=== PATIENT | female | born 1930 | race Caucasian/White ===

== ENCOUNTER 2016-10-14 14:31 | Observation (INO) | payer MEDICARE, OTHER ==
[~2016-10-14] VITALS: Ht 157.5 cm; Wt 51.3 kg
[~2016-10-14 14:31] MED LIST: ASPIRIN EC81 MG PO; AZITHROMYCIN250 MG PO; COLACE100 MG PO; KEFLEX500 MG PO; NORCO 5-325 TA1 EACH PO; OCUVITE TABLET1 EAC1 PO; OMEGA 3 1,0001 EACH PO; OMEPRAZOLE20 MG PO; OXYBUTYNIN CHLO15 MG PO; PERCOCET 5-3251 EACH PO; POTASSIUM CHLO10 MEQ PO; SIMVASTATIN40 MG PO; TRIAMTERENE-HC1 EAC3 PO; VITAMIN D1000 UNIT PO; ZOFRAN ODT4 MG PO
[2016-10-14] MEDS ORDERED: CEFDINIR300 MG PO (15:47)
--- NOTE | 2016-10-14 19:10 | NUR ---
PT ARRIVED TO UNIT BY STRETCHER FROM ER. PT WAS AWAKE AND ALERT, JOKING AND LAUGHING. PT STATED THAT "SHE JUST CAN'T GET HER LEGS TO WORK". HEAVY 1 PERSON-2 PERSON ASSIST TO BSC. PT DENIES PAIN IN ANY LOCATION. NO NAUSEA OR VOMITING. PT VOIDING WELL.
--- NOTE | 2016-10-14 19:15 | NUR ---
SHIFT REPORT RECEIVED FROM YURI BECKER. PT IS CURRENTLY UP AT [facility] WITH COMMODITY MANAGEMENT SPECIALIST, WILL PROVIDE PRIVACY AT THIS TIME AND CONTINUE TO MONITOR.
--- NOTE | 2016-10-14 19:26 | EKG ---
[facility] [address] [facility] [place] [address] Signed Normal sinus rhythm Normal ECG When compared with ECG of 27-JAN-2016 19:16, No significant change was found Confirmed by SANDRA PACHECO MD ([id number]) on 10/14/2016 7:26:23 PM Electronically Signed By: SANDRA PACHECO MD 10/14/16 1926 PATIENT NAME: VICKI CHOI AWA Electrocardiogram DATE OF : 28 PHYSICIAN: SANDRA PACHECO MD REPORT #: [id number] REPORT IS CONFIDENTIAL AND NOT TO BE RELEASED WITHOUT AUTHORIZATION
--- NOTE | 2016-10-14 20:23 | NUR ---
ASSESSMENT COMPLETED. ALERT/ORIENTED. DENIES PAIN. DENIES NAUSEA. LUNGS CLEAR, RA. HR REGULAR. BOWEL TONES ACTIVE. UP WITH 1-PA TO VOID THEN RETURNED TO BED, TOLERATED WELL. PT REPORTS NUMBNESS IN HER RIGHT ARM THAT SHE HAS HAD SINCE RECEIVING AN INJECTION IN HER SHOULDER AWHILE BACK. DENIES NEEDS AT THIS TIME. CALL LIGHT IS WITHIN REACH.
--- NOTE | 2016-10-14 20:30 | NUR ---
PT REQUESTED TYLENOL STATING THAT SHE HAS PAIN AT NIGHT AND THAT THEY "HELP HER SLEEP." PRN TYLENOL PROVIDED FOR COMFORT. PT DENIES FUTHER REQUESTS AT THIS TIME.
--- NOTE | 2016-10-14 22:40 | NUR ---
IN TO GIVE PO POTASSIUM. PT THEN UP TO BSC WITH SBA. VOIDING WNL, URINE CLEAR. PT BACK TO BED, DENIES NEEDS AND STATES SHE IS GOING TO TRY TO SLEEP NOW.
--- NOTE | 2016-10-15 01:19 | NUR ---
PT UP TO BSC WITH SBA, VOIDED AND THEN RETURNED TO BED. DENIES FURTHER REQUESTS.
--- NOTE | 2016-10-15 01:34 | NUR ---
WHILE REVIEWING PT'S ORDERS, NOTICED PT NEEDED TO BE ON TELEMETRY. PLACED ON TELE #10. SINUS KATERINA TO SINUS RHYTHM, HR: 58-62. WILL CONTINUE TO MONITOR.
--- NOTE | 2016-10-15 02:24 | NUR ---
ASSESSMENT COMPLETED. ALERT/ORIENTED. DENIES PAIN. LUNGS CLEAR, RA. HR REGULAR, TELE #9, SINUS RHYTHM, HR: 60. BOWEL TONES ACITVE, HAD BM. VOIDING HOURLY. STRENGTH IN LEGS IMPROVING. IV PATENT, INFUSING WNL. DENIES FURTHER REQUESTS, WILL CONTINUE TO MONITOR.
--- NOTE | 2016-10-15 04:36 | NUR ---
ALERT/ORIENTED. NO PAIN. NO NAUSEA. LUNGS CLEAR, RA. HR REGULAR, TELE #10. BOWEL TONES ACTIVE, BM DURING SHIFT. VOIDING FREQUENTLY, UO QS. IV PATENT, D5LR @ 100ML/HR. RECEIVED 1 GRAM ROCEPHIN FOR UTI. RECEIVED 40MEQ PO K+ FOR POTASSIUM: 3.3. STRENGTH IN LOWER EXTREMITIES IMPROVING, 1-PA TO B[facility].
--- NOTE | 2016-10-15 09:00 | NUR ---
assisted patient with bed bath. refused oral care.
--- NOTE | 2016-10-15 09:02 | NUR ---
PT SITTING UP IN RECLINER. SHE REPORTS SHE HAS NO PAIN. TOLERATED 40% OF BREAKFAST THIS AM. SHE IS NOW SITTING UP IN RECLINER. ALERT AND ORIENTED
[2016-10-15] MEDS ORDERED: NORVASC5 MG PO (10:56)
[2016-10-15] MEDS ORDERED: CEPHALEXIN500 MG PO (10:57)
[2016-10-15] MEDS ORDERED: SIMVASTATIN40 MG PO (11:10)
--- NOTE | 2016-10-15 11:49 | NUR ---
PT SITTING UP EATING LUNCH. SHE REPORTS NO PAIN OR SYMPTOMS OF WEAKNESS SHE DID WELL WORKING WITH PHYSICAL THERAPY. DISCHARGE EDUCATIONS PROVIDED ON ACTIVITY/HYDRATION AND MEDICATIONS LAST DOSE NEXT DOSE. KEN FROM PHARMACY SUE IN ROOM FOR MEDICATION EDCUATIONS INCLUDING SIDE EFFECTS. PT VERBALIZES UNDERSTANDING AND LAST/NEXT DOSE WRITTEN ON DISCHARGE INSTRUCTIONS.PT REPORTS SHE LIKES THIS SHE HAS A HARD TIME REMEBERING. FOLLOW UP APPOINTMENT SCHEDULED.
== END 2016-10-15 12:10 | disposition home or self-care (01) ==
LOC: ED 14:31 → MS 14:32
PROVIDERS: ADMIT Internal Medicine
DX: E86.0 Dehydration (principal); I95.1 Orthostatic hypotension; E87.6 Hypokalemia; N30.00 Acute cystitis without hematuria; R26.2 Difficulty in walking, not elsewhere classified; I10 Essential (primary) hypertension; K21.9 Gastro-esophageal reflux disease without esophagitis; T50.2X5A Adverse effect of carbonic-anhydrase inhibitors, benzothiadiazides and other diuretics, initial encounter; E78.5 Hyperlipidemia, unspecified; R39.15 Urgency of urination; Z79.82 Long term (current) use of aspirin; Z85.810 Personal history of malignant neoplasm of tongue; Z79.899 Other long term (current) drug therapy; Z88.2 Allergy status to sulfonamides; Z88.8 Allergy status to other drugs, medicaments and biological substances
CPT/HCPCS: 36415; 51798; 80048; 80053; 81001; 83735; 84484; 85025; 87077; 87088; 87186; 93005; 93010; 96361; 96365; 96372; 96374; 97161; 99285; G0378; G8978; G8979; G8980; J0696; J1650; J3475; J7120

== ENCOUNTER 2017-08-22 13:12 | Emergency (ER) | payer MEDICARE, OTHER ==
[~2017-08-22] VITALS: Ht 157.5 cm; Wt 51.3 kg
[~2017-08-22 13:12] MED LIST changes: +CEFDINIR300 MG PO; +CEPHALEXIN500 MG PO; +NORVASC5 MG PO
[2017-08-22] MEDS ORDERED: TROSPIUM CHLORI60 MG PO (13:22)
[2017-08-22] MEDS ORDERED: RANITIDINE HCL150 MG PO (13:23)
[2017-08-22] MEDS ORDERED: CIPRO250 MG PO (17:13)
--- NOTE | 2017-08-22 18:28 | EKG ---
[facility] [address] [facility] [place], [place] [address] Signed Normal sinus rhythm Normal ECG When compared with ECG of 14-OCT-2016 14:37, No significant change was found Confirmed by HANNAH FROST MD ([id number]) on 08/22/2017 6:27:58 PM Electronically Signed By: HANNAH FROST MD 08/22/17 1828 PATIENT NAME: TAISHA CHOIWILBER BILLINGS Electrocardiogram DATE OF : 28 PHYSICIAN: HANNAH FROST MD REPORT #: [id number] REPORT IS CONFIDENTIAL AND NOT TO BE RELEASED WITHOUT AUTHORIZATION
== END 2017-08-22 17:20 | disposition home or self-care (01) ==
LOC: ED 13:12
DX: N39.0 Urinary tract infection, site not specified (principal); R11.10 Vomiting, unspecified; K21.9 Gastro-esophageal reflux disease without esophagitis; E78.5 Hyperlipidemia, unspecified; I10 Essential (primary) hypertension; Z88.2 Allergy status to sulfonamides; Z88.8 Allergy status to other drugs, medicaments and biological substances; Z79.899 Other long term (current) drug therapy; Z79.82 Long term (current) use of aspirin
CPT/HCPCS: 74176; 80053; 81001; 83690; 85025; 93005; 93010; 96361; 96374; 96375; 99284; J0696; J2405; J7030

== ENCOUNTER 2018-08-06 17:52 | Emergency (ER) | payer MEDICARE, OTHER ==
[~2018-08-06] VITALS: Ht 157.5 cm; Wt 51.3 kg
[~2018-08-06 17:52] MED LIST changes: +CIPRO250 MG PO; +RANITIDINE HCL150 MG PO; +TROSPIUM CHLORI60 MG PO
[2018-08-06] MEDS ORDERED: MOBIC7.5 MG PO (18:15)
[2018-08-06] MEDS ORDERED: POTASSIUM CHLO10 ME1 PO (18:15)
--- NOTE | 2018-08-06 20:39 | EKG ---
[facility] [address] [facility] [place], [place] [address] Signed Normal sinus rhythm Inferior infarct , age undetermined Abnormal ECG When compared with ECG of 22-AUG-2017 13:17, No significant change was found Confirmed by SANDRA PACHECO MD ([id number]) on 08/06/2018 8:39:06 PM Electronically Signed By: SANDRA PACHECO MD 08/06/18 2039 PATIENT NAME: VICKI CHOI Electrocardiogram DATE OF : 28 PHYSICIAN: SANDRA PACHECO MD REPORT #: [id number] REPORT IS CONFIDENTIAL AND NOT TO BE RELEASED WITHOUT AUTHORIZATION
[2018-08-06] MEDS ORDERED: PROMETHAZINE HC25 M1 PO (22:10)
[2018-08-06] MEDS ORDERED: MECLIZINE HCL25 MG PO (22:10)
== END 2018-08-06 22:24 | disposition home or self-care (01) ==
LOC: ED 17:52
DX: R42 Dizziness and giddiness (principal); K21.9 Gastro-esophageal reflux disease without esophagitis; E78.5 Hyperlipidemia, unspecified; I10 Essential (primary) hypertension; Z90.49 Acquired absence of other specified parts of digestive tract; Z90.710 Acquired absence of both cervix and uterus; Z88.2 Allergy status to sulfonamides; Z88.8 Allergy status to other drugs, medicaments and biological substances; Z79.899 Other long term (current) drug therapy; Z79.82 Long term (current) use of aspirin
CPT/HCPCS: 36415; 70450; 80053; 83735; 84484; 85025; 93005; 93010; 96374; 96375; 96376; 99284-25; J2405; J2550; J7040

== ENCOUNTER 2018-12-29 05:35 | Day surgery (SDC) | payer MEDICARE, OTHER ==
[~2018-12-29] VITALS: Ht 157.5 cm; Wt 49.0 kg
[~2018-12-29 05:35] MED LIST changes: +K-TAB ER20 MEQ PO; +MECLIZINE HCL25 MG PO; +MOBIC7.5 MG PO; +POTASSIUM CHLO10 ME1 PO; +PROMETHAZINE HC25 M1 PO
--- NOTE | 2018-12-29 08:44 | NUR ---
12/29/18 0844 Corinna Campbell 0830 PT ARRIVED IN PACU NON RESPONSIVE TO NOXIOUS STIMULI WITH OPA IN PLACE. 0840 PT RESTING. REU WITH OPA IN PLACE.
--- NOTE | 2018-12-29 10:10 | NUR ---
PATIENT WALKED TO BATHROOM WITH STANDBY ASSIST. GOT A LITTLE DIZZY, RETURNED PATIENT BACK TO BED.
--- NOTE | 2018-12-29 11:35 | NUR ---
PATIENT WALKED TO RESTROOM WITH ASSIST BUT WALKED ON HER OWN, WITHOUT TROUBLE
--- NOTE | 2018-12-30 17:39 | OR ---
[facility] [address] [facility] [place], [place] [address] Signed DATE OF OPERATION: 12/29/2018 SURGEON: Irsi Wheatley MD PREOPERATIVE DIAGNOSES: 1. Right hydronephrosis. 2. Overactive bladder. POSTOPERATIVE DIAGNOSES: 1. Right hydronephrosis. 2. Overactive bladder. 3. Right ureteropelvic junction obstruction. 4. 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 PROCEDURES: 1. Diagnostic cystoscopy with right retrograde pyelogram. 2. Insertion of indwelling right ureteral stent. ANESTHESIA: General LMA. ESTIMATED BLOOD LOSS: None. COMPLICATIONS: None. DRAINS: A 6 x 22 cm double-J ureteral stent inserted into the right collecting system. INDICATION FOR PROCEDURE: Annette is a very pleasant 88-year-old female who is well known to me. She has a history of overactive bladder, currently managed with trospium chloride ER 60 mg daily. The patient also has a history of asymptomatic right hydronephrosis and I have been following via q.6 month's renal ultrasounds. Her most recent ultrasound revealed stable vrdtcmkw-sa-[id number] right hydronephrosis. However, her most recent renal ultrasound also failed to reveal evidence of a right ureteral jet as the previous ultrasounds had done so. I had the patient bring her daughter in and I discussed the risks and benefits of evaluating her hydronephrosis, and placing a ureteral stent to force drainage of her right collecting system. After a thorough discussion of the risks and benefits Electronically Signed By: IRIS WHEATLEY MD 12/30/18 1739 PATIENT NAME: ANNETTE CHOI OPERATIVE REPORT DATE OF : 28 REPORT #: [id number] PHYSICIAN: IRIS WHEATLEY MD PCP: VENITA SALVADOR PA-C REPORT IS CONFIDENTIAL AND NOT TO BE RELEASED WITHOUT AUTHORIZATION [address] [address] Signed including the risks of worsening overactive bladder and gross hematuria, the patient elected to undergo cystoscopy with right retrograde pyelogram and right ureteral stent insertion. OPERATIVE FINDINGS: 1. On cystoscopy, there was no evidence of any suspicious masses, lesions, or stones. Bilateral ureteral orifices are in their normal anatomic location. There is diffuse grade 2 to 3 bladder wall trabeculation noted. 2. Visual inspection of the external genitalia reveals lmzb-yw-huwokyfv vaginal atrophy, along with the presence of a grade 2 to 3 rectocele. 3. Right retrograde pyelogram was performed, which revealed a completely patent right ureter, with no evidence of any filling defects that would suggest kidney stones, masses, or lesions. However, the pyelogram revealed evidence of a moderate ureteropelvic junction obstruction, along with severe right hydronephrosis. 4. A 6 x 22 cm double-J ureteral stent was inserted into the right kidney without difficulty under direct visualization. DESCRIPTION OF PROCEDURE: After informed consent was obtained, the patient was taken back to the operating room. She was transferred from the [facility] to the operating room table where general anesthesia was induced. She was placed in the dorsal lithotomy position and her genitalia prepped and draped in standard sterile fashion. Using a 30-degree lens on a 22.5-Ukrainian introducer, rigid cystoscope was inserted through urethra into her bladder under direct visualization. Panendoscopic views of the bladder were then obtained. Please see above findings. Attention was turned to the right ureteral orifice. A cone-tipped catheter was advanced to the level of the right ureteral orifice and a right retrograde pyelogram was performed. Please see above findings. The cone-tipped catheter was removed and a 0.035 Sensor wire was used to cannulate the right ureter, and the wire was advanced to the level of the right kidney. The proper placement of the wire was confirmed on fluoroscopy. Over the wire, a 6 x 22 double-J ureteral stent was inserted into the right collecting system under direct visualization without difficulty. Once the wire was pulled, an adequate proximal coil was seen within the right renal pelvis along with an adequate distal coil within the bladder. The patient's bladder was then drained and the cystoscope was removed. The procedure was then terminated. The patient tolerated the procedure well without any complication. She will now be transferred to the postanesthesia care unit in stable condition. DISPOSITION: I discussed the details of today's procedure with the patient's daughter and answered all of her questions. I foresee at this point in time that the patient will require q.6 month right ureteral stent exchanges in an effort to force drainage of the right kidney for as long as the patient can tolerate the indwelling stent. I warned to the patient's Electronically Signed By: IRIS WHEATLEY MD 12/30/18 2940 PATIENT NAME: ANNETTE CHOI OPERATIVE REPORT DATE OF : 29 REPORT #: [id number] PHYSICIAN: IRIS WHEATLEY MD PCP: VENITA SALVADOR PA-C REPORT IS CONFIDENTIAL AND NOT TO BE RELEASED WITHOUT AUTHORIZATION [address] [address] Signed daughter today that her overactive bladder symptoms may worsen with the presence of the stent and she also may notice blood in her urine. The patient's daughter is requesting that I add an additional medication to the patient's regimen for her overactive bladder. I therefore have written a prescription for Myrbetriq 25 mg p.o. daily with 6 refills. I told the patient's daughter that if the medication turns out to be the exorbitantly expensive, then she can try 6 weeks worth of samples, which can be obtained in our clinic. Otherwise, the patient will be sent home today with Augmentin 500 mg p.o. b.i.d. for 7 days, along with [place] 5/325, dispense #15 as needed for pain. The patient will return to clinic in 3 months with a urine check. At that time, I will order her a repeat renal ultrasound to evaluate her right kidney with the ureteral stent in place. She will be due for another right ureteral stent exchange in June of 2019. MD JOVANA Teixeira/EVY /[id number] Copies: ~ Electronically Signed By: IRIS WHEATLEY MD 12/30/18 1739 PATIENT NAME: ANNETTE CHOI OPERATIVE REPORT DATE OF : 29 REPORT #: [id number] PHYSICIAN: IRIS WHEATLEY MD PCP: VENITA SALVADOR PA-C REPORT IS CONFIDENTIAL AND NOT TO BE RELEASED WITHOUT AUTHORIZATION
== END 2018-12-29 11:20 | disposition home or self-care (01) ==
LOC: DS 05:35
PROVIDERS: Urology
PROC: 0T768DZ Dilation of Right Ureter with Intraluminal Device, Via Natural or Artificial Opening Endoscopic (ICD-10-PCS; principal; 2018-12-29 06:45)
PROC: BT1DYZZ Fluoroscopy of Right Kidney, Ureter and Bladder using Other Contrast (ICD-10-PCS; 2018-12-29 06:45)
DX: Q62.11 Congenital occlusion of ureteropelvic junction (principal); N32.81 Overactive bladder; N81.6 Rectocele
CPT/HCPCS: 00910; 74450; C1769; C2617; J0696; J1100; J2405; J2704; J3010; J7121; Q9958

== ENCOUNTER 2019-05-02 16:18 | Emergency (ER) | payer MEDICARE, OTHER ==
[~2019-05-02] VITALS: Ht 157.5 cm; Wt 47.2 kg
[2019-05-02] MEDS ORDERED: NORCO 5-325 TA1 EACH PO (18:11)
== END 2019-05-02 18:21 | disposition home or self-care (01) ==
LOC: ED 16:18
DX: M79.674 Pain in right toe(s) (principal); E78.5 Hyperlipidemia, unspecified; K21.9 Gastro-esophageal reflux disease without esophagitis; I10 Essential (primary) hypertension; Z88.2 Allergy status to sulfonamides; Z79.899 Other long term (current) drug therapy
CPT/HCPCS: 73660; 99283-25

== ENCOUNTER 2019-06-10 07:34 | Emergency (ER) | payer MEDICARE, OTHER ==
[~2019-06-10] VITALS: Ht 157.5 cm; Wt 49.9 kg
[2019-06-10] MEDS ORDERED: LATANOPROST2.5 ML OPTH (08:31)
[2019-06-10] MEDS ORDERED: TROSPIUM CHLORI60 MG PO (08:32)
== END 2019-06-10 08:18 | disposition home or self-care (01) ==
LOC: ED 07:34
DX: L30.9 Dermatitis, unspecified (principal); K21.9 Gastro-esophageal reflux disease without esophagitis; E78.5 Hyperlipidemia, unspecified; I10 Essential (primary) hypertension; Z85.810 Personal history of malignant neoplasm of tongue; Z90.89 Acquired absence of other organs; Z90.710 Acquired absence of both cervix and uterus; Z88.2 Allergy status to sulfonamides; Z88.8 Allergy status to other drugs, medicaments and biological substances; Z79.82 Long term (current) use of aspirin; Z79.899 Other long term (current) drug therapy
CPT/HCPCS: 99282

== ENCOUNTER 2019-07-23 18:55 | Emergency (ER) | payer MEDICARE, OTHER ==
[~2019-07-23] VITALS: Ht 157.5 cm; Wt 49.9 kg
--- OUTSIDE RECORDS SUMMARY | ~2019-07-23 | XMS | Encounter Summary ---
Demographics + + + | Address | [address] | | | [place] [address] | + + + | Home Phone [...] Author + + + | Author | [facility] | + + + | Organization | [facility] | + + + | Address | [...] Team Providers + +------+ + | Care Rigger Apprentice Name | Role | Phone | + +------+ + | Ganesh Hudson DO | PCP | | + +------+ + Reason for Visit + + + | Reason | Comments | + + + | Follow-up visit | | + + + PROC - Inpatient Surgery (Routine) +--------+--------+ + + + + | Status | Reason | Specialty | Diagnoses / | Referred By | Referred To | | | | | Procedures | Contact | Contact | +--------+--------+ + + + + | Closed | | Otolaryngolog | Diagnoses | Raul, | Sumner, | | | | y | Malignant | MD Petey | MD King | | | | | neoplasm of | [address] | [address] | | | | | dorsal | [address] | [place] | | | | | surface of | [place], | [address] [place], | | | | | tongue (HCC) | [place] [address] | [place] | | | | | Procedures | Phone: | [phone] | | | | | [place] | [phone] | Phone: | | | | | LARYNGOSCOPY | Fax: | [phone] | | | | | ,DIRECT,DIAG | [phone] | Fax: | | | | | NOSTIC [place] | | [phone] | | | | | LARYNGOSCOPY | | | | | | | ,DIRCT,OP,BI | | | | | | | OPSY UT | | | | | | | ESOPHAGOSCOP | | | | | | | Y,DIAGNOSTIC | | | | | | | UT PART | | | | | | | REMOVAL | | | | | | | TONGUE,<1/2 | | | | | | | UT PART | | | | | | | REMOVAL | | | | | | | TONGUE, 1/2 | | | | | | | UT PART EXC | | | | | | | | | | | | | | TONGUE,UNILA | | | | | | | T RAD NECK | | | | | | | UT | | | | | | | BIOPSY/EXCIS | | | | | | | ION, LYMPH | | | | | | | NODE(S) UT | | | | | | | BX/REMV,LYMP | | | | | | | H NODE,DEEP | | | | | | | CERV UT | | | | | | | REMOVAL | | | | | | | NODES, | | | | | | | NECK,CERV | | | | | | | MOD RAD UT | | | | | | | LO MAP OF | | | | | | | SENT LYMPH | | | | | | | NODE | | | +--------+--------+ + + + + Encounter Details +--------+---------+ + + + | Date | Type | Department | Care Team | Description | +--------+---------+ + + + | 07/10/ | Office | Otolaryngology | King [place]ner, | Tongue cancer (HCC) | | 2012 | Visit | Head and Neck | MD [address] | (Primary Dx) | | | | Surgery Services at | [facility] | | | | | [facility] [address] | [place], [place] | | | | | [address] | [address] | | | | | Physician's | [phone] | | | | | [facility] floor | | | | | | [place], [place] | | | | | | [address] | | | | | | [phone] | | | +--------+---------+ + + + Social History + +-------+ [...] + + + | Blood Pressure | 147/79 | 07/11/2011 2:21 PM | | | | | PDT | | + + + + + | Pulse | 74 | 07/11/2011 2:21 PM | | | | | PDT | | + + + + + | Temperature | - | - | | + + + + + | Respiratory Rate | - | - | | + + + + + | Oxygen Saturation | - | - | | + + + + + | Inhaled Oxygen | - | - | | | Concentration | | | | + + + + + | Weight | 54.8 kg (120 lb 14.4 | 07/11/2011 2:21 PM | | | | oz) | PDT | | + + + + + | Height | - | - | | + + + + + | Body Mass Index | 22.11 | 06/28/2011 10:00 AM | | | | | PDT | | + + + + + documented in this encounter Progress Notes King Sumner MD - 07/12/2011 3:10 PM PDTHead and Neck Surgery Follow-Up Note Annette Eric is seen back after her operation on 06/28/11. 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 Left partial glossectomy. 2. Left neck sentinel lymph node biopsy. She reports still on soft foods, no choking episodes and min odynophagia. Occasionally will sense some pt in the evening, but this is tolerable. Uses OTC pain medication diet- soft weight-stable PE: Incision site: no evidence of seroma, well approximated, no erythema or edema Oral: Tongue healing, adhering to the FOM. Stitches dehisced Neck: moderate edema of the L submandibular region, mildly tender Pathology: SURGICAL PATHOLOGY: SOURCE OF SPECIMEN:A Left neck sentinel lymph nodes SOURCE OF SPECIMEN:B Left tongue cancer FS Final Pathologic Diagnosis: A: Left neck sentinel lymph nodes, dissection: - Ten lymph nodes, negative for malignancy (0/10) B: Left tongue cancer, partial glossectomy: - Invasive squamous cell carcinoma, poorly differentiated, invading tongue with overlying ulceration - Tumor measures 1.4 cm in greatest dimension - Margins free of tumor - No angiolymphatic invasion identified - AJCC Pathologic Staging (7th edition): rpT1 N0 (includes all specimens) Comment: Greatest dimension of the tumor (which consists of cords and sheets of poorly differentiated cells) is estimated from the dorsal to ventral measurement: D-V 3.3 cm divided by 7 slices = approximately 0.47 cm per slice, tumor involved by 3 slices = approximately 1.4 cm in greatest dimension. Case seen by: Alexandria Soni/Student Fellow Vicky Monet M.D./Pathologist :apurva Lip and Oral Cavity Cancer Synopsis Specimen: hemiglossectomy Received: Fresh Procedure: Resection, glossectomy left hemiglossectomy Specimen Size: 3.3 x 2.2 x 1.7cm Specimen Laterality: Left Tumor Site(s): Not specified Tumor Focality: Single focus Tumor Size: Greatest dimension: 1.4cm Gross subtype Histologic Type Squamous cell carcinoma, conventional Histologic Grade: G3 Margins: Negative for invasive carcinoma Angiolymphatic Invasion: Absent Perineural Invasion: Absent Lymph Nodes, Extranodal Extension: Not identified AJCC Stage (7th Edition) (pTNM) TNM Descriptors: r (recurrent) Primary Tumor (pT): pT1 Regional Lymph Nodes (pN): pN0 Number of regional lymph nodes involved: 0 Number of regional lymph nodes examined: 10 Distant Metastasis (pM): Not Applicable Intraoperative Consult (Frozen Section) Diagnosis: Left tongue cancer (specimen B): - Poorly differentiated carcinoma - Anterior, posterior and medial margins, free of tumor as sampled Intraoperative consult diagnosis confirmed by: Hunter Mayer/Student Fellow and Vicky Monet M.D./Pathologist Clinical History: The patient is an 80-year-old female with tongue cancer. Gross Description: Received are 2 specimens fresh in containers labeled with the patient name (initials LS) and: A: Left neck sentinel lymph node: Measurement: 3 x 3 x 1.2 cm Tissue color, texture: Yellow-red and lobulated Number of possible lymph nodes: 11 Color of lymph nodes: [id number]-fi-bzm Size of lymph nodes: Ranging in size from 0.5 x 0.3 x 0.3 cm to 2.3 x 0.9 x 0.6 cm Other structures: None All lymphoid tissue is entirely submitted. B: Left tongue cancer: Received is a 3.3 (DV) x 2.2 (AP) x 1.7 (ML) cm oriented excision of tongue. Orienting sutures indicate the short single is anterior, short double is posterior, long single is dorsal, and long double is ventral. The specimen is inked according to the color scheme: Anterior is blue, posterior is green, ventral is orange, dorsal yellow, and medial is black. The mucosa contains a 0.8 x 0.6 x 0.6 cm central, pink ulceration. The entire specimen is serially sectioned from the ventral to dorsal end. The lesion appears grossly 0.1 cm from the anterior margin, 0.1 cm from the posterior margin, 1 cm from the ventral margin, and 0.8 cm from the dorsal margin. The section with the nearest margin is taken for frozen section diagnosis. Cassette Index: A: Left neck sentinel lymph node: A1, one possible lymph node, bisected, one intact possible lymph node A2, four possible lymph nodes A3, five possible lymph nodes B: Left tongue cancer: B1, frozen section residue B2, perpendicular sections of entire ventral margin B3-6, sequentially submitted sections from ventral to dorsal margins B7, perpendicular sections of entire dorsal margin AMJ/sg My electronic signature indicates that I have personally reviewed all diagnostic slides, the gross and/or microscopic portion of this report and formulated the final diagnosis. Rendering Diagnostician: Vicky Monet M.D Impresssion: hx of SCC of the L side of the lateral tongue, s/p L hemiglossectomy and L nec k sentinel node bx Plan: Pathology results were reviewed. No further treatment advised Cont mouth wash Reviewed incision care RTO 1 month documented in this en counter Plan of Treatment Not on filedocumented as of this encounter Visit Diagnoses + + | Diagnosis | + + | Tongue cancer (HCC) - Primary Malignant neoplasm of tongue, unspecified site | + + documented in this encounter"
--- OUTSIDE RECORDS SUMMARY | ~2019-07-23 | XMS | Encounter Summary ---
Demographics + + + | Address | [address] | | | [place] [address] | + + + | Home Phone | | + + + | Preferred Language | Unknown | + + + | Marital Status | Single | + + + | Confucianism Affiliation | CHR | + + + | Race | White | + + + | Ethnic Group | Not or | + + + Author + + + | Author | [facility] | + + + | Organization | [facility] | + + + | Address [...] Team Providers + +------+ + | Care Manager Grant Name | Role | Phone | + +------+ + | Ganesh Hudson DO | PCP | | + +------+ + Reason for Visit + + + | Reason | Comments | + + + | Follow-up visit | | + + + Consultation (Routine) +--------+--------+ + + + + | Status | Reason | Specialty | Diagnoses / | Referred By | Referred To | | | | | Procedures | Contact | Contact | +--------+--------+ + + + + | Closed | | Otolaryngolog | Diagnoses | Non-[facility] | Burak, | | | | y | Malignant | Epic Dept | MD King | | | | | neoplasm of | | [address] | | | | | tongue, | | [facility] | | | | | unspecified | | [address] [place], | | | | | site | | [place] | | | | | | | [address] | | | | | | | Phone: | | | | | | | [phone] | | | | | | | Fax: | | | | | | | [phone] | +--------+--------+ + + + + Encounter Details +--------+---------+ + + + | Date | Type | Department | Care Team | Description | +--------+---------+ + + + | 06/05/ | Office | Otolaryngology | King Sumner, | Tongue cancer (HCC) | | 2011 | Visit | Head and Neck | [address] | (Primary Dx) | | | | Surgery Services at | [facility] | | | | | [address] | [facility] [place] | | | | | [address] | [address] | | | | | Physician's | [phone] | | | | | Pavilion, 2nd floor | | | | | | [facility] [place] | | | | | | [address] | | | | | | [phone] | | | +--------+---------+ + + + Social History + +-------+ +--------+------+ | Tobacco Use | Types | Packs/Day | Years | Date | | | | | Used | | + +-------+ +--------+------+ | Never Smoker | | | | | + +-------+ +--------+------+ + + +---------+ + | Alcohol Use | Drinks/Week | oz/Week | Comments | + + +---------+ + | No | | | | + + +---------+ + + + [...] + + + | Blood Pressure | 184/80 | 06/06/2011 1:40 PM | | | | | PDT | | + + + + + | Pulse | 80 | 06/06/2011 1:40 PM | | | | | PDT [...] + + + + | Weight | 57.5 kg (126 lb 12.8 | 06/06/2011 1:40 PM | | | | oz) | PDT | | + + + + + | Height | - | - | | + + + + + | Body Mass Index | - | - | | + + + + + documented in this encounter Progress Notes King Sumner MD - 06/14/2011 1:29 PM PDTFormatting of this note might be different fro m the original. Ms. Eric returns for a f/u visit. She is doing OK but notes that she continues to have a lesion on the left side of her tongu e that is quite tender. Patient Active Problem List Diagnoses Date Noted Hypertension 05/13/2009 Hypercholesteremia 05/13/2009 Tongue Cancer 05/01/2006 Past Medical History Diagnosis Date Cancer of tongue Hypertension 05/13/2009 Hypercholesteremia 05/13/2009 Past Surgical History Procedure Date Partial glossectomy 04/05 Replacement shoulder total 04/11/2010 Allergies Allergen Reactions Sulfa (Sulfonamide Antibiotics) Nausea Current Outpatient Prescriptions on File Prior to Visit Medication Sig Dispense Refill BETA-CAROTENE,A, W-C & E/MIN (OCUVITE OR) Take by mouth. simvastatin 40 mg Oral Tablet Take 40 mg by mouth once daily in the evening. tolterodine ER (DETROL LA) 4 mg Oral Capsule, Sust. Release 24 hr 1d triamterene-hydrochlorothiazide 37.5-25 mg Oral Capsule 1D History Substance Use Topics Smoking status: Never Smoker Smokeless tobacco: Not on file Alcohol Use: No Physical Examination: healthy appearing female Voice: Normal BP 184/80 | Pulse 80 | Wt 57.516 kg (126 lb 12.8 oz) Face: Normal facial contour and facial nerve function. No suspicious skin lesions noted on scalp, face or neck. Eyes: Normal extraocular motions bilaterally. Pupils equal bilaterally. Vision grossly inta ct. Ears: Normal pinnae, external canals and tympanic membranes bilaterally, Hearing grossly in tact Nose: External nose - Normal Nasal cavity - No masses, purulence, polyps Oral cavity: Dentition - Edentulous Tongue mobility - normal Palate mobility - normal Mucosa - No mucosal lesions noted on hard palate, upper or lower alveolous, buccal mucosa, floor of mouth, lips or tongue. Except that there is a 8 mm shallow ulcer on the left side o f the tongue. Oropharynx: Tonsils - Normal Base of tongue - Mirror exam and Normal Mucosa - No mucosal lesions seen Larynx: Supraglottis - Mirror exam and Normal Glottis - Mirror exam and Normal Pharynx: Mirror exam and Normal Parotid glands: No masses palpable on either side. Neck: No adenopathy on either side. No thyromegaly palpable Procedure: Biopsy of tongue Consent obtained and pause held with patient. Anesthesia: 1% lidocaine with epi Biopsy taken & sent to path. Will call her back with results when they are available. King Sumner MD Professor of Otolaryngology, Head & Neck Surgery documented in this en counter Plan of Treatment Not on filedocumented as of this encounter Procedures + +--------+ + + + | Procedure Name | Priori | Date/Time | Associated Diagnosis | Comments | | | ty | | | | + +--------+ + + + | MI BIOPSY | Routin | 06/14/2011 | Tongue cancer | | | TONGUE,ANTER 2/3 | e | 1:31 PM | (HCC) | | | | | PDT | | | + +--------+ + + + documented in this encounter Visit Diagnoses + + | Diagnosis | + + | Tongue cancer (HCC) - Primary Malignant neoplasm of tongue, unspecified site | + + documented in this encounter"
--- OUTSIDE RECORDS SUMMARY | ~2019-07-23 | XMS | Clinical Summary ---
Demographics + + + | Address | [address] | | | [place] [address] | + + + | Home Phone | | + + + | Preferred Language | Unknown | + + + | Marital Status | | + + + | Roman Catholic Affiliation | 1077 | + + + | Race | Unknown | + + + | Ethnic Group | Unknown | + + + Author + + + | Author | [facility] | | | and [place] | + + + | Organization | [facility] | | | and [place] | + + + | Address | Unknown | + + + | Phone | Unavailable | + + + Support + + + + + | Name | Relationship | Address | Phone | + + + + + | Vicki Veronica | LEON | ANIKET | | | | | [place], | | + + + + + Care Team Providers + +------+ + | Care Oil Burner Installer Name | Role | Phone | + +------+ + | Ganesh Hudson DO | PCP | | + +------+ + Allergies No Known Allergies Medications + + + +---------+------+------+-------+ | Medication | Sig | Dispensed | Refills | Star | End | Statu | | | | | | t | Date | s | | | | | | Date | | | + + + +---------+------+------+-------+ | omeprazole | Take 20 mg by mouth | | 0 | | | Activ | | (PRILOSEC) 20 mg | every morning | | | | | e | | capsule | (before breakfast). | | | | | | | | | | | | | | + + + +---------+------+------+-------+ | oxybutynin | Take 15 mg by mouth | | 0 | | | Activ | | (DITROPAN XL) 15 MG | Daily. | | | | | e | | 24 hr tablet | | | | | | | + + + +---------+------+------+-------+ | | Take 40 mg by mouth. | | 0 | | | Activ | | Phenyleph-Chlorphen- | | | | | | e | | Hydrocod (TRIANT-HC | | | | | | | | PO) | | | | | | | + + + +---------+------+------+-------+ | simvastatin | Take 40 mg by mouth | | 0 | | | Activ | | (ZOCOR) 40 mg tablet | nightly. | | | | | e | + + + +---------+------+------+-------+ | aspirin 81 mg EC | Take 81 mg by mouth | | 0 | | | Activ | | tablet | Daily. | | | | | e | + + + +---------+------+------+-------+ | Multiple | Take by mouth. | | 0 | | | Activ | | Vitamins-Minerals | | | | | | e | | (OCUVITE PO) | | | | | | | + + + +---------+------+------+-------+ | cholecalciferol | Take 1,000 Units by | | 0 | | | Activ | | (VITAMIN D-3) 1,000 | mouth Daily. | | | | | e | | units tablet | | | | | | | + + + +---------+------+------+-------+ Active Problems + + + | Problem | Noted Date | + + + | Cervical stenosis of spine | 03/25/2012 | + + + | Degenerative disc disease, cervical | 03/25/2012 | + + + | Spondylolisthesis of cervical region | 03/25/2012 | + + + | High blood pressure | | + + + | High cholesterol | | + + + | Osteopenia | | + + + | Osteoporosis | | + + + Family History + + +------+ + | Medical History | Relation | Name | Comments | + + +------+ + | Arthritis | Father | | | + + +------+ + | Arthritis | Mother | | | + + +------+ + | Cancer | Mother | | | + + +------+ + | Cancer | Sister | | | + + +------+ + + +------+ + + | Relation | Name | Status | Comments | + +------+ + + | Father | | | old age | | | | (Age | | | | | 78) | | + +------+ + + | Mother | | | Cancer | + +------+ + + | Sister | | | | | | | (Age | | | | | Cancer) | | + +------+ + + Social History + +-------+ +--------+------+ [...] +---------+ + | Yes | | | Moderately | + + +---------+ + + + [...] recent travel history available. | + + Last Filed Vital Signs + + + + + | Vital Sign | Reading | Time Taken | Comments | + + + + + | Blood Pressure | 131/72 | 03/25/2012 11:28 AM | | | | | PST | | + + + + + | Pulse | 70 | 03/25/2012 11:28 AM | | | | | PST | | + + + + + | Temperature | - | - | | + + + + + | Respiratory Rate | 16 | 03/25/2012 11:28 AM | | | | | PST | | + + + + + | Oxygen Saturation | - | - | | + + + + + | Inhaled Oxygen | - | - | | | Concentration | | | | + + + + + | Weight | 55.3 kg (122 lb) | 03/25/2012 11:28 AM | | | | | PST | | + + + + + | Height | 157.5 cm (5' 2") | 03/25/2012 11:28 AM | | | | | PST | | + + + + + | Body Mass Index | 22.31 | 03/25/2012 11:28 AM | | | | | PST | | + + + + + Plan of Treatment + + + + + | Health Maintenance | Due Date | Last Done | Comments | + + + + + | Vaccine: | | | | | Dtap/Tdap/Td (1 - | 1 | | | | Tdap) | | | | + + + + + | Vaccine: Zoster (1 | | | | | of 2) | 0 | | | + + + + + | Vaccine: | | | | | Pneumococcal 65+ (1 | 5 | | | | of 2 - PCV13) | | | | + + + + + | Primary Care | | 03/25/2012, 01/22/2012 | | | Outreach (Moderate | 4 | | | | Risk) | | | | + + + + + | Vaccine: Influenza | | 12/27/2017, 12/11/2016, | | | (Season Ended) | 0 | 02/20/2016, Additional history | | | | | exists | | + + + + + Results Not on filefrom Last 3 Months Insurance + +--------+ +--------+ +---------+--------+ | Payer | Benefi | Subscriber | Effect | Phone | Address | Type | | | t Plan | ID | trey | | | | | | / | | Dates | | | | | | Group | | | | | | + +--------+ +--------+ +---------+--------+ | [employer] | PRE[place]E | [id number] | 01/15/ | [phone] | | Medica | | | R CARE | | 2012-P | 8 | | re | | | PLUS | | resent | | | | | | [place] | | | | | | | | [place] [address] | | | | | | + +--------+ +--------+ +---------+--------+ + +--------+ +--------+ + + | Guarantor Name | Accoun | Relation to | Date | Phone | Billing Address | | | t Type | Patient | of | | | | | | | | | | + +--------+ +--------+ + + | Annette Eric | Person | Self [birth year] | [address] | | | al/Fam | | 1931 | [phone] | [place] | | | [place] | | | [address] (Home) | [phone] | + +--------+ +--------+ + + Advance Directives + + + + + | Type | Date Recorded | Patient | Explanation | | | | Campus Security Director | | + + + + + | Power of | | | | | Residential Sales Associate | | | | + + + + + | Advance | | | | | Directive | | | | + + + + +
--- OUTSIDE RECORDS SUMMARY | ~2019-07-23 | XMS | Encounter Summary ---
Demographics + + + | Address | [address] | | | [place] [address] | + + + | Home Phone | | + + + | Preferred Language | Unknown | + + + | Marital Status | Single | + + + | Gnosticist Affiliation | CHR | + + + | Race | White | + + + | Ethnic Group | Not or | + + + Author + + + | Author | [facility] | + + + | Organization | [facility] | + + + | [...] Team Providers + +------+ + | Care Software Test And Validation Engineer Name | Role | Phone | + +------+ + | Ganesh Hudson DO | PCP | | + +------+ + Reason for Visit + + + | Reason | Comments | + + + | Pre-Admission | | + + + Encounter Details +--------+ + + + + | Date | Type | Department | Care Team | Description | +--------+ + + + + | 08/21/ | PreAdmit | [facility] | Mao Ayon MD | Pre-Admission | | 2018 | Orders | [place] | [address] | | | | | Oculoplastics at | [address] [place], [place] | | | | | [address] | [address] | | | | | [address] | [phone] | | | | | [facility] [place] | | | | | | [facility] floor | | | | | | [place] [address] | | | | | | [phone] | | | +--------+ + + + [...] + | Diagnosis | + + | 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
--- OUTSIDE RECORDS SUMMARY | ~2019-07-23 | XMS | Encounter Summary ---
Demographics + + + | Address | [address] | | | [place] [address] | + + + | Home Phone | | + + + | Preferred Language | Unknown | + + + | Marital Status | Single | + + + | Mormon Affiliation | CHR | + + + | Race | White | + + + | Ethnic Group | Not or | + + + Author + + + | Author | [facility] | + + + | Organization | [facility] | + + + | Address [...] Providers + +------+ + | Care Manager Front Name | Role | Phone | + +------+ + | Ganesh Hudson DO | PCP | | + +------+ + Reason for Visit + + + | Reason | Comments | + + + | Pre-Admission | | + + + AUTH/CERT (Routine) +--------+--------+ + + + + | Status | Reason | Specialty | Diagnoses / | Referred By | Referred To | | | | | Procedures | Contact | Contact | +--------+--------+ + + + + | Closed | | | | | | +--------+--------+ + + + + Encounter Details +--------+---------+ + + + | Date | Type | Department | Care Team | Description | +--------+---------+ + + + | 06/26/ | Office | Otolaryngology | [facility] | Tongue cancer (HCC) | | 2011 | Visit | Head and Neck | M, ANP | (Primary Dx) | | | | Surgery Services at | | | | | | [address] | | | | | | [address] | | | | | | Physician's | | | | | | Pavilion, 2nd floor | | | | | | [place], [place] | | | | | | [address] | | | | | | [phone] | | | +--------+---------+ + + + [...] this encounter Last Filed Vital Signs + +---------+ + + | Vital Sign | Reading | Time Taken | Comments | + +---------+ + + | Blood Pressure | 164/81 | 06/27/2011 1:12 PM | | | | | PDT | | + +---------+ + + | Pulse | 69 | 06/27/2011 1:12 PM | | | | | PDT | | + +---------+ + + | Temperature | - | - | | + +---------+ + + | Respiratory Rate | - | - | | + +---------+ + + | Oxygen Saturation | - | - | | + +---------+ + + | Inhaled Oxygen | - | - | | | Concentration | | | | + +---------+ + + | Weight | - | - | | + +---------+ + + | Height | - | - | | + +---------+ + + | Body Mass Index | - | - | | + +---------+ + + documented in this encounter Progress Notes Usha Russell - 06/27/2011 2:37 PM PDTFormatting of this note might be different fro m the original. Annette Eric 80 yo returns for a preoperative visit. Hx of SCC of the L lateral tongue. She is scheduled to undergo a laryngoscopy, esophagoscopy, L hemiglossectomy, L neck dissection and sentinel node bx on 06/28/11. Past Medical History Diagnosis Date Cancer of tongue Hypertension 05/13/2009 Hypercholesteremia 05/13/2009 Past Surgical History Procedure Date Partial glossectomy 04/05 Replacement shoulder total 04/11/2010 Hysterectomy 1978 Appendectomy 1960 Colonoscopy 2009 Allergies Allergen Reactions Sulfa (Sulfonamide Antibiotics) Nausea Current outpatient prescriptions:Aspirin 81 mg Oral Tablet, Take 81 mg by mouth once daily. Indications: Myocardial Reinfarction Prevention, Disp: , Rfl: BETA-CAROTENE,A, W-C & E/MIN (OCUVITE OR), Take by mouth., Disp: , Rfl: ERGOCALCIFEROL, VITAMIN D2, (VITAMIN D ORAL), Take by mouth. , Disp: , Rfl: omeprazole 20 mg Oral Capsule, Delayed Release(E.C.), Take 20 mg by mouth once daily. , Di sp: , Rfl: oxybutynin CR 15 mg Oral Tablet Extended Rel 24 hr, Take 15 mg by mouth once daily. , Disp : , Rfl: simvastatin 40 mg Oral Tablet, Take 40 mg by mouth once daily in the evening., Disp: , Rfl: tolterodine ER (DETROL LA) 4 mg Oral Capsule, Sust. Release 24 hr, 1d, Disp: , Rfl: triamterene-hydrochlorothiazide 37.5-25 mg Oral Capsule, 1D, Disp: , Rfl: History Social History Marital Status: Spouse Name: N/A Number of Children: N/A Years of Education: N/A Occupational History Not on file. Social History Main Topics Smoking status: Never Smoker Smokeless tobacco: Never Used Alcohol Use: No Drug Use: No Sexually Active: Not on file Other Topics Concern Not on file Social History Narrative No narrative on file Her ECOG performance status is: 0 Review of systems: See patient's filled out questionaire. Except as noted she denies and complaints referable to the cardiac, hepatic, pulmonary, neurologic, musculoskeletal, renal or digestive systems except as noted above. Physical examination: no distress appearing female Vitals 06/27/2011 Systolic 164 Diastolic 81 Pulse 69 HEENT: wnl, except for L lateral tongue lesion NECK: wnl Neurological: CII-CXII intact Cardio: RRR Lungs: CTA Impression: Hx of SCC of the L lateral tongue. Here today for pre-op Plan: A full PARQ conference was held regarding the proposed procedure. The procedure and all al ternatives were discussed, including observation alone. The risks of surgery were outlined and all questions were answered. The patient would like to proceed with surgery. Surgical c onsent was signed. documented in this en counter Plan of Treatment Not on filedocumented as of this encounter Visit Diagnoses + + | Diagnosis | + + | Tongue cancer (HCC) - Primary Malignant neoplasm of tongue, unspecified site | + + documented in this encounter"
--- OUTSIDE RECORDS SUMMARY | ~2019-07-23 | XMS | Encounter Summary ---
Demographics + + + | Address | [address] | | | [place] [address] | + + + | Home Phone [...] Author + + + | Author | [facility] | + + + | Organization | [facility] | + + + | Address | Unknown | + + + | Phone | Unavailable | + + + Support + + +---------+ + | Name | Relationship | Address | Phone | + + +---------+ + | Vicki Veroniac | ECON | Unknown | | + + +---------+ + | Gabino Solis | ECON | Unknown | | + + +---------+ + Care Team Providers + +------+ + | Care Testing And Regulating Technician Name | Role | Phone | + +------+ + PCP | Unavailable | + +------+ + Encounter Details +--------+ + + + + | Date | Type | Department | Care Team | Description | +--------+ + + + + | 07/09/ | Office | [facility] | Note, Outpatient | Progress Note | | 2001 | Visit-Trans | MEDICINE | Clinic | | | | cribed | | | | +--------+ + + + [...] + + documented as of this encounter Progress Notes Nessa, Surgical Endoscopist In - 11/05/2005 1:13 AM PDTCLINIC DATE: 07/09/2001 OTOLARYNGOLOGY CLINIC HISTORY OF PRESENT ILLNESS: Ms. Eric returns for a 2-month followup visit. She is doing well and has no complaints. PHYSICAL EXAMINATION: GENERAL: She looks well. VITAL SIGNS: Weight is 142 pounds. NECK: Without any adenopathy. HEENT: Intraorally, her partial glossectomy defect has healed completely. There is no evidence of any recurrence of the tongue carcinoma either on inspection or palpation. Examination of the oropharynx is unremarkable. Examination of the oropharynx, hypopharynx, and larynx is easily accomplished using a direct mirror, and there is no evidence of any disease here. IMPRESSION: Doing well now 2-1/2 months out from excision of a tongue carcinoma. She is going to return for a followup visit here in about 3 months. King Sumner M.D. [facility] [place] [id number] / [id number] / [id number] / cc: Tonio Morrison M.D. [address] [facility] [place] [id number] signed by Nessa, Surgical Endoscopist In at 11/05/2005 1:1 3 AM PDTdocumented in this encounter Plan of Treatment Not on filedocumented as of this encounter Visit Diagnoses Not on filedocumented in this encounter"
--- OUTSIDE RECORDS SUMMARY | ~2019-07-23 | XMS | Encounter Summary ---
Demographics + + + | Address | [address] | | | [place] [address] | + + + | Home Phone | | + + + | Preferred Language | Unknown | + + + | Marital Status | Single | + + + | Zoroastrianism Affiliation | CHR | + + + | Race | White | + + + | Ethnic Group | Not or | + + + Author + + + | Author | [facility] | + + + | Organization | [facility] | + + + | [...] Team Providers + +------+ + | Care Tax Compliance Officer Name | Role | Phone | + +------+ + | Joycelyn Aguilar PA-C | PCP | | + +------+ + Encounter Details +--------+ + + + + | Date | Type | Department | Care Team | Description | +--------+ + + + + | 10/29/ | Pharmacy | [facility] | | | | 2017 | Visit | [address] | | | | | | [place] [address] | | | | | | [phone] | | | +--------+ + + + [...]
--- OUTSIDE RECORDS SUMMARY | ~2019-07-23 | XMS | Encounter Summary ---
Demographics + + + | Address | [address] | | | [place] [address] | + + + | Home Phone | | + + + | Preferred Language | Unknown | + + + | Marital Status | Single | + + + | Anabaptist Affiliation | CHR | + + + | Race | White | + + + | Ethnic Group | Not or | + + + Author + + + | Author | [facility] | + + + | Organization | [facility] | + + + | [...] Team Providers + +------+ + | Care Assistant Merchandiser Name | Role | Phone | + +------+ + | Ganesh Hudson DO | PCP | | + +------+ + Reason for Visit AUTH/CERT (Routine) +--------+--------+ + + + + [...] Description | +--------+---------+ + + + | 06/27/ | Surgery | 6A Intra Op [id number] | King Sumner, | LEFT HEMIGLOSSECTOMY | | 2011 | | AYESHA Taylor | [address] | Pathology x2 sent | | | | Rd [facility] | [facility] | to lab | | | | Hospital Admitting | [place], [place] | | | | | Desk Located on the | [phone] | | | | | 9th floor | [phone] | | | | | [place], [place] | | | | | | [address] | | | +--------+---------+ + + + [...] + + + | Blood Pressure | 142/86 | 06/30/2011 6:04 AM | | | | | PDT | | + + + + + | Pulse | 74 | 06/30/2011 6:04 AM | | | | | PDT | | + + + + + | Temperature | 36.9 C (98.4 F) | 06/30/2011 6:04 AM | | | | | PDT | | + + + + + | Respiratory Rate | 16 | 06/30/2011 6:04 AM | | | | | PDT | | + + + + + | Oxygen Saturation | 95% | 06/30/2011 6:04 AM | | | | | PDT | | + + + + + | Inhaled Oxygen | - | - | | | Concentration | | | | + + + + + | Weight | 58.2 kg (128 lb 4.9 | 06/30/2011 3:37 AM | | | | oz) | PDT | | + + + + + | Height | 157.5 cm (5' 2") | 06/28/2011 10:00 AM | | | | | PDT | | + + + + + | Body Mass Index | 23.47 | 06/28/2011 10:00 AM | | | | | PDT | | + + + + + documented in this encounter Discharge Summaries Ted Ceja MD - 06/29/2011 8:05 AM PDTFormatting of this note might be differen t from the original. INPATIENT PHYSICIAN DISCHARGE SUMMARY Author: Ted Ceja MD Attending Physician: King Sumner MD PCP: Ganesh Hudson DO Admission Date: 06/28/2011 Discharge Date: 06/29/2011 Diagnoses Principal Final Diagnosis: 1. 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 Wedge excision of left lateral tongue, primary closure 2. Left neck sentinel lymph node biopsy Brief Hospital Course 1. Vicki Eric underwent the above procedure without complications. The patient was admit michelle overnight for observation. The following day, the patient was discharged after proving to have adequate pain control and oral intake. Drain was removed prior to discharge. Medications: Current Discharge Medication List START taking these medications Details chlorhexidine 0.12 % Mucous Membrane Mouthwash Take 15 mL by mouth two times daily. Qty: 480 Each, Refills: 2 HYDROcodone-acetaminophen 5-325 mg Oral Tablet Take 1-2 Tabs by mouth every four hours as n eeded. Not to exceed 10 tablets per any 24 hour period. (Not to exceed 3250 mg of acetaminop hen from all products per 24 hour period.) Qty: 40 Tab, Refills: 0 senna-docusate 8.6-50 mg Oral Tablet Take 1 Tab by mouth two times daily. Qty: 30 Tab, Refills: 2 CONTINUE these medications which have NOT CHANGED Details Aspirin 81 mg Oral Tablet Take 81 mg by mouth once daily. Indications: Myocardial Reinfa rction Prevention BETA-CAROTENE,A, W-C & E/MIN (OCUVITE OR) Take by mouth. ERGOCALCIFEROL, VITAMIN D2, (VITAMIN D ORAL) Take by mouth. omeprazole 20 mg Oral Capsule, Delayed Release(E.C.) Take 20 mg by mouth once daily. oxybutynin CR 15 mg Oral Tablet Extended Rel 24 hr Take 15 mg by mouth once daily. simvastatin 40 mg Oral Tablet Take 40 mg by mouth once daily in the evening. tolterodine ER (DETROL LA) 4 mg Oral Capsule, Sust. Release 24 hr 1d triamterene-hydrochlorothiazide 37.5-25 mg Oral Capsule 1D Diet Regular Regular diet- There are no restrictions to your diet. You may eat or drink whatever you pr efer, though healthy food choices are recommended. Activity Activity: No heavy lifting or driving for 3-4 days. No driving for 3 days or if you are taking narcotics for pain. Other Discharge Orders and Instructions Follow up with King Sumner MD in two weeks. YOU MUST CALL TO MAKE AN APPOINTMENT. For an appointment in Otolaryngology (Head & Neck Surgery), please call: [phone]. For Extreme Emergencies: Call [phone] Special Instructions: No drinking alcohol while on narcotics No driving or operating heavy machinery while on pain medications WOUND CARE: You can start showering now after surgery by letting soap and water run over the wounds. NO rubbing, soaking (including baths), or swimming for at least 4-6 weeks. It is okay to keep the incisions moist with bacitracin, Neosporin, or plain Vaseline until they heal and the stitches or adam are removed. If the area is exposed to the sun, remember to apply Sunblock for at least the first 6 goyo hs after surgery. PAIN: Keeping pain under control will help you get better faster; remember, it is harder to relie ve pain once it starts. You may take the pain medication you were prescribed regularly for the first 24 hours. STOP taking the pain medication if: Your pain lessens and you don't feel you need it You have nausea, headache, severe constipation, or other intolerable side effects. Take the prescription pain medication ONLY as you feel necessary. You may switch to acetami nophen (Tylenol) immediately after surgery, and you may also begin taking ibuprofen 3 days f ollowing surgery. Taking prescription pain medication may cause constipation; drink fluids, increase fruits a nd vegetables, and walk. You may also take an [id number] stool softener (Docusate or C olace). Follow the directions on the label. Miralax is also helpful to relieve constipation. Call the Resident on-call at [phone] if you have any of the following urgent issues: Difficulty breathing or unusual shortness of breath Excessive bleeding Increased drainage from your wounds Fever greater than 101.5 degrees, chills, increased pain that is not relieved by pain medic ations Persistent nausea or vomiting Unexpected difficulty with speech or swallowing For all other questions, non-urgent issues, or prescription refills, between 8:00am to 4:00 pm, call the Otolaryngology clinic at [phone]. Somebody will try to answer your call fox domenic the end of the business day. Destination: Destination: Home Condition on Discharge Good Vitals on discharge: Ht 157.5 cm (5' 2")( < 3 %ile), Wt 58.2 kg (128 lbs 4.9 oz)( < 3 %ile) , BP 137/93, Pulse 81, Temperature 37.2 C (98.9 F), RR 16, SpO2 95%, BMI 23.47 kg/(m^2). Outstanding labs/studies: None Discharging Physician: Ted Ceja MD Attending Physician: King Sumner MD documented in this en counter Discharge Instructions Instructions Gricelda Nobles RN - 06/30/2011Patient Education Materials: See MD instruction s. Additional Instructions: Please watch the amount of tylenol you take, it can lead to proble ms with your liver if you take too much. You can take 7 more of the NORCO for the day. You c an have a total of 3250 mg of tylenol in one day. Date: 06/30/2011 Discharge Time: 11:12 AM documented in this encounter Medications at Time of Discharge + + + +---------+--------+ + | Medication | Sig | Dispensed | Refills | Start | End Date | | | | | | Date | | + + + +---------+--------+ + | Aspirin 81 mg Oral | [...] | | | | + + + +---------+--------+ + | BETA-CAROTENE,A, | Take by mouth. | | 0 | | | | W-C & E/MIN (OCUVITE | | | | | | | OR) | | | | | | + + + +---------+--------+ + | ERGOCALCIFEROL, | Take by mouth. | | 0 | | | | VITAMIN D2, (VITAMIN | | | | | | | D ORAL) | | | | | | + + + +---------+--------+ + | omeprazole 20 mg | Take 20 mg by mouth | | 0 | | | | Oral Capsule, | once daily. | | | | | | Delayed | | | | | | | Release(E.C.) | | | | | | + + + +---------+--------+ + | oxybutynin CR 15 | Take 15 mg by mouth | | 0 | | | | mg Oral Tablet | once daily. | | | | | | Extended Rel 24 hr | | | | | | + + + +---------+--------+ + | simvastatin 40 mg | Take 40 mg by mouth | | 0 | | | | Oral Tablet | once daily in the | | | | | | | evening. | | | | | + + + +---------+--------+ + | | 1D | | 0 | | | | triamterene-hydrochl | | | | | | | orothiazide 37.5-25 | | | | | | | mg Oral Capsule | | | | | | + + + +---------+--------+ + documented as of this encounter Progress Raquel Hopson MD - 06/30/2011 7:23 AM PDTFormatting of this note might be [place] t from the original. INPATIENT PROGRESS NOTE Author; RAQUEL CEDENO MD Attending Physician: King Sumner MD Interval Hx: c/o pain in tongue/ear; did not take pain meds last evening or overnight PURVI 20mL serosanguinous Physical Exam: Last Vitals: BP 142/86 | Pulse 74 | Temp 36.9 C (98.4 F) | RR 16 | Ht 157.5 cm (5' 2") | Wt 58.2 kg (128 lb 4.9 oz) | SpO2 95% | BMI 23.47 kg/(m^2) 24 Hour Vital Min/Max: Systolic (24hrs), Av mmHg, Min:117 mmHg, Max:142 mmHg Diastolic (24hrs), Av mmHg, Min:72 mmHg, Max:88 mmHg Pulse Av Min: 74 Max: 86 Temp Av.1 C (98.7 F) Min: 36.9 C (98.4 F) Max: 37.3 C (99.1 F) Resp Av Min: 16 Max: 16 SpO2 Av.8 % Min: 95 % Max: 98 % Intake/Output Summary (Last 24 hours) at 06/30/11 0723 Last data filed at 06/30/11 0600 Gross per 24 hour Intake 1130 ml Output 1600 ml Net -470 ml Labs: Lab Results Lab Test Name Results Date/Time NA 141 06/27/11 K 3.2 06/27/11 CL 104 06/27/11 BICARB 27 06/27/11 BUN 21 06/27/11 CR 0.92 06/27/11 GLU 91 06/27/11 CA 9.2 06/27/11 No results found for this basename: mg Lab Results Lab Test Name Results Date/Time WBC 5.5 06/27/11 HB 13.7 06/27/11 HCT 41.4 06/27/11 PLT 262 06/27/11 MCV 84.4 06/27/11 RDW 14.3 06/27/11 acetaminophen (aka TYLENOL) oral suspension 325-650 mg, 325-650 mg, Oral, Q4H PRN chlorhexidine (aka PERIDEX) mouthwash 15 mL, 15 mL, Oral, Q6H HYDROcodone-acetaminophen (aka NORCO) 5-325 mg tablet 1-2 Tab, 1-2 Tab, Oral, Q4H PRN omeprazole (aka PRILOSEC) capsule 20 mg, 20 mg, Oral, DAILY ondansetron ODT (aka ZOFRAN ODT) tablet 8 mg, 8 mg, Oral, Q8H PRN oxybutynin CR (aka DITROPAN-XL) tablet 15 mg, 15 mg, Oral, DAILY polyethylene glycol (aka MIRALAX) powder 17 g, 17 g, Oral, DAILY PRN senna-docusate (aka SENOKOT S) 8.6-50 mg 1 Tab, 1 Tab, Oral, BID simvastatin (aka ZOCOR) tablet 40 mg, 40 mg, Oral, QPM triamterene-hydrochlorothiazide (aka DYAZIDE, MAXZIDE) 37.5-25 mg 1 Cap, 1 Cap, Oral, DAILY General Appearance: lying in bed comfortably, no distress Respiratory: breathing easily on room air HEENT: tongue incision well approximated, no hematoma No abnormality on otoscopy; no hematoma, no fluid Cardiovascular: RRR Skin: Warm Assessment and Plan: - give pain meds this AM - d/c PURVI drain - likely d/c later today if pain improves Raquel Cedeno MD Resident Department of Surgery [facility] Ana Louis - 06/29/2011 3:07 PM PDTPatient Name: VICKI ERIC Date of : 1930 CASE MANAGEMENT INITIAL ASSESSMENT SOURCE OF INFORMATION Assessment information came from: patient interview REASON FOR ADMISSION The circumstances leading to hospitalization are as follows: Notes: Scheduled admission for surgery. Hx SCC of lateral tongue. Proc: Wedge excision of left lateral tongue. Left neck sentinel node biopsy. PRIOR HOME SERVICES IN PLACE Home services in place prior to admission included the following: *None LIVING SITUATION AND SUPPORT SYSTEM Prior to admission, the living situation and support system included: House or Apartment, Alone FUNCTIONAL STATUS Patient's baseline functional status prior to coming to admission: Independent POTENTIAL FOR READMISSION My assessment indicates the following high risk factors for readmission apply: Age > 65 years TRANSPORTATION AVAILABLE Patient's plan for discharge transportation: Family or friends to transport ANTICIPATED DISCHARGE NEEDS My assessment indicates the following discharge needs are expected: *None The initial plan was discussed with: Patient OTHER PERTINENT ASSESSMENT AND PLANNING INFORMATION * Notes: Met with patient. She is anticipating discharge tomorrow. Hopes to leave before noon. Daughter is driving her to [place]'s [place]. She will stay there a few days before returning to her home in [place]. She is very active prior to admission. No case managment needs anticipated. Electronically signed by:Ana Beltran Position:Wash Oil Cooler Operator Pager ID:[phone] 12 3:07 PM Ana Louis - 06/29/2011 2:49 PM PDTPatient Name: VICKI ERIC Date of : 1930 CARE COORDINATION ROUNDING NOTE Care Coordination rounds held. Disciplines attending included: Wash Oil Cooler Operator,, Talent Acquisition Associate,, Bedside RN,, repeat chief, Electronically signed by:Ana Beltran Position:Wash Oil Cooler Operator Pager ID:[phone] 12 2:49 PM Shilpi Gibson SLP - 06/29/2011 8:10 AM PDTFormatting of this note might b e different from the original. INPATIENT ENT SPEECH PROGRESS NOTE SUBJECTIVE: Vicki Eric is a 80 year-old female s/p L partial glossectomy and SLNB. Patient found ambulating in fuller with current RN, agreeable to swallow evaluation. RELEVANT PAST MEDICAL HISTORY: Past Medical History Diagnosis Date Cancer of tongue Hypertension 05/13/2009 Hypercholesteremia 05/13/2009 Osteoporosis GERD (gastroesophageal reflux disease) Esophageal hiatal hernia Diverticulitis, colon Insomnia, persistent Past Surgical History Procedure Date Partial glossectomy 04/05 Replacement shoulder total 04/11/2010 Hysterectomy 1978 Appendectomy 1960 Colonoscopy 2009 DIETARY STATUS: The patient currently has orders for a regular diet with thin liquids. She has been taking sips of water without difficulty. Pre-operatively, the patient reported taking a regular di et (e.g., nuts, crackers, meats). SOCIAL HISTORY: The patient currently lives outside of [place], [place]. Her children live approximately [address], but she reported that she has supportive neighbors who check on her frequently. COMMUNICATION/SPEECH STATUS: The patient communicates verbally. Speech quality was noted to be mildly dysarthric and Alw ays understandable (PSS-Speech 100). Voice quality was clear. In terms of respiration, the p atient is breathing easily at rest. ORAL-MOTOR EXAMINATION: The patient s dentition is significant for Edentulous lower and Edentulous upper (patient has dentures though was advised to wait a few days to wear them d/t swelling). Velar elevat ion was normal. Oral tongue strength was mildly reduced. Range of motion of the tongue was m oderately reduced in all planes - patient also complained of pain, most notably with protrus ion. Lips were symmetric with normal range of motion. Lip strength was normal. Patient not ed lip numbness. Jaw strength was normal. Range of motion of the jaw was normal. Laryngeal e levation was complete to palpation. Cough strength was productive. CLINICAL EVALUATION OF SWALLOWING: The patient was trialed with the following consistencies: ice chip x 1 via tsp, several sip s of thin liquid via straw, 3/4 container applesauce, jello x 3. The patient self-fed and c onsumed these items within 5 - 10 minutes. Oral manipulation and control were mildly reduce d with jello, otherwise WFL with other consistencies. A - P transit timely. Swallow trigge r prompt with complete laryngeal excursion. There was no coughing, throat clearing, or espinoza ge in vocal quality with any consistency trialed. PATIENT EDUCATION & TREATMENT: Subsequent to the examination the findings were reviewed with the patient and current RN. Recommend mechanical soft texture with thin liquids. Patient will likely select less challe nging items (e.g., scrambled eggs, applesauce, etc). She was encourage to maximize caloric intake by eating frequent, small meals throughout the day and choosing calorically dense ite ms (e.g., 3 - 5 Boost/Ensure per day). She was provided with Oral-Motor Exercises for the t ongue. She was unable to complete a full set d/t pain but was able to practice the exercise s correctly. She was encouraged to begin exercises in 2 - 3 days. ASSESSMENT: Mild oral phase dysphagia characterized by reduced bolus manipulation, though no s/s of lar yngeal penetration/aspiration. Recommend mechanical soft texture with thin liquids. Antici ortiz patient will ADAT upon discharge and will be able to sustain nutrition/hydration by ronel th. PLAN: 1. Mechanical soft with thin liquids - ADAT upon discharge. 2. Oral Motor Exercises for the tongue. Patient was advised to follow-up at her first outpatient visit with Dr. Sumner. Shilpi Burris M.S., NARCOTICS AGENT-CFY Speech-Language Pathology Clinical Fellow [facility] Otolaryngology, Head & Neck Surgery [facility] Pager [phone] ed Ceja MD - 06/29/2011 7:47 AM PDT Head and Neck Surgery [place] Progress Note Author: Ted Ceja MD Attending Physician: King Sumner MD 06/29/2011 7:49 AM Interval Hx: No acute events. Feels swollen this morning. Difficulty taking PO. No choki ng. No difficulty breathing. VITAL SIGNS: Temp Av.4 C (97.5 F) Min: 34.8 C (94.6 F) Max: 37.2 C (98.9 F) Pulse Av.7 Min: 57 Max: 81 Systolic (24hrs), Av mmHg, Min:114 mmHg, Max:172 mmHg Diastolic (24hrs), Av mmHg, Min:70 mmHg, Max:93 mmHg Resp Av.9 Min: 14 Max: 20 SpO2 Av.6 % Min: 94 % Max: 100 % Intake/Output Summary (Last 24 hours) at 06/29/11 0749 Last data filed at 06/29/11 0700 Gross per 24 hour Intake 1776.25 ml Output 870 ml Net 906.25 ml PHYSICAL EXAM: General: Alert, NAD Oral cavity and oropharynx clear. Tongue healing well. Neck supple without LAD or thyromegaly. Incision: clean, dry and intact without drainage, erythema or fluid collection noted. Drain : to bulb suction, minmal serosanguinous drainage Respiratory: unlabored without stridor or stertor. ASSESSMENT AND PLAN: Vicki Eric is a 80 y.o. female POD#1 s/p partially glossectomy and SLNB. Doing well. - Pain control. - Encourage PO. - Can DC home after taking adequate PO. - Will remove drain prior to discharge. The patient was seen and examined during Head and Neck Surgery rounds and our team agrees w ith this assessment and plan. Ted Ceja MD Resident Physician- Department of Otolaryngoly- Head and Neck Surgery [facility] . illMatt shelley MD - 06/28/2011 1:23 PM PDTINPATIENT BRIEF OPERATIVE NOTE Procedure Date: 06/28/2011 Author: MATT MARTINO MD Attending Physician: Dr. Sumner Assistants: Dr. 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 Wedge excision of left lateral tongue, primary closure 2. Left neck sentinel lymph node biopsy Estimated Blood Loss: 20 mL Specimens: left wedge resection to pathology, left neck level 2a sentinel lymph node to pat hology Complications: none Drains: left neck PURVI Findings: 1 cm lesion on the left lateral tongue, see operative dictation for additional de tails. Matt Martino MD Resident Otolaryngology/Head and Neck Surgery documented in this encounter Plan of Treatment Not on filedocumented as of this encounter Procedures + +--------+ + + + | Procedure Name | Priori | Date/Time | Associated Diagnosis | Comments | | | ty | | | | + +--------+ + + + | PROCEDURE NOTE | Routin | 04/08/2015 | | Results for this | | | e | 2:42 AM | | procedure are in the | | | | PST | | results section. | + +--------+ + + + | OPERATION RECORD | | 06/29/2011 | | Results for this | | | | 8:48 AM | | procedure are in the | | | | PDT | | results section. | + +--------+ + + + | NECK DISSECTION | Electi | 06/28/2011 | Malignant neoplasm | | | | ve | 2:02 PM | of dorsal surface | | | | Surgic | PDT | of tongue (HCC) | | | | al | | | | + +--------+ + + + +---+--------+ | | | | | Specia | | | l | | | Needs | | | | | | Coming | | | from | | | Nuclea | | | r | | | medici | | | ne | | | sentin | | | el | | | node | +---+--------+ + +--------+ + +---+ | (INACTIVE) | Electi | 06/28/2011 | Malignant neoplasm | | | GLOSSECTOMY (CATIA) / | ve | 2:02 PM | of dorsal surface | | | ORAL EXCISION | Surgic | PDT | of tongue (HCC) | | | | al | | | | + +--------+ + +---+ +---+--------+ | | | | | Specia | | | l | | | Needs | | | | | | Coming | | | from | | | Nuclea | | | r | | | medici | | | ne | | | sentin | | | el | | | node | +---+--------+ + +--------+ + + + | TYPE AND SCREEN | Urgent | 06/28/2011 | | Results for this | | | | 10:30 AM | | procedure are in the | | | | PDT | | results section. | + +--------+ + + + | NM LYMPH INJECTION | Routin | 06/28/2011 | Malignant neoplasm | Results for this | | S[facility]IN[facility] ONLY | e | 9:04 AM | of tongue, | procedure are in the | | | | PDT | unspecified site | results section. | + +--------+ + + + | ORDERS OTHER | | 06/28/2011 | | Results for this | | | | 12:00 AM | | procedure are in the | | | | PDT | | results section. | + +--------+ + + + | SURGICAL PATHOLOGY | Routin | 06/28/2011 | | Results for this | | | e | | | procedure are in the | | | | | | results section. | + +--------+ + + + documented in this encounter Results PROCEDURE NOTE (04/08/2015 2:42 AM PST) + + | Transcriptions | + + | Other, Faculty - 07/04/2011 11:18 AM PDT | + + OPERATION RECORD (06/29/2011 8:48 AM PDT) + + | Transcriptions | + + | Raquel Cedeno MD - 06/28/2011 10:33 PM PDT [id number] | | [id number] JIMBO [place] | | [phone] Date: 06/28/2011 Attending Surgeon: King Sosa | | Gregg Sumner Hatchery Helper(s): Raquel Cedeno M.D. 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 Procedures | | Performed:1. Left partial glossectomy.2. Left neck sentinel lymph node biopsy. | | Indications:Ms. Eric is an 80-year-old woman with a history of squamous cell cancer | | ofthe tongue, status post excision in 2001. She presented to [facility] in | | early June with recurrent left tongue cancer with aclinical stage T1 N0 M0. She | | presents today for excision of thisrecurrence and left neck sentinel lymph node biopsy. | | Findings:An approximately 1 cm lesion on the left lateral tongue. No | | grosslymphadenopathy. Procedure:Ms. Eric was properly identified in the preoperative | | area and taken to theoperating room, where she was placed supine. A dose of | | preoperativeantibiotics were given. A timeout was held during which the patient | | andprocedure to be undertaken were properly identified, and all were inagreement. The | | left neck and face were prepped and draped in the usualsterile fashion. A Gelpi | | retractor was placed in the mouth. The tonguewas grasped with penetrating towel clamp | | and retracted anteriorly, and the1 cm lesion on the left lateral tongue was excised with | | a 1 to 1.5 cmmargin. This was then marked with sutures and sent to Pathology for | | frozensection. Hemostasis was achieved. Next, an approximately 6 cm incisionwas made | | along the anterior border of the sternocleidomastoid. Thesternocleidomastoid muscle was | | skeletonized. The eleventh cranial nervewas identified. The C-Trak probe was used to | | identify radioactive lymphnodes. Most of the contents of level 2a were then dissected | | by finding theposterior belly of the digastric superiorly, the eleventh cranial | | nervelaterally, and the internal jugular vein anteriorly. These lymph nodeswere | | removed. The radioactive count was greater than 2000. These werethen sent for | | permanent section. Next, the background count was taken andnoted to be 3. The wound | | was then irrigated. Hemostasis was ensured. A7-Moroccan flat PURVI drain was placed in the | | bed of the wound through a stabincision just inferior to the wound. The wound was then | | closed in 2 layerswith running 4-0 suture through the platysma followed by running | | 4-0Caprosyn in the subcuticular layer. Next, the tongue was closed in 2layers using a | | 3-0 Vicryl followed by running 5-0 fast. The neck was thenwashed and dried. Dermabond | | was applied to the neck incision, and a 2-0silk suture was used to secure the PURVI drain. | | The patient was then awakenedand extubated and taken to the PACU in stable condition. | | Frozen section was negative for cancer at any of the marked margins. was | | present and scrubbed throughout the entire procedure. Raquel Cedeno, | | Gregg Sumner M.D. [facility] / [id number] / [id number] / [id number] / T: | | 06/28/2011 | |An approximately 1 cm lesion on the left lateral tongue. No gross | |lymphadenopathy. | | | | | |Procedure: | |Ms. Eric was properly identified in the preoperative area and taken to the | |operating room, where she was placed supine. A dose of preoperative | |antibiotics were given. A timeout was held during which the patient and | |procedure to be undertaken were properly identified, and all were in | |agreement. The left neck and face were prepped and draped in the usual | |sterile fashion. A Gelpi retractor was placed in the mouth. The tongue | |was grasped with penetrating towel clamp and retracted anteriorly, and the | |1 cm lesion on the left lateral tongue was excised with a 1 to 1.5 cm | |margin. This was then marked with sutures and sent to Pathology for frozen | |section. Hemostasis was achieved. Next, an approximately 6 cm incision | |was made along the anterior border of the sternocleidomastoid. The | |sternocleidomastoid muscle was skeletonized. The eleventh cranial nerve | |was identified. The C-Trak probe was used to identify radioactive lymph | |nodes. Most of the contents of level 2a were then dissected by finding the | |posterior belly of the digastric superiorly, the eleventh cranial nerve | |laterally, and the internal jugular vein anteriorly. These lymph nodes | |were removed. The radioactive count was greater than 2000. These were | |then sent for permanent section. Next, the background count was taken and | |noted to be 3. The wound was then irrigated. Hemostasis was ensured. A | |7-Moroccan flat PURVI drain was placed in the bed of the wound through a stab | |incision just inferior to the wound. The wound was then closed in 2 layers | |with running 4-0 suture through the platysma followed by running 4-0 | |Caprosyn in the subcuticular layer. Next, the tongue was closed in 2 | |layers using a 3-0 Vicryl followed by running 5-0 fast. The neck was then | |washed and dried. Dermabond was applied to the neck incision, and a 2-0 | |silk suture was used to secure the PURVI drain. The patient was then awakened | |and extubated and taken to the PACU in stable condition. | | | | | |Frozen section was negative for cancer at any of the marked margins. | |Burak was present and scrubbed throughout the entire procedure. | | | | | | | | | |Raquel Cedeno M.D. | | | | | | | | | |King Sumner M.D. | | | | | |[facility] / | [id number] / [id number] / [id number] / | | | | | | | | | | | | | | | | | | | | | + + TYPE AND SCREEN (06/28/2011 10:30 AM PDT) + + + + + + | Component | Value | Ref Range | Performed | Pathologist | | | | | At | Signature | + + + + + + | ABO GROUP | O | | [facility] | | | | | | DEPARTMENT | | | | | | OF | | | | | | PATHOLOGY | | + + + + + + | RH TYPE | Positive | | [facility] | | | | | | DEPARTMENT | | | | | | OF | | | | | | PATHOLOGY | | + + + + + + | Antibody | Negative | | [facility] | | | Screen | | | DEPARTMENT | | | | | | OF | | | | | | PATHOLOGY | | + + + + + + + + | Specimen | + + | Blood - Blood | + + + + + + + | Performing | Address | City/State/Zipcode | Phone Number | | Organization | | | | + + + + + | 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 After | | | | | | approximately 15 | | | | | | minutes, two sentinel | | | | | | nodes wereidentified in | | | | | | the left level 2 and | | | | | | level 3 cervical neck | | | | | | spaces.Moreno were made | | | | | | at 0 and 45 degrees with | | | | | | an indelible marker. | | | | | | FINDINGS/IMPRESSION: | | | | | | Successful marking, at | | | | | | zero and 45 degrees, | | | | | | oftwo lymph nodes in the | | | | | | left level 2 and level | | | | | | 3 cervical neck spaces. | | | | | | This result was | | | | | | discussed with | | | | | | Burak following | | | | | | completion ofthe study. | | | | | | Attending Radiologists: | | | | | | Pernell Macdonald, | | | | | | GreggAuthor: Mazin | | | | | | Gregg Weems I have | | | | | | personally viewed this | | | | | | procedure/exam, reviewed | | | | | | this report,and made | | | | | | changes to it where | | | | | | appropriate. | | | | | | Final/Electronically | | | | | | dimitry / Pernell | | | | | | Torres 06/29/2011 8:48 | | | | | | AM | | | | | | Final/Electronically | | | | | | signed / Pernell | | | | | | Torres 06/28/2011 17:06 | | | | | | PM Result modified / | | | | | | Pernell Macdonald | | | | | | 06/28/2011 17:06 PM | | | | | | Pending final approval | | | | | | / Mazin Weems | | | | | | 06/28/2011 9:24 AM | | | | | | Preliminary / | | | | | | Mazin Weems | | | | | | 06/28/2011 9:18 AM | | | | + + + + + + + + | Specimen | + + | | + + + +---------+ + + | Performing | Address | City/State/Zipcode | Phone Number | | Organization | | | | + +---------+ + + | [facility] DEPARTMENT OF | | | | | RADIOLOGY | | | | + +---------+ + + ORDERS OTHER (06/28/2011 12:00 AM PDT) + + + | Narrative | Performed At | + + + | | | + + + + + | Transcriptions | + + | Raya, Faculty - 07/10/2011 4:41 PM PDT | + + SURGICAL PATHOLOGY (06/28/2011) + + + + + + | Component | Value | Ref Range | Performed | Pathologist | | | | | At | Signature | + + + + + + | SURGICAL | SOURCE OF SPECIMEN:A | | [facility] | | | PATHOLOGY | Left neck sentinel lymph | | DEPARTMENT | | | | nodesSOURCE OF | | OF | | | | SPECIMEN:B Left tongue | | PATHOLOGY | | | | cancer FS Final | | | | | | Pathologic Diagnosis:A: | | | | | | Left neck sentinel | | | | | | lymph nodes, dissection: | | | | | | - Ten lymph | | | | | | nodes, negative for | | | | | | malignancy (0/10) | | | | | | B: Left tongue cancer, | | | | | | partial glossectomy:- | | | | | | 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, poorly | | | | | | differentiated, invading | | | | | | tonguewith overlying | | | | | | ulceration - Tumor | | | | | | measures 1.4 cm in | | | | | | greatest dimension | | | | | | - Margins free of | | | | | | tumor- No angiolymphatic | | | | | | invasion identified | | | | | | - AJCC Pathologic | | | | | | Staging (7th edition): | | | | | | rpT1 N0 (includes | | | | | | allspecimens) | | | | | | Comment: Greatest | | | | | | dimension of the tumor | | | | | | (which consists of cords | | | | | | andsheets of poorly | | | | | | differentiated cells) is | | | | | | estimated from the | | | | | | dorsal toventral | | | | | | measurement: D-V 3.3 | | | | | | cm divided by 7 slices = | | | | | | approximately 0.47cm | | | | | | per slice, tumor | | | | | | involved by 3 slices = | | | | | | approximately 1.4 cm in | | | | | | greatestdimension. | | | | | | Case seen by:Alexandria | | | | | | Sauerwein/Student | | | | | | FellowJody Ian Monet, | | | | | | M.D./PathologistT: | | | | | | 2:apurva Lip | | | | | | and Oral Cavity Cancer | | | | | | SynopsisSpecimen: | | | | | | hemiglossectomyReceived: | | | | | | FreshProcedure: | | | | | | Resection, | | | | | | glossectomyleft | | | | | | hemiglossectomySpecimen | | | | | | Size: 3.3 x 2.2 x | | | | | | 1.7cmSpecimen | | | | | | Laterality: | | | | | | LeftTumor Site(s): Not | | | | | | specifiedTumor Focality: | | | | | | Single focusTumor | | | | | | Size: Greatest | | | | | | dimension: 1.4cmGross | | | | | | subtypeHistologic | | | | | | TypeSquamous cell | | | | | | carcinoma, | | | | | | conventionalHistologic | | | | | | Grade: C8Cumsmxa: | | | | | | Negative for invasive | | | | | | carcinomaAngiolymphatic | | | | | | Invasion: | | | | | | AbsentPerineural | | | | | | Invasion: | | | | | | AbsentLymph Nodes, | | | | | | Extranodal Extension: | | | | | | Not identifiedAS[facility] Stage | | | | | | (7th Edition) (pTNM)TNM | | | | | | Descriptors: r | | | | | | (recurrent)Primary Tumor | | | | | | (pT): iT3Poelvyhs Lymph | | | | | | Nodes (pN): | | | | | | uD8Bdwitd of regional | | | | | | lymph nodes involved: | | | | | | 0Number of regional | | | | | | lymph nodes examined: | | | | | | 10Distant Metastasis | | | | | | (pM): Not Applicable | | | | | | | | | | | | Intraoperative Consult | | | | | | (Frozen Section) | | | | | | Diagnosis:Left tongue | | | | | | cancer (specimen B): | | | | | | - Poorly | | | | | | differentiated carcinoma | | | | | | - Anterior, | | | | | | posterior and medial | | | | | | margins, free of tumor | | | | | | as sampled | | | | | | Intraoperative consult | | | | | | diagnosis confirmed by: | | | | | | Hunter | | | | | | Leyla/StudentFellow | | | | | | and Vicky Monet, | | | | | | M.D./Pathologist | | | | | | Clinical History:The | | | | | | patient is an | | | | | | 80-year-old female with | | | | | | tongue cancer. | | | | | | Gross | | | | | | Description:Received are | | | | | | 2 specimens fresh in | | | | | | containers labeled with | | | | | | the patient | | | | | | name(initials LS) and: | | | | | | A: Left neck | | | | | | sentinel lymph | | | | | | node:Measurement: 3 x | | | | | | 3 x 1.2 cmTissue color, | | | | | | texture: Yellow-red | | | | | | and lobulatedNumber of | | | | | | possible lymph nodes: | | | | | | 11Color of lymph | | | | | | nodes: | | | | | | Dmchnd-le-uicFzzw of | | | | | | lymph nodes: Ranging | | | | | | in size from 0.5 x 0.3 x | | | | | | 0.3 cm to 2.3 x 0.9x | | | | | | 0.6 cmOther structures: | | | | | | NoneAll lymphoid | | | | | | tissue is entirely | | | | | | submitted. B: | | | | | | Left tongue cancer: | | | | | | Received is a 3.3 (DV) | | | | | | x 2.2 (AP) x 1.7 (ML) | | | | | | cmoriented excision of | | | | | | tongue. Orienting | | | | | | sutures indicate the | | | | | | short singleis anterior, | | | | | | short double is | | | | | | posterior, long single | | | | | | is dorsal, and | | | | | | longdouble is ventral. | | | | | | The specimen is inked | | | | | | according to the color | | | | | | scheme:Anterior is blue, | | | | | | posterior is green, | | | | | | ventral is orange, | | | | | | dorsal yellow, andmedial | | | | | | is black. The mucosa | | | | | | contains a 0.8 x 0.6 x | | | | | | 0.6 cm central, | | | | | | pinkulceration. The | | | | | | entire specimen is | | | | | | serially sectioned from | | | | | | the ventral todorsal | | | | | | end. The lesion | | | | | | appears grossly 0.1 cm | | | | | | from the anterior | | | | | | margin,0.1 cm from the | | | | | | posterior margin, 1 cm | | | | | | from the ventral margin, | | | | | | and 0.8 cmfrom the | | | | | | dorsal margin. The | | | | | | section with the nearest | | | | | | margin is taken | | | | | | forfrozen section | | | | | | diagnosis. | | | | | | Cassette Index:A: Left | | | | | | neck sentinel lymph | | | | | | node:A1, one possible | | | | | | lymph node, bisected, | | | | | | one intact possible | | | | | | lymph nodeA2, four | | | | | | possible lymph nodesA3, | | | | | | five possible lymph | | | | | | nodesB: Left tongue | | | | | | cancer:B1, frozen | | | | | | section residueB2, | | | | | | perpendicular sections | | | | | | of entire ventral | | | | | | marginB3-6, sequentially | | | | | | submitted sections from | | | | | | ventral to dorsal | | | | | | marginsB7, perpendicular | | | | | | sections of entire | | | | | | dorsal marginAMJ/sg | | | | | | My electronic | | | | | | signature indicates that | | | | | | I have personally | | | | | | reviewed alldiagnostic | | | | | | slides, the gross and/or | | | | | | microscopic portion of | | | | | | thisreport and | | | | | | formulated the final | | | | | | diagnosis. | | | | | | Rendering Diagnostician: | | | | | | Vicky Monet | | | | | | GreggPathologistJaymiei | | | | | | mathew Signed 07/03/2011 | | | | | | 9:42PM | | | | + + + + + + + + | Specimen | + + | | + + + + + + + | Performing | Address | City/State/Zipcode | Phone Number | | Organization | | | | + + + + + | 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) Malignant neoplasm of dorsal | | surface of tongue | + + documented in this encounter Administered Medications + +--------+ +------+------+ + | Medication Order | MAR | Action | Dose | Rate | Site | | | Action | Date | | | | + +--------+ +------+------+ + | lidocaine-EPINEPHrine (aka | Given | 06/28/19 | 3 mL | | Surgical | | XYLOCAINE WITH EPINEPHRINE) 1 | | 12 12:29 | | | Site | | %-1:100,000 injection | | PM PDT | | | | | INTRAPROCEDURE PRN, Starting Kim | | | | | | | 06/28/11 at 1229, Until Kim | | | | | | | 06/28/11 at 1402 | | | | | | + +--------+ +------+------+ + +---+---+ | | | +---+---+ documented in this encounter
--- OUTSIDE RECORDS SUMMARY | ~2019-07-23 | XMS | Encounter Summary ---
Demographics + + + | Address | [address] | | | [place] [address] | + + + | Home Phone | | + + + | Preferred Language | Unknown | + + + | Marital Status | Single | + + + | Temple Affiliation | CHR | + + + | Race | White | + + + | Ethnic Group | Not or | + + + Author + + + | Author | [facility] | + + + | Organization | [facility] | + + + | [...] Team Providers + +------+ + | Care Equipment Records Supervisor Name | Role | Phone | + [...] | | | | tongue, | | [facility] | | | | | unspecified | | [address] [place], | | | | | site | | [place] | | | | | | | [address] | | | | | | | Phone: | | | | | | | [phone] | | | | | | | Fax: | | | | | | | [phone] | +--------+--------+ + + + + Encounter Details +--------+---------+ + + + | Date | Type | Department | Care Team | Description | +--------+---------+ + + + | 10/01/ | Office | Otolaryngology | King Sumner, | Tongue cancer (HCC) | | 2011 | Visit | Head and Neck | [address] | (Primary Dx) | | | | Surgery Services at | [facility] | | | | | [address] | [facility] [place] | | | | | [address] | [address] | | | | | Physician's | [phone] | | | | | Pavilion, 2nd floor | | | | | | [place], [place] | | | | | | [address] | | | | | | [phone] | | | +--------+---------+ + + + [...] + + + | Blood Pressure | 154/71 | 10/02/2011 10:19 AM | | | | | PDT | | + + + + + | Pulse | 61 | 10/02/2011 10:19 AM | | | | | PDT [...] + + + + | Weight | 53.1 kg (117 lb) | 10/02/2011 10:19 AM | | | | | PDT | | + + + + + | Height | - | - | | + + + + + | Body Mass Index | 21.4 | 06/28/2011 10:00 AM | | | | | PDT | | + + + + + documented in this encounter Progress Notes King Sumner MD - 10/11/2011 8:24 AM PDTFormatting of this note might be different fro m the original. Ms. Eric returns for a f/u visit. She is doing well and has no complaints. Patient Active Problem List Diagnoses Date Noted Hypertension 05/13/2009 Hypercholesteremia 05/13/2009 Tongue Cancer 05/01/2006 Past Medical History Diagnosis Date Cancer of tongue Hypertension 05/13/2009 Hypercholesteremia 05/13/2009 Osteoporosis GERD (gastroesophageal reflux disease) Esophageal hiatal hernia Diverticulitis, colon Insomnia, persistent Past Surgical History Procedure Date Partial glossectomy 04/05 Replacement shoulder total 04/11/2010 Hysterectomy 1978 Appendectomy 1960 Colonoscopy 2009 Glossectomy 2011 Allergies Allergen Reactions Tato Inhibitors Cough Reclast (Zoledronic Acid-Mannitol&Water) Diarrhea, Nausea and Vomiting Sulfa(Sulfonamide Antibiotics) Nausea Current Medication List Name Sig ASPIRIN 81 MG TAB Take 81 mg by mouth once daily. Indications: Myocardial Reinfarction P revention OCUVITE OR Take by mouth. VITAMIN D ORAL Take by mouth. OMEPRAZOLE 20 MG CAP, DELAYED RELEASE Take 20 mg by mouth once daily. OXYBUTYNIN CHLORIDE ER 15 MG 24 HR TAB Take 15 mg by mouth once daily. SENNOSIDES-DOCUSATE SODIUM 8.6 MG-50 MG TAB Take 1 Tab by mouth two times daily. SIMVASTATIN 40 MG TAB Take 40 mg by mouth once daily in the evening. TRIAMTERENE-HYDROCHLOROTHIAZIDE 37.5 MG-25 MG CAP 1D History Substance Use Topics Smoking status: Never Smoker Smokeless tobacco: Never Used Alcohol Use: Yes 1 glass of wine per day Family History: No history of head and neck cancer Physical Examination: healthy appearing female Voice: Normal BP 154/71 | Pulse 61 | Wt 53.071 kg (117 lb) Face: Normal facial contour and facial nerve [...] mucosa, floor of mouth, lips or tongue. Oropharynx: Tonsils - Normal Base of tongue - Mirror exam and Normal Mucosa - No mucosal lesions seen Larynx: Supraglottis - Mirror exam and Normal Glottis - Mirror exam and Normal Pharynx: Mirror exam and Normal Parotid glands: No masses palpable on either side. Neck: No adenopathy on either side. No thyromegaly palpable Impression: No evidence of recurrence. RTC 2-3 mos. King Sumner MD Professor of Otolaryngology, Head & Neck Surgery documented in this en counter Plan of Treatment Not on filedocumented as of this encounter Visit Diagnoses + + | Diagnosis | + + | Tongue cancer (HCC) - Primary Malignant neoplasm of tongue, unspecified site | + + documented in this encounter"
--- OUTSIDE RECORDS SUMMARY | ~2019-07-23 | XMS | Encounter Summary ---
Demographics + + + | Address | [address] | | | [place] [address] | + + + | Home Phone | | + + + | Preferred Language | Unknown | + + + | Marital Status | | + + + | Tenriism Affiliation | [id number] | + + + | Race | Unknown | + + + | Ethnic Group | Unknown | + + + Author + + + | Author | [facility] | | | and [place] | + + + | Organization | [facility] | | | and [place] [...] Team Providers + +------+ + | Care Senior It Engineer Name | Role | Phone | + +------+ + PCP | Unavailable | + +------+ + Encounter Details +--------+ + + + + | Date | Type | Department | Care Team | Description | +--------+ + + + + | 09/14/ | [facility] | [facility] | Salvatore Yao, | | | 2003 | Encounter | MED CTR XRAY [address] | [address] [place] [address] | | | | | [place] | [place] | | | | | [place] [id number] | [address] | | | | | [phone] | | | +--------+ + + + [...]
--- OUTSIDE RECORDS SUMMARY | ~2019-07-23 | XMS | Encounter Summary ---
Demographics + + + | Address | [address] | | | [place] [address] | + + + | Home Phone [...] Author + + + | Author | [facility] | + + + | Organization | [facility] | + + + | [...] Team Providers + +------+ + | Care Knitter Wire Mesh Name | Role | Phone | + +------+ + | Joycelyn Aguilar PA-C | PCP | | + +------+ + Encounter Details +--------+ + + + + | Date | Type | Department | Care Team | Description | +--------+ + + + + | 10/23/ | Pharmacy | [facility] | | | | 2017 | Visit | [address] | | | | | | [place] [address] | | | | | | [phone] | | | +--------+ + + + [...]
--- OUTSIDE RECORDS SUMMARY | ~2019-07-23 | XMS | Encounter Summary ---
Demographics + + + | Address | [address] | | | [place] [address] | + + + | Home Phone | | + + + | Preferred Language | Unknown | + + + | Marital Status | Single | + + + | Adventist Affiliation | CHR | + + + | Race | White | + + + | Ethnic Group | Not or | + + + Author + + + | Author | [facility] | + + + | Organization | [facility] | + + + | Address [...] Team Providers + +------+ + | Care Digital Forensics Examiner Name | Role | Phone | + +------+ + | Ganesh Hudson DO | PCP | | + +------+ + Reason for Visit + + + | Reason | Comments | + + + | Follow-up visit | yearly | + + + Consultation (Routine) +--------+--------+ [...] [address] | | | | | [facility] | | | | | Rd | Rd [place], | | | | | | [place], [place] | [place] | | | | | | [address] | [phone] | | | | | | Phone: | Phone: | | | | | | [phone] | [phone] | | | | | | Fax: | Fax: | | | | | | [phone] | [phone] | +--------+--------+ + + + + Encounter Details +--------+---------+ + + + | Date | Type | Department | Care Team | Description | +--------+---------+ + + + | 10/27/ | Office | Otolaryngology | King Sumner, | Tongue cancer (HCC) | | 2014 | Visit | Head and Neck | MD [address] | (Primary Dx) | | | | Surgery Services at | [facility] [address] | | | | | [address] | [place], [place] | | | | | [address] | [address] | | | | | Physician's | [phone] | | | | | Pavilion, 2nd floor | | | | | | [place], [place] | | | | | | [address] | | | | | | [phone] | | | +--------+---------+ + + + [...] + + + | Blood Pressure | 148/71 | 10/27/2013 9:38 AM | | | | | PDT | | + + + + + | Pulse | 74 | 10/27/2013 9:38 AM | | | | | PDT [...] + + + + | Weight | 53.4 kg (117 lb 11.2 | 10/27/2013 9:38 AM | | | | oz) | PDT | | + + + + + | Height | 157.5 cm (5' 2") | 10/27/2013 9:38 AM | | | | | PDT | | + + + + + | Body Mass Index | 21.53 | 10/27/2013 9:38 AM | | | | | PDT | | + + + + + documented in this encounter Progress Notes King Sumner MD - 11/09/2013 7:[address] Gilliland's note for the complete de tails of the history and physical exam. I reviewed the resident's findings and repeated thes e components of the physical exam: complete history, review of systems, review of medication s and complete examination of the head and neck I participated in the formulation of the diagnosis and treatment plan as outlined in Dr. Rossana escalera's note. King Sumner MD Professor of Otolaryngology, Head & Neck Surgery air, Aamir Atwood MD - 0 10/27/2013 9:50 AM PDT Otolaryngology Head & Neck Surgery Clinic Note Author: AAMIR GILLILAND MD Attending Physician: King Sumner MD Date: 10/27/13 Identification: Annette Eric is a 82 y.o. female With history of tongue cancer, first diag nosed in 2001, treated with multiple excisions, most recently 2011 Past Surgeries: 06/28/2011 1. Left partial glossectomy. 2. Left neck sentinel lymph node biopsy. Interval/subjective: Ms. Eric hasn't been seen since 01/2012. She reports she is doing ok, though weight decrea sed from 130 to 114 two years ago and she hasn't been able to gain weight back due to poor a ppetite. She remains quite active at home. She drove herself here from [place]. She did no amadeo a small painful spot on the left anterior tongue. Medications: Aspirin 81 mg Oral Tablet, Take 81 mg by mouth once daily. Indications: Myocardial Reinf arction Prevention BETA-CAROTENE,A, W-C & E/MIN (OCUVITE OR), Take by mouth. ERGOCALCIFEROL, VITAMIN D2, (VITAMIN D ORAL), Take by mouth. LATANOPROST 0.005 % ophthalmic drops, omeprazole 20 mg Oral Capsule, Delayed Release(E.C.), Take 20 mg by mouth once daily. oxybutynin CR 15 mg Oral Tablet Extended Rel 24 hr, Take 15 mg by mouth once daily. simvastatin 40 mg Oral Tablet, Take 40 mg by mouth once daily in the evening. triamterene-hydrochlorothiazide 37.5-25 mg Oral Capsule, 1D VALACYCLOVIR 500 mg oral tablet, OBJECTIVE: BP 148/71 | Pulse 74 | Ht 1.575 m (5' 2") | Wt 53.388 kg (117 lb 11.2 oz) | BMI 21.52 kg/(m ^2) Gen: awake, alert, interactive, appropriate, no acute distress. Appears comfortable. Eyes: Pupils equal, round and reactive. Extraocular motions intact. Nose: nasal dorsum straight, nares widely patent. Face: no suspicious cutaneous lesions noted of the face or head. No facial pain to touch. Salivary Glands: The salivary glands are soft and show no lesions or masses within the par otid or submandibular glands bilaterally. Oral Cavity: Normal lips and oral competence are noted. The dentition is absent in the mandible. The mucosa shows no lesions or masses. Oropharynx: The tonsillar pillars, palate and base of tongue did not demonstrate any concer jeny lesions or masses. Left lateral tongue healed, no palpable masses Neck: The neck is atraumatic without laryngeal deviation. Lymphatic examination of the neck revealed no adenopathy Neuro: II-XII intact. Symmetric sensation and movement noted of the face in all divisions. Hearing is grossly intact to voice. Palatal elevation is symmetric and full. Tongue protr usion is midline. Shoulder shrug and neck rotation normal. Chest: Breathing comfortably on room air, no respiratory distress or increased work of fazal thing, no audible stridor Path: SURGICAL PATHOLOGY SOURCE OF SPECIMEN:A Left neck sentinel lymph [...] (7th edition): rpT1 N0 (includes all specimens) ASSESSMENT: Annette Eric is a 82 y.o. female patient who presents for follow up of left tongue cancer. No new lesion or mass noted today. PLAN: 1. Follow up in one year for surveillance Dr. Sumner has seen and examined the patient and agrees with the above plan. AAMIR GILLILAND MD OTOLARYNGOLOGY GENERAL SERVICES AT [address] Mailcode: [address] [place] [address] documented in this en counter Plan of Treatment Not on filedocumented as of this encounter Visit Diagnoses + + | Diagnosis | + + | Tongue cancer (HCC) - Primary Malignant neoplasm of tongue, unspecified site | + + documented in this encounter
--- OUTSIDE RECORDS SUMMARY | ~2019-07-23 | XMS | Encounter Summary ---
Demographics + + + | Address | [address] | | | [place] [address] | + + + | Home Phone | | + + + | Preferred Language | Unknown | + + + | Marital Status | Single | + + + | Confucianist Affiliation | CHR | + + + | Race | White | + + + | Ethnic Group | Not or | + + + Author + + + | Author | [facility] | + + + | Organization | [facility] | + + + | [...] Team Providers + +------+ + | Care Peripatologist Name | Role | Phone | + [...] | Closed | | Otolaryngolog | | No | Burak, | | | | y | | Referring | MD King | | | | | | Provider Per | [address] | | | | | | Patient NO | [facility] | | | | | | REFERRING | Mauricio Majano | | | | | | PROVIDER PER | [place] | | | | | | [place] | [address] | | | | | | | Phone: | | | | | | | [phone] | | | | | | | Fax: | | | | | | | [phone] | +--------+--------+ + + + + Encounter Details +--------+---------+ + + + | Date | Type | Department | Care Team | Description | +--------+---------+ + + + | 10/03/ | Office | Otolaryngology | King Sumner, | Tongue cancer (HCC) | | 2010 | Visit | Head and Neck | [address] | (Primary Dx) | | | | Surgery Services at | [facility] [address] | | | | | [address] | [place], [place] | | | | | [address] | [address] | | | | | Physician's | [phone] | | | | | [facility] floor | | | | | | [facility] [place] | | | | | | [address] | | | | | | [phone] | | | +--------+---------+ + + + [...] + + + | Blood Pressure | 157/87 | 10/03/2010 12:41 PM | | | | | PDT | | + + + + + | Pulse | 79 | 10/03/2010 12:41 PM | | | | | PDT [...] + + + + | Weight | 61.7 kg (136 lb) | 10/03/2010 12:41 PM | | | | | PDT | | + + + + + | Height | - | - | | + + + + + | Body Mass Index | - | - | | + + + + + documented in this encounter Progress King Lunsford MD - 10/09/2010 1:[address] Montana's note for the complete details of the history and physical exam. I reviewed the resident's findings and repeated th mer components of the physical exam: complete history, review of systems, review of medicati ons and complete examination of the head and neck including flexible endoscopy. I participated in the formulation of the diagnosis and treatment plan as outlined in Dr. Leslie wilson's note. King Sumner MD Professor of Otolaryngology, Head & Neck Surgery uniClayton juares MD - 10/03/2010 12:51 PM PDTOtolaryngology/Head and Neck Surgery Clinical Progress Note Author: Clayton Montana MD Attending Surgeon: King Sumner MD Date: 10/03/2010 IDENTIFICATION: Annette Eric is a 79 y.o. 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 SUBJECTIVE: Patient is doing well. She presents for routine follow-up. She has several minor complain ts. She has noticed L tongue discomfort since February. She denies any concerning lesions, but the area appeared white today. She also c/o chronic throat clearing and increased L ea r pressure since July. This is accompanied by thickened nasal secretions and sinus pressure. Denies dysphagia, odynophagia, hemoptysis, or hoarseness . MEDICATIONS: Current outpatient prescriptions:BETA-CAROTENE,A, W-C & E/MIN (OCUVITE OR), Take by mouth. , Disp: , Rfl: simvastatin 40 mg Oral Tablet, Take 40 mg by mouth once daily in the evening., Disp: , Rfl: tolterodine ER (DETROL LA) 4 mg Oral Capsule, Sust. Release 24 hr, 1d, Disp: , Rfl: triamterene-hydrochlorothiazide 37.5-25 mg Oral Capsule, 1D, Disp: , Rfl: OBJECTIVE: Vital Signs: Wt 61.689 kg (136 lbs)( < 3 %ile), BP 157/87, Pulse 79. Physical Exam: General: NAD. General: Non-toxic, no apparent distress, breathing comfortably. Voice: Grossly normal. Face: Normal, symmetric, no visible skin lesions, lacerations, edema or ecchymosis Eyes: Extraocular movements intact, PERRLA. Sclera non-icteric. Ears: Ear exam - both sides normal, TM intact without perforation or effusion, external can al normal. No significant ceruminosis noted. Nose: Nasal exam; anterior septal defect,nares patent, normal mucosa with thickened secreti ons. Oral Cavity: mucosa pink, moist, tongue midline. Tonsil 2+ without exudates or lesion. Benjie ntulous; on the anterior portion of the excision scar, there is a minimally thickened area; no active bleeding or significant color change Yanet/hypopharynx and Larynx: see fiberoptic laryngoscopy Neck:soft, supple, no LAD, thyromegaly or masses Skin: No suspicious skin lesions noted. CN II-XII: Intact. Procedure Note: Procedure: Flexible Fiberoptic Laryngoscopy Surgeon: CLAYTON MONTANA MD Procedure: After adequate topical anesthetic application, the Olympus flexible fiberoptic s cope was inserted through the nasal passage. The nasopharynx, larynx, hypopharynx were exami wilber. Findings: The larynx and hypopharynx were without any mass or lesions. Thickened mucous see n in the hypopharynx; nasopharynx with anterior septal perforation and thickened mucus Vocal cord mucosa - There was no edema of true vocal cords; There was no erythema of mucosa . Vocal cord mobility: Right - mobile; Left - mobile Complications: None ASSESSMENT and PLAN: Annette Eric is a 79 y.o. woman with history of SCC of the tongue s/p excision in 2001; no evidence of recurrance. Patient instructed to RTC if tongue pain is worse, at which point we will perform a biop sy Reviewed instructions with patient on how to use a neti-pot for nasal irrigation RTC as needed, or in 1 year This patient was seen and discussed with Dr. Sumner who agrees with the above plan. Clayton Montana MD Otolaryngology/Head and Neck Surgery PGY2 Pager: [phone] lissa Castillo MA - 04/2010 12:45 PM PDTAdditional staff support provided to the patient during this encounter i ncluded: Assisted patient in exam room . documented in this encoun ter Plan of Treatment Not on filedocumented as of this encounter Procedures + +--------+ + + + | Procedure Name | Priori | Date/Time | Associated Diagnosis | Comments | | | ty | | | | + +--------+ + + + | ME | Routin | 10/09/2010 | Tongue cancer | | | LARYNGOSCOPY,FLEXIBL | e | 1:45 PM | (HCC) | | | E, DIAGNOSTIC | | PDT | | | + +--------+ + + + documented in this encounter Visit Diagnoses + + | Diagnosis | + + | Tongue cancer (HCC) - Primary Malignant neoplasm of tongue, unspecified site | + + documented in this encounter"
--- OUTSIDE RECORDS SUMMARY | ~2019-07-23 | XMS | Encounter Summary ---
Demographics + + + | Address | [address] | | | [place] [address] | + + + | Home Phone | | + + + | Preferred Language | Unknown | + + + | Marital Status | | + + + | Confucianist Affiliation | [id number] | + + + | Race | Unknown | + + + | Ethnic Group | Unknown | + + + Author + + + | Author | [facility] | | | and [place]ana | + + + | Organization | [facility] | | | and [...] Team Providers + +------+ + | Care Dictating Machine Transcriber Name | Role | Phone | + +------+ + | Ganesh Hudson DO | PCP | | + +------+ + Reason for Visit + + + | Reason | Comments | + + + | Neck Pain | | + + + Encounter Details +--------+---------+ + + + | Date | Type | Department | Care Team | Description | +--------+---------+ + + + | 03/25/ | Office | [facility] | Otf Loja | Cervical stenosis of | | 2012 | Visit | NEUROSURGERY [address] | spine (Primary Dx); | | | | [address] | [address] | Degenerative disc | | | | [place], [place] | [place] [address] | disease, cervical; | | | | [address] | [phone] | Spondylolisthesis of | | | | [phone] | | cervical region | +--------+---------+ + + + Social History [...] in this encounter Patient Instructions Patient Instructions Otf Loja PA-C - 03/25/2012 11:50 AM PSTAt today's visit zenia caban told me were doing very well. We have not scheduled a followup appointment for you. I've asked her to continue following up with your primary care provider. If you having worsenin g of her neck discomfort he should consider using physical therapy. We talked about your lulu ne scan showing significant osteoporosis which would lead us to not want to perform surgery on your neck. We would be happy to see you as needed in the future if you having worsening problems. documented in this encounter Progress Notes Otf Loja PA-C - 03/25/2012 11:52 AM PSTFormatting of this note might be differ ent from the original. AUGUSTO Peralta [address] [facility], [address] [place], [place] [id number] FAX: NEUROSURGERY HISTORY AND PHYSICAL EXAMINATION CHIEF COMPLAINT: Chief Complaint Patient presents with Neck Pain HISTORY OF PRESENT ILLNESS: The patient is a 81 y.o. female with the complaint of neck pawan n that began years ago. He now returns for followup stating she is doing much better In December she was out hunting and she began having increasing discomfort in the right side of her neck. She described at that time having discomfort which went from her right ear do wn into the middle portion of her low cervical spine it would only last a very short period of time perhaps seconds. It seemed to get worse with turning her head to the right or if derek caban moves her head quickly. It was concerning enough to her that she decided to come back fro m hunting a little early. Since that time the discomfort is actually improved. Now she sta antonio she has a "numb pain". Again it is in the region from the ear to the middle portion of her lower cervical spine it is also still there when she turns her head to the right not the left where she moves her head quickly. She's only had a few episodes of it over the last c ouple weeks. She has not noticed any symptoms radiating into her shoulders or into her arms either right or left she does not notice any particular weakness in her hands or her arms. She does state that occasionally on her fingers she'll get an episode where her finger will turn white and feels somewhat numb and then it will go away on its own. There is numbness of her fingertips in the turning of white has continued on occasionally. The patient did have a brief course of physical therapy. She feels like her symptoms have significantly improved and is not wanting to have surgery at this time PAST MEDICAL HISTORY: Past Medical History Diagnosis Date High blood pressure High cholesterol Osteopenia Osteoporosis PAST SURGICAL HISTORY: Past Surgical History Procedure Date Hysterectomy 1978 Appendectomy 1960 Tongue cancer 2001, 2007, 2008, July 2011 Colonoscopy 2009 Shoulder surgery 2009 CURRENT MEDICATIONS: Current Outpatient Prescriptions Medication Sig Dispense Refill omeprazole (PRILOSEC) 20 mg capsule Take 20 mg by mouth every morning (before breakfast ). oxybutynin (DITROPAN XL) 15 MG 24 hr tablet Take 15 mg by mouth Daily. Jklppnanx-Ctgoupqrz-Yjdatoxg (TRIANT-HC PO) Take 40 mg by mouth. simvastatin (ZOCOR) 40 mg tablet Take 40 mg by mouth nightly. aspirin 81 mg EC tablet Take 81 mg by mouth Daily. Multiple Vitamins-Minerals (OCUVITE PO) Take by mouth. cholecalciferol (VITAMIN D-3) 1,000 units tablet Take 1,000 Units by mouth Daily. ALLERGIES: No Known Allergies SOCIAL HISTORY: The patient reports that she has never smoked. She has never used smokeless tobacco. She r eports that she drinks alcohol. She reports that she does not use illicit drugs. FAMILY HISTORY: Family History Problem Relation Age of Onset Cancer Mother Arthritis Mother Arthritis Father Cancer Sister REVIEW OF SYSTEMS: GENERALLY: No fever, no night sweats, no anemia, no fatigue, no recent profound weight ch anges. EYES: No eye problems, no use of corrective lenses, no eye injury, no double vision, no bl indness. EARS, NOSE, AND THROAT: No changes in taste or smell, no hearing difficulty, no ringing in the ears, no ear drainage, no dizziness, no voice changes, no difficulty swallowing, no sig nificant snoring, no sleep apnea, no sinus problems, no major dental work. NEUROLOGICALLY: Please see the review of systems discussed above in the history of present illness. PSYCHIATRIC: No depression, no sleep disorders, no anxiety, no bipolar disorder, no psycho tic episodes. CARDIOVASCULAR: No heart attacks, no heart murmur, no heart fluttering, no chest pain, no ankle swelling. LUNG DISEASE: No shortness of breath, no cough, no tuberculosis, no bloody cough, no asth ma, no emphysema/COPD. GASTROINTESTINAL: No bowel disease, no nausea or vomiting, no rectal bleeding, no constipa tion, no stool incontinence, no liver disease, no gallbladder disease, no abdominal pain, no ulcers. KIDNEY DISEASE: No urinary frequency, no painful or difficult urination, no incontinence. ENDOCRINE: No diabetes, no thyroid disease, no osteopenia or osteoporosis, no breast drain age. SKIN: No breast lumps, no skin changes, no rashes, no itches. HEMATOLOGIC/LYMPHATIC: No enlarged lymph nodes, no easy or unusual bleeding, no personal h istory of cancer. RHEUMATOLOGIC: No joint arthritis, no rheumatoid arthritis. PHYSICAL EXAMINATION: Blood pressure 131/72, pulse 70, resp. rate 16, height 1.575 m (5' 2"), weight 55.339 kg (1 22 lb). Body mass index is 22.31 kg/(m^2). GENERAL: Annette Erci is in no acute distress with unlabored respirations. The patient lai s not appear uncomfortable throughout the exam today. HEENT: HEAD/FACE: EYES: EARS: NASOPHARNYX: OROPHARNYX: Normocephalic and atraumatic. There are no areas of recent trauma. Normal sclerae without icterus. No drainage or tenderness. Clear without drainage. Clear without erythema. NECK (ANTERIOR): Supple and without palpable masses. CHEST: Clear to ausculation without crackles or wheeze. HEART: Regular rate and rhythm without murmurs. ABDOMEN: Soft, non-tender, non-distended, and without palpable masses. The patient is obe se. SPINE: The cervical spine exam shows there is no tenderness over the C-2, C-3, C-4, C-5, C- 6, C-7 and C-8 region. Range of motion is limited. Rotation and extension does cause sympt oms particularly with rotating to the right causes the above-mentioned radicular symptoms . Flexion and extension of the neck does not cause severe discomfort. No tenderness in the midline of the thoracic or lumbar spine. There is major palpable defo rmity of the spine. EXTREMITIES: No cyanosis, clubbing, or edema. Distal pulses are palpable. NEUROLOGICAL EXAM: MENTAL STATUS: The patient is awake, alert, and oriented. She follows simple and complex commands. She speech is fluent, her comprehends speech well, and her repeats well. She has no apparent deficits with short or moth exterminator memory. CRANIAL NERVES: II: Acuity is intact. Clayton are full to confrontation. III, IV, : The pupils are reactive. Extraocular movements are intact. No ptosis is note d. V: Facial sensation is intact and symmetric. VII: Facial movements are symmetric. VIII: Hearing is intact bilaterally. IX, X: The uvula and palate move appropriately. XI: Shrug is equal bilaterally. XII: Tongue protrusion is midline. MOTOR EXAM: (5 IS NORMAL) * Indicates pain limited MUSCLE/ MOVEMENT: RIGHT LEFT Deltoids 5 5 Biceps 5 5 Triceps 5 5 Wrist Flexion 5 5 Wrist Extension 5 5 Median Intrinsics 5 5 Ulnar Intrinsics 5 5 Environmental Engineering Assistant Strength 5 5 Hip Flexion 5 5 Hip Extension 5 5 Knee Flexion 5 5 Knee Extension 5 5 Dorsiflexion 5 5 Extensor Hallicus Longus 5 5 Plantarflexion 5 5 SENSORY EXAM: Sensory exam shows no diminished sensation to light touch or pain throughout the upper and lower extremities. REFLEXES: (2 OR 2+ IS NORMAL) REFLEX: RIGHT LEFT BICEPS 1 1 BRACHIORADIALIS 1 1+ TRICEPS 1 1 PATELLAR 1 1 ACHILLES 1 1 ODONNELL'S ABSENT ABSENT PLANTAR DOWNGOING DOWNGOING GAIT: Gait is steady. PERIPHERAL NERVE/MISC: Tinel is negative at the wrists and elbows bilaterally. Phalen is negative. Straight leg raise is negative bilaterally. Isac's test of the hips is negative bilaterally. RADIOGRAPHIC REVIEW: The patient's images were reviewed in detail today explaining the findings in full. The augusto rodrigez's neck MRI shows multilevel spondylosis as well as some spondylolisthesis she has also degenerative disc disease multilevel as well as cervical spinal stenosis in particular at C 4-5 and C5-6. NEUROSURGICAL DIAGNOSES: Encounter Diagnoses Name Primary? Cervical stenosis of spine Yes Degenerative disc disease, cervical Spondylolisthesis of cervical region GENERAL DIAGNOSES: Past Medical History Diagnosis Date High blood pressure High cholesterol Osteopenia Osteoporosis PLAN: Annette Eric presented today and is happy that she is feeling better. Today we reviewed he r bone scan with her indicating she has significant osteoporosis. I did relate to her that it would not be a good idea to proceed with any surgery based on that cast as we would have significant problem with the instrumentation as well as fusion. Fortunately she is doing we ll and has continued to be very active. We have not scheduled to followup with this patient . But she can return as needed if her symptoms are worsening. I did suggest to her that sh arsh will would be best treated with conservative therapy such as physical therapy with or with out traction would be fine. She could also consider steroid injections. All of those could be arranged through her primary care provider but we would be happy to assist her as well i f the need arise. ELECTRONICALLY SIGNED BY: AUGUSTO Peralta, 03/25/2012 11:53 documented in this encounter Plan of Treatment Not on filedocumented as of this encounter Visit Diagnoses + + | Diagnosis | + + | Cervical stenosis of spine - Primary Spinal stenosis in cervical region | + + | Degenerative disc disease, cervical Degeneration of cervical intervertebral disc | + + | Spondylolisthesis of cervical region Acquired spondylolisthesis | + + documented in this encounter
--- OUTSIDE RECORDS SUMMARY | ~2019-07-23 | XMS | Encounter Summary ---
Demographics + + + | Address | [address] | | | [place] [address] | + + + | Home Phone | | + + + | Preferred Language | Unknown | + + + | Marital Status | Single | + + + | Catholic Affiliation | CHR | + + + | Race | White | + + + | Ethnic Group | Not or | + + + Author + + + | Author | [facility] | + + + | Organization | [facility] | + + + | Address [...] Team Providers + +------+ + | Care Fill Manager Name | Role | Phone | [...] Description | +--------+---------+ + + + | 10/23/ | Surgery | [facility] | Mao Ayon MD | BILATERAL LOWER LID | | 2018 | | [address] | [address] | ECTROPION REPAIR | | | | [facility] | [address] [place], [place] | BILATERAL LOWER LID | | | | [place] [address] | [phone] | RETRACTION REPAIR | | | | | [phone] | WITH MIDFACE LIFT | | | | | | (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 Return appointment date: Time: documented in this [...] | 1 | 10/24/19 | | | ctuslcop-qzjfxfqmq-b | eyelid incisions | | | 18 [...] potassium chloride | | | 5 | 02/20/ | | | SR 10 mEq oral [...] | | procedure well. Mao Ayon M.D. 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 | + + | Acquired nasolacrimal duct obstruction, bilateral | + + | Eyelid retraction of left eye Eyelid retraction or lag | + + documented in this encounter Administered Medications + +--------+---------+------+------+------+ [...] PRN, 1 | | | dose, Starting Sat10/23/17 at | | | 1408, Until Sat10/23/17 [...] | | | + +---+ + +-------+ +---------+---+ + | | Given | 10/24/19 | 1 strip | | Bilatera | | cxkeeohj-mruvhgdfs-fxjefkqiilgse | | 18 2:07 | | | l | | (MAXITROL) 3.5 mg/g-10,000 | | PM PDT | | | Eyelids | | unit/g-0.1 % ophthalmic ointment | | | | | | | INTRAPROCEDURE PRN, Starting Wed | | | | | | | 10/23/17 at 1407, Until Wed | | | | | | | 10/23/17 at 1424 | | | | | | + +-------+ +---------+---+ + +---+---+ | | | +---+---+ + +-------+ +------+---+ + | Oculoplastics Local with | Given | 10/24/19 | 3 mL | | Surgical | | hyaluronidase: lidocaine w/ EPI | | 18 2:08 | | | Site | | 1%-1:818506 - bupivacaine 0.5% | | PM PDT | | | | | (1:1) - hyaluronidase 150 | | | | | | | units/mL 1 mL INTRAPROCEDURE | | | | | | | PRN, Starting Sat10/23/17 at | | | | | | | 1407, Until Sat10/23/17 at 1424 | | | | | | + +-------+ +------+---+ + +-------+ +------+---+ + | Given | 10/24/19 | 3 mL | | Bilatera | | | 18 2:07 | | | l | | | PM PDT | | | Eyelids | +-------+ +------+---+ + + +---+ | | | + +---+ | ondansetron (ZOFRAN) injection | | | 4 mg 4 mg, intravenous, | | | POSTPROCEDURE PRN, 1 dose, | | | Starting Sat10/23/17 at 1408, | | | Until Sat10/23/17 at 2117, | | | nausea/vomiting, 1st line | | + +---+ | | | + +---+ + +-------+ +---------+---+-------+ | proparacaine (OPHTHAINE) 0.5 % | Given | 10/24/19 | 2 drops | | Both | | ophthalmic drops INTRAPROCEDURE | | 18 2:08 | | | Eyes | | PRN, Starting Sat10/23/17 at | | PM PDT | | | | | 1408, Until Sat10/23/17 at 1424 | | | | | | + +-------+ +---------+---+-------+ +---+---+ | | | +---+---+ documented in this encounter
--- OUTSIDE RECORDS SUMMARY | ~2019-07-23 | XMS | Encounter Summary ---
Demographics + + + | Address | [address] | | | [place] [address] | + + + | Home Phone | | + + + | Preferred Language | Unknown | + + + | Marital Status | | + + + | Catholic Affiliation | 1077 | + + + | Race | Unknown | + + + | Ethnic Group | Unknown | + + + Author + + + | Author | [facility] | | | and [place] | + + + | Organization | [facility] | | | and [place] [...] Team Providers + +------+ + | Care Program Mgr Name | Role | Phone | + +------+ + | Ganesh Hudson DO | PCP | | + +------+ + Encounter Details +--------+ + + + + | Date | Type | Department | Care Team | Description | +--------+ + + + + | 08/20/ | [facility] | Jonathan Caro | | | 2014 | Encounter | [facility] | [address] | | | | | [address] | [facility] | | | | | [address] [place] | [place] [address] | | | | | [address] | [phone] | | | | | [phone] | | | +--------+ + + + [...] + + documented as of this encounter Medications at Time of Discharge + + + +---------+--------+ + | Medication | Sig | Dispensed | Refills | Start | End Date | | | | | | Date | | + + + +---------+--------+ + | aspirin 81 mg EC | Take 81 mg by mouth | | 0 | | | | tablet | Daily. | | | | | + + + +---------+--------+ + | cholecalciferol | Take 1,000 Units by | | 0 | | | | (VITAMIN D-3) 1,000 | mouth Daily. | | | | | | units tablet | | | | | | + + + +---------+--------+ + | Multiple | Take by mouth. | | 0 | | | | Vitamins-Minerals | | | | | | | (OCUVITE PO) | | | | | | + + + +---------+--------+ + | omeprazole | Take 20 mg by mouth | | 0 | | | | (PRILOSEC) 20 mg | every morning | | | | | | capsule | (before breakfast). | | | | | | | | | | | | + + + +---------+--------+ + | oxybutynin | Take 15 mg by mouth | | 0 | | | | (DITROPAN XL) 15 MG | Daily. | | | | | | 24 hr tablet | | | | | | + + + +---------+--------+ + | | Take 40 mg by mouth. | | 0 | | | | Phenyleph-Chlorphen- | | | | | | | Hydrocod (TRIANT-HC | | | | | | | PO) | | | | | | + + + +---------+--------+ + | simvastatin | Take 40 mg by mouth | | 0 | | | | (ZOCOR) 40 mg tablet | nightly. | | | | | + + + +---------+--------+ + documented as of this encounter Plan of Treatment Not on filedocumented as of this encounter Procedures + +--------+ + + + | Procedure Name | Priori | Date/Time | Associated Diagnosis | Comments | | | ty | | | | + +--------+ + + + | CBC W/AUTO | STAT | 08/20/2014 | | Results for this | | DIFFERENTIAL | | 4:40 PM | | procedure are in the | | | | PDT | | results section. | + +--------+ + + + | COMPREHENSIVE | STAT | 08/20/2014 | | Results for this | | METABOLIC PANEL | | 4:40 PM | | procedure are in the | | | | PDT | | results section. | + +--------+ + + + | XR PELVIS 1 OR 2 VW | Routin | 08/20/2014 | | Results for this | | | e | 4:12 PM | | procedure are in the | | | | PDT | | results section. | + +--------+ + + + documented in this encounter Results CBC w/ Auto Differential (08/20/2014 4:40 PM PDT) + +-------+ + + + | Component | Value | Ref Range | Performed | Pathologist | | | | | At | Signature | + +-------+ + + + | WBC | 9.6 | 4.3 - 10.4 | EXTERNAL | | | | | 1000/mm3 | LAB | | + +-------+ + + + | RBC | 4.43 | 4.12 - 5.30 | EXTERNAL | | | | | mil/mm3 | LAB | | + +-------+ + + + | HGB, | 12.1 | 12.4 - 15.7 | EXTERNAL | | | External | | g/dL | LAB | | + +-------+ + + + | HCT, | 35.4 | 37.7 - 47.0 % | EXTERNAL | | | External | | | LAB | | + +-------+ + + + | MCV | 80 | 82 - 97 fl | EXTERNAL | | | | | | LAB | | + +-------+ + + + | MCH | 27.3 | 27.1 - 32.3 pg | EXTERNAL | | | | | | LAB | | + +-------+ + + + | MCHC | 34.2 | 32.0 - 36.9 | EXTERNAL | | | | | g/dL | LAB | | + +-------+ + + + | RDW-CV | 13.1 | <=17.0 % | EXTERNAL | | | | | | LAB | | + +-------+ + + + | RDW-SD | 37.4 | 34.0 - 57.0 fL | EXTERNAL | | | | | | LAB | | + +-------+ + + + | Platelet | 304 | 150 - 450 | EXTERNAL | | | Count | | 1000/mm3 | LAB | | | Plasma | | | | | + +-------+ + + + | MPV | 9.4 | 9.4 - 12.3 FL | EXTERNAL | | | | | | LAB | | + +-------+ + + + | % Segmented | 71.7 | 42.0 - 76.0 % | EXTERNAL | | | | | | LAB | | | Neutrophils | | | | | + +-------+ + + + | % | 20.2 | 20.0 - 40.0 % | EXTERNAL | | | Lymphocytes | | | LAB | | + +-------+ + + + | % Monocytes | 6.8 | 3.0 - 13.0 % | EXTERNAL | | | | | | LAB | | + +-------+ + + + | % | 0.9 | 0.0 - 7.0 % | EXTERNAL | | | Eosinophils | | | LAB | | + +-------+ + + + | % Basophils | 0.4 | 0.0 - 2.0 % | EXTERNAL | | | | | | LAB | | + +-------+ + + + | Absolute | 6.9 | 2.50 - 8.50 | EXTERNAL | | | Neutrophils | | 1000/mm3 | LAB | | + +-------+ + + + | Absolute | 1.95 | 1.00 - 3.80 | EXTERNAL | | | Lymphocytes | | 1000/mm3 | LAB | | + +-------+ + + + | Absolute | 0.66 | 0.00 - 0.80 | EXTERNAL | | | Monocytes | | 1000/mm3 | LAB | | + +-------+ + + + | Absolute | 0.09 | 0.00 - 0.70 | EXTERNAL | | | Eosinophils | | 1000/mm3 | LAB | | + +-------+ + + + | Absolute | 0.04 | 0.00 - 0.20 | EXTERNAL | | | Basophils | | 1000/mm3 | LAB | | + +-------+ + + + | SLIDE | NO | | EXTERNAL | | | REVIEWED | | | LAB | | + +-------+ + + + + + | Specimen | + + | | + + + +---------+ + + | Performing | Address | City/State/Zipcode | Phone Number | | Organization | | | | + +---------+ + + | EXTERNAL LAB | | | | + +---------+ + + Comprehensive Metabolic Panel (08/20/2014 4:40 PM PDT) + +-------+ + + + | Component | Value | Ref Range | Performed | Pathologist | | | | | At | Signature | + +-------+ + + + | Sodium | 135 | 132 - 143 | EXTERNAL | | | | | mmol/L | LAB | | + +-------+ + + + | Potassium | 2.6 | 3.3 - 4.9 | EXTERNAL | | | | | mmol/L | LAB | | + +-------+ + + + | Cl | 99 | 95 - 108 mmol/L | EXTERNAL | | | | | | LAB | | + +-------+ + + + | CO2 | 27 | 23 - 34 mmol/L | EXTERNAL | | | | | | LAB | | + +-------+ + + + | Anion Gap | 9 | 7 - 16 | EXTERNAL | | | | | | LAB | | + +-------+ + + + | Calcium | 9.4 | 8.3 - 10.0 | EXTERNAL | | | | | mg/dL | LAB | | + +-------+ + + + | Glucose | 130 | 70 - 110 mg/dL | EXTERNAL | | | | | | LAB | | + +-------+ + + + | BUN, Bld | 21 | 5 - 26 mg/dL | EXTERNAL | | | | | | LAB | | + +-------+ + + + | Creatinine | 1.4 | 0.6 - 1.3 mg/dL | EXTERNAL | | | | | | LAB | | + +-------+ + + + | BUN/Creatin | 15 | 7.0 - 24.0 | EXTERNAL | | | ine Ratio | | RATIO | LAB | | + +-------+ + + + | GFR | 38 | >=60 | EXTERNAL | | | ESTIMATE | | mL/min/1.73m2 | LAB | | | (REF) | | | | | + +-------+ + + + | Bilirubin, | 0.4 | <=1.2 mg/dL | EXTERNAL | | | Total | | | LAB | | + +-------+ + + + | Protein, | 7.2 | 6.6 - 8.5 g/dL | EXTERNAL | | | Total | | | LAB | | + +-------+ + + + | Albumin | 3.9 | 3.0 - 4.5 g/dL | EXTERNAL | | | | | | LAB | | + +-------+ + + + | Alkaline | 68 | 46 - 116 U/L | EXTERNAL | | | Phosphatase | | | LAB | | + +-------+ + + + | ALT, | 21 | 14 - 59 U/L | EXTERNAL | | | External | | | LAB | | + +-------+ + + + | AST, | 20 | <=38 U/L | EXTERNAL | | | External | | | LAB | | + +-------+ + + + + + | Specimen | + + | | + + + +---------+ + + | Performing | Address | City/State/Zipcode | Phone Number | | Organization | | | | + +---------+ + + | EXTERNAL LAB | | | | + +---------+ + + XR Pelvis 1 or 2 Vw (08/20/2014 4:12 PM PDT) + + | Specimen | + + | | + + + + + | Narrative | Performed At | + + + | ORIGINAL THREE VIEWS OF THE PELVIS: HISTORY: | | | Fall. FINDINGS: There is multilevel degenerative change of the | | | lower lumbar spine. There is suggestion of vascular calcifications. | | | SI joints are symmetric. The visualized sacral alae are intact. | | | There is productive change of the femoroacetabular joints | | | bilaterally. No acute pelvic fracture is identified. | | | IMPRESSION: No acute fracture is identified. If there is concern | | | for an occult fracture, consider MRI evaluation. | | | JOB #: [id number] Read By: ROSE MARIE COHEN MD Released By: | | | ROSE MARIE COHEN MD Date: 08/23/2014 08:08 | | + + + + + | Procedure Note | + + | Suresh, Rad Results In - 01/09/2017 7:38 PM PST ORIGINAL THREE VIEWS OF THE | | PELVIS: HISTORY:Fall. FINDINGS:There is multilevel degenerative change of the lower | | lumbar spine. There is suggestion of vascular calcifications. SI joints are symmetric. | | The visualized sacral alae are intact. There is productive change of the | | femoroacetabular joints bilaterally. No acute pelvic fracture is identified. | | IMPRESSION:No acute fracture is identified. If there is concern for an occult fracture, | | consider MRI evaluation. JOB #: [id number] Read By: ROSE MARIE COHEN MD | | Released By: ROSE MARIE COHEN, MDDate: 08/23/2014 08:08 | |Fall. | | | |FINDINGS: | |There is multilevel degenerative change of the lower lumbar spine. There is suggestion of vascular calcifications. SI joints are symmetric. The visualized sacral alae are intact. There is productive change of the | |femoroacetabular joints bilaterally. | | No acute pelvic fracture is identified. | | | |IMPRESSION: | |No acute fracture is identified. If there is concern for an occult fracture, consider MRI evaluation. | | | | | |JOB #: [id number] | | | |Read By: ROSE MARIE COHEN MD | | | |Released By: ROSE MARIE COHEN MD | |Date: 08/23/2014 08:08 | | | | | + + documented in this encounter Visit Diagnoses Not on filedocumented in this encounter"
--- OUTSIDE RECORDS SUMMARY | ~2019-07-23 | XMS | Encounter Summary ---
Demographics + + + | Address | [address] | | | [place] [address] | + + + | Home Phone | | + + + | Preferred Language | Unknown | + + + | Marital Status | Single | + + + | Amish Affiliation | CHR | + + + [...] Team Providers + +------+ + | Care Pan Devulcanizer Helper Name | Role | Phone | + [...] x2 sent | | | | Rd [facility] | [facility] | to lab | | | | Hospital Admitting | [place], [place] | | | | | Desk Located on the | [address] | | | | | 9th floor | [phone] | | | | | [place], [place] | | | | | | [address] | | | +--------+---------+ + + + [...] Otolaryngology (Head & Neck Surgery), please call: [phone]. For Extreme Emergencies: Call [phone] Special Instructions: No drinking alcohol while on [...] and walk. You may also take an ynpq-cln-whbmoot stool softener (Docusate or C olace). Follow the directions on the label. Miralax is also helpful to relieve constipation. Call the Resident on-call at [phone] if you have any of the following [...] 4:00 pm, call the Otolaryngology clinic at [phone]. Somebody will try to answer your call [...] Raquel Cedeno MD Resident Department of Surgery [facility] Ana Louis - 06/29/2011 3:07 PM PDTPatient [...] is driving her to daughter's home in [place]. She will stay there a few days before returning to her home in [place]. She is very active prior to admission. No case managment needs anticipated. Electronically signed by:Ana Beltran Position:Glass Cutter Helper Pager ID:[phone] 12 3:07 PM Ana Louis - 06/29/2011 2:49 PM PDTPatient Name: VICKI ERIC Date of : 1930 CARE COORDINATION ROUNDING NOTE Care Coordination rounds held. Disciplines attending included: Glass Cutter Helper,, Refining Engineer,, Bedside RN,, head start coordinator, Electronically signed by:Ana Beltran Position:Glass Cutter Helper Pager ID:[phone] 12 2:49 PM Shilpi Gibson SLP - [...] HISTORY: The patient currently lives outside of [place], [place]. Her children live approximately 30 mi [...] visit with Dr. Sumner. Shilpi Burris M.S., KITCHEN SUPERVISOR-CFY Speech-Language Pathology Clinical Fellow [facility] Otolaryngology, Head & Neck Surgery Formerly [facility], [facility] & [facility] [place] Pager [phone] ed Ceja MD - 06/29/2011 7:47 AM [...] Department of Otolaryngoly- Head and Neck Surgery Formerly [facility] and [facility] . illMatt shelley MD - 06/28/2011 1:23 PM PDTINPATIENT BRIEF OPERATIVE NOTE Procedure Date: 06/28/2011 Author: MATT MARTINO MD Attending Physician: Dr. Sumner Assistants: Dr. Cedeno, Devika Russlel NP Preoperative Diagnosis: T1 N0 M0 SCC [...] Cedeno MD - 06/28/2011 10:33 PM PDT [id number] | | [id number] [place]IM[place] | | [id number] Date: 06/28/2011 Attending Surgeon: King Sosa | | Gregg Sumner Wafer Batter Mixer(s): Raquel Cedeno M.D. | | Preoperative Diagnosis(es):Recurrent [...] | was then irrigated. Hemostasis was ensured. A7-Slovenian flat PURVI drain was placed in the [...] Raquel Cedeno, | | Gregg Sumner M.D. [facility] / [id number] / [id number] / [id number] / T: | | 06/28/2011 | |An [...] then irrigated. Hemostasis was ensured. A | |7-Slovenian flat PURVI drain was placed in the [...] Sumner M.D. | | | | | |[facility] / | |[id number] / [id number] / [id number] / | | | | | | [...] + + + + | [facility] | [address] | [place] [address] | | | PATHOLOGY | [address] [...] | | | | | | Grade: V5Vjjqejb: | | | | | | Negative for invasive | | | | | | carcinomaAngiolymphatic | | | | | | Invasion: | | | | | | AbsentPerineural | | | | | | Invasion: | | | | | | AbsentLymph Nodes, | | | | | | Extranodal Extension: | | | | | | Not identifiedAS[facility] Stage | | | | | | (7th Edition) (pTNM)TNM | | | | | | Descriptors: r | | | | | | (recurrent)Primary Tumor | | | | | | (pT): pP1Ruwfwrss Lymph | | | | | | Nodes (pN): | | | | | | tH1Hjaydb of regional | | | | | [...] nodes: | | | | | | Fbkuqu-ui-hpgTdjf of | | | | | | [...] + + + + | [facility] | [address] | [place] [address] | | | PATHOLOGY | [address] [...]
--- OUTSIDE RECORDS SUMMARY | ~2019-07-23 | XMS | Encounter Summary ---
Demographics + + + | Address | [address] | | | [place] [address] | + + + | Home Phone | | + + + | Preferred Language | Unknown | + + + | Marital Status | | + + + | Samaritan Affiliation | 1077 | + + + | Race | Unknown | + + + | Ethnic Group | Unknown | + + + Author + + + | Author | [facility] | | | and [place] | + + + | Organization | [facility] | | | [...] Team Providers + +------+ + | Care Sales Agent Fire Insurance Name | Role | Phone | + +------+ + | Ganesh Hudosn DO | PCP | | + +------+ + Reason for Referral Evaluate & Treat (Routine) +--------+ + + + + + | Status | Reason | Specialty | Diagnoses / | Referred By | Referred To | | | | | Procedures | Contact | Contact | +--------+ + + + + + | Closed | Specialty | Physical | Diagnoses | [facility] | | | | Services | Therapy | Spinal | Otf | | | | Required | | stenosis of | [place] | | | | | | cervical | [address] | | | | | | region | [address] | | | | | | Degenerative | [place] | | | | | | disc | [address] | | | | | | disease, | Phone: | | | | | | cervical | [phone] | | | | | | Spondylolist | Fax: | | | | | | hesis of | [phone] | | | | | | cervical | | | | | | | region | | | +--------+ + + + + + Reason for Visit + + + | Reason | Comments | + + + | Neck Pain | | + + + Evaluate & Treat (Routine) +--------+--------+ + + + + | Status | Reason | Specialty | Diagnoses / | Referred By | Referred To | | | | | Procedures | Contact | Contact | +--------+--------+ + + + + | Closed | | Neurosurgery | Diagnoses | Becca, | Gabino Baker | | | | | Neck pain | Patricia Barry MD [address] | | | | | Right leg | DO [address] | | | | | pain | [address] | [place], [place] | | | | | Procedures | [place], [place] | [address] | | | | | [place] | [address] | Phone: | | | | | OFFICE/OUTPT | Phone: | [phone] | | | | | | [phone] | Fax: | | | | | VISIT,EST,LE | Fax: | [phone] | | | | | VL IV | [phone] | | +--------+--------+ + + + + Encounter Details +--------+---------+ + + + | Date | Type | Department | Care Team | Description | +--------+---------+ + + + | 01/21/ | Office | [facility] | Otf Loja | Spinal stenosis of | | 2011 | Visit | NEUROSURGERY [address] | [address] | cervical region | | | | [address] | [address] | (Primary Dx); | | | | [place] | [place] [address] | Degenerative disc | | | | [address] | [phone] | disease, cervical; | | | | [phone] | | Spondylolisthesis of | | | | | | cervical region; | | | | | | Tongue cancer ([facility]) | +--------+---------+ + + + Social History [...] + + + | Blood Pressure | 152/92 | 01/22/2012 12:01 PM | | | | | PST | | + + + + + | Pulse | 87 | 01/22/2012 12:01 PM | | | | | PST | | + + + + + | Temperature | - | - | | + + + + + | Respiratory Rate | 18 | 01/22/2012 12:01 PM | | | | | PST | | + + + + + | Oxygen Saturation | - | - | | + + + + + | Inhaled Oxygen | - | - | | | Concentration | | | | + + + + + | Weight | 54 kg (119 lb) | 01/22/2012 12:01 PM | | | | | PST | | + + + + + | Height | 157.5 cm (5' 2") | 01/22/2012 12:01 PM | | | | | PST | | + + + + + | Body Mass Index | 21.77 | 01/22/2012 12:01 PM | | | | | PST | | + + + + + documented in this encounter Patient Instructions Patient Instructions Otf Loja PA-C - 01/22/2012 12:52 PM PSTWe discussed that you have spinal stenosis with degenerative disc disease, We decided to try conservative gino atments with Physical therapy. Continue to see your primary Doctor and see us in about 2 mo nths. Call sooner if your symptoms worsen. documented in this encounter Progress Notes Otf Loja PA-C - 01/22/2012 1:24 PM PSTI reviewed the patients bonescan which shows significant osteoporosis which would fernando her a very poor surgical candidate. Hopeful ly she will respond well to PT 12 1:26 PM PSTOtf Loja PA-C - 01/22/2012 12:57 PM PSTFormatting of this note m ight be different from the original. AUGUSTO Peralta [address] [facility] [address] [place], [place] [id number] FAX: NEUROSURGERY HISTORY AND PHYSICAL EXAMINATION CHIEF COMPLAINT: Chief Complaint Patient presents with Neck Pain HISTORY OF PRESENT ILLNESS: The patient is a 81 y.o. female with the complaint of neck pawan n that began years ago. However in December she was out hunting and she began having increas ing discomfort in the right side of her neck. She described at that time having discomfort which went from her right ear down into the middle portion of her low cervical spine it woul d only last a very short period of time perhaps seconds. It seemed to get worse with turnin g her head to the right or if she moves her head quickly. It was concerning enough to her t hat she decided to come back from hunting a little early. Since that time the discomfort is actually improved. Now she states she has a "numb pain". Again it is in the region from t he ear to the middle portion of her lower cervical spine it is also still there when she tur ns her head to the right not the left where she moves her head quickly. She's only had a fe w episodes of it over the last couple weeks. She has not noticed any symptoms radiating int o her shoulders or into her arms either right or left she does not notice any particular wea kness in her hands or her arms. She does state that occasionally on her fingers she'll get an episode where her finger will turn white and feels somewhat numb and then it will go away on its own. The patient had an MRI as well as x-rays of her neck both flexion and extension views. She has not undergone any physical therapy or injections. She has not tried any medications fo r this discomfort. When her pain was at its worst she considered at a 6/10 however at this time she is not having any discomfort. Patient denies any troubles with balance although derek caban did sustain a couple of falls within the last year both of which are mechanical in origin with getting her feet tripped up in wire etc. The patient continues to be very active she i s and still travels around with a travel trailer. She is active in hunting, does al l of her own yard and housework. Her biggest concern is that her neurologic problems and he r neck discomfort might lead to paralysis. PAST MEDICAL HISTORY: Past Medical History Diagnosis Date High blood pressure High cholesterol Osteopenia Osteoporosis PAST SURGICAL HISTORY: Past Surgical History Procedure Date Hysterectomy 1977 Appendectomy 1960 Tongue cancer 2001, 2007, 2008, July 2011 Colonoscopy 2010 Shoulder surgery 2009 CURRENT MEDICATIONS: Current Outpatient Prescriptions Medication Sig Dispense Refill omeprazole (PRILOSEC) 20 mg capsule Take 20 mg by mouth every morning (before breakfast ). oxybutynin (DITROPAN XL) 15 MG 24 hr tablet Take 15 mg by mouth Daily. Jneaqgtrr-Jvaexpexu-Ilagefgx (TRIANT-HC PO) Take 40 mg by mouth. [...] no rheumatoid arthritis. PHYSICAL EXAMINATION: Blood pressure 152/92, pulse 87, resp. rate 18, height 1.575 m (5' 2"), weight 53.978 kg (1 19 lb). Body mass index is 21.77 kg/(m^2). GENERAL: Annette Eric is in no acute distress with unlabored [...] has no apparent deficits with short or terminal supervisor memory. CRANIAL NERVES: II: Acuity is intact. [...] Intrinsics 5 5 Ulnar Intrinsics 5 5 Diesel Pile Hammer Operator Strength 5 5 Hip Flexion 5 5 [...] C5-6. NEUROSURGICAL DIAGNOSES: Encounter Diagnoses Name Primary? Spinal stenosis of cervical region Yes Degenerative disc disease, cervical Spondylolisthesis of cervical region Tongue cancer GENERAL DIAGNOSES: Past Medical History Diagnosis Date High blood pressure High cholesterol Osteopenia Osteoporosis PLAN: Annette Eric presented today, and it was a pleasure seeing this patient and assessing her [place]. The patient and I discussed the natural history, non-operative, and operative opti ons for her disease. I am hoping that I can improve the patient's symptoms with conservativ e therapy at this time area I've asked patient to continue following with her primary care [place] andersen with any medical treatments to me seem reasonable at the time. I've also provided h er a prescription for physical therapy to see if that can help with her symptoms we also did talk about the possibility of using some massage therapy for symptomatic relief as well. F ortunately this patient's symptoms have improved since the initial onset in December. I've e ncouraged her to followup with us in approximately 2 months. If she has increasing problems or symptoms then she is welcome to call and we can work her in for further evaluation and c onsideration of other therapies at that time. ELECTRONICALLY SIGNED BY: AUGUSTO Peralta, 01/22/2012 12:58 documented in this encounter Plan of Treatment + + +--------+ + + | Name | Type | Priori | Associated Diagnoses | Order Schedule | | | | ty | | | + + +--------+ + + | Ambulatory referral | Outpatient | Routin | Spinal stenosis of | Expected: | | to Physical Therapy | Referral | e | cervical region | 01/22/2012, Expires: | | | | | Degenerative disc | 01/21/2013 | | | | | disease, cervical | | | | | | Spondylolisthesis of | | | | | | cervical region | | + + +--------+ + + documented as of this encounter Visit Diagnoses + + | Diagnosis | + + | Spinal stenosis of cervical region - Primary Spinal stenosis in cervical region | + + | Degenerative disc disease, cervical Degeneration of cervical intervertebral disc | + + | Spondylolisthesis of cervical region Acquired spondylolisthesis | + + | Tongue cancer (HCC) Malignant neoplasm of tongue, unspecified site | + + documented in this encounter
--- OUTSIDE RECORDS SUMMARY | ~2019-07-23 | XMS | Encounter Summary ---
Demographics + + + | Address | [address] | | | [place] [address] | + + + | Home Phone | | + + + | Preferred Language | Unknown | + + + | Marital Status | Single | + + + | Rastafarian Affiliation | CHR | + + + | Race | White | + + + | Ethnic Group | Not or | + + + Author + + + | Author | [facility] | + + + | Organization | [facility] | + + + | Address [...] Team Providers + +------+ + | Care Sccm Administrator Name | Role | Phone | + [...] | | | | tongue, | | [facility] | | | | | unspecified | | [address] [place], | | | | | site | | [place] | | | | | | | [address] | | | | | | | Phone: | | | | | | | [phone] | | | | | | | Fax: | | | | | | | [phone] | +--------+--------+ + + + + Encounter [...] | | | [address] | [facility] [place] | | | | | [address] | [address] | | | | | Physician's | [phone] | | | | | Pavilion, 2nd floor | | | | | | [facility] [place] | | | | | | [address] | | | | | | [phone] | | | +--------+---------+ + + + [...] | + +--------+ + + + | MT BIOPSY | Routin | 06/14/2011 | Tongue [...]
--- OUTSIDE RECORDS SUMMARY | ~2019-07-23 | XMS | Encounter Summary ---
Demographics + + + | Address | [address] | | | [place] [address] | + + + | Home Phone [...] Author + + + | Author | [facility] | + + + | Organization | [facility] | + + + | [...] Team Providers + +------+ + | Care Director Learning Services Name | Role | Phone | + [...] | +--------+ + + + + | 06/27/ | Anesthesia | 6A Intra Op [id number] | Narendra Yuan MD | | | 2011 | Event | [address] | [address] | | | | | [facility] | [address]ia [address] [place], | | | | | Hospital Admitting | [place] [address] | | | | | Desk Located on the | [phone] | | | | | 9th floor | | | | | | [place], [place] | Emmett Radford MD | | | | | [address] | [address] | | | | | | [address] | | | | | | [place], [place] | | | | | | [address] | | +--------+ + + + + Anesthesia Record + + + + + | Procedure Name | Responsible | Anesthesia Start | Anesthesia Stop Time | | | Anesthesiologist | Time | | + + + + + | LEFT HEMIGLOSSECTOMY | Narendra Yuan MD | 06/28/11 1217 | 06/28/11 [...] + +------+ | Meds | +------+ + +---------+ | Name | Total | + +---------+ | fentaNYL | 150 mcg | + +---------+ | ePHEDrine | 25 mg | + +---------+ | PHENYLephrine | 100 mcg | + +---------+ | lidocaine 2% | 80 mg | + +---------+ | propofol | 70 mg | + +---------+ | ampicillin- sulbactam | 1.5 g | + +---------+ | rocuronium | 50 mg | + +---------+ | ondansetron | 4 mg | + +---------+ | esmolol | 40 mg | + +---------+ | glycopyrrolate | 0.4 mg | + +---------+ | neostigmine | 4 mg | + +---------+ | LR | 900 mL | + +---------+ + + | Name | + + | Insp Sevo | + + | Et Sevo | + + | O2 Flow Rate (Total Liters) | + + | Air Flow rate (L/min) | + + + + | No [...] R Hand; 20; Right; Hand; | Renetta Samson RN | Gricelda Nobles RN | | Periph | None; Positive | | | | eral | | | | | Line | | | | +--------+ + + + | RETIRE | 06/28/11; 1237; Left:; neck; | 06/28/11 1237 by | 12/20/16 1622 by | | D - | 12/20/16 (Automatic cleanup per | Pedro Monaco RN [...] filedocumented in this encounter Administered Medications + +--------+ +-------+------+------+ | Medication Order | MAR | Action | Dose | Rate | Site | | | Action | Date | | | | + +--------+ +-------+------+------+ | ampicillin-sulbactam (aka | Given | 06/28/19 | 1.5 g | | | | UNASYN) injection intravenous, | | 12 12:36 | | | | | INTRAPROCEDURE PRN, Starting Kim | | PM PDT | | | | | 06/28/11 at 1236, Until Kim | | | | | | | 06/28/11 at 1406 | | | | | | + +--------+ +-------+------+------+ +---+---+ | | | +---+---+ + +-------+ +------+---+---+ | ePHEDrine injection | Given | 06/28/19 | 5 mg | | | | intravenous, INTRAPROCEDURE PRN, | | 12 1:29 | | | | | Starting Kim 06/28/11 at 1233, | | PM PDT | | | | | Until Kim 06/28/11 at 1406 | | | | | | + +-------+ +------+---+---+ +-------+ +------+---+---+ | Given | 06/28/19 | 5 mg | | | | | 12 1:08 | | | | | | PM PDT | | | | +-------+ +------+---+---+ | Given | 06/28/19 | 5 mg | | | | | 12 12:59 | | | | | | PM PDT | | | | +-------+ +------+---+---+ +---+---+ | | | +---+---+ + +-------+ +-------+---+---+ | esmolol (aka BREVIBLOC) | Given | 06/28/19 | 10 mg | | | | injection intravenous, | | 12 2:00 | | | | | INTRAPROCEDURE PRN, Starting Kim | | PM PDT | | | | | 06/28/11 at 1349, Until Kim | | | | | | | 06/28/11 at 1406 | | | | | | + +-------+ +-------+---+---+ +-------+ +-------+---+---+ | Given | 06/28/19 | 10 mg | | | | | 12 1:57 | | | | | | PM PDT | | | | +-------+ +-------+---+---+ | Given | 06/28/19 | 10 mg | | | | | 12 1:52 | | | | | | PM PDT | | | | +-------+ +-------+---+---+ +---+---+ | | | +---+---+ + +-------+ +--------+---+---+ | fentaNYL citrate (PF) (aka | Given | 06/28/19 | 50 mcg | | | | SUBLIMAZE) injection | | 12 12:38 | | | | | INTRAPROCEDURE PRN, Starting Kim | | PM PDT | | | | | 06/28/11 at 1221, Until Kim | | | | | | | 06/28/11 at 1406, sedation | | | | | | + +-------+ +--------+---+---+ +-------+ +---------+---+---+ | Given | 06/28/19 | 100 mcg | | | | | 12 12:21 | | | | | | PM PDT | | | | +-------+ +---------+---+---+ +---+---+ | | | +---+---+ + +-------+ +--------+---+---+ | glycopyrrolate (aka CADEN) | Given | 06/28/19 | 0.4 mg | | | | injection INTRAPROCEDURE PRN, | | 12 1:48 | | | | | Starting Kim 06/28/11 at 1348, | | PM PDT | | | | | Until Kim 06/28/11 at 1406 | | | | | | + +-------+ +--------+---+---+ +---+---+ | | | +---+---+ + + + +----+---+---+ | lactated ringers IV | given by | 06/28/19 | mL | | | | INTRAPROCEDURE CONTINUOUS PRN, | | 12 2:05 | | | | | Starting Kim 06/28/11 at 1217, | anesthes | PM PDT | | | | | Until Kim 06/28/11 at 1406 | iology | | | | | + + + +----+---+---+ + + +----+---+---+ | given by anesthesiology | 06/28/19 | mL | | | | | 12 1:19 | | | | | | PM PDT | | | | + + +----+---+---+ | New Bag | 06/28/19 | mL | | | | | 12 12:17 | | | | | | PM PDT | | | | + + +----+---+---+ +---+---+ | | | +---+---+ + +-------+ +-------+---+---+ | lidocaine (aka XYLOCAINE MPF) | Given | 06/28/19 | 80 mg | | | | 20 mg/mL (2 %) injection | | 12 12:23 | | | | | INTRAPROCEDURE PRN, Starting Kim | | PM PDT | | | | | 06/28/11 at 1223, Until Kim | | | | | | | 06/28/11 at 1406 | | | | | | + +-------+ +-------+---+---+ +---+---+ | | | +---+---+ + +-------+ +------+---+---+ | neostigmine (aka PROSTIGMIN) | Given | 06/28/19 | 4 mg | | | | injection intravenous, | | 12 1:48 | | | | | INTRAPROCEDURE PRN, Starting Kim | | PM PDT | | | | | 06/28/11 at 1348, Until Kim | | | | | | | 06/28/11 at 1406 | | | | | | + +-------+ +------+---+---+ +---+---+ | | | +---+---+ + +-------+ +------+---+---+ | ondansetron (aka ZOFRAN) | Given | 06/28/19 | 4 mg | | | | injection INTRAPROCEDURE PRN, | | 12 1:45 | | | | | Starting Kim 06/28/11 at 1345, | | PM PDT | | | | | Until Kim 06/28/11 at 1406 | | | | | | + +-------+ +------+---+---+ +---+---+ | | | +---+---+ + +-------+ +---------+---+---+ | phenylePHrine 100 mcg/mL | Given | 06/28/19 | 100 mcg | | | | injection (OR syringe) | | 12 12:33 | | | | | intravenous, INTRAPROCEDURE PRN, | | PM PDT | | | | | Starting Kim 06/28/11 at 1233, | | | | | | | Until Kim 06/28/11 at 1406 | | | | | | + +-------+ +---------+---+---+ +---+---+ | | | +---+---+ + +-------+ +-------+---+---+ | propofol INTRAPROCEDURE PRN, | Given | 06/28/19 | 20 mg | | | | Starting Kim 06/28/11 at 1223, | | 12 12:38 | | | | | Until Kim 06/28/11 at 1406 | | PM PDT | | | | + +-------+ +-------+---+---+ +-------+ +-------+---+---+ | Given | 06/28/19 | 50 mg | | | | | 12 12:23 | | | | | | PM PDT | | | | +-------+ +-------+---+---+ +---+---+ | | | +---+---+ + +-------+ +-------+---+---+ | rocuronium (aka ZEMURON) | Given | 06/28/19 | 50 mg | | | | injection INTRAPROCEDURE PRN, | | 12 12:24 | | | | | Starting Kim 06/28/11 at 1224, | | PM PDT | | | | | Until Kim 06/28/11 at 1406, | | | | | | | Neuromuscular block | | | | | | + +-------+ +-------+---+---+ +---+---+ | | | +---+---+ documented in this encounter"
--- OUTSIDE RECORDS SUMMARY | ~2019-07-23 | XMS | Encounter Summary ---
Demographics + + + | Address | [address] | | | [place] [address] | + + + | Home Phone | | + + + | Preferred Language | Unknown | + + + | Marital Status | Single | + + + | Rastafari Affiliation | CHR | + + + | Race | White | + + + | Ethnic Group | Not or | + + + Author + + + | Author | [facility] | + + + | Organization | [facility] | + + + | Address | [...] Team Providers + +------+ + | Care Simulation Educator Name | Role | Phone | + [...] [address] | | | | | | [place] [address] | | | | | | [phone] | | | +--------+ + + + [...]
--- OUTSIDE RECORDS SUMMARY | ~2019-07-23 | XMS | Encounter Summary ---
Demographics + + + | Address | [address] | | | [place] [address] | + + + | Home Phone | | + + + | Preferred Language | Unknown | + + + | Marital Status | Single | + + + | Caodaism Affiliation | CHR | + + + | Race | White | + + + | Ethnic Group | Not or | + + + Author + + + | Author | [facility] | + + + | Organization | [facility] | + + + | Address [...] Team Providers + +------+ + | Care Equities Trader Name | Role | Phone | + +------+ + PCP | Unavailable | + +------+ + Encounter Details +--------+ + + + + | Date | Type | Department | Care Team | Description | +--------+ + + + + | 04/01/ | Results | Otolaryngology | [place], | | | 2001 | Only | Head and Neck | MD [address] [facility] | | | | | Surgery Services at | [facility] | | | | | [address] | [place], [place] | | | | | [address] | [address] | | | | | Physician's | [phone] | | | | | [place], [address] [place] [address] | | | | | | [place], [place] | | | | | | [address] | | | | | | [phone] | | | +--------+ + + + [...] | | | | fragment of soft, rodgers to | | | | | | [...] + + | [facility] | [address] | [place] [address] | | | PATHOLOGY | RANDY MONTIEL | | | + + + + + | [facility] | [address] | [place] [address] | | | PATHOLOGY | RANDY MONTIEL | | | + + + + + documented in this encounter Visit Diagnoses Not on filedocumented in this encounter
--- OUTSIDE RECORDS SUMMARY | ~2019-07-23 | XMS | Encounter Summary ---
Demographics + + + | Address | [address] | | | [place] [address] | + + + | Home Phone | | + + + | Preferred Language | Unknown | + + + | Marital Status | Single | + + + | Muslim Affiliation | CHR | + + + | Race | White | + + + | Ethnic Group | Not or | + + + Author + + + | Author | [facility] | + + + | Organization | [facility] | + + + | Address [...] Team Providers + +------+ + | Care Lvn Lpn Name | Role | Phone | + [...] | surface of | [address], | [address] [place], | | | | | tongue (HCC) | [place] [address] | [place] | | | | | Procedures | Phone: | [address] | | | | | ID | [phone] | Phone: | | | | | LARYNGOSCOPY | Fax: | [phone] | | | | | ,DIRECT,DIAG | [phone] | Fax: | | | | | NOSTIC ID | | [phone] | | | | | LARYNGOSCOPY | | | | | | | ,DIRCT,OP,BI | | | | | | | OPSY ID | | | | | | | ESOPHAGOSCOP | | | | | | | Y,DIAGNOSTIC | | | | | | | ID PART | | | | | | | REMOVAL | | | | | | | TONGUE,<1/2 | | | | | | | ID PART | | | | | | | REMOVAL | | | | | | | TONGUE, 1/2 | | | | | | | ID PART EXC | | | | | | | | | | | | | | TONGUE,UNILA | | | | | | | T RAD NECK | | | | | | | ID | | | | | | | BIOPSY/EXCIS | | | | | | | ION, LYMPH | | | | | | | NODE(S) ID | | | | | | | BX/REMV,LYMP | | | | | | | H NODE,DEEP | | | | | | | CERV ID | | | | | | | REMOVAL | | | | | | | NODES, | | | | | | | NECK,CERV | | | | | | | MOD RAD ID | | | | | | | [...] | | | [address] | [place], [place] | | | | | [address] | [address] | | | | | Physician's | [phone] | | | | | Pavilion, 2nd floor | | | | | | [place], [place] | | | | | | [address] | | | | | | [phone] | | | +--------+---------+ + + + [...]
--- OUTSIDE RECORDS SUMMARY | ~2019-07-23 | XMS | Encounter Summary ---
Demographics + + + | Address | [address] | | | [place] [address] | + + + | Home Phone [...] Team Providers + +------+ + | Care Leadlighter Name | Role | Phone | + [...] [address] | | | | | [facility] | [address], | | | | | Hospital Admitting | [place] [address] | | | | | Desk Located on the | [phone] | | | | | 9th floor | | | | | | [place], [place] | Emmett Radford MD | | | | | [address] | [address] | | | | | | [address] | | | | | | [place], [place] | | | | | | [address] | | +--------+ + + + + [...]
--- OUTSIDE RECORDS SUMMARY | ~2019-07-23 | XMS | Encounter Summary ---
Demographics + + + | Address | [address] | | | [place] [address] | + + + | Home Phone | | + + + | Preferred Language | Unknown | + + + | Marital Status | Single | + + + | Jewish Affiliation | CHR | + + + | Race | White | + + + | Ethnic Group | Not or | + + + Author + + + | Author | [facility] | + + + | Organization | [facility] | + + + | [...] Team Providers + +------+ + | Care Wardrobe Technician Name | Role | Phone | + +------+ + | Petey Carter MD | PCP | | + +------+ + Reason for Visit Benefits Check (Routine) +--------+--------+ + + + + | Status | Reason | Specialty | Diagnoses / | Referred By | Referred To | | | | | Procedures | Contact | Contact | +--------+--------+ + + + + | Closed | | Otolaryngolog | | Raul, | Burak | | | | y | | MD Petey | MD King | | | | | | [address] | [address] | | | | | | Nima [address]dhury | Fransico Taylor | | | | | | [place] | Mauricio [place], | | | | | | [place] [address] | [place] | | | | | | Phone: | [phone] | | | | | | [phone] | Phone: | | | | | | Fax: | [phone] | | | | | | [phone] | Fax: | | | | | | | [phone] | +--------+--------+ + + + + Encounter Details +--------+---------+ + + + | Date | Type | Department | Care Team | Description | +--------+---------+ + + + | 07/22/ | Office | Otolaryngology | King Sumner, | Tongue Sore (Primary | | 2007 | Visit | Head and Neck | MD [address] | Dx) | | | | Surgery Services at | [address] [facility] [address] | | | | | [address] | [place], [place] | | | | | [address] | [address] | | | | | Physician's | [phone] | | | | | [address], 2nd floor | | | | | | [place], [place] | | | | | | [address] | | | | | | [phone] | | | +--------+---------+ + + + [...] + + + | Blood Pressure | 146/82 | 07/23/2007 1:28 PM | | | | | PDT [...] + + + + | Weight | 64 kg (141 lb) | 07/23/2007 1:28 PM | | | | | PDT | | + + + + + | Height | - | - | | + + + + + | Body Mass Index | - | - | | + + + + + documented in this encounter Progress Notes King Sumner - 07/25/2007 10:14 AM PDTPlease see Ms. Russell's note for the complete details of the history and physical exam. I reviewed the resident's findings and repeated t hese components of the physical exam: complete history, review of systems and review of medi cations, and complete head and neck examination including flexible laryngoscopy. I participated in the formulation of the diagnosis and treatment plan as outlined in Carmita michelinehuma's note. King Sumner MD Jewelry Department Supervisor of Otolaryngology, Head & Neck Surgery sha Russell - 5:27 PM PDT Ms. Eric returns for a followup visit. She is concerned about a sore that she developed on the L region of her tongue, at approximately the same location as the previous sites of SCC of the tongue. She is concerned about a recurrence. She reports that the tenderness develop ed about 2-3 wks ago, but in the last few days, it seems to be resolving. No other complaint s Past Medical History Diagnosis Date Cancer of Tongue Past Surgical History Procedure Date Partial glossectomy 04/05 No Known Allergies. Current outpatient prescriptions : atenolol 50 mg Oral Tablet, 1D, Disp: , Rfl: simvastatin 20 mg Oral Tablet, 1D, Disp: , Rfl: tolterodine ER (DETROL LA) 4 mg Oral Capsule, Sust. Release 24 hr, 1d, Disp: , Rfl: triamterene-hydrochlorothiazide 37.5-25 mg Oral Capsule, 1D, Disp: , Rfl: valacyclovir (VALTREX) 500 mg Oral Tablet, PRN, Disp: , Rfl: VICODIN 5 MG-500 MG TAB, 1-2 po q4 hrs prn pain, Disp: 20, Rfl: 0 History Social History Marital Status: Spouse Name: N/A Number of Children: N/A Years of Education: N/A Occupational History Not on file. Social History Main Topics Tobacco Use: Not on file Alcohol Use: Not on file Drug Use: Not on file Sexually Active: Not on file Other Topics Concern Not on file Social History Narrative No narrative on file Her ECOG performance status is: 1 Review of systems: See patient's filled out questionnaire. Except as noted she denies and complaints referable to the cardiac, hepatic, pulmonary, neurologic, musculoskeletal, renal or digestive systems except as noted above. Physical examination: alert appearing female Voice: Normal Blood pressure 146/82, weight 63.957 kg (141 lbs). Face: Normal facial contour and facial nerve [...] mucosa, floor of mouth, lips or tongue. Two scars noted on L lateral tongue, mild tenderness with de ep palpation at the posterior scar. Oropharynx: Tonsils - Normal Base of tongue - Normal and See flexible scope exam Mucosa - No mucosal lesions seen Larynx: Supraglottis - See flexible scope exam Glottis - Vocal cord mobility normal and See flexible scope exam Pharynx: Mirror exam, Normal and See flexible scope exam Parotid glands: No masses palpable on either side. Neck: No adenopathy on either side. No thyromegaly palpable Procedure: Flexible nasopharyngoscopy Anesthesia - 4% lidocaine, 1% phenylephrine topically in nose Equipment - Flexible laryngoscope Endoscopist - Usha Russell, ANP-C Findings - Nasal cavity: void approximately .5cm in the septal cartilage Nasopharynx: Normal Oropharynx: Normal Larynx: No lesions within the supraglottic, glottic or subglottic larynx, normal vocal cord mobility Hypopharynx: No lesions seen Impression: Hx of SCC of the L tongue, s/p partial glossectomy 2001, and tongue bx 2006 Sore spot on L lateral region of hrqmaa-ihseqcclx-kvgpvyfb irritation of the scar Plan: Reviewed neg findings with pt, if sore reappears, pt will call office to set up appt for re -eval documented in this en counter Plan of Treatment + + +--------+ + + | Name | Type | Priori | Associated Diagnoses | Order Schedule | | | | ty | | | + + +--------+ + + | TN LARYNGOSCOPY,FLEX | Procedures | Routin | Tongue Sore | Ordered: 07/25/2007 | | FIBER,DIAGNOSTIC | | e | | | + + +--------+ + + documented as of this encounter Visit Diagnoses + + | Diagnosis | + + | Tongue sore - Primary Glossodynia | + + documented in this encounter"
--- OUTSIDE RECORDS SUMMARY | ~2019-07-23 | XMS | Encounter Summary ---
Demographics + + + | Address | [address] | | | [place] [address] | + + + | Home Phone | | + + + | Preferred Language | Unknown | + + + | Marital Status | Single | + + + | Christian Affiliation | CHR | + + + [...] Team Providers + +------+ + | Care Eap Specialist Name | Role | Phone | + [...] | | | Surgery Services at | [facility] | coming in on 07/21, | | | | [address] | [place], [place] | wants to know if he | | | | [address] | [address] | will be able to take | | | | Physician's | [phone] | the lesion off on | | | | [address], 2nd floor | | this day?) | | | | [place] | | | | | | [address] | | | | | | [phone] | | | +--------+ + + + [...]
--- OUTSIDE RECORDS SUMMARY | ~2019-07-23 | XMS | Encounter Summary ---
Demographics + + + | Address | [address] | | | [place] [address] | + + + | Home Phone | | + + + | Preferred Language | Unknown | + + + | Marital Status | | + + + | Yarsani Affiliation | 1077 | + + + | Race | Unknown | + + + | Ethnic Group | Unknown | + + + Author + + + | Author | [facility] | | | and Jeromeana | + + + | Organization | [facility] | | | and [...] Team Providers + +------+ + | Care Plant Protection Officer Name | Role | Phone | + +------+ + | Ganesh Hudson DO | PCP | | + +------+ + Encounter Details +--------+ + + + + | Date | Type | Department | Care Team | Description | +--------+ + + + + | 01/21/ | Hospital | [facility] | Otf Loja | Neck pain | | 2011 - | Encounter | MED CTR XRAY [address] | [address] | | | | | Benji Holden | [address] [facility] [address] | | | 01/23/ | | [place] [address] | [place] [address] | | | 2011 | | [phone] | [phone] | | | | | | | | +--------+ + + [...] + +--------+ + + + | XR CERVICAL SPINE 4 | Routin | 01/22/2012 | Neck pain | Results for this | | OR 5 VWS | e | 1:52 PM | | procedure are in the | | | | PST | | results section. | + +--------+ + + + documented in this encounter Results XR Cervical Spine 4 + Vw (01/22/2012 1:52 PM PST) + + | Specimen | + + | | + + + + + | Narrative | Performed At | + + + | [facility] Diagnostic [facility] | [place] | | Department [address] [place] [address] | [facility] | | [ [address]] [ rep ct [facility] | | [facility]] Signed | - IMAGING | | | | | Patient Name: VICKI ERIC Physician: | | | : 1930 Age: 81 Sex: F Unit #: [id number] | | | Exam Date: 01/22/12 [place] [facility] [place] | | | Report #: [id number] Page: | | | %(RAD)RES..mtdd.print.filter("pg") of %(RAD) | | | RES..mtdd.print.filter("tpg") | | | | | | Accession Number: [id number] | | | CERVICAL SPINE X-RAY CLINICAL [...] Transcribed Date/Time: 01/22/2012 | | | 14:08 Funeral Pre Arrangement Specialist: <<Signature on | | | File>> | | | Jaycob | | | MD Bishnu01/23/12 7531 <Electronically signed by Jaycob Goetz MD> | | | Jaycob Goetz MD 01/22/12 6323 Funeral Pre Arrangement Specialist: [employer] | | | Gduubeiqacveu95/20/12 1408 Gabino Baker MD | | + + + + + + + + | Performing | Address | City/State/Zipcode | Phone Number | | Organization | | | | + + + + + | [facility] | [address] | [place] | [phone] | | [facility] | | [address] | | | - IMAGING | | | | + + + + + documented in this encounter Visit Diagnoses + + | Diagnosis | + + | Neck pain Cervicalgia | + + documented in this encounter
--- OUTSIDE RECORDS SUMMARY | ~2019-07-23 | XMS | Encounter Summary ---
Demographics + + + | Address | [address] | | | [place] [address] | + + + | Home Phone | | + + + | Preferred Language | Unknown | + + + | Marital Status | Single | + + + | Yarsanism Affiliation | CHR | + + + [...] Team Providers + +------+ + | Care Electrician Sound Name | Role | Phone | + [...] | | | Surgery Services at | [facility] [address] | results of tongue | | | | [address] | [place], [place] | biopsy) | | | | [address] | [address] | | | | | Physician's | [phone] | | | | | [address], 2nd floor | | | | | | [place], [place] | | | | | | [address] | | | | | | [phone] | | | +--------+ + + + [...]
--- OUTSIDE RECORDS SUMMARY | ~2019-07-23 | XMS | Encounter Summary ---
Demographics + + + | Address | [address] | | | [place] [address] | + + + | Home Phone | | + + + | Preferred Language | Unknown | + + + | Marital Status | Single | + + + | Baptism Affiliation | CHR | + + + | Race | White | + + + | Ethnic Group | Not or | + + + Author + + + | Author | [facility] | + + + | Organization | [facility] | + + + | Address [...] Providers + +------+ + | Care Director Of Content And Programming Name | Role | Phone | + [...] floor | | | | | | [place], [place] | | | | | | [address] | | | | | | [phone] | | | +--------+---------+ + + + [...] might be different fro m the original. nAnette Eric 80 yo returns for a preoperative [...]
--- OUTSIDE RECORDS SUMMARY | ~2019-07-23 | XMS | Encounter Summary ---
Demographics + + + | Address | [address] | | | [place] [address] | + + + | Home Phone | | + + + | Preferred Language | Unknown | + + + | Marital Status | Single | + + + | Presybeterian Affiliation | CHR | + + + | Race | White | + + + | Ethnic Group | Not or | + + + Author + + + | Author | [facility] | + + + | Organization | [facility] | + + + | [...] Team Providers + +------+ + | Care Ladle Builder Name | Role | Phone | + +------+ + | Ganesh Hudson DO | PCP | | + +------+ + Encounter Details +--------+ + + + + | Date | Type | Department | Care Team | Description | +--------+ + + + + | 07/25/ | Documentati | Health Information | Other, Moon | | | 2018 | on | Services [address] | [phone] | | | | | [address] | | | | | | Mailcode: [id number] | | | | | | [facility] | | | | | | [place], [place] | | | | | | [address] | | | | | | [phone] | | | +--------+ + + + [...]
--- OUTSIDE RECORDS SUMMARY | ~2019-07-23 | XMS | Encounter Summary ---
Demographics + + + | Address | [address] | | | [place] [address] | + + + | Home Phone | | + + + | Preferred Language | Unknown | + + + | Marital Status | Single | + + + | Sikhism Affiliation | CHR | + + + | Race | White | + + + | Ethnic Group | Not or | + + + Author + + + | Organization | Unknown | + + + | Address | Unknown | + + + | Phone | Unavailable | + + + Support + + +---------+ + | Name | Relationship | Address | Phone | + + +---------+ + | Vicki Veronica | ECON | Unknown | | + + +---------+ + | Shekhar Solis | ECON | Unknown | | + + +---------+ + Care Team Providers + +------+ + | Care Studio Musician Name | Role | Phone | + +------+ + PCP | Unavailable | + +------+ + Encounter Details +--------+ + + + + | Date | Type | Department | Care Team | Description | +--------+ + + + + | 04/15/ | Results | | Other, Faculty | | | 1992 | Only | | [phone] | | +--------+ + + + + [...] X-RAY CHEST 2 VIEW | Routin | 04/15/1992 | | Results for this | | | e | 11:15 AM | | procedure are in the | | | | PST | | results section. | + +--------+ + + + documented in this encounter Results CHEST 2 VIEW (04/15/1992 11:15 AM PST) + + + + + + | Component | Value | Ref Range | Performed | Pathologist | | | | | At | Signature | + + + + + + | CHEST, 2 | Radiologist 1: NEIL, | | | | | VIEWS [place] | JOAQUIN GARCIA, VICKI | | | | | STEREO | A. | | | | | | | | | | | | 01 13 48 | | | | | | 86 PA AND LATERAL CHEST: | | | | | | 04/15/92 | | | | | | | | | | | | | | | | | | Dictated: | | | | | | 04/16/92 The lungs and | | | | | | pleural margins are | | | | | | clear. The | | | | | | cardiomediastinalsilhoue | | | | | | tte is of normal | | | | | | contour. The trachea | | | | | | is midline. There | | | | | | ismild spurring | | | | | | throughout the thoracic | | | | | | spine. IMPRESSION: No | | | | | | acute process is seen in | | | | | | the chest. END OF | | | | | | IMPRESSION: | | | | + + + + + + + + | Specimen | + + | | + + + + + | Narrative | Performed At | + + + | Ordered by SHEKHAR LEW | | + + + + +---------+ + + | Performing | Address | City/State/Zipcode | Phone Number | | Organization | | | | + +---------+ + + | [facility] DEPARTMENT OF | | | | | RADIOLOGY | | | | + +---------+ + + documented in this encounter Visit Diagnoses Not on filedocumented in this encounter"
--- OUTSIDE RECORDS SUMMARY | ~2019-07-23 | XMS | Encounter Summary ---
Demographics + + + | Address | [address] | | | [place] [address] | + + + | Home Phone | | + + + | Preferred Language | Unknown | + + + | Marital Status | Single | + + + | Christianity Affiliation | CHR | + + + | Race | White | + + + | Ethnic Group | Not or | + + + Author + + + | Author | [facility] | + + + | Organization | [facility] | + + + | [...] Team Providers + +------+ + | Care Glass Calibrator Name | Role | Phone | + [...] [id number] | | | | | | [facility] | | | | | | [address] [place], [place] | | | | | | [address] | | | | | | [phone] | | | +--------+ + + + [...]
--- OUTSIDE RECORDS SUMMARY | ~2019-07-23 | XMS | Encounter Summary ---
Demographics + + + | Address | [address] | | | [place] [address] | + + + | Home Phone [...] Team Providers + +------+ + | Care Electric Tripper Machine Operator Name | Role | Phone | + +------+ + PCP | Unavailable | + +------+ + Encounter Details +--------+ + + + + | Date | Type | Department | Care Team | Description | +--------+ + + + + | 04/15/ | Results | | Other, Faculty | | | 1992 | Only | | [phone] | | +--------+ + + + + [...] | | | VIEWS [place] | JOAQUIN AGRCIA, VICKI | | | | | STEREO [...] | | + +---------+ + + | [facility] DEPARTMENT OF | | | | | RADIOLOGY | | | | + +---------+ + + documented in this encounter Visit Diagnoses Not on filedocumented in this encounter"
--- OUTSIDE RECORDS SUMMARY | ~2019-07-23 | XMS | Encounter Summary ---
Demographics + + + | Address | [address] | | | [place] [address] | + + + | Home Phone | | + + + | Preferred Language | Unknown | + + + | Marital Status | Single | + + + | Religion Affiliation | CHR | + + + [...] Team Providers + +------+ + | Care Front Counter Attendant Name | Role | Phone | + +------+ + PCP | Unavailable | + +------+ + Encounter Details +--------+ + + + + | Date | Type | Department | Care Team | Description | +--------+ + + + + | 04/24/ | Results | Otolaryngology | King Sumner, | | | 2001 | Only | Head and Neck | MD [address] [facility] | | | | | Surgery Services at | [facility] | | | | | [address] | [place], [place] | | | | | [address] | [address] | | | | | Physician's | [phone] | | | | | [address], [address] [place] [address] | | | | | | [place], [place] | | | | | | [address] | | | | | | [phone] | | | +--------+ + + + [...] | | | | | | FellowChristopher LBashir | | | | | | Gregg [...] | + + + + + | [facility] | [address] [facility] | [place] [address] | | | PATHOLOGY | [address] | | | + + + + + | [facility] | [address] [facility] | [place] [address] | | | PATHOLOGY | [address] [...] | + + + + + | [facility] | [address] [facility] | [place] [address] | | | PATHOLOGY | [address] | | | + + + + + | [facility] DEPARTMENT OF | [address] [facility] | [place] [address] | | | PATHOLOGY | [address] [...] | + + + + + | [facility] | [address] | [place] [address] | | | PATHOLOGY | [address] | | | + + + + + | [facility] | [address] [place] [address] [address] | [place] [address] | | | PATHOLOGY | [address] [...] | + + + + + | [facility] | [facility] | [place] [address] | | | PATHOLOGY | [address] | | | + + + + + | [place] DEPARTMENT OF | [address] | [place] [address] | | | PATHOLOGY | [address] | | | + + + + + documented in this encounter Visit Diagnoses Not on filedocumented in this encounter
--- OUTSIDE RECORDS SUMMARY | ~2019-07-23 | XMS | Encounter Summary ---
Demographics + + + | Address | [address] | | | [place] [address] | + + + | Home Phone | | + + + | Preferred Language | Unknown | + + + | Marital Status | Single | + + + | Bahai Affiliation | CHR | + + + [...] Team Providers + +------+ + | Care Nutritional Services Host Name | Role | Phone | + +------+ + | Petey Carter MD | PCP | | + +------+ + Reason for Visit + + + | Reason | Comments | + + + | Follow-up encounter | 5 yr return new tongue mass | + + + Benefits Check (Routine) [...] | | [address] | | | | | | [place] | [place] | | | | | | [place], | [place], | | | | | | [place] [address] | [place] | | | | | | Phone: | [address] | | | | | | [phone] | Phone: | | | | | | Fax: | [phone] | | | | | | [phone] | Fax: | | | | | | | [phone] | +--------+--------+ + + + + Encounter Details +--------+---------+ + + + | Date | Type | Department | Care Team | Description | +--------+---------+ + + + | 05/01/ | Office | Otolaryngology | King Sumner, | Tongue Cancer (HCC) | | 2006 | Visit | Head and Neck | MD [address] | (Primary Dx) | | | | Surgery Services at | [facility] | | | | | [address] | [place], [place] | | | | | [address] | [address] | | | | | Physician's | [phone] | | | | | Pavilion, 2nd floor | | | | | | [place], [place] | | | | | | [address] | | | | | | [phone] | | | +--------+---------+ + + + [...] + + + + | Weight | 62.6 kg (138 lb) | 05/01/2006 11:52 AM | | | | | PST | | + + + + + | Height | - | - | | + + + + + | Body Mass Index | - | - | | + + + + + documented in this encounter Progress Notes King Sumner - 05/01/2006 4:41 PM PSTFormatting of this note might be different from radha bowen. Mrs. Eric returns. 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 She is back because she tells me fo r the last 3 months she has had a firm painful mass on her left side of her tongue. This is getting somewhat larger. She is concerned that it might represent cancer and therefore she c omes back to see me today. Past Medical History Diagnosis Date CANCER OF TONGUE Past Surgical History Procedure Date Partial glossectomy 04/05 No Known Allergies. Current outpatient prescriptions : VICODIN 5 MG-500 MG TAB, 1-2 po q4 hrs prn pain, Disp: 2 0, Rfl: 0 Physical examination: General - well developed, well nourished white female in no apparent distress. Vital signs - Weight 62.596 kg (138 lbs). Voice - Normal. Mental status - Alert & oriented. Face - The facial contour is normal The facial nerve function is normal bilaterally There are no suspicious lesions on the skin of the face, neck or scalp. Eyes - The vision is grossly intact bilaterally. Extraoccular movements are normal bilaterally. The lids are normal bilaterally. Ears - The tympanic membranes, pinnas and external canals are normal bilaterally Nose & Nasal cavity - The external nasal pyramid is normal. Anterior rhinoscopy is normal bilaterally. Oral cavity - There is no trismus The tongue and palatal mobility is normal Dentition: Edentulous There are no mucosal lesions noted on the: hard palate, upper alveolus, lower alveolus, buccal mucosa, floor of mouth, lips or tongue. Except that on the left side of th e tongue there is a well-healed incision about half-way back. Just posterior to this is a 4-m m ulcerated lesion which is quite tender. 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 There is free flow of saliva bilaterally from both Santhosh's and Marion's duct. Oropharynx - The soft palate mobility is normal. The tonsils are normal bilaterally. The pharyngeal ha are normal. Cranial nerves - CN I - Smell intact by report. CN II - vision grossly intact CN III, IV & - EOMI's intact. CN V - Sensation intact in trigeminal nerve. CN VII - Facial motion normal. CN VIII - Hearing grossly intact. CN IX - Palate motion intact. CN X - Normal vocal cord motion. CN XI - Shoulder function normal. CN XII - Tongue motion normal. Indirect laryngoscopy - The oropharynx, hypopharynx & larynx are easily examined using the indirect mirror. No lesions are seen, the vocal cord mobility is normal. Neck - There is no adenopathy palpable on either side of the neck. Thyroid gland - The thyroid gland is of normal size & consistency. There are no masses palpable. After discussing the situation with Mrs. Eric I recommended that we excise this lesion for biopsy. The area was anesthetized using 1% lidocaine with one to 100,000 epinephrine mixed 50-50 with quarter percent Marcaine. The lesion on the tongue was then wedged out without di fficulty. Bleeding was controlled using cautery. The wound was closed using interrupted sutu res of 30 Vicryl. Impression: Probable small squamous carcinoma of the tongue. I will call her back with the results of t he excision. If the margins are negative then I think she needs no other therapy from this p oint forward. King Sumner MD Loss Prevention Representative of Otolaryngology, Head & Neck Surgery NOTE: THIS NOTE WAS GENERATED USING VOICE RECOGNITION SOFTWARE. SOME ERRORS MAY EXIST DUE T O THE INHERENT NATURE OF THAT SOFTWARE. REPORTING OF SERIOUS ERRORS IS APPRECIATED.'Jaymie ically signed by King Sumner at 05/01/2006 4:41 PM PSTdocumented in this encounter Plan of Treatment + + +--------+ + + | Name | Type | Priori | Associated Diagnoses | Order Schedule | | | | ty | | | + + +--------+ + + | [place] EXCIS TONGUE | Procedures | Routin | Tongue Cancer | Ordered: 05/01/2006 | | DANIIANT 2/3+CLOS | | e | (HCC) | | + + +--------+ + + documented as of this encounter Procedures + +--------+ + + + | Procedure Name | Priori | Date/Time | Associated Diagnosis | Comments | | | ty | | | | + +--------+ + + + | SURGICAL PATHOLOGY | Routin | 05/01/2006 | Tongue Cancer | Results for this | | | e | | (HCC) | procedure are in the | | | | | | results section. | + +--------+ + + + documented in this encounter Results SURGICAL PATHOLOGY (05/01/2006) + + + + + + | Component | Value | Ref Range | Performed | Pathologist | | | | | At | Signature | + + + + + + | SURGICAL | SOURCE OF SPECIMEN:A | | [facility] | | | PATHOLOGY | Tongue Final Pathologic | | DEPARTMENT | | | | Diagnosis:Tongue, | | OF | | | | biopsy: - Squamous | | PATHOLOGY | | | | cell carcinoma in situ | | | | | | with associated | | | | | | ulceration- Surgical | | | | | | margins clear in these | | | | | | sections Case reviewed | | | | | | by:Mao Paige, | | | | | | M.DBashir/Mabel | | | | | | Weeks, | | | | | | M.D./PathologistT:05/03/06 | | | | | | :apurva I have reviewed all | | | [...] a | | | | | | 75-year-old female with | | | | | | a history of squamous | | | | | | cellcarcinoma of the | | | | | | tongue, status post | | | | | | partial glossectomy, now | | | | | | presents withfirm, | | | | | | painful ulcerated mass | | | | | | on left side of tongue. | | | | | | Gross Description:One | | | | | | specimen is received in | | | | | | formalin in a container | | | | | | with the patient'sname, | | | | | | initials (LS), labeled | | | | | | "tongue excision." | | | | | | Received is a 1.1 x | | | | | | 0.8-cmglistening, | | | | | | rodgers-white strip of | | | | | | mucosa with subjacent | | | | | | rodgers-dusky red | | | | | | tissueexcised to a depth | | | | | | of up to 0.4 cm. | | | | | | There is a 0.5 x | | | | | | 0.4-cm smooth,rodgers-white | | | | | | papule in the center of | | | | | | the skin ellipse. The | | | | | | resection marginis inked | | | | | | black, and the specimen | | | | | | is bisected to reveal | | | | | | the aforementionedpapule | | | | | | to extend subjacently | | | | | | grossly 1.0-2.0 mm. | | | | | | The specimen is | | | | | | submittedin toto. | | | | | | Cassette Index:A1, | | | | | | bisectedKK:EG:labRenderi | | | | | | ng Diagnostician: | | | | | | Otf Delaney | | | | | | GreggPathologistElectroni | | | | | | mathew Signed 05/03/2006 | | | | + + + + + + + + | Specimen | + + | Excision - Tongue | + + + + + + + | Performing | Address | City/State/Zipcode | Phone Number | | Organization | | | | + + + + + | [facility] DEPARTMENT OF | [address] | [place] [address] | | | PATHOLOGY | [address] | | | + + + + + | [facility] DEPARTMENT OF | [address] | [place] [address] | | | PATHOLOGY | [address] | | | + + + + + documented in this encounter Visit Diagnoses + + | Diagnosis | + + | Tongue cancer (HCC) - Primary Malignant neoplasm of tongue, unspecified site | + + documented in this encounter
--- OUTSIDE RECORDS SUMMARY | ~2019-07-23 | XMS | Encounter Summary ---
Demographics + + + | Address | [address] | | | [place] [address] | + + + | Home Phone [...] Team Providers + +------+ + | Care Clinical Appeals Auditor Name | Role | Phone | + [...] [id number] | | | | | | [facility] | | | | | | [address] [place], [place] | | | | | | [address] | | | | | | [phone] | | | +--------+ + + + [...]
--- OUTSIDE RECORDS SUMMARY | ~2019-07-23 | XMS | Encounter Summary ---
Demographics + + + | Address | [address] | | | [place] [address] | + + + | Home Phone | | + + + | Preferred Language | Unknown | + + + | Marital Status | Single | + + + | Restorationism Affiliation | CHR | + + + | Race | White | + + + | Ethnic Group | Not or | + + + Author + + + | Author | [facility] | + + + | Organization | [facility] | + + + | Address | [...] Team Providers + +------+ + | Care Fiber Drier Operator Name | Role | Phone | [...] + + + + | 10/23/ | Anesthesia | [facility] INTRA OP LOC | Lilliam Jimenez MD | | | 2018 | Event | [address] | [address] [facility] | | | | | [facility] | [facility] | | | | | [place] [address] | [place], [place] | | | | | | [address] | | | | | | [phone] | | | | | | | | | | | | Andre Kaiser, | | | | | | BEE WORKER [address] [facility] | | | | | | [facility] | | | | | | [place], [place] | | | | | | [address] | | | | | | [phone] | | | | | | | | +--------+ + + + + Anesthesia Record + + + + + | Procedure Name | Responsible | Anesthesia Start | Anesthesia Stop Time | | | Anesthesiologist | Time | | + + + + + | BILATERAL LOWER LID | Lilliam E MD Barbara | 10/23/17 1353 | 10/23/17 1428 | | ECTROPION REPAIR | | | | | BILATERAL LOWER LID | | | | | RETRACTION REPAIR | | | | | WITH MIDFACE LIFT | | | | | (SUPERIOR | | | | | ORBICULARIS OCULI | | | | | FAT) (Bilateral Eye) | | | | + + + + + +----+---+ + + | Da | T | Event | Comment | | te | i | | | | | m | | | | | e | | | +----+---+ + + | 08 | 1 | Eq Check | Anesthesia machine checked Equipment verified | | /2 | 3 | | | | 2/ | 3 | | | | 20 | 8 | | | | 18 | | | | +----+---+ + + | | 1 | Pt. Check | Prior to anesthesia start, pt. Identified, examined, chart | | | 3 | | reviewed, PARQ held, anesthetic plan made or approved by | | | 4 | | attending anesthesiologist. NPO status confirmed as appropriate | | | 4 | | for procedure Preoperative evaluation: unchanged | +----+---+ + + | | 1 | Preprocedur | Pt ID confirmed, informed consent obtained, insertion site | | | 3 | e Checklist | marked, equipment available | | | 4 | | | | | 4 | | | +----+---+ + + | | 1 | An Start | | | | 3 | | | | | 5 | | | | | 3 | | | +----+---+ + + | | 1 | An Start | | | | 3 | Data | | | | 5 | | | | | 5 | | | +----+---+ + + | | 1 | Vitals | Monitors applied Vital signs checked Patient ready for anesthesia | | | 3 | Checked | | | | 5 | | | | | 5 | | | +----+---+ + + | | 1 | Abx held | Contraindicated, or not indicated for this procedure, or already | | | 4 | Medical or | receiving antibiotics | | | 0 | Surgical | | | | 7 | Reason | | +----+---+ + + | | 1 | Incision | | | | 4 | | | | | 1 | | | | | 1 | | | +----+---+ + + | | 1 | Surgery end | | | | 4 | | | | | 2 | | | | | 1 | | | +----+---+ + + | | 1 | PACU Rpt | | | | 4 | Given | | | | 2 | | | | | 8 | | | +----+---+ + + | | 1 | Anesthesia | | | | 4 | End | | | | 2 | | | | | 8 | | | +----+---+ + + +------+ | Meds | +------+ + + + | Name | Total | + + + | propofol | 25 mg | + + + | alfentanil | 375 mcg | + + + | propofol (DIPRIVAN) 200 mg | 23,952 mcg | + + + + + | Name | + + | O2 Flow Rate (Total Liters) | + + + + | No blood administrations on file. | + + +--------+ + + + | Type | Details | Placement | Removal | +--------+ + + + | Periph | 10/23/17; 1320; Left; Forearm; 24 | 10/23/17 1320 by | 10/23/17 1516 by | | eral | g; None; No; Positive; 10/23/17; | Stephie Contreras RN | Eugene Davis RN | | IV | 1516 | | | +--------+ + + + | Incisi | 10/23/17; 1431; Other (comment) | 10/23/17 1431 by | 10/23/17 1516 by | | on | (bilat); (eyelids); 10/23/17; | Eugene Davis RN | Eugene Davis RN | | | 1516 | | | +--------+ + + + [...] in this encounter Administered Medications + +--------+ +---------+------+------+ | Medication Order | MAR | Action | Dose | Rate | Site | | | Action | Date | | | | + +--------+ +---------+------+------+ | alfentanil (ALFENTA) injection | Given | 10/24/19 | 375 mcg | | | | INTRAPROCEDURE PRN, Starting Sat | | 18 2:00 | | | | | 10/23/17 at 1400, Until Wed | | PM PDT | | | | | 10/23/17 at 1428 | | | | | | + +--------+ +---------+------+------+ +---+---+ | | | +---+---+ + +---------+ + +---+---+ | propofol (DIPRIVAN) 200 mg | New Bag | 10/24/19 | 30 | | | | INTRAPROCEDURE CONTINUOUS PRN, | | 18 2:04 | mcg/kg/m | | | | Starting Sat10/23/17 at 1404, | | PM PDT | in | | | | Until Sat10/23/17 at 1428 | | | | | | + +---------+ + +---+---+ +---+---+ | | | +---+---+ + +-------+ +-------+---+---+ | propofol (DIPRIVAN) injection | Given | 10/24/19 | 25 mg | | | | INTRAPROCEDURE PRN, Starting Wed | | 18 2:00 | | | | | 10/23/17 at 1400, Until Wed | | PM PDT | | | | | 10/23/17 at 1428 | | | | | | + +-------+ +-------+---+---+ +---+---+ | | | +---+---+ documented in this encounter"
--- OUTSIDE RECORDS SUMMARY | ~2019-07-23 | XMS | Encounter Summary ---
Demographics + + + | Address | [address] | | | [place] [address] | + + + | Home Phone | | + + + | Preferred Language | Unknown | + + + | Marital Status | Single | + + + | Sabianism Affiliation | CHR | + + + | Race | White | + + + | Ethnic Group | Not or | + + + Author + + + | Author | [facility] | + + + | Organization | [facility] | + + + | Address [...] Team Providers + +------+ + | Care Cryptologic Linguist Name | Role | Phone | + [...] [place] | | | | | | [facility] | | | | | | [place] [address] | | | +--------+ + + + [...]
--- OUTSIDE RECORDS SUMMARY | ~2019-07-23 | XMS | Encounter Summary ---
Demographics + + + | Address | [address] | | | [place] [address] | + + + | Home Phone | | + + + | Preferred Language | Unknown | + + + | Marital Status | | + + + | Methodist Affiliation | 1077 | + + + | Race | Unknown | + + + | Ethnic Group | Unknown | + + + Author + + + | Author | [facility] | | | and [place] | + + + | Organization | [facility] | | | and [...] + +------+ + | Care Director Of Business Continuity Name | Role | Phone | + [...] | 03/25/ | Office | [facility] | Otf Loja | Cervical stenosis of | | 2012 | Visit | NEUROSURGERY [address] | [address] | spine (Primary Dx); | | | | [address] | [address] | Degenerative disc | | | | [place], [place] | [place] [address] | disease, cervical; | | | | [address] | [phone] | Spondylolisthesis of | | | | [phone] | | cervical region | +--------+---------+ + [...] ent from the original. AUGUSTO Peralta [address] [facility], [address] [place], [place] [id number] FAX: NEUROSURGERY HISTORY AND PHYSICAL EXAMINATION CHIEF [...] tablet Take 15 mg by mouth Daily. Mcvnnuose-Eqdwvgmsq-Txweqhye (TRIANT-HC PO) Take 40 mg by mouth. [...] mass index is 22.31 kg/(m^2). GENERAL: Annette Eric is in no [...] has no apparent deficits with short or exterminator helper memory. CRANIAL NERVES: II: Acuity is intact. [...] Intrinsics 5 5 Ulnar Intrinsics 5 5 Oncology Transplant Network Manager Strength 5 5 Hip Flexion 5 5 [...]
--- OUTSIDE RECORDS SUMMARY | ~2019-07-23 | XMS | Encounter Summary ---
Demographics + + + | Address | [address] | | | [place] [address] | + + + | Home Phone [...] Team Providers + +------+ + | Care Fire Behavior Analyst Name | Role | Phone | [...] | | | | | | [address] [place], [place] | | | | | | [address] | | | | | | [phone] | | | +--------+---------+ + + + [...] perfume, lotions or powder. Remove any nail tamazight from at least one fingernail. Do not [...] or walk. Surgery Check in Locations Admitting [facility], [facility] Surgery Check in Time: Someone from your surgeon's office or [facility] will provide you with information regarding your [...] it is after office hours, call the [facility] glass ribbon machine operator at [phone] and ask them to page your doc [...] her EKG but denies ever having an TX. She has had chest pressure in the recent past that has resolved with a PPI. She has no other hx nor symptoms of CAD, C HF, CVA, CKD, or DM (treated with insulin). Function capacity is Intermediate. ROS: Preoperative Patient Questionnaire was reviewed with the patient. Document will be sc anned in RateItAll. Current Medication List 06/27/11 2:13 PM Name [...] Body mass index is 22.86 kg/(m^2). Note Supervisor [employer]hive Kiln ROS/PE ROS Pulmonary: Within Defined Limits except [...] to this patient's care. YOLIS Sharif CRNA [facility] [address] [place] [address] [phone] documented in th is encounter Plan of [...] | + +--------+ + + + | NE COLLECTION VENOUS | Routin | 06/27/2011 | [...] L[place] | [address] | [place], [place] | | | MIGEL FABIAN OF CARE | [facility] | [address] | | | TESTS | | | [...] | + + + + + | [facility] DEPARTMENT OF | [address] | [place] [address] | | | PATHOLOGY | [address] [...] | | | DEPARTMENT | | | UKRAINIAN | | | OF | | | [...] | + + + + + | [facility] | [address] | [place] [address] | | | PATHOLOGY | [address] [...] | | | | | TREMAINE ROBLES ([id number]) | | | | | | on 06/27/2011 4:06:46 PM | | | | + + + + + + + + | Specimen | + + | | + + + + + | Narrative | Performed At | + + + | Please click | [facility] | | on view image for the detailed interpretation from [employer] results. | CARDIOLOGY | + + + + + + + + | Performing | Address | City/State/Zipcode | Phone Number | | Organization | | | | + + + + + | [facility] | [address] | [place], [place] | | | CARDIOLOGY | [address] | [address] | | + + + + + documented in this encounter Visit Diagnoses + + | Diagnosis | + + | Other specified pre-operative examination - Primary | + + documented in this encounter
--- OUTSIDE RECORDS SUMMARY | ~2019-07-23 | XMS | Encounter Summary ---
Demographics + + + | Address | [address] | | | [place] [address] | + + + | Home Phone | | + + + | Preferred Language | Unknown | + + + | Marital Status | Single | + + + | Hindu Affiliation | CHR | + + + [...] Providers + +------+ + | Care Fire Engine Operator Name | Role | Phone | + +------+ + | Jocyelyn Aguilar PA-C | PCP | | + +------+ + Encounter Details +--------+ + + + + | Date | Type | Department | Care Team | Description | +--------+ + + + + | 10/23/ | Pharmacy | [facility] | | | | 2017 | Visit | [address] | | | | | | [place] [address] | | | | | | [phone] | | | +--------+ + + + [...]
--- OUTSIDE RECORDS SUMMARY | ~2019-07-23 | XMS | Encounter Summary ---
Demographics + + + | Address | [address] | | | [place] [address] | + + + | Home Phone [...] Team Providers + +------+ + | Care Camera Maker Name | Role | Phone | + [...] | | | | [place], | [place], | | | | | | [place] [address] | [place] | | | | | | Phone: | [address] | | | | | | [phone] | Phone: | | | | | | Fax: | [phone] | | | | | | [phone] | Fax: | | | | | | | [phone] | +--------+--------+ + + + + Encounter [...] | | | [address] | [place], [place] | | | | | [address] | [address] | | | | | Physician's | [phone] | | | | | Pavilion, 2nd floor | | | | | | [place], [place] | | | | | | [address] | | | | | | [phone] | | | +--------+---------+ + + + [...] tongue there is a well-healed incision about jail back. Just posterior to this is a 4-m m ulcerated lesion which is quite tender. 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 There is free flow of saliva bilaterally from both Santhosh's and [place]'s duct. Oropharynx - The soft palate mobility [...] this p oint forward. King Sumner MD Bilingual Hr Generalist of Otolaryngology, Head & Neck Surgery NOTE: [...] | + + +--------+ + + | ID EXCIS TONGUE | Procedures | Routin | [...] | + + + + + | [facility] DEPARTMENT OF | [address] | [place] [address] | | | PATHOLOGY | [address] | | | + + + + + | [facility] DEPARTMENT OF | [address] | [place] [address] | | | PATHOLOGY | [address] | | | + + + + + documented in this encounter Visit Diagnoses + + | Diagnosis | + + | Tongue cancer (HCC) - Primary Malignant neoplasm of tongue, unspecified site | + + documented in this encounter
--- OUTSIDE RECORDS SUMMARY | ~2019-07-23 | XMS | Encounter Summary ---
Demographics + + + | Address | [address] | | | [place] [address] | + + + | Home Phone [...] Team Providers + +------+ + | Care Credit Collections Clerk Name | Role | Phone | + [...] as of this encounter Progress Notes Nessa, Ticket Collector In - 11/05/2005 1:13 AM PDTCLINIC DATE: [...] in about 3 months. King Sumner M.D. [facility] / [place] [id number] / [id number] / [id number] / cc: Tonio Morrison M.D. [address] [facility] [place] [id number] signed by Nessa, Ticket Collector In at 11/05/2005 1:1 3 AM PDTdocumented in this encounter Plan of Treatment Not on filedocumented as of this encounter Visit Diagnoses Not on filedocumented in this encounter"
--- OUTSIDE RECORDS SUMMARY | ~2019-07-23 | XMS | Encounter Summary ---
Demographics + + + | Address | [address] | | | [place] [address] | + + + | Home Phone | | + + + | Preferred Language | Unknown | + + + | Marital Status | | + + + | Taoism Affiliation | 1077 | + + + | Race | Unknown | + + + | Ethnic Group | Unknown | + + + Author + + + | Author | [facility] | | | and [place] | + + + | Organization | [facility] | | | and [...] Team Providers + +------+ + | Care Produce Weigher Name | Role | Phone | + +------+ + PCP | Unavailable | + +------+ + Encounter Details +--------+ + + + + | Date | Type | Department | Care Team | Description | +--------+ + + + + | 09/14/ | [facility] | [facility] | Salvatore Yao, | | | 2003 | Encounter | MED CTR XRAY [address] | [address] [place] [address] | | | | | [place] | [place] | | | | | [place] [address] | [address] | | | | | [phone] | | | +--------+ + + + [...]
--- OUTSIDE RECORDS SUMMARY | ~2019-07-23 | XMS | Encounter Summary ---
Demographics + + + | Address | [address] | | | [place] [address] | + + + | Home Phone | | + + + | Preferred Language | Unknown | + + + | Marital Status | Single | + + + | Church Affiliation | CHR | + + + | Race | White | + + + | Ethnic Group | Not or | + + + Author + + + | Author | [facility] | + + + | Organization | [facility] | + + + [...] Team Providers + +------+ + | Care Staple Processing Machine Operator Name | Role | Phone [...] as of this encounter Progress Notes Interface, Co Founder And Chairman In - 11/16/2005 3:10 AM PDTCLINIC DATE: 04/01/2001 OTOLARYNGOLOGY CLINIC SUBJECTIVE: Ms. Eric is a 70-year-old female seen in consultation from Dr. Carter in [place] regarding management of a squamous cell carcinoma [...] March 2001. This was sent to the [facility] for evaluation and revealed carcinoma [...] HISTORY: She is , lives in the [facility]. Her apparently has a progressive dementia. FAMILY [...] treatment plans from there. King Sumner M.D. Industrial Maintenance Manager, Otolaryngology [facility] / [id number] / [id number] / [id number] / [id number] cc: Tonio Morrison M.D. [address] [place] [address] [id number] signed by Interface, Co Founder And Chairman In at 11/16/2005 3:10 AM PDTdoc umented in this encounter Plan of Treatment Not on filedocumented as of this encounter Visit Diagnoses Not on filedocumented in this encounter"
--- OUTSIDE RECORDS SUMMARY | ~2019-07-23 | XMS | Encounter Summary ---
Demographics + + + | Address | [address] | | | [place] [address] | + + + | Home Phone [...] + + + | Author | [facility] | + + + | Organization | [facility] | + + + | Address | [...] Team Providers + +------+ + | Care Faculty Physician Name | Role | Phone | + [...] | | | | [address] | [address] | | | | | | [address] | [address] | | | | | | [place] | [place], | | | | | | [place] [address] | [place] | | | | | | Phone: | [address] | | | | | | [phone] | Phone: | | | | | | Fax: | [phone] | | | | | | [phone] | Fax: | | | | | | | [phone] | +--------+--------+ + + + + Encounter [...] | | | [address] | [place], [place] | | | | | [address] | [address] | | | | | Physician's | [phone] | | | | | [address]que, 2nd floor | | | | | | [place], [place] | | | | | | [address] | | | | | | [phone] | | | +--------+---------+ + + + [...] in Carmita michelinehuma's note. King Sumner MD Hoop Flaring Machine Operator Helper of Otolaryngology, Head & Neck Surgery sha [...] Sore spot on L lateral region of ifdexl-dnpwkhqlj-yxtpkwjv irritation of the scar Plan: Reviewed neg findings with pt, if sore reappears, pt will call office to set up appt for re -eval documented in this en counter Plan of Treatment + + +--------+ + + | Name | Type | Priori | Associated Diagnoses | Order Schedule | | | | ty | | | + + +--------+ + + | SC LARYNGOSCOPY,FLEX | Procedures | Routin | Tongue Sore | Ordered: 07/25/2007 | | FIBER,DIAGNOSTIC | | e | | | + + +--------+ + + documented as of this encounter Visit Diagnoses + + | Diagnosis | + + | Tongue sore - Primary Glossodynia | + + documented in this encounter"
--- OUTSIDE RECORDS SUMMARY | ~2019-07-23 | XMS | Encounter Summary ---
Demographics + + + | Address | [address] | | | [place] [address] | + + + | Home Phone | | + + + | Preferred Language | Unknown | + + + | Marital Status | Single | + + + | Holiness Affiliation | CHR | + + + [...] Team Providers + +------+ + | Care Vendor Specialist Name | Role | Phone | [...] Reza | | | | | | [facility] | [facility] | | | | | | Rd | Rd [place], | | | | | | [place], [place] | [place] | | | | | | [address] | [address] | | | | | | Phone: | Phone: | | | | | | [phone] | [phone] | | | | | | Fax: | Fax: | | | | | | [phone] | [phone] | +--------+--------+ + + + + Encounter [...] at | [facility] [address] | | | | | [address] | [place], [place] | | | | | [address] | [address] | | | | | Physician's | [phone] | | | | | Pavilion, 2nd floor | | | | | | [place], [place] | | | | | | [address] | | | | | | [phone] | | | +--------+---------+ + + + [...] at home. She drove herself here from [place]. 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
--- OUTSIDE RECORDS SUMMARY | ~2019-07-23 | XMS | Encounter Summary ---
Demographics + + + | Address | [address] | | | [place] [address] | + + + | Home Phone [...] Team Providers + +------+ + | Care Chlorine Operator Name | Role | Phone | [...] Head | | | | y | CT | Epic Dept | Neck Ppv | | | | | OFFICE/OUTPT | | [address] | | | | | | | [address] | | | | | VISIT,EST,LE | | Physician's | | | | | [address] | | Pavilion, | | | | | | | 2nd floor | | | | | | | [place], [place] | | | | | | | [address] | | | | | | | Phone: | | | | | | | [phone] | | | | | | | Fax: | | | | | | | [phone] | +--------+--------+ + + + + Encounter [...] Surgery Services at | [facility] [address] | | | | | [address] | [place], [place] | | | | | [address] | [address] | | | | | Physician's | [phone] | | | | | Pavilion, 2nd floor | | | | | | [place], [place] | | | | | | [address] | | | | | | [phone] | | | +--------+---------+ + + + [...] the mucosa of the lips, buccal mucosa, poarch te shows no lesions or masses. Oropharynx: [...]
--- OUTSIDE RECORDS SUMMARY | ~2019-07-23 | XMS | Encounter Summary ---
Demographics + + + | Address | [address] | | | [place] [address] | + + + | Home Phone [...] + + + | Author | [facility] | + + + | Organization | [facility] | + + + | [...] Team Providers + +------+ + | Care Kitchen And Counter Worker Name | Role | Phone | [...] Rd | | | | | | [place], [place] | | | | | | [address] | | | +--------+ + + + [...]
--- OUTSIDE RECORDS SUMMARY | ~2019-07-23 | XMS | Encounter Summary ---
Demographics + + + | Address | [address] | | | [place] [address] | + + + | Home Phone [...] + + + | Author | [facility] | + + + | Organization | [facility] | + + + | Address [...] Team Providers + +------+ + | Care Setter Cold Rolling Machine Name | Role | Phone | + +------+ + | Ganesh Hudson DO | PCP | | + +------+ + Encounter Details +--------+ + + + + | Date | Type | Department | Care Team | Description | +--------+ + + + + | 07/25/ | Documentati | Health Information | Other, Moon | | | 2018 | on | Services [address] | [phone] | | | | | [address] | | | | | | Mailcode: OP17A | | | | | | [facility] | | | | | | [place], [place] | | | | | | [address] | | | | | | [phone] | | | +--------+ + + + [...]
--- OUTSIDE RECORDS SUMMARY | ~2019-07-23 | XMS | Encounter Summary ---
Demographics + + + | Address | [address] | | | [place] [address] | + + + | Home Phone | | + + + | Preferred Language | Unknown | + + + | Marital Status | | + + + | Hinduism Affiliation | 1077 | + + + | Race | Unknown | + + + | Ethnic Group | Unknown | + + + Author + + + | Author | [facility] | | | and Jeromeana | + + + | Organization | [facility] | | | [...] Team Providers + +------+ + | Care Installer Helper Name | Role | Phone | [...] [address] | | | | | [place] [address] | [facility] | | | | | [address] [place] | [place] [address] | | | | | [address] | [phone] | | | | | [phone] | | | +--------+ + + + [...] MRI evaluation. | | | JOB #: [id number] Read By: ROSE MARIE COHEN MD Released [...] | | consider MRI evaluation. JOB #: [id number] Read By: ROSE MARIE COHEN MD | [...] | | | | | |JOB #: [id number] | | | |Read By: ROSE MARIE COHEN MD | | | |Released By: ROSE MARIE COHEN MD | |Date: 08/23/2014 08:08 | | | | | + + documented in this encounter Visit Diagnoses Not on filedocumented in this encounter"
--- OUTSIDE RECORDS SUMMARY | ~2019-07-23 | XMS | Encounter Summary ---
Demographics + + + | Address | [address] | | | [place] [address] | + + + | Home Phone | | + + + | Preferred Language | Unknown | + + + | Marital Status | Single | + + + | Faith Affiliation | CHR | + + + [...] Team Providers + +------+ + | Care Field Support Engineer Name | Role | Phone | + +------+ + PCP | Unavailable | + +------+ + Encounter Details +--------+ + + + + | Date | Type | Department | Care Team | Description | +--------+ + + + + | 04/01/ | Results | Otolaryngology | King Sumner, | | | 2001 | Only | Head and Neck | MD [address] [facility] | | | | | Surgery Services at | [facility] | | | | | [address] | [place], [place] | | | | | [address] | [address] | | | | | Physician's | [phone] | | | | | Jacque, [address] [place] [address] | | | | | | [place], [place] | | | | | | [address] | | | | | | [phone] | | | +--------+ + + + [...] + + + + | [facility] | [address] | [place] [address] | | | PATHOLOGY | [address]Y MONTIEL | | | + + + + + | [facility] | [address] | [place] [address] | | | PATHOLOGY | R[address]Y MONTIEL | | | + + + + + documented in this encounter Visit Diagnoses Not on filedocumented in this encounter
--- OUTSIDE RECORDS SUMMARY | ~2019-07-23 | XMS | Encounter Summary ---
Demographics + + + | Address | [address] | | | [place] [address] | + + + | Home Phone | | + + + | Preferred Language | Unknown | + + + | Marital Status | | + + + | Scientologist Affiliation | 1077 | + + + | Race | Unknown | + + + | Ethnic Group | Unknown | + + + Author + + + | Author | [facility] | | | and Jeromeana | + + + | Organization | [facility] | | | and [...] Providers + +------+ + | Care Manager Provider Relations Name | Role | Phone | + [...] | [address] [place] | [place] [address] | | | | | [address] | [phone] | | | | | [phone] | | | +--------+ + + + [...]
--- OUTSIDE RECORDS SUMMARY | ~2019-07-23 | XMS | Encounter Summary ---
Demographics + + + | Address | [address] | | | [place] [address] | + + + | Home Phone [...] + + + | Author | [facility] | + + + | Organization | [facility] | + + + | [...] Providers + +------+ + | Care Insurance Solicitor Name | Role | Phone | + [...] | | | | Patient NO | [facility] | | | | | | REFERRING | Mauricio Majano | | | | | | PROVIDER PER | [place] | | | | | | [place] | [address] | | | | | | | Phone: | | | | | | | [phone] | | | | | | | Fax: | | | | | | | [phone] | +--------+--------+ + + + + Encounter [...] | | | Surgery Services at | [facility] [address] | | | | | [address] | [place], [place] | | | | | [address] | [address] | | | | | Physician's | [phone] | | | | | [place], [facility] floor | | | | | | [facility] [place] | | | | | | [address] | | | | | | [phone] | | | +--------+---------+ + + + [...] MD Otolaryngology/Head and Neck Surgery PGY2 Pager: [phone] lissa Castillo MA - 04/2010 12:45 PM [...] | + +--------+ + + + | [place] | Routin | 10/09/2010 | Tongue cancer [...]
--- OUTSIDE RECORDS SUMMARY | ~2019-07-23 | XMS | Encounter Summary ---
Demographics + + + | Address | [address] | | | [place] [address] | + + + | Home Phone | | + + + | Preferred Language | Unknown | + + + | Marital Status | Single | + + + | Spiritism Affiliation | CHR | + + + [...] Team Providers + +------+ + | Care Geospatial Specialist Name | Role | Phone | + +------+ + | Joycelyn Aguilar PA-C | PCP | | + +------+ + Encounter Details +--------+ + + + + | Date | Type | Department | Care Team | Description | +--------+ + + + + | 10/09/ | Outside | UNKNOWN DEPARTMENT | Other, Faculty | | | 2018 | Records | [address] [facility] | [phone] | | | | | [address] | | | | | | [place], [place] | | | | | | [address] | | | +--------+ + + + [...]
--- OUTSIDE RECORDS SUMMARY | ~2019-07-23 | XMS | Encounter Summary ---
Demographics + + + | Address | [address] | | | [place] [address] | + + + | Home Phone [...] Team Providers + +------+ + | Care Warp Picker Name | Role | Phone | + [...] Reza | | | | | | [facility] | [facility] | | | | | | Rd | Rd [place], | | | | | | [place], [place] | [place] | | | | | | [address] | [address] | | | | | | Phone: | Phone: | | | | | | [phone] | [phone] | | | | | | Fax: | Fax: | | | | | | [phone] | [phone] | +--------+--------+ + + + + Encounter [...] | | | Surgery Services at | [facility] [address] | | | | | [address] | [place], [place] | | | | | [address] | [address] | | | | | Physician's | [phone] | | | | | Pavilion, 2nd floor | | | | | | [place], [place] | | | | | | [address] | | | | | | [phone] | | | +--------+---------+ + + + [...]
--- OUTSIDE RECORDS SUMMARY | ~2019-07-23 | XMS | Encounter Summary ---
Demographics + + + | Address | [address] | | | [place] [address] | + + + | Home Phone [...] Team Providers + +------+ + | Care Overnight Stocker Name | Role | Phone | + [...] + + | 10/23/ | Hospital | [facility] | Mao Ayon MD | | | 2018 | Encounter | STAY [address] [facility] | [address] | | | | | [address] [facility] | [place], [place] | | | | | [address] | [address] | | | | | [place], [place] | [phone] | | | | | [address] | [...] and holidays, call and as k the mop machine operator to page the Eye Doctor coupon collection clerk. Return appointment date: Time: documented in this [...] | 1 | 10/24/19 | | | lzqpsano-uibxcbbei-u | eyelid incisions | | | 18 [...] | | procedure well. Mao Ayon M.D. Senior Geologist | | | Ophthalmic Facial Plastic and [...]
--- OUTSIDE RECORDS SUMMARY | ~2019-07-23 | XMS | Encounter Summary ---
Demographics + + + | Address | [address] | | | [place] [address] | + + + | Home Phone [...] Team Providers + +------+ + | Care Public Weigher Name | Role | Phone | [...] | | | | tongue, | | [facility] | | | | | unspecified | | Rd [place], | | | | | site | | [place] | | | | | | | [address] | | | | | | | Phone: | | | | | | | [phone] | | | | | | | Fax: | | | | | | | [phone] | +--------+--------+ + + + + Encounter [...] | | | Surgery Services at | [facility] | | | | | [address] | [facility] [place] | | | | | [address] | [address] | | | | | Physician's | [phone] | | | | | Pavilion, 2nd floor | | | | | | [place], [place] | | | | | | [address] | | | | | | [phone] | | | +--------+---------+ + + + [...]
--- OUTSIDE RECORDS SUMMARY | ~2019-07-23 | XMS | Encounter Summary ---
Demographics + + + | Address | [address] | | | [place] [address] | + + + | Home Phone [...] Team Providers + +------+ + | Care Flexo Folder Gluer Operator Name | Role | Phone | [...] Pre-Admission | | 2018 | Orders | [place] | [address] | | | | | Oculoplastics at | Blvd [place], [place] | | | | | [address] | [address] | | | | | [address] | [phone] | | | | | [facility] [place] | | | | | | [facility] floor | | | | | | [place] [address] | | | | | | [phone] | | | +--------+ + + + [...]
--- OUTSIDE RECORDS SUMMARY | ~2019-07-23 | XMS | Encounter Summary ---
Demographics + + + | Address | [address] | | | [place] [address] | + + + | Home Phone | | + + + | Preferred Language | Unknown | + + + | Marital Status | Single | + + + | Taoism Affiliation | CHR | + + + [...] Team Providers + +------+ + | Care Strategic Advisor Name | Role | Phone | [...] | Transcriptions | + + | Interface, Assembly Line Machine Operator In - 11/16/2005 3:10 AM PDT | | [place] [address] | | [place], [place] [address] | | [facility] RECORDMed Rec No.: | | [id number] Date: [...] procedure.Mary Cooley M.D. | | King Sumner M.D.[facility]:X44D: 04/25/2001T: 04/27/[id number]: | |DRAINS: | |None. | | | [...] | |Gregg Roche M.D. | | | |[facility]:X44 | | | | | |[id number] | | | |CC: | + + documented in this encounter Visit Diagnoses Not on filedocumented in this encounter"
--- OUTSIDE RECORDS SUMMARY | ~2019-07-23 | XMS | Encounter Summary ---
Demographics + + + | Address | [address] | | | [place] [address] | + + + | Home Phone | | + + + | Preferred Language | Unknown | + + + | Marital Status | | + + + | Denominational Affiliation | 1077 | + + + | Race | Unknown | + + + | Ethnic Group | Unknown | + + + Author + + + | Author | [facility] | | | and Jeromeana | + + + | Organization | [facility] | | | [...] Team Providers + +------+ + | Care Microfilm Processor Name | Role | Phone | + [...] | | | | cervical | [address] | | | | | | region | [address] | | | | | | Degenerative | [place] | | | | | | disc | [address] | | | | | | disease, | Phone: | | | | | | cervical | [phone] | | | | | | Spondylolist | Fax: | | | | | | hesis of | [phone] | | | | | | cervical [...] | | pain | [address] | [place], [place] | | | | | Procedures | [place], [place] | [address] | | | | | [place] | [address] | Phone: | | | | | OFFICE/OUTPT | Phone: | [phone] | | | | | | [phone] | Fax: | | | | | VISIT,EST,LE | Fax: | [phone] | | | | | VL IV | [phone] | | +--------+--------+ + + + + [...] | | [place] [address] | [place] [address] | Degenerative disc | | | | [address] | [phone] | disease, cervical; | | | | [phone] | | Spondylolisthesis of | | | | | | cervical region; | | | | | | Tongue cancer ([facility]) | +--------+---------+ + + + Social History [...] different from the original. AUGUSTO Peralta [address] [facility] [address] [place], [place] [address] FAX: NEUROSURGERY HISTORY AND PHYSICAL EXAMINATION CHIEF [...] tablet Take 15 mg by mouth Daily. Guinkkrln-Maubclpbv-Xiciklud (TRIANT-HC PO) Take 40 mg by mouth. [...] has no apparent deficits with short or intermodal owner operator truck driver memory. CRANIAL NERVES: II: Acuity is intact. [...] Intrinsics 5 5 Ulnar Intrinsics 5 5 Timber Sizer Strength 5 5 Hip Flexion 5 5 [...]
--- OUTSIDE RECORDS SUMMARY | ~2019-07-23 | XMS | Encounter Summary ---
Demographics + + + | Address | [address] | | | [place] [address] | + + + | Home Phone [...] Team Providers + +------+ + | Care Office Nurse Name | Role | Phone | + [...] as of this encounter Progress Notes Interface, Chopped Strand Operator In - 11/16/2005 3:10 AM PDTCLINIC DATE: [...] with the surgery tomorrow. King Sumner M.D. Sales Counselor, Otolaryngology, Head and Neck Surgery [facility] / [id number] / [id number] / [id number] / [id number] signed by Interface, Chopped Strand Operator In at 11/16/2005 3:10 AM PDTdoc umented in this encounter Plan of Treatment Not on filedocumented as of this encounter Visit Diagnoses Not on filedocumented in this encounter"
--- OUTSIDE RECORDS SUMMARY | ~2019-07-23 | XMS | Encounter Summary ---
Demographics + + + | Address | [address] | | | [place] [address] | + + + | Home Phone [...] Author + + + | Author | [facility] | + + + | Organization | [facility] | + + + | Address | [...] Team Providers + +------+ + | Care Inclusion Intern Name | Role | Phone | + [...] | | Malignant | MD King | [facility] [address] | | | | | neoplasm of | [address] | Pavilion | | | | | tongue, | [address] | [address] | | | | | unspecified | Rd | [address], | | | | | site | [place], [place] | Basement | | | | | Procedures | [address] | [place], [place] | | | | | [place] LYMPH | Phone: | [phone] | | | | | INJECTION | [phone] | Phone: | | | | | SENTINEL | Fax: | [phone] | | | | | NODE ONLY | [phone] | Fax: | | | | | | | [phone] | +--------+--------+ + + + + Reason [...] + + | 06/27/ | Hospital | [facility] [address] | King Sumner, | | | 2011 - | Encounter | [place] Mailcode: | [address] [facility] | | | | | [address] | [address] | | | 06/29/ | | [address] [place], | [place], [place] | | | 2011 | | [place] [address] | [address] | | | | | [phone] | [phone] | | | | | | | [...] Otolaryngology (Head & Neck Surgery), please call: [phone]. For Extreme Emergencies: Call 911 Special Instructions: [...] and walk. You may also take an vjpq-uyg-soaqaby stool softener (Docusate or C olace). Follow the directions on the label. Miralax is also helpful to relieve constipation. Call the Resident on-call at [phone] if you have any of the following [...] 4:00 pm, call the Otolaryngology clinic at [phone]. Somebody will try to answer your call [...] Raquel Cedeno MD Resident Department of Surgery [facility] ITAKrAna rollins - 06/29/2011 3:07 PM PDTPatient [...] is driving her to daughter's home in [facility]. She will stay there a few days before returning to her home in [place]. She is very active prior to admission. No case managment needs anticipated. Electronically signed by:Ana Beltran Position:Custom Motorcycle Painter Pager ID:[phone] 12 3:07 PM Ana Louis - 06/29/2011 2:49 PM PDTPatient Name: VICKI ERIC Date of : 1930 CARE COORDINATION ROUNDING NOTE Care Coordination rounds held. Disciplines attending included: Custom Motorcycle Painter,, Printing Plate Setter,, Bedside RN,, binding cutter, Electronically signed by:Ana Beltran Position:Custom Motorcycle Painter Pager ID:[phone] 12 2:49 PM Shilpi Gibson SLP - [...] HISTORY: The patient currently lives outside of [place], [place]. Her children live approximately 30 mi [...] visit with Dr. Sumner. Shilpi Burris M.S., DIRECTOR CAREER SERVICES-CFY Speech-Language Pathology Clinical Fellow [facility] Otolaryngology, Head & Neck Surgery [facility] Pager [phone] ed Ceja MD - 06/29/2011 7:47 AM [...] Department of Otolaryngoly- Head and Neck Surgery [facility] . iller, Matt Blue MD - 06/28/2011 [...] Cedeno MD - 06/28/2011 10:33 PM PDT [id number] | | [id number] [address] [place] | | [id number] Date: 06/28/2011 Attending Surgeon: King Sosa | | Gregg Sumner Gyroscopic Instrument Tester(s): Raquel Cedeno M.D. | | Preoperative Diagnosis(es):Recurrent [...] Raquel Cedeno, | | Gregg Sumner M.D. [facility] / [id number] / [id number] / [id number] / T: | | 06/28/2011 | |An [...] Sumner M.D. | | | | | |[facility] / | |[id number] / [id number] / [id number] / | | | | | | [...] [facility] | [address] | [place] [address] | | | PATHOLOGY | [address] [...] | | + +---------+ + + | [facility] DEPARTMENT OF | | [...] | | | | | | Grade: B0Hcpayym: | | | | | | Negative [...] | | | | | | (pT): [id number] Lymph | | | | | | Nodes (pN): | | | | | | cK3Mzecde of regional | | | | | [...] nodes: | | | | | | Tillkg-ob-kqdMpti of | | | | | | [...] [facility] | [address] | [place] [address] | | | PATHOLOGY | [address] [...]
--- OUTSIDE RECORDS SUMMARY | ~2019-07-23 | XMS | Encounter Summary ---
Demographics + + + | Address | [address] | | | [place] [address] | + + + | Home Phone [...] Author + + + | Author | [facility] | + + + | Organization | [facility] | + + + | Address [...] Team Providers + +------+ + | Care Pre Press Operator Name | Role | Phone [...] | | | | | | [address] [place], [place] | | | | | | [address] | | | | | | [phone] | | | +--------+---------+ + + + [...] perfume, lotions or powder. Remove any nail tajik from at least one fingernail. Do not [...] or walk. Surgery Check in Locations Admitting [facility], [facility] Surgery Check in Time: Someone from your surgeon's office or [facility] will provide you with information regarding your [...] it is after office hours, call the [facility] petroleum blending plant operator at [phone] and ask them to page your doc [...] her EKG but denies ever having an FL. She has had chest pressure in the recent past that has resolved with a PPI. She has no other hx nor symptoms of CAD, C HF, CVA, CKD, or DM (treated with insulin). Function capacity is Intermediate. ROS: Preoperative Patient Questionnaire was reviewed with the patient. Document will be sc anned in [employer]. Current Medication List 06/27/11 2:13 PM Name [...] Body mass index is 22.86 kg/(m^2). Note Pca ROS/PE ROS Pulmonary: Within Defined Limits except [...] to this patient's care. YOLIS Sharif CRNA [facility] PRE[facility]INIC [address] [place] [address] [phone] documented in th is encounter Plan of [...] | + +--------+ + + + | MA COLLECTION VENOUS | Routin | 06/27/2011 | [...] LIONELAM | [address] | [place], [place] | | | MIGEL FABIAN OF CARE | [facility] | [address] | | | TESTS | | | [...] | + + + + + | [facility] DEPARTMENT OF | [address] | [place] [address] | | | PATHOLOGY | [address] [...] | | | DEPARTMENT | | | GUAMANIAN | | | OF | | | [...] | + + + + + | [facility] | [address] | [place] [address] | | | PATHOLOGY | [address] [...] | | | | | TREMAINE ROBLES ([id number]) | | | | | | on 06/27/2011 4:06:46 PM | | | | + + + + + + + + | Specimen | + + | | + + + + + | Narrative | Performed At | + + + | Please click | [facility] | | on view image for the detailed interpretation from zhouwu results. | CARDIOLOGY | + + + + + + + + | Performing | Address | City/State/Zipcode | Phone Number | | Organization | | | | + + + + + | [facility] | [address] | [place], [place] | | | CARDIOLOGY | [address] | [address] | | + + + + + documented in this encounter Visit Diagnoses + + | Diagnosis | + + | Other specified pre-operative examination - Primary | + + documented in this encounter
--- OUTSIDE RECORDS SUMMARY | ~2019-07-23 | XMS | Encounter Summary ---
Demographics + + + | Address | [address] | | | [place] [address] | + + + | Home Phone | | + + + | Preferred Language | Unknown | + + + | Marital Status | Single | + + + | Shinto Affiliation | CHR | + + + [...] Team Providers + +------+ + | Care Windows Infrastructure Engineer Name | Role | Phone | [...] [address] | | | | | | [facility] | | | | | | [place] [address] | | | +--------+ + + + [...]
--- OUTSIDE RECORDS SUMMARY | ~2019-07-23 | XMS | Encounter Summary ---
Demographics + + + | Address | [address] | | | [place] [address] | + + + | Home Phone | | + + + | Preferred Language | Unknown | + + + | Marital Status | | + + + | Moravian Affiliation | 1077 | + + + | Race | Unknown | + + + | Ethnic Group | Unknown | + + + Author + + + | Author | [facility] | | | and Jeromeana | + + + | Organization | [facility] | | | [...] Team Providers + +------+ + | Care Classified Ad Taker Name | Role | Phone | + +------+ + | Ganesh Hudson DO | PCP | | + +------+ + Encounter Details +--------+ + + + + | Date | Type | Department | Care Team | Description | +--------+ + + + + | 01/21/ | Hospital | [facility] | Otf Loja | Neck pain | | 2011 - | Encounter | MED CTR XRAY [address] | | | | | Benji Holden | [facility] [address] | | | 01/23/ | | [place] [address] | [place] [address] | | | 2011 | | [phone] | [phone] | | | | | | | [...] Performed At | + + + | [facility] Diagnostic Imaging | [place] | | Department [address] [place] [address] | [facility] | | [ rep ct [address]] [ rep ct [facility] | | [facility]] Signed | - IMAGING | | | | | Patient Name: VICKI ERIC Physician: | | | : 1930 Age: 81 Sex: F Unit #: [id number] | | | Exam Date: 01/22/12 Location: [facility] | | | Report #: [id number] Page: | | | %(RAD)RES..mtdd.print.filter("pg") of %(RAD) | | | RES..mtdd.print.filter("tpg") | | | | | | Accession Number: [id number] | | | CERVICAL SPINE X-RAY CLINICAL [...] Transcribed Date/Time: 01/22/2012 | | | 14:08 Reservations And Ticketing Agent: <<Signature on | | | File>> | | | Jaycob | | | MD Bishnu01/23/12 5376 <Electronically signed by Jaycob Goetz MD> | | | Jaycob Goetz MD 01/22/12 9671 Reservations And Ticketing Agent: [employer] | | | Jdnvzoiombovw21/20/12 1408 Gabino Baker MD | | + + + + + + + + | Performing | Address | City/State/Zipcode | Phone Number | | Organization | | | | + + + + + | [facility] | [address] | [place] | [phone] | | [facility] | | [address] | | | - IMAGING | | | | + + + + + documented in this encounter Visit Diagnoses + + | Diagnosis | + + | Neck pain Cervicalgia | + + documented in this encounter
--- OUTSIDE RECORDS SUMMARY | ~2019-07-23 | XMS | Encounter Summary ---
Demographics + + + | Address | [address] | | | [place] [address] | + + + | Home Phone [...] | Author | [facility] | + + + | Organization | [facility] | + + + | Address | [...] Team Providers + +------+ + | Care Volumetric Weigher Name | Role | Phone | + +------+ + | Ganesh Hudson DO | PCP | | + +------+ + Encounter Details +--------+ + + + + | Date | Type | Department | Care Team | Description | +--------+ + + + + | 06/05/ | Assistant Professor Of Philosophy | Otolaryngology | King Sumner, | Tongue cancer (HCC) | | 2011 | | Thyroid Services at | MD [address] | (Primary Dx) | | | | [address] | | | | | [address] | [place], [place] | | | | | Physician's | [address] | | | | | [place], [facility] floor | [phone] | | | | | [place], [place] | | | | | | [address] | | | | | | [phone] | | | +--------+ + + + [...] + | SURGICAL PATHOLOGY | Routin | 06/06/2011 | Tongue cancer | Results for this | | | e | | (HCC) | procedure are in the | | | | | | results section. 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 | | | | | | Case seen | | | | | | by:Cindy Burton, | | | | | | M.D./Surgical Pathology | | | | | | Basilio Anders, | | | | | | M.D./PathologistT:06/07/11 | | | | | | /sg (Analyte | | | | | | specific reagents are | | | | | | used in many laboratory | | | | | | tests necessary | | | | | | [facility] | | | | | | [...] with | | | | | | biopsy left side of | | | | | | tongue. 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 | | | | | | Gross | | | | | | Description:Received is | | | | | | 1 specimen in formalin | | | | | | in a container labeled | | | | | | with the patientname | | | | | | (initials LS) and | | | | | | medical record number | | | | | | [id number]. Received is | | | | | | anunoriented, 0.5 x 0.4 | | | | | | x 0.3-cm, punch biopsy | | | | | | covered via focally | | | | | | ulcerated,rodgers mucosa. | | | | | | The resection margin | | | | | | is inked black. The | | | | | | tissue is bisectedand | | | | | | entirely submitted. | | | | | | Cassette Index:A1, | | | | | | bisectedKRK:tp My | | | | | | electronic signature | | | | | [...] Diagnostician: | | | | | | Teri Anders | | | | | | GreggPathologistJaymiei | | | | | | mathew Signed 06/12/2011 | | | | | | 2:33PM | | | | + + + + + + + + | Specimen | + + | Biopsy - Tongue | + + + + + + + | Performing | Address | City/State/Zipcode | Phone Number | | Organization | | | | + + + + + | [facility] | [address] | [place] [address] | | | PATHOLOGY | [address] | | | + + + + + documented in this encounter Visit Diagnoses + + | Diagnosis | + + | Tongue cancer (HCC) - Primary Malignant neoplasm of tongue, unspecified site | + + documented in this encounter"
--- OUTSIDE RECORDS SUMMARY | ~2019-07-23 | XMS | Encounter Summary ---
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 We want to ensure that she does have a time slot to see us in the event that she does need exam in the week following surgery which would require the trip to [place]. Mao Farrell MD - 08/02 11:10 AM [...] I have reviewed and edited history and histologic technician documentation, and performed all elements to above examination documentation. Mao Ayon M.D. Clerical Adviser Ophthalmic Facial Plastic and Reconstructive Surgery documented [...] | + +--------+ + + + | [facility] EXTERNAL PHOTOS | Routin | 08/20/2017 | [...]
--- OUTSIDE RECORDS SUMMARY | ~2019-07-23 | XMS | Encounter Summary ---
Demographics + + + | Address | [address] | | | [place] [address] | + + + | Home Phone [...] Team Providers + +------+ + | Care Power Sweeper Operator Name | Role | Phone | [...] Encounter | Non-Invasive Testing | [address] [facility] | | | | | at [facility] | [facility] | | | | | [address] | [place] [address] | | | | | [address] [facility] | | | | | | [place], [address] [place] [address] | | | | | | [place], [place] | | | | | | [address] | | | | | | [phone] | | | +--------+ + + + [...] | | | | | TREMAINE ROBLES ([id number]) | | | | | | on 06/27/2011 4:06:46 PM | | | | + + + + + + + + | Specimen | + + | | + + + + + | Narrative | Performed At | + + + | Please click | [facility] | | on view image for the detailed interpretation from [employer] results. | CARDIOLOGY | + + + + + + + + | Performing | Address | City/State/Zipcode | Phone Number | | Organization | | | | + + + + + | [facility] | [address] | [place], [place] | | | CARDIOLOGY | [address] | [address] | | + + + + + documented in this encounter Visit Diagnoses Not on filedocumented in this encounter
--- OUTSIDE RECORDS SUMMARY | ~2019-07-23 | XMS | Encounter Summary ---
Demographics + + + | Address | [address] | | | [place] [address] | + + + | Home Phone [...] Team Providers + +------+ + | Care Geological Drafter Name | Role | Phone | [...] as of this encounter Progress Notes Interface, Traveling Inventory Associate In - 11/16/2005 3:10 AM PDTCLINIC DATE: [...] with the surgery tomorrow. King Sumner M.D. Director Of Gift Planning, Otolaryngology, Head and Neck Surgery [facility] / [id number] / [id number] / [id number] / [id number] signed by Interface, Traveling Inventory Associate In at 11/16/2005 3:10 AM PDTdoc umented in this encounter Plan of Treatment Not on filedocumented as of this encounter Visit Diagnoses Not on filedocumented in this encounter"
--- OUTSIDE RECORDS SUMMARY | ~2019-07-23 | XMS | Encounter Summary ---
Demographics + + + | Address | [address] | | | [place] [address] | + + + | Home Phone [...] Team Providers + +------+ + | Care Astronautical Engineer Name | Role | Phone | [...] Head | | | | y | [place] | Epic Dept | Neck Ppv | | | | | OFFICE/OUTPT | | [address] | | | | | | | [address] | | | | | VISIT,EST,LE | | Physician's | | | | | [address] | | Pavilion, | | | | | | | 2nd floor | | | | | | | [place], [place] | | | | | | | [address] | | | | | | | Phone: | | | | | | | [phone] | | | | | | | Fax: | | | | | | | [phone] | +--------+--------+ + + + + Encounter [...] | | | Surgery Services at | [address] | | | | | [address] | [place], [place] | | | | | [address] | [address] | | | | | Physician's | [phone] | | | | | Pavilion, 2nd floor | | | | | | [place], [place] | | | | | | [address] | | | | | | [phone] | | | +--------+---------+ + + + [...] the mucosa of the lips, buccal mucosa, chilkat te shows no lesions or masses. Oropharynx: [...]
--- OUTSIDE RECORDS SUMMARY | ~2019-07-23 | XMS | Encounter Summary ---
Demographics + + + | Address | [address] | | | [place] [address] | + + + | Home Phone [...] Team Providers + +------+ + | Care Computer Programmer Analyst Name | Role | Phone | + +------+ + | Joycelyn Aguilar PA-C | PCP | | + +------+ + Encounter Details +--------+ + + + + | Date | Type | Department | Care Team | Description | +--------+ + + + + | 10/09/ | Outside | UNKNOWN DEPARTMENT | Other, Faculty | | | 2018 | Records | [address] [facility] | [phone] | | | | | [address] | | | | | | [place], [place] | | | | | | [address] | | | +--------+ + + + [...]
--- OUTSIDE RECORDS SUMMARY | ~2019-07-23 | XMS | Encounter Summary ---
Demographics + + + | Address | [address] | | | [place] [address] | + + + | Home Phone [...] Team Providers + +------+ + | Care Industrial Chemist Name | Role | Phone | + [...] | | | | [address], | [address] [place], | | | | | | [place] [address] | [place] | | | | | | Phone: | [phone] | | | | | | [phone] | Phone: | | | | | | Fax: | [phone] | | | | | | [phone] | Fax: | | | | | | | [phone] | +--------+--------+ + + + + Encounter [...] | | | Surgery Services at | [facility] [address] | | | | | [address] | [place], [place] | | | | | [address] | [address] | | | | | Physician's | [phone] | | | | | Pavilion, 2nd floor | | | | | | [place], [place] | | | | | | [address] | | | | | | [phone] | | | +--------+---------+ + + + [...] RUDY FOY 2/3+CLOS | | e | ([facility]) | | + + +--------+ + + [...] Focal | | | | | | jwoh-nq-uiqfkhay | | | | | | squamous [...] necessary | | | | | | [facility] | | | | | | and [...] SCCin-situ | | | | | | ([id number]) [DS]. | | | | | | [...] number | | | | | | [id number]. Receivedis | | | | | | [...] | + + + + + | [facility] | [address] | [place] [address] | | | PATHOLOGY | [address] | | | + + + + + documented in this encounter Visit Diagnoses + + | Diagnosis | + + | Tongue cancer (HCC) - Primary Malignant neoplasm of tongue, unspecified site | + + documented in this encounter"
--- OUTSIDE RECORDS SUMMARY | ~2019-07-23 | XMS | Encounter Summary ---
Demographics + + + | Address | [address] | | | [place] [address] | + + + | Home Phone | | + + + | Preferred Language | Unknown | + + + | Marital Status | Single | + + + | Moravian Affiliation | CHR | + + + [...] Team Providers + +------+ + | Care Players Club Representative Name | Role | Phone | [...] + + | 10/23/ | Hospital | [facility] NIYAH SHORT | Mao Ayon MD | | | 2018 | Encounter | STAY [address] [facility] | [address] | | | | | [address] [facility] | [place], [place] | | | | | [place] | [address] | | | | | [place], [place] | [phone] | | | | | [address] | [...] and holidays, call and as k the yarn texture machine operator to page the Eye Doctor station superintendent. Return appointment date: Time: documented in this [...] | 1 | 10/24/19 | | | loppfomd-mxxsoyayn-h | eyelid incisions | | | 18 [...] | | procedure well. Mao Ayon M.D. Inventory Control Coordinator | | | Ophthalmic Facial Plastic and [...]
--- OUTSIDE RECORDS SUMMARY | ~2019-07-23 | XMS | Encounter Summary ---
Demographics + + + | Address | [address] | | | [place] [address] | + + + | Home Phone [...] Team Providers + +------+ + | Care Compensation And Benefits Advisor Name | Role | Phone | [...] | Transcriptions | + + | Interface, Prosthetics Technician In - 11/16/2005 3:10 AM PDT | | [place] [address] | | [place], [place] [address] | | [facility] RECORDMed Rec No.: | | [id number] Date: [...] procedure.Mary Cooley M.D. | | King Sumner M.D.[facility]:X44D: 04/25/2001T: 04/27/[id number]: | |DRAINS: | |None. | | | [...] | |Gregg Roche M.D. | | | |[facility]:X44 | | | | | |[id number] | | | |CC: | + + documented in this encounter Visit Diagnoses Not on filedocumented in this encounter"
--- OUTSIDE RECORDS SUMMARY | ~2019-07-23 | XMS | Encounter Summary ---
Demographics + + + | Address | [address] | | | [place] [address] | + + + | Home Phone [...] Team Providers + +------+ + | Care Grinder Name | Role | Phone | + [...] | | | | [address], | [address] [place], | | | | | | [place] [address] | [place] | | | | | | Phone: | [address] | | | | | | [phone] | Phone: | | | | | | Fax: | [phone] | | | | | | [phone] | Fax: | | | | | | | [phone] | +--------+--------+ + + + + Encounter [...] | | | Surgery Services at | [facility] | | | | | [address] | [place], [place] | | | | | [address] | [address] | | | | | Physician's | [phone] | | | | | Pavilion, 2nd floor | | | | | | [place], [place] | | | | | | [address] | | | | | | [phone] | | | +--------+---------+ + + + [...] | + + +--------+ + + | [facility] EXCIS TONGUE | Procedures | Routin | Tongue cancer | Ordered: 01/25/2009 | | RUDY FOY 2/3+CLOS | | e | ([facility]) | | + + +--------+ + [...] Focal | | | | | | vnuy-gc-fwsaedmw | | | | | | squamous [...] necessary | | | | | | [facility] | | | | | | [...] SCCin-situ | | | | | | ([id number]) [DS]. | | | | | | [...] number | | | | | | [phone]. Receivedis | | | | | | [...] | + + + + + | [facility] | [address] | [place] [address] | | | PATHOLOGY | [address] | | | + + + + + documented in this encounter Visit Diagnoses + + | Diagnosis | + + | Tongue cancer (HCC) - Primary Malignant neoplasm of tongue, unspecified site | + + documented in this encounter"
--- OUTSIDE RECORDS SUMMARY | ~2019-07-23 | XMS | Encounter Summary ---
Demographics + + + | Address | [address] | | | [place] [address] | + + + | Home Phone [...] Providers + +------+ + | Care Front Of House Manager Name | Role | Phone | [...] | | Malignant | MD King | [facility] [address] | | | | | neoplasm of | [address] | Pavilion | | | | | tongue, | [address] | [address] | | | | | unspecified | Rd | Fransico [place], | | | | | site | [place], [place] | Basement | | | | | Procedures | [address] | [place], [place] | | | | | [place] LYMPH | Phone: | [phone] | | | | | INJECTION | [phone] | Phone: | | | | | SENTINEL | Fax: | [phone] | | | | | NODE ONLY | [phone] | Fax: | | | | | | | [phone] | +--------+--------+ + + + + Reason [...] + + | 06/27/ | Hospital | [facility] [address] | King Sumner, | | | 2011 - | Encounter | [place] Mailcode: | [address] [facility] | | | | | [address] | [address] | | | 06/29/ | | Jacque [place], | [place], [place] | | | 2011 | | [place] [address] | [address] | | | | | [phone] | [phone] | | | | | | | [...] Otolaryngology (Head & Neck Surgery), please call: [phone]. For Extreme Emergencies: Call 911 Special Instructions: [...] and walk. You may also take an qosp-xaf-zvlulyn stool softener (Docusate or C olace). Follow the directions on the label. Miralax is also helpful to relieve constipation. Call the Resident on-call at [phone] if you have any of the following [...] 4:00 pm, call the Otolaryngology clinic at [phone]. Somebody will try to answer your call [...] Raquel Cedeno MD Resident Department of Surgery [facility] ITAKrAna rollins - 06/29/2011 3:07 [...] is driving her to daughter's home in [place]. She will stay there a few days before returning to her home in [place]. She is very active prior to admission. No case managment needs anticipated. Electronically signed by:Ana Beltran Position:Technical Support Consultant Pager ID:[phone] 12 3:07 PM Ana Louis - 06/29/2011 2:49 PM PDTPatient Name: VICKI ERIC Date of : 1930 CARE COORDINATION ROUNDING NOTE Care Coordination rounds held. Disciplines attending included: Technical Support Consultant,, Superintendent Police,, Bedside RN,, desktop support manager, Electronically signed by:Ana Beltran Position:Technical Support Consultant Pager ID:[phone] 12 2:49 PM Shilpi Gibson SLP - [...] HISTORY: The patient currently lives outside of [place], [place]. Her children live approximately 30 mi [...] visit with Dr. Sumner. Shilpi Burris M.S., SALES SERVICE ROUTE MANAGER-CFY Speech-Language Pathology Clinical Fellow [facility] Otolaryngology, Head & Neck Surgery On License Of [facility] Pager [phone] ed Ceja MD - 06/29/2011 7:47 AM [...] Cedeno MD - 06/28/2011 10:33 PM PDT [id number] | | [id number] JIMBO [place] | | [phone] [id number] Date: 06/28/2011 Attending Surgeon: King Sosa | | Gregg Sumner Kinesiology Professor(s): Raquel Cedeno M.D. | | Preoperative Diagnosis(es):Recurrent [...] | was then irrigated. Hemostasis was ensured. A7-Czech flat PURVI drain was placed in the [...] Raquel Cedeno, | | Gregg Sumner M.D. [facility] / [id number] / [id number] / [id number] / T: | | 06/28/2011 | |An [...] then irrigated. Hemostasis was ensured. A | |7-Czech flat PURVI drain was placed in the [...] Sumner M.D. | | | | | |[facility] / | |[id number] / [id number] / [id number] / | | | | | | [...] | + + + + + | [facility] | [address] | [place] [address] | | | PATHOLOGY | [address] [...] | | + +---------+ + + | [facility] DEPARTMENT OF | | | [...] | | | | | | Grade: C3Xayyzzt: | | | | | | Negative [...] | | | | | | (pT): iF6Kqsyypti Lymph | | | | | | Nodes (pN): | | | | | | aQ5Yhnytr of regional | | | | | [...] nodes: | | | | | | Quyrfy-yo-vvhIupe of | | | | | | [...] | | | | | | Vicky Moent | | | | | | GreggPathologistJaymiei [...] | + + + + + | [facility] | [address] | [place] [address] | | | PATHOLOGY | [address] [...]
--- OUTSIDE RECORDS SUMMARY | ~2019-07-23 | XMS | Encounter Summary ---
Demographics + + + | Address | [address] | | | [place] [address] | + + + | Home Phone [...] Author | [facility] | + + + | Organization | [facility] | + + + | Address | [...] Team Providers + +------+ + | Care Qa Auditor Name | Role | Phone | + +------+ + | Ganesh Hudson DO | PCP | | + +------+ + Encounter Details +--------+ + + + + | Date | Type | Department | Care Team | Description | +--------+ + + + + | 08/01/ | Abstract | [facility] | Mao Ayon MD | | | 2018 | | [place] | [address] | | | | | Oculoplastics at | [facility] [place] | | | | | [address] | [address] | | | | | [address] | [phone] | | | | | [facility] [place] | | | | | | [facility], [address] [place] [address] | | | | | | [place] [address] | | | | | | [phone] | | | +--------+ + + + [...]
--- OUTSIDE RECORDS SUMMARY | ~2019-07-23 | XMS | Encounter Summary ---
Demographics + + + | Address | [address] | | | [place] [address] | + + + | Home Phone [...] Team Providers + +------+ + | Care Environmental Services Aide Name | Role | Phone | + [...] Encounter | Non-Invasive Testing | [address] [facility] | | | | | at [facility] | [facility] | | | | | [address] | [place] [address] | | | | | [address] [facility] | | | | | | [place], [address] [place] [address] | | | | | | [place], [place] | | | | | | [address] | | | | | | [phone] | | | +--------+ + + + [...] | | | | | TREMAINE ROBLES ([id number]) | | | | | | on 06/27/2011 4:06:46 PM | | | | + + + + + + + + | Specimen | + + | | + + + + + | Narrative | Performed At | + + + | Please click | [facility] | | on view image for the detailed interpretation from [employer] results. | CARDIOLOGY | + + + + + + + + | Performing | Address | City/State/Zipcode | Phone Number | | Organization | | | | + + + + + | [facility] | [address] | [place], [place] | | | CARDIOLOGY | [address] | [address] | | + + + + + documented in this encounter Visit Diagnoses Not on filedocumented in this encounter
--- OUTSIDE RECORDS SUMMARY | ~2019-07-23 | XMS | Encounter Summary ---
Demographics + + + | Address | [address] | | | [place] [address] | + + + | Home Phone [...] + + + | Author | [facility] | + + + | Organization | [facility] | + + + | Address [...] Team Providers + +------+ + | Care Orthotist Prosthetist Name | Role | Phone | + +------+ + | Joycelyn Aguilar PA-C | PCP | | + +------+ + Encounter Details +--------+ + + + + | Date | Type | Department | Care Team | Description | +--------+ + + + + | 10/24/ | Telephone | [facility] | Mao Ayon MD | | | 2018 | | [place] | [address] | | | | | Oculoplastics at | [facility], [place] | | | | | [facility] | [address] | | | | | [address] | [phone] | | | | | [facility] [place] | | | | | | [facility], [address] [place] [address] | | | | | | [place] [address] | | | | | | [phone] | | | +--------+ + + + [...]
--- OUTSIDE RECORDS SUMMARY | ~2019-07-23 | XMS | Encounter Summary ---
Demographics + + + | Address | [address] | | | [place] [address] | + + + | Home Phone | | + + + | Preferred Language | Unknown | + + + | Marital Status | | + + + | Buddhist Affiliation | 1077 | + + + | Race | Unknown | + + + | Ethnic Group | Unknown | + + + Author + + + | Author | [facility] | | | and [place] | + + + | Organization | [facility] | | | and [place] [...] Team Providers + +------+ + | Care Weight Inspector Name | Role | Phone | + +------+ + | Ganesh Hudsno DO | PCP | | + +------+ [...] | | | | [address] | [place] [address] | | | | | [place] [address] | | | | | | [phone] | | | +--------+ + + + [...]
--- OUTSIDE RECORDS SUMMARY | ~2019-07-23 | XMS | Encounter Summary ---
Demographics + + + | Address | [address] | | | [place] [address] | + + + | Home Phone | | + + + | Preferred Language | Unknown | + + + | Marital Status | | + + + | Judaism Affiliation | 1077 | + + + | Race | Unknown | + + + | Ethnic Group | Unknown | + + + Author + + + | Author | [facility] | | | and [place] | + + + | Organization | [facility] | | | [...] Team Providers + +------+ + | Care R D Intern Name | Role | Phone | [...] | | | | [address] | [place] [address] | | | | | [place] [address] | | | | | | [phone] | | | +--------+ + + + [...]
--- OUTSIDE RECORDS SUMMARY | ~2019-07-23 | XMS | Encounter Summary ---
Demographics + + + | Address | [address] | | | [place] [address] | + + + | Home Phone [...] Team Providers + +------+ + | Care Facilities Technician Name | Role | Phone | [...] as of this encounter Progress Notes Interface, Staffing Program Manager In - 11/16/2005 3:10 AM PDTCLINIC DATE: 04/01/2001 OTOLARYNGOLOGY CLINIC SUBJECTIVE: Ms. Eric is a 70-year-old female seen in consultation from Dr. Carter in [place] regarding management of a squamous cell carcinoma [...] 2001. This was sent to the [facility] for evaluation and revealed [...] HISTORY: She is , lives in the [facility]. Her apparently has a progressive dementia. [...] treatment plans from there. King Sumner M.D. Non Destructive Testing Specialist, Otolaryngology [facility] / [id number] / [id number] / [id number] / 16129 cc: Tonio Morrison M.D. [address] [place] [address] [id number] signed by Interface, Staffing Program Manager In at 11/16/2005 3:10 AM PDTdoc umented in this encounter Plan of Treatment Not on filedocumented as of this encounter Visit Diagnoses Not on filedocumented in this encounter"
--- OUTSIDE RECORDS SUMMARY | ~2019-07-23 | XMS | Encounter Summary ---
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 We want to ensure that she does have a time slot to see us in the event that she does need exam in the week following surgery which would require the trip to [place]. Mao Farrell MD - 08/02 11:10 AM [...] I have reviewed and edited history and utility technician documentation, and performed all elements to above examination documentation. Mao Ayon M.D. Hide Curer Ophthalmic Facial Plastic and Reconstructive Surgery documented [...] | + +--------+ + + + | [place] EXTERNAL [facility]OTOS | Routin | 08/20/2017 | [...]
--- OUTSIDE RECORDS SUMMARY | ~2019-07-23 | XMS | Encounter Summary ---
Demographics + + + | Address | [address] | | | [place] [address] | + + + | Home Phone [...] Author | [facility] | | | and [place] | + + + | Organization | [facility] | | | and [...] Providers + +------+ + | Care Employment Specialist/Program Manager Name | Role | Phone | [...] | | [address] | [place] [address] | | | | | [place] | [phone] | | | | | [address] | | | | | | [phone] | | | +--------+ + + + [...] Performed At | + + + | Diagnostic Imaging | [facility] | | Department [address] [facility] [place] | [facility] | | [ rep [address]] [ rep [facility] | | [facility]] Signed | - IMAGING | | | | | Patient Name: VICKI ERIC Physician: | | | Garrett. : 1930 Age: 81 Sex: F Unit #: [id number] | | | Exam Date: 01/22/12 Location: [facility] | | | Report #: [id number] Page: | | | %(RAD)RES..mtdd.print.filter("pg") of %(RAD) | | | RES..mtdd.print.filter("tpg") | | | | | | Accession Number: [id number] | | | CERVICAL SPINE X-RAY CLINICAL [...] Transcribed Date/Time: 01/22/2012 | | | 14:08 Utility Tractor Operator: <<Signature on | | | File>> | | | Jaycob | | | MD Bishnu01/23/12 0833 <Electronically signed by Jaycob Goetz MD> | | | Jaycob Goetz MD 01/22/12 1352 Utility Tractor Operator: Oscar | | | Opecbmmyxqjio46/20/12 6171 Gabino Baker MD | | + + + + + + + + | Performing | Address | City/State/Zipcode | Phone Number | | Organization | | | | + + + + + | [address] | [address] | [place], [place] | [phone] | | [facility] | | [address] | | | - IMAGING | | | | + + + + + documented in this encounter Visit Diagnoses + + | Diagnosis | + + | Neck pain - Primary Cervicalgia | + + documented in this encounter
--- OUTSIDE RECORDS SUMMARY | ~2019-07-23 | XMS | Encounter Summary ---
Demographics + + + | Address | [address] | | | [place] [address] | + + + | Home Phone | | + + + | Preferred Language | Unknown | + + + | Marital Status | | + + + | Holiness Affiliation | 1077 | + + + | Race | Unknown | + + + | Ethnic Group | Unknown | + + + Author + + + | Author | [facility] | | | and [place] | + + + | Organization | [facility] | | | [...] Team Providers + +------+ + | Care Robot Designer Name | Role | Phone | [...] | | | | [address] | [place] [address] | | | | | [place] [address] | | | | | | [phone] | | | +--------+ + + + [...]
--- OUTSIDE RECORDS SUMMARY | ~2019-07-23 | XMS | Encounter Summary ---
Demographics + + + | Address | [address] | | | [place] [address] | + + + | Home Phone [...] + + | Author | [facility] | + + + | Organization | [facility] | + + + | [...] Team Providers + +------+ + | Care Automatic Dispenser Mechanic Name | Role | Phone | [...] | surface of | [address], | [address] [place], | | | | | tongue (HCC) | [place] [address] | [place] | | | | | Procedures | Phone: | [address] | | | | | [place] | [phone] | Phone: | | | | | LARYNGOSCOPY | Fax: | [phone] | | | | | ,DIRECT,DIAG | [phone] | Fax: | | | | | [place] | | [phone] | | | | | LARYNGOSCOPY | | | | | | | ,DIRCT,OP,BI | | | | | | | OPSY [place] | | | | | | | ESOPHAGOSCOP | | | | | | | Y,DIAGNOSTIC | | | | | | | WI PART | | | | | | | REMOVAL | | | | | | | TONGUE,<1/2 | | | | | | | WI PART | | | | | | | REMOVAL | | | | | | | TONGUE, 1/2 | | | | | | | WI PART EXC | | | | | | | | | | | | | | TONGUE,UNILA | | | | | | | T RAD NECK | | | | | | | WI | | | | | | | BIOPSY/EXCIS | | | | | | | ION, LYMPH | | | | | | | NODE(S) [place] | | | | | | | BX/REMV,LYMP | | | | | | | H NODE,DEEP | | | | | | | CERV [place] | | | | | | | REMOVAL | | | | | | | NODES, | | | | | | | NECK,CERV | | | | | | | MOD RAD [place] | | | | | | | [...] | | | Surgery Services at | [facility] | | | | | [address] | [place], [place] | | | | | [address] | [address] | | | | | Physician's | [phone] | | | | | Pavilion, 2nd floor | | | | | | [place], [place] | | | | | | [address] | | | | | | [phone] | | | +--------+---------+ + + + [...]
--- OUTSIDE RECORDS SUMMARY | ~2019-07-23 | XMS | Encounter Summary ---
Demographics + + + | Address | [address] | | | [place] [address] | + + + | Home Phone [...] Team Providers + +------+ + | Care Obstetrics Nurse Name | Role | Phone | [...] at | [facility] [address] | results of tongue | | | | [address] | [place], [place] | biopsy) | | | | [address] | [address] | | | | | Physician's | [phone] | | | | | [address], 2nd floor | | | | | | [place], [place] | | | | | | [address] | | | | | | [phone] | | | +--------+ + + + [...]
--- OUTSIDE RECORDS SUMMARY | ~2019-07-23 | XMS | Encounter Summary ---
Demographics + + + | Address | [address] | | | [place] [address] | + + + | Home Phone [...] + + + | Author | [facility] | + + + | Organization | [facility] | + + + | [...] Team Providers + +------+ + | Care Main Galley Scullion Name | Role | Phone | + [...] | surface of | [address], | [address] [place], | | | | | tongue (HCC) | [place] [address] | [place] | | | | | Procedures | Phone: | [address] | | | | | [place] | [phone] | Phone: | | | | | LARYNGOSCOPY | Fax: | [phone] | | | | | ,DIRECT,DIAG | [phone] | Fax: | | | | | [place] | | [phone] | | | | | LARYNGOSCOPY | | | | | | | ,DIRCT,OP,BI | | | | | | | OPSY [place] | | | | | | | ESOPHAGOSCOP | | | | | | | Y,DIAGNOSTIC | | | | | | | [place] PART | | | | | | | REMOVAL | | | | | | | TONGUE,<1/2 | | | | | | | [place] PART | | | | | | | REMOVAL | | | | | | | TONGUE, 1/2 | | | | | | | [place] PART EXC | | | | | | | | | | | | | | TONGUE,UNILA | | | | | | | T RAD NECK | | | | | | | [place] | | | | | | | BIOPSY/EXCIS | | | | | | | ION, LYMPH | | | | | | | NODE(S) [place] | | | | | | | BX/REMV,LYMP | | | | | | | H NODE,DEEP | | | | | | | CERV [place] | | | | | | | REMOVAL | | | | | | | NODES, | | | | | | | NECK,CERV | | | | | | | MOD RAD [place] | | | | | | | [...] | | | Surgery Services at | [facility] | | | | | [address] | [place], [place] | | | | | [address] | [address] | | | | | Physician's | [phone] | | | | | Pavilion, [facility] floor | | | | | | [place], [place] | | | | | | [address] | | | | | | [phone] | | | +--------+---------+ + + + [...] lymph nodes: 11 Color of lymph nodes: Pfrigr-uj-bza Size of lymph nodes: Ranging in size [...]
--- OUTSIDE RECORDS SUMMARY | ~2019-07-23 | XMS | Encounter Summary ---
Demographics + + + | Address | [address] | | | [place] [address] | + + + | Home Phone [...] Team Providers + +------+ + | Care Degreaser Name | Role | Phone | + [...] | ECTROPION REPAIR | | | | [facility] | [address] [place], [place] | BILATERAL LOWER LID | | | | [place] [address] | [address] | RETRACTION REPAIR | | | | | [phone] | WITH MIDFACE LIFT | | | [...] Discharge Instructions Instructions Eugene Davis RN - 10/23/2017[facility] after Eyelid Surgery Do not drive, [...] and holidays, call and as k the stamping press operator to page the Eye Doctor conference and event organiser. Return appointment date: Time: documented in this [...] | 1 | 10/24/19 | | | vybwmjuz-hqqkjfkop-k | eyelid incisions | | | 18 [...] | | procedure well. Mao Ayon M.D. Wood Milling Machine Operator | | | Ophthalmic Facial Plastic [...] 1 strip | | Bilatera | | hszqkigy-cjubhwbyf-gtlrcsnghfbnw | | 18 2:07 | | | [...] 2:08 | | | Site | | 1%-1:183839 - bupivacaine 0.5% | | PM PDT [...]
--- OUTSIDE RECORDS SUMMARY | ~2019-07-23 | XMS | Encounter Summary ---
Demographics + + + | Address | [address] | | | [place] [address] | + + + | Home Phone [...] Team Providers + +------+ + | Care Behavioral Health Tech Name | Role | Phone | + [...] as of this encounter Progress Notes Nessa, Assistant Education Director In - 11/12/2005 3:11 AM PDTCLINIC DATE: [...] see me 2 months. King Sumner M.D. Electrical Project Engineer, Otolaryngology [facility] / [id number] / [id number] / [id number] / 1905 x cc: Pepito Caruso M.D. [address] [place] [address] [id number] signed by Nessa, Assistant Education Director In at 11/12/2005 3:11 AM Pallavi gavin, Assistant Education Director In - 11/12/2005 3:11 AM PDTCLINIC DATE: [...] General Surgery Resident King Sumner M.D. / [id number] / [id number] / 09371 / [address] [id number] signed by Interface, Assistant Education Director In at 11/12/2005 3:11 AM PDTdoc umented in this encounter Plan of Treatment Not on filedocumented as of this encounter Visit Diagnoses Not on filedocumented in this encounter"
--- OUTSIDE RECORDS SUMMARY | ~2019-07-23 | XMS | Encounter Summary ---
Demographics + + + | Address | [address] | | | [place] [address] | + + + | Home Phone | | + + + | Preferred Language | Unknown | + + + | Marital Status | Single | + + + | Gnosticism Affiliation | CHR | + + + [...] Team Providers + +------+ + | Care Unit Tender Name | Role | Phone | [...] | 2018 | Event | [address] | [address] | | | | | [facility] | [facility] | | | | | [place] [address] | [place], [place] | | | | | | [address] | | | | | | [phone] | | | | | | | | | | | | Andre Kaiser, | | | | | | CAREER DEVELOPMENT COORDINATOR/TEACHER [address] | | | | | | [facility] | | | | | | [place], [place] | | | | | | [address] | | | | | | [phone] | | | | | | | [...]
--- OUTSIDE RECORDS SUMMARY | ~2019-07-23 | XMS | Encounter Summary ---
Demographics + + + | Address | [address] | | | [place] [address] | + + + | Home Phone | | + + + | Preferred Language | Unknown | + + + | Marital Status | | + + + | Zoroastrianism Affiliation | 1077 | + + + | Race | Unknown | + + + | Ethnic Group | Unknown | + + + Author + + + | Author | [facility] | | | and Jeromeana | + + + | Organization | [facility] | | | [...] Team Providers + +------+ + | Care Carpenter Ship Name | Role | Phone | + [...] | | [address] | [place] [address] | | | | | [place] | [phone] | | | | | [address] | | | | | | [phone] | | | +--------+ + + + [...] Performed At | + + + | [facility] Diagnostic Imaging | [place] | | Department [address] [facility] [place] | [facility] | | [ [address]] [ rep [facility] | | [facility]] Signed | - IMAGING | | | | | Patient Name: VICKI ERIC Physician: | | | Garrett. : 1930 Age: 81 Sex: F Unit #: [id number] | | | Exam Date: 01/22/12 Location: [facility] | | | Report #: [id number] Page: | | | %(RAD)RES..mtdd.print.filter("pg") of %(RAD) | | | RES..mtdd.print.filter("tpg") | | | | | | Accession Number: [id number] | | | CERVICAL SPINE X-RAY CLINICAL [...] Transcribed Date/Time: 01/22/2012 | | | 14:08 Rubber Covering Machine Operator: <<Signature on | | | File>> | | | Jaycob | | | MD Bishnu01/23/12 0818 <Electronically signed by Jaycob Goetz MD> | | | Jaycob Goetz MD 01/22/12 1352 Rubber Covering Machine Operator: Oscar | | | Wsvpkpwaxzjyq37/20/12 8230 Gabino Baker MD | | + + + + + + + + | Performing | Address | City/State/Zipcode | Phone Number | | Organization | | | | + + + + + | [address] [facility] | [address] | [place], [place] | [phone] | | [facility] | | [address] | | | - IMAGING | | | | + + + + + documented in this encounter Visit Diagnoses + + | Diagnosis | + + | Neck pain - Primary Cervicalgia | + + documented in this encounter
--- OUTSIDE RECORDS SUMMARY | ~2019-07-23 | XMS | Encounter Summary ---
Demographics + + + | Address | [address] | | | [place] [address] | + + + | Home Phone [...] Team Providers + +------+ + | Care Mortgage Loan Specialist Name | Role | Phone | + +------+ + | Ganesh Hudson DO | PCP | | + +------+ + Encounter Details +--------+ + + + + | Date | Type | Department | Care Team | Description | +--------+ + + + + | 08/01/ | Abstract | [facility] | Mao Ayon MD | | | 2018 | | [place] | [address] | | | | | Oculoplastics at | [facility] [place] | | | | | [address] | [address] | | | | | [address] | [phone] | | | | | [facility] [place] | | | | | | [facility], [address] [place] [address] | | | | | | [place] [address] | | | | | | [phone] | | | +--------+ + + + [...]
--- OUTSIDE RECORDS SUMMARY | ~2019-07-23 | XMS | Encounter Summary ---
Demographics + + + | Address | [address] | | | [place] [address] | + + + | Home Phone [...] + + + | Author | [facility] | + + + | Organization | [facility] | + + + | [...] Team Providers + +------+ + | Care Inspector Air Carrier Name | Role | Phone | + +------+ + PCP | Unavailable | + +------+ + Encounter Details +--------+ + + + + | Date | Type | Department | Care Team | Description | +--------+ + + + + | 04/24/ | Results | Otolaryngology | King Sumner, | | | 2001 | Only | Head and Neck | MD [address] [facility] | | | | | Surgery Services at | [facility] | | | | | [address] | [place], [place] | | | | | [address] | [address] | | | | | Physician's | [phone] | | | | | [place], [address] [place] [address] | | | | | | [place], [place] | | | | | | [address] | | | | | | [phone] | | | +--------+ + + + [...] | + + + + + | [facility] | [address] [facility] | [place] [address] | | | PATHOLOGY | [address] | | | + + + + + | [facility] | [address] [facility] | [place] [address] | | | PATHOLOGY | [address] [...] | + + + + + | [facility] | [address] [facility] | [place] [address] | | | PATHOLOGY | [address] | | | + + + + + | [facility] DEPARTMENT OF | [address] [facility] | [place] [address] | | | PATHOLOGY | [address] [...] | + + + + + | [facility] | [address] | [place] [address] | | | PATHOLOGY | [address] | | | + + + + + | [facility] | [address] [place] [address] [address] | [place] [address] | | | PATHOLOGY | [address] [...] | + + + + + | [facility] | [facility] | [place] [address] | | | PATHOLOGY | [address] | | | + + + + + | [place] DEPARTMENT OF | [address] | [place] [address] | | | PATHOLOGY | [address] | | | + + + + + documented in this encounter Visit Diagnoses Not on filedocumented in this encounter
--- OUTSIDE RECORDS SUMMARY | ~2019-07-23 | XMS | Clinical Summary ---
Demographics + + + | Address | [address] | | | [place] [address] | + + + | Home Phone [...] Team Providers + +------+ + | Care State Farm Agent Team Member Name | Role | Phone | + +------+ + | Joycelyn Aguilar PA-C | PCP | | + +------+ + Source Comments HANNA is fully live on both EpicCare Ambulatory and EpicCare InPatient.[facility] Allergies + + + + + [...] Nausea, | | 06/28/19 | | | Rhvn-Etsphtip-Msubj | Nausea and Vomiting | | 12 [...] | 08/2 | | Activ | | decywlms-djnuvltot-r | eyelid incisions | | | 2/20 [...] | | | | | | | [address] | | + +--------+ +--------+ + +--------+ | [employer] | TRANSA | [phone] | 04/04/19 | [phone] | [address] | POS | | MEDICARE SUPPLEMENT | [place] | | 15-Pre | 2 | [address] | | | | | | sent | | [address] [place] | | | | MEDICA | | | | [id number] | | | | RE | | [...] Person | Self | [birth year] | [address] | | | parveen/Jason | | 1931 | [phone] | [place] [address] | | | [place] | | | 4 (Home) | | | | | | | [phone] | | | | | | | 6 (Work) | | + +--------+ +--------+ + + Advance Directives + + + + + | Type | Date Recorded | Patient | Explanation | | | | Composite Engineer | | + + + + + | Advance | | | | | Directives and | | | | | Living Will | | | | + + + + + | Power of | | | | | Publicist | | | | + + + [...]
--- OUTSIDE RECORDS SUMMARY | ~2019-07-23 | XMS | Clinical Summary ---
Demographics + + + | Address | [address] | | | [place] [address] | + + + | Home Phone | | + + + | Preferred Language | Unknown | + + + | Marital Status | | + + + | Latter Day Affiliation | 1077 | + + + | Race | Unknown | + + + | Ethnic Group | Unknown | + + + Author + + + | Author | [facility] | | | and Jeromeana | + + + | Organization | [facility] [...] Team Providers + +------+ + | Care Arranger Assembler Name | Role | Phone | [...] +---------+--------+ | [employer] MEDICARE | PREMIE | [id number] | 01/15/ | [phone] | | Medica | | | R [...] Person | Self | [birth year] | | [address] | | | al/Fam | | 1931 | [phone] | [place] | | | [place] | | | 4 (Home) | [address] | + +--------+ +--------+ + + Advance Directives + + + + + | Type | Date Recorded | Patient | Explanation | | | | Senior Applications Engineer | | + + + + + | Power of | | | | | Supervisor Reclamation | | | | + + + + + | Advance | | | | | Directive | | | | + + + + +
--- OUTSIDE RECORDS SUMMARY | ~2019-07-23 | XMS | Encounter Summary ---
Demographics + + + | Address | [address] | | | [place] [address] | + + + | Home Phone [...] Team Providers + +------+ + | Care Cookie Breaker Name | Role | Phone | [...] | | | unspecified | | Rd [place], | | | | | site | | [place] | | | | | | | [address] | | | | | | | Phone: | | | | | | | [phone] | | | | | | | Fax: | | | | | | | [phone] | +--------+--------+ + + + + Encounter [...] | | | Surgery Services at | [facility] | | | | | [address] | [facility] [place] | | | | | [address] | [address] | | | | | Physician's | [phone] | | | | | Pavilion, 2nd floor | | | | | | [place], [place] | | | | | | [address] | | | | | | [phone] | | | +--------+---------+ + + + [...]
--- OUTSIDE RECORDS SUMMARY | ~2019-07-23 | XMS | Encounter Summary ---
Demographics + + + | Address | [address] | | | [place] [address] | + + + | Home Phone [...] Team Providers + +------+ + | Care Machined Parts Metal Sprayer Name | Role | Phone | + [...] Rd | | | | | | [place], [place] | | | | | | [address] | | | +--------+ + + + [...]
--- OUTSIDE RECORDS SUMMARY | ~2019-07-23 | XMS | Encounter Summary ---
Demographics + + + | Address | [address] | | | [place] [address] | + + + | Home Phone | | + + + | Preferred Language | Unknown | + + + | Marital Status | | + + + | Spiritism Affiliation | 1077 | + + + | Race | Unknown | + + + | Ethnic Group | Unknown | + + + Author + + + | Author | [facility] | | | and Jeromeana | + + + | Organization | [facility] | | | [...] Team Providers + +------+ + | Care Book Store Associate Name | Role | Phone | + [...] | | | | [address] | [place] [address] | | | | | [place] [address] | | | | | | [phone] | | | +--------+ + + + [...]
--- OUTSIDE RECORDS SUMMARY | ~2019-07-23 | XMS | Clinical Summary ---
Demographics + + + | Address | [address] | | | [place] [address] | + + + | Home Phone [...] Team Providers + +------+ + | Care Swimming Pool Servicer Name | Role | Phone | + +------+ + | Joycelyn Aguilar PA-C | PCP | | + +------+ + Source Comments HANNA is fully live on both EpicCare Ambulatory and EpicCare InPatient.[facility] Allergies + + + + + [...] Nausea, | | 06/28/19 | | | Orlk-Rposlvfq-Iagdi | Nausea and Vomiting | | 12 [...] | 08/2 | | Activ | | ufdymrfg-qtqasiqdz-i | eyelid incisions | | | 2/20 [...] | | | | | | | [address] | | + +--------+ +--------+ + +--------+ | [employer] | TRANSA | xxxxxxxxx | 04/04/19 | [phone] | [address] | POS | | MEDICARE SUPPLEMENT | [place] | | 15-Pre | 2 | [address] | | | | | | sent | | [address] [place] | | | | [place] | | | | [phone] | | | | RE | | [...] Person | Self | [birth year] | | [address] | | | parveen/Jason | | 1931 | [phone] | [place] [address] | | | [place] | | | 4 (Home) | | | | | | | [phone] | | | | | | | 6 (Work) | | + +--------+ +--------+ + + Advance Directives + + + + + | Type | Date Recorded | Patient | Explanation | | | | Rock Wool Insulator | | + + + + + | Advance | | | | | Directives and | | | | | Living Will | | | | + + + + + | Power of | | | | | Bar Attendant | | | | + + + [...]
--- OUTSIDE RECORDS SUMMARY | ~2019-07-23 | XMS | Encounter Summary ---
Demographics + + + | Address | [address] | | | [place] [address] | + + + | Home Phone [...] Team Providers + +------+ + | Care Drawbench Operator Helper Name | Role | Phone | + +------+ + | Joycelyn Aguilar PA-C | PCP | | + +------+ + Encounter Details +--------+ + + + + | Date | Type | Department | Care Team | Description | +--------+ + + + + | 10/24/ | Telephone | [facility] | Mao Ayon MD | | | 2018 | | [place] | [address] | | | | | Oculoplastics at | [facility], [place] | | | | | [facility] | [address] | | | | | [address] | [phone] | | | | | [facility] [place] | | | | | | [facility], [address] [place] [address] | | | | | | [place] [address] | | | | | | [phone] | | | +--------+ + + + [...]
--- OUTSIDE RECORDS SUMMARY | ~2019-07-23 | XMS | Encounter Summary ---
Demographics + + + | Address | [address] | | | [place] [address] | + + + | Home Phone [...] Team Providers + +------+ + | Care Paperboard Box Maker Name | Role | Phone | [...] [address] | | | | | | [facility] | [facility] | | | | | | Rd | Rd [place], | | | | | | [place], [place] | [place] | | | | | | [address] | [address] | | | | | | Phone: | Phone: | | | | | | [phone] | [phone] | | | | | | Fax: | Fax: | | | | | | [phone] | [phone] | +--------+--------+ + + + + Encounter [...] | | | Surgery Services at | [facility] [address] | | | | | [address] | [place], [place] | | | | | [address] | [address] | | | | | Physician's | [phone] | | | | | Pavilion, 2nd floor | | | | | | [place], [place] | | | | | | [address] | | | | | | [phone] | | | +--------+---------+ + + + [...]
--- OUTSIDE RECORDS SUMMARY | ~2019-07-23 | XMS | Encounter Summary ---
Demographics + + + | Address | [address] | | | [place] [address] | + + + | Home Phone [...] Team Providers + +------+ + | Care Strap Folding Machine Operator Name | Role | Phone [...] as of this encounter Progress Notes Nessa, Child Care Specialist In - 11/12/2005 3:11 AM PDTCLINIC DATE: [...] see me 2 months. King Sumner M.D. Scratcher Tender, Otolaryngology [facility] / [id number] / [id number] / [id number] / 1905 x cc: Pepito Caruso M.D. [address] [place] [address] [id number] signed by Nessa, Child Care Specialist In at 11/12/2005 3:11 AM Pallavi gavin, Child Care Specialist In - 11/12/2005 3:11 AM PDTCLINIC DATE: [...] and examined with Dr. King Sumner. Mary Coolye M.D. General Surgery Resident King Sumner M.D. / [id number] / [id number] / [id number] / [id number] signed by Interface, Child Care Specialist In at 11/12/2005 3:11 AM PDTdoc umented in this encounter Plan of Treatment Not on filedocumented as of this encounter Visit Diagnoses Not on filedocumented in this encounter"
--- OUTSIDE RECORDS SUMMARY | ~2019-07-23 | XMS | Encounter Summary ---
Demographics + + + | Address | [address] | | | [place] [address] | + + + | Home Phone | | + + + | Preferred Language | Unknown | + + + | Marital Status | | + + + | Episcopalian Affiliation | 1077 | + + + | Race | Unknown | + + + | Ethnic Group | Unknown | + + + Author + + + | Author | [facility] | | | and Jeromeana | + + + | Organization | [facility] | | | [...] Team Providers + +------+ + | Care Biostatistics Teacher Name | Role | Phone | + [...] | [address] [place] | [place] [address] | | | | | [address] | [phone] | | | | | [phone] | | | +--------+ + + + [...]
--- OUTSIDE RECORDS SUMMARY | ~2019-07-23 | XMS | Encounter Summary ---
Demographics + + + | Address | [address] | | | [place] [address] | + + + | Home Phone [...] Team Providers + +------+ + | Care Mud Jack Nozzleman Name | Role | Phone | + [...] | | Malignant | MD King | [facility] [address] | | | | | neoplasm of | [address] | Pavilion | | | | | tongue, | [address] | [address] | | | | | unspecified | Rd | [address], | | | | | site | [place], [place] | Basement | | | | | Procedures | [address] | [place], [place] | | | | | [place] LYMPH | Phone: | [phone] | | | | | INJECTION | [phone] | Phone: | | | | | SENTINEL | Fax: | [phone] | | | | | NODE ONLY | [phone] | Fax: | | | | | | | [phone] | +--------+--------+ + + + + Encounter Details +--------+ + + + + | Date | Type | Department | Care Team | Description | +--------+ + + + + | 06/12/ | Telephone | Otolaryngology | King Sumner, | | | 2011 | | Head and Neck | MD [address] | | | | | Surgery Services at | [facility] | | | | | [address] | [place], [place] | | | | | [address] | [address] | | | | | Physician's | [phone] | | | | | Pavilion, 2nd floor | | | | | | [place], [place] | | | | | | [address] | | | | | | [phone] | | | +--------+ + + + [...]
--- OUTSIDE RECORDS SUMMARY | ~2019-07-23 | XMS | Encounter Summary ---
Demographics + + + | Address | [address] | | | [place] [address] | + + + | Home Phone [...] Team Providers + +------+ + | Care Cake Stripper Name | Role | Phone | [...] | | | Surgery Services at | [facility] | coming in on 07/21, | | | | [address] | [place], [place] | wants to know if he | | | | [address] | [address] | will be able to take | | | | Physician's | [phone] | the lesion off on | | | | [place], 2nd floor | | this day?) | | | | [place] | | | | | | [address] | | | | | | [phone] | | | +--------+ + + + [...]
--- OUTSIDE RECORDS SUMMARY | ~2019-07-23 | XMS | Encounter Summary ---
Demographics + + + | Address | [address] | | | [place] [address] | + + + | Home Phone [...] Team Providers + +------+ + | Care Parts Counter Specialist Name | Role | Phone | [...] | | | | tongue, | | [facility] | | | | | unspecified | | Rd [place], | | | | | site | | [place] | | | | | | | [address] | | | | | | | Phone: | | | | | | | [phone] | | | | | | | Fax: | | | | | | | [phone] | +--------+--------+ + + + + Encounter [...] | | | Surgery Services at | [facility] | | | | | [address] | [facility] [place] | | | | | [address] | [address] | | | | | Physician's | [phone] | | | | | Pavilion, 2nd floor | | | | | | [place], [place] | | | | | | [address] | | | | | | [phone] | | | +--------+---------+ + + + [...]
--- OUTSIDE RECORDS SUMMARY | ~2019-07-23 | XMS | Encounter Summary ---
Demographics + + + | Address | [address] | | | [place] [address] | + + + | Home Phone [...] Author + + + | Author | [facility] | + + + | Organization | [facility] | + + + | [...] Team Providers + +------+ + | Care Foundation Director Name | Role | Phone | + +------+ + | Ganesh Hudson DO | PCP | | + +------+ + Encounter Details +--------+ + + + + | Date | Type | Department | Care Team | Description | +--------+ + + + + | 06/05/ | Polisher Aluminum | Otolaryngology | King Sumner, | Tongue cancer (HCC) | | 2011 | | Thyroid Services at | MD [address] | (Primary Dx) | | | | [address] | [address] | | | | | [address] | [place], [place] | | | | | Physician's | [address] | | | | | [place], [facility] floor | [phone] | | | | | [place], [place] | | | | | | [address] | | | | | | [phone] | | | +--------+ + + + [...] necessary | | | | | | [facility] | | | | | | [...] | | | | | | in 2008([id number]). | | | | | | Gross [...] number | | | | | | [id number]. 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
--- OUTSIDE RECORDS SUMMARY | ~2019-07-23 | XMS | Encounter Summary ---
Demographics + + + | Address | [address] | | | [place] [address] | + + + | Home Phone [...] Providers + +------+ + | Care Senior Data Scientist Name | Role | Phone | + [...] | | Malignant | MD King | [facility] [address] | | | | | neoplasm of | [address] | Pavilion | | | | | tongue, | [address] | [address] | | | | | unspecified | Rd | [address], | | | | | site | [place], [place] | Basement | | | | | Procedures | [address] | [place], [place] | | | | | [place] LYMPH | Phone: | [phone] | | | | | INJECTION | [phone] | Phone: | | | | | SENTINEL | Fax: | [phone] | | | | | NODE ONLY | [phone] | Fax: | | | | | | | [phone] | +--------+--------+ + + + + Encounter Details +--------+ + + + + | Date | Type | Department | Care Team | Description | +--------+ + + + + | 06/12/ | Telephone | Otolaryngology | King Sumner, | | | 2011 | | Head and Neck | MD [address] | | | | | Surgery Services at | [facility] | | | | | [address] | [place], [place] | | | | | [address] | [address] | | | | | Physician's | [phone] | | | | | Pavilion, 2nd floor | | | | | | [place], [place] | | | | | | [address] | | | | | | [phone] | | | +--------+ + + + [...]
[~2019-07-23 18:55] MED LIST changes: +DYAZIDE 37.5-251 EA PO; -K-TAB ER20 MEQ PO; +K-TAB10 MEQ PO; +LATANOPROST2.5 ML OU; +MAXITROL EYE O3.5 GM OD; +MUPIROCIN22 GM TOP
--- OUTSIDE RECORDS SUMMARY | 2019-07-23 18:58 | XMS ---
PreManage Notification: VICKI CHOI Security Pl[employer] Model [employer] Events No recent Security Events currently on file CRITERIA MET - [facility] - 2 Visits in 30 Days CARE PROVIDERS There are no care providers on record at this time. Cabrera has no Care Guidelines for this patient. Bindu VISIT COUNT (12 MO.) [address] TOTAL 7 NOTE: Visits indicate total known visits. ED/UCC VISIT TRACKING (12 MO.) [facility] [place] TYPE: Emergency COMPLAINT: - WEAKNESS/DIZZINESS 07/16/2019 15:47 [facility] [place] TYPE: Emergency DIAGNOSES: - Urinary tract infection, site not specified - DIZZINESS AND WEAKNESS - Hematuria, unspecified - Dizziness and giddiness 07/12/2019 08:22 [facility] [place] TYPE: Emergency COMPLAINT: - WEAKNESS, NAUSEA 06/10/2019 07:34 [facility] [place] TYPE: Emergency COMPLAINT: - RASH DIAGNOSES: - Allergy status to other drugs, medicaments and biological sub - Essential (primary) hypertension - Personal history of malignant neoplasm of tongue - Other prison (current) drug therapy - Acquired absence of both cervix and uterus - Dermatitis, unspecified - Rash and other nonspecific skin eruption - Allergy status to sulfonamides status - Hyperlipidemia, unspecified - Gastro-esophageal reflux disease without esophagitis - Acquired absence of other organs - exterminator helper termite (current) use of aspirin 05/02/2019 16:19 [facility] [place] TYPE: Emergency COMPLAINT: - FOOT PAIN/ SORE, NON INJ DIAGNOSES: - Hyperlipidemia, unspecified - Essential (primary) hypertension - Pain in right toe(s) - Other exterminator helper termite (current) drug therapy - Gastro-esophageal reflux disease without esophagitis - Allergy status to sulfonamides status 09/18/2018 12:35 [facility] [place] TYPE: Emergency COMPLAINT: - FALL DIAGNOSES: - Fall on same level, unspecified, initial encounter - Other prison (current) drug therapy - Allergy status to other drugs, medicaments and biological sub - Acquired absence of other specified parts of digestive tract - Laceration without foreign body of left forearm, initial enco - Fracture of nasal bones, initial encounter for closed fractur - long-term (current) use of aspirin - Hyperlipidemia, unspecified - Essential (primary) hypertension - Abrasion of other part of head, initial encounter - Headache - Gastro-esophageal reflux disease without esophagitis - Allergy status to sulfonamides status 08/06/2018 17:53 [facility] [place] TYPE: Emergency COMPLAINT: - DIZZINESS,VOMITING DIAGNOSES: - Allergy status to other drugs, medicaments and biological sub - Acquired absence of other specified parts of digestive tract - Essential (primary) hypertension - Hyperlipidemia, unspecified - Gastro-esophageal reflux disease without esophagitis - Dizziness and giddiness - exterminator helper termite (current) use of aspirin - Allergy status to sulfonamides status - Acquired absence of both cervix and uterus - Other prison (current) drug therapy INPATIENT VISIT TRACKING (12 MO.) 07/12/2019 08:23 [facility] [place] TYPE: Observation COMPLAINT: - UTI DIAGNOSES: - Dehydration - Other prison (current) drug therapy - long-term (current) use of aspirin - Urgency of urination - Allergy status to sulfonamides status - Weakness - Essential (primary) hypertension - Unspecified glaucoma - Allergy status to other drugs, medicaments and biological sub - Urinary tract infection, site not specified - Gastro-esophageal reflux disease without esophagitis - Hyperlipidemia, unspecified [email or web address]
[2019-07-23] MEDS ORDERED: MACRODANTIN100 MG PO (19:22)
[2019-07-23] MEDS ORDERED: MECLIZINE HCL25 MG PO (21:41)
--- NOTE | 2019-07-24 06:41 | EKG ---
[facility] [address] [facility] [place] [address] Signed Normal sinus rhythm Normal ECG When compared with ECG of 12-JUL-2019 08:40, T wave inversion no longer evident in Anterior leads Confirmed by HANNAH FROST MD ([id number]) on 07/24/2019 6:41:32 AM Electronically Signed By: HANNAH FROST MD 07/24/19 0641 PATIENT NAME: TAISHA CHOIWILBER BILLINGS Electrocardiogram DATE OF : 28 PHYSICIAN: HANNAH FROST MD REPORT #: [id number] REPORT IS CONFIDENTIAL AND NOT TO BE RELEASED WITHOUT AUTHORIZATION
== END 2019-07-23 22:03 | disposition home or self-care (01) ==
LOC: ED 18:55
PROC: 0T9B70Z Drainage of Bladder with Drainage Device, Via Natural or Artificial Opening (ICD-10-PCS; principal; 2019-07-23)
DX: R53.1 Weakness (principal); R42 Dizziness and giddiness; I10 Essential (primary) hypertension; E78.5 Hyperlipidemia, unspecified; K21.9 Gastro-esophageal reflux disease without esophagitis; Z88.2 Allergy status to sulfonamides; Z88.8 Allergy status to other drugs, medicaments and biological substances; Z79.899 Other long term (current) drug therapy; Z79.82 Long term (current) use of aspirin
CPT/HCPCS: 51701; 71045; 74177; 80053; 81001; 83735; 84484; 85025; 85610; 85730; 93005; 93010; 99285-25; J7040; Q9967

== ENCOUNTER 2019-07-27 18:58 | Emergency (ER) | payer MEDICARE, OTHER ==
[~2019-07-27] VITALS: Ht 157.5 cm; Wt 49.9 kg
--- OUTSIDE RECORDS SUMMARY | ~2019-07-27 | XMS | Encounter Summary ---
Demographics + + + | Address | [address] | | | [place] [address] | + + + | Home Phone | | + + + | Preferred Language | Unknown | + + + | Marital Status | Single | + + + | Latter Day Affiliation | CHR | + + + | Race | White | + + + | Ethnic Group | Not or | + + + Author + + + | Author | [facility] | + + + | Organization | [facility] | + + + | Address | Unknown | + + + | Phone | Unavailable | + + + Support + + +---------+ + | Name | Relationship | Address | Phone | + + +---------+ + | Vicki Veronica | ECON | Unknown | | + + +---------+ + | Gabino Solis | ECON | Unknown | | + + +---------+ + Care Team Providers + +------+ + | Care Peoples[employer] Financial Developer Name | Role | Phone | + +------+ + | Joycelyn Aguilar PA-C | PCP | | + +------+ + Reason for Visit AUTH/CERT +--------+--------+ + + + + | Status | Reason | Specialty | Diagnoses / | Referred By | Referred To | | | | | Procedures | Contact | Contact | +--------+--------+ + + + + | | | | | | | +--------+--------+ + + + + Encounter Details +--------+ + + + + | Date | Type | Department | Care Team | Description | +--------+ + + + + | 10/23/ | Hospital | [facility] | Mao Ayon MD | | | 2018 | Encounter | STAY [address] [facility] | [address] | | | | | [address] | [place], [place] | | | | | [address] | [address] | | | | | [place], [place] | [phone] | | | | | [address] | | | +--------+ + + + + Social History + +-------+ +--------+------+ | Tobacco Use | Types | Packs/Day | Years | Date | | | | | Used | | + +-------+ +--------+------+ | Never Smoker | | | | | + +-------+ +--------+------+ + +---+---+---+ | Smokeless Tobacco: | | | | | Never Used | | | | + +---+---+---+ + + +---------+ + | Alcohol Use | Drinks/Week | oz/Week | Comments | + + +---------+ + | Yes | | | 1 glass of wine per | | | | | day | + + +---------+ + + + + | Sex Assigned at | Date Recorded | | | | + + + | Not on file | | + + + + + + + | Job Start Date | Occupation | Industry | + + + + | Not on file | Not on file | Not on file | + + + + + + + + | Travel History | Travel Start | Travel End | + + + + + + | No recent travel history available. | + + documented as of this encounter Last Filed Vital Signs + + + + + | Vital Sign | Reading | Time Taken | Comments | + + + + + | Blood Pressure | 155/87 | 10/23/2017 3:01 PM | | | | | PDT | | + + + + + | Pulse | 73 | 10/23/2017 3:01 PM | | | | | PDT | | + + + + + | Temperature | 36.7 C (98.1 F) | 10/23/2017 3:01 PM | | | | | PDT | | + + + + + | Respiratory Rate | 14 | 10/23/2017 3:01 PM | | | | | PDT | | + + + + + | Oxygen Saturation | 97% | 10/23/2017 3:01 PM | | | | | PDT | | + + + + + | Inhaled Oxygen | - | - | | | Concentration | | | | + + + + + | Weight | 49.9 kg (110 lb) | 10/23/2017 12:32 PM | | | | | PDT | | + + + + + | Height | 157.5 cm (5' 2") | 10/23/2017 12:32 PM | | | | | PDT | | + + + + + | Body Mass Index | 20.12 | 10/23/2017 12:32 PM | | | | | PDT | | + + + + + documented in this encounter Discharge Instructions Instructions Eugene Davis RN - 10/23/2017Home Care after Eyelid Surgery Do not drive, drink alcoholic beverages, sign legal documents or make major decisions bonnie brumfield the next 24 hours. Call your doctor if you notice any unusual symptoms. Remember: You are under the influence of medications. You may resume your normal diet and medications. Caring for Your Eyelid(s) Use ice packs intermittently (10 min. on and 10 min. off) as much as possible for the ne xt 72 hours when awake. Dressing Sleep with eye sahields on for next two weeks. Eye Medication Apply eye ointment in both eye twice a day Apply ointment to suture line twice a day To help prevent infection: ? Always wash your hands before caring for your eyes or using eye medicine. ? Do not touch any part of your eye skin with the tip of the eye medicine bottle or tube. Avoid the following Rubbing your eye Do not lift anything over 20 lbs Swimming Sports or heavy exercise Eye makeup or lotions around eyes Dust, dirt or sand into the operated area Other Things to Remember Sleep on 2-3 pillows for the next week to minimize swelling Avoid direct sunlight. Wear a wide-brimmed hat or sunglasses if you must go in the sun. Do not use any aspirin, aspirin containing products or anti-inflammatory medications Call your doctor if Temperature above 101 degrees (fever) Purulent drainage (which is drainage that is whitish-rodgers or greenish in color) from the surgical site If there is increased redness at the edges of the surgical site Increased pain, even with pain medication Increasing pain, swelling or redness Any visual changes, some blurring is normal Extreme swelling, some swelling is normal How to reach your doctor Saturday through Saturday, 8am-5pm, call All other hours including after hours, weekends and holidays, call and as k the wet and dry sugar bin operator to page the Eye Doctor graduation coach. Return appointment date: Time: documented in this encounter Medications at Time of Discharge + + + +---------+ + + | Medication | Sig | Dispensed | Refills | Start | End Date | | | | | | Date | | + + + +---------+ + + | Aspirin 81 mg Oral | Take 81 mg by mouth | | 0 | | | | TabletIndications: | once daily. | | | | | | myocardial | Indications: | | | | | | reinfarction | Myocardial | | | | | | prevention | Reinfarction | | | | | | | Prevention | | | | | + + + +---------+ + + | BETA-CAROTENE,A, | Take by mouth. | | 0 | | | | W-C & E/MIN (OCUVITE | | | | | | | OR) | | | | | | + + + +---------+ + + | ERGOCALCIFEROL, | Take by mouth. | | 0 | | | | VITAMIN D2, (VITAMIN | | | | | | | D ORAL) | | | | | | + + + +---------+ + + | famotidine 20 mg | | | 0 | 03/08/19 | | | oral tablet | | | | 16 | | + + + +---------+ + + | | Take 1 tablet by | 10 | 0 | 10/24/19 | | | HYDROcodone-acetamin | mouth every four | tablet | | 18 | | | ophen 5-325 mg oral | hours as needed for | | | | | | tablet | severe pain. Do not | | | | | | | exceed 3000mg | | | | | | | acetaminophen in a | | | | | | | 24 hour period | | | | | + + + +---------+ + + | LATANOPROST 0.005 | | | 0 | 10/21/19 | | | % ophthalmic drops | | | | 14 | | + + + +---------+ + + | | Apply a thin film to | 3.5 g | 1 | 10/24/19 | | | jspsjvsz-gbdqdxprm-u | eyelid incisions | | | 18 | | | examethasone 3.5 | twice daily for two | | | | | | mg/g-10,000 | weeks. OK for | | | | | | unit/g-0.1 % | pharmacist to | | | | | | ophthalmic (eye) | substitute a | | | | | | ointment | different ophthalmic | | | | | | | ointment if needed | | | | | + + + +---------+ + + | omeprazole 20 mg | Take 20 mg by mouth | | 0 | | | | Oral Capsule, | once daily. | | | | | | Delayed | | | | | | | Release(E.C.) | | | | | | + + + +---------+ + + | oxybutynin CR 15 | Take 15 mg by mouth | | 0 | | | | mg Oral Tablet | once daily. | | | | | | Extended Rel 24 hr | | | | | | + + + +---------+ + + | potassium chloride | | | 5 | 02/21/20 | | | SR 10 mEq oral | | | | 15 | | | tablet,ER | | | | | | | particles/crystals | | | | | | + + + +---------+ + + | simvastatin 40 mg | Take 40 mg by mouth | | 0 | | | | Oral Tablet | once daily in the | | | | | | | evening. | | | | | + + + +---------+ + + | | 1D | | 0 | | | | triamterene-hydrochl | | | | | | | orothiazide 37.5-25 | | | | | | | mg Oral Capsule | | | | | | + + + +---------+ + + | VALACYCLOVIR 500 | | | 0 | 09/05/19 | | | mg oral tablet | | | | 14 | | + + + +---------+ + + documented as of this encounter Plan of Treatment Not on filedocumented as of this encounter Procedures + +--------+ + + + | Procedure Name | Priori | Date/Time | Associated Diagnosis | Comments | | | ty | | | | + +--------+ + + + | PROCEDURE NOTE | Routin | 10/23/2017 | | Results for this | | | e | 2:28 PM | | procedure are in the | | | | PDT | | results section. 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 | | | Preoperative Diagnosis: 1. Bilateral lower lid ectropion 2. 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 Bilateral lower lid ectropion 2. Bilateral lower lid | | | retraction with midface descent Procedure: 1. Repair right lower | | | lid ectropion (lateral tarsal strip) 2. Repair left lower lid | | | ectropion (lateral tarsal strip) 3. Right lower lid retraction repair | | | with midface lift (SOOF) 4. Left lower lid retraction repair with | | | midface lift (SOOF) Anesthesia: Local infiltration of a 1:1 | | | mixture of 1% lidocaine with epinephrine 1:100,000 and 0.5% Marcaine | | | with monitored anesthesia care Estimated Blood Loss: Minimal | | | Complications: None Specimens: None Indications: This is a | | | patient with bilateral lower lid ectropion, as well as lower lid | | | retraction with midface descent, causing chronic ocular exposure | | | issues. She has had previous attempts at lower lid surgery by two | | | other surgeons that failed due to the midface descent not being | | | corrected. The procedure, alternatives and risks were discussed with | | | the patient at length, and the patient decided to proceed with | | | surgery as described below. Procedure: Prior to the procedure, | | | the operative plan and correct site were confirmed by the surgeon. | | | The patient was placed in the supine position on the operating | | | table. Attention was directed to the right and lower lower eyelids | | | and cheeks, where 10 milliliters of the above-named local anesthetic | | | was infiltrated in the lateral canthal area, central brow, central | | | upper lid and lower lid and cheek. The patient was prepped and | | | draped in the usual sterile fashion. Right lower lid ectropion | | | repair commenced: Attention was directed to the right lateral | | | canthal area where a lateral canthotomy and inferior cantholysis | | | were performed. The amount of redundant tissue was judged with two | | | forceps, and a tarsal strip was created from the temporal aspect of | | | the tarsus. Right lower lid retraction repair with midface lift | | | (SOOF) was performed: A transconjunctival incision was made | | | along the length of the right lower lid, approximately 4mm inferior | | | to the tarsal border, and dissection was carried down to the | | | inferior orbital rim. A preperiosteal dissection was carried out, | | | taking care to avoid the infraorbital neurovascular bundle. When | | | adequate release of the midface was accomplished, the midface was | | | lifted and suspended with multiple interrupted 3-0 monocryl sutures | | | between the SOOF and the periosteum of the lateral orbital rim. | | | Meticulous hemostasis was maintained at all times with judicious use | | | of cautery. This satisfactorily addressed the lower lid retraction, | | | but there was still horizontal laxity of the lid that needed to be | | | addressed to correct the ectropion. Right lower lid ectropion | | | repair was completed: The previously created lateral tarsal strip | | | was secured to the periosteum of the lateral orbital rim with | | | multiple interrupted 5-0 vicryl sutures. A supporting buried 5-0 | | | vicryl suture was placed in the orbicularis to re-create the lateral | | | raphe. This provided nice resolution of the right lower lid | | | ectropion. The lateral canthal angle was reformed and the skin was | | | closed with a running 5-0 fast absorbing gut suture. Left | | | lower lid ectropion repair commenced: Attention was directed to | | | the left lateral canthal area where a lateral canthotomy and | | | inferior cantholysis were performed. The amount of redundant tissue | | | was judged with two forceps, and a tarsal strip was created from the | | | temporal aspect of the tarsus. Left lower lid retraction repair | | | with midface lift (SOOF) was performed: A transconjunctival | | | incision was made along the length of the left lower lid, | | | approximately 4mm inferior to the tarsal border, and dissection was | | | carried down to the inferior orbital rim. A preperiosteal dissection | | | was carried out, taking care to avoid the infraorbital | | | neurovascular bundle. When adequate release of the midface was | | | accomplished, the midface was lifted and suspended with multiple | | | interrupted 3-0 monocryl sutures between the SOOF and the periosteum | | | of the lateral orbital rim. Meticulous hemostasis was maintained at | | | all times with judicious use of cautery. This satisfactorily | | | addressed the lower lid retraction, but there was still horizontal | | | laxity of the lid that needed to be addressed to correct the | | | ectropion. Left lower lid ectropion repair was completed: The | | | previously created lateral tarsal strip was secured to the | | | periosteum of the lateral orbital rim with multiple interrupted 5-0 | | | vicryl sutures. A supporting buried 5-0 vicryl suture was placed in | | | the orbicularis to re-create the lateral raphe. This provided nice | | | resolution of the left lower lid ectropion. The lateral canthal | | | angle was reformed and the skin was closed with a running 5-0 fast | | | absorbing gut suture. The drapes were removed, surgical area | | | cleaned, and ophthalmic ointment was applied to the wounds. A light | | | pressure dressing was placed over the eye, and the patient was | | | awakened and transported to the recovery room having tolerated the | | | procedure well. Mao Ayon M.D. Acid Polymerization Operator | | | Ophthalmic Facial Plastic and Reconstructive Surgery | | + + + documented in this encounter Visit Diagnoses Not on filedocumented in this encounter Administered Medications + +--------+---------+------+------+------+ | Medication Order | MAR | Action | Dose | Rate | Site | | | Action | Date | | | | + +--------+---------+------+------+------+ + +---+ | fentaNYL (SUBLIMAZE) injection | | | 25 mcg 25 mcg, intravenous, | | | POSTPROCEDURE PRN, 8 doses, | | | Starting Sat10/23/17 at 1408, | | | Until Sat10/23/17 at 2117, severe | | | pain while in Phase I Recovery | | + +---+ | | | + +---+ + +-------+ +--------+---+ + | lactated Ringers irrigation | Given | 10/24/19 | 200 mL | | Surgical | | INTRAPROCEDURE PRN, Starting Wed | | 18 2:08 | | | Site | | 10/23/17 at 1408, Until Wed | | PM PDT | | | | | 10/23/17 at 2116 | | | | | | + +-------+ +--------+---+ + + +---+ | | | + +---+ | lactated Ringers IV 500 mL, | | | intravenous, POSTPROCEDURE PRN, 1 | | | dose, Starting 10/23/17 at | | | 1408, Until Sat10/23/17 at 2116, | | | nausea/vomiting due to | | | dehydration | | + +---+ | | | + +---+ | naloxone (NARCAN) injection | | | intravenous, POSTPROCEDURE PRN, | | | Starting Sat10/23/17 at 1408, | | | Until Sat10/23/17 at 2116, | | | hypopnea | | + +---+ | | | + +---+ | ondansetron (ZOFRAN) injection | | | 4 mg 4 mg, intravenous, | | | POSTPROCEDURE PRN, 1 dose, | | | Starting Sat10/23/17 at 1408, | | | Until Sat10/23/17 at 2116, | | | nausea/vomiting, 1st line | | + +---+ | | | + +---+ documented in this encounter
--- OUTSIDE RECORDS SUMMARY | ~2019-07-27 | XMS | Encounter Summary ---
Demographics + + + | Address | [address] | | | [place] [address] | + + + | Home Phone | | + + + | Preferred Language | Unknown | + + + | Marital Status | Single | + + + | Taoist Affiliation | CHR | + + + | Race | White | + + + | Ethnic Group | Not or | + + + Author + + + | Author | [facility] | + + + | Organization | [facility] | + + + | Address [...] Team Providers + +------+ + | Care Billboard Mechanic Name | Role | Phone | + +------+ + PCP | Unavailable | + +------+ + Encounter Details +--------+ + + + + | Date | Type | Department | Care Team | Description | +--------+ + + + + | 04/01/ | Results | Otolaryngology | King Sumner, | | | 2001 | Only | Head and Neck | MD [address] [facility] | | | | | Surgery Services at | [facility] | | | | | [address] | [place], [place] | | | | | [address] | [address] | | | | | Physician's | [phone] | | | | | Jac[place], [address] [place] [address] | | | | | | [place], [place] | | | | | | [address] | | | | | | [phone] | | | +--------+ + + + + Social History + +-------+ +--------+------+ | Tobacco Use | Types | Packs/Day | Years | Date | | | | | Used | | + +-------+ +--------+------+ | Never Assessed | | | | | + +-------+ +--------+------+ + + + | Sex Assigned at [...] | + +--------+ + + + | SURGICAL PATHOLOGY | Routin | 04/01/2001 | | Results for this | | | e | | | procedure are in the | | | | | | results section. 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 Clinical | | | | | | History:The patient is a | | | | | | 70 year old female with | | | | | | lesion, left side of | | | | | | tongue. Ruleout | | | | | | squamous cell carcinoma. | | | | | | Gross | | | | | | Description:Received in | | | | | | formalin, labeled | | | | | | "tongue, biopsy," is one | | | | | | irregular,unoriented | | | | | | fragment of soft, rodgres to | | | | | | red tissue, measuring | | | | | | 0.9 x 0.5 x 0.3cm. | | | | | | Cassette Index:A1, | | | | | | ASSP/NF/CC/rhcRendering | | | | | | Diagnostician: | | | | | | Hector Diamond | | | | | | | | | | | | Gregg,Ph.D.PathologistEle | | | | | | ctronically Signed | | | | | | 04/04/2001Comment: | | | | | | SOURCE OF SPECIMEN: | | | | | | Tongue, Biopsy | | | | + + + + + + + + | Specimen | + + | | + + + + + + + | Performing | Address | City/State/Zipcode | Phone Number | | Organization | | | | + + + + + | [facility] | [address] | [place] [address] | | | PATHOLOGY | RANDY MONTIEL | | | + + + + + | [facility] | [address] | [place] [address] | | | PATHOLOGY | RANDY MONTIEL | | | + + + + + documented in this encounter Visit Diagnoses Not on filedocumented in this encounter
--- OUTSIDE RECORDS SUMMARY | ~2019-07-27 | XMS | Encounter Summary ---
Demographics + + + | Address | [address] | | | [place] [address] | + + + | Home Phone | | + + + | Preferred Language | Unknown | + + + | Marital Status | Single | + + + | Buddhist Affiliation | CHR | + + + | Race | White | + + + | Ethnic Group | Not or | + + + Author + + + | Author | [facility] | + + + | Organization | [facility] | + + + | Address [...] Team Providers + +------+ + | Care Cloth Baler Name | Role | Phone | + [...] | surface of | [address], | [address] [place], | | | | | tongue (HCC) | [place] [address] | [place] | | | | | Procedures | Phone: | [phone] | | | | | [place] | [phone] | Phone: | | | | | LARYNGOSCOPY | Fax: | [phone] | | | | | ,DIRECT,DIAG | [phone] | Fax: | | | | | NOSTIC [place] | | [phone] | | | | | LARYNGOSCOPY | | | | | | | ,DIRCT,OP,BI | | | | | | | OPSY GA | | | | | | | ESOPHAGOSCOP | | | | | | | Y,DIAGNOSTIC | | | | | | | GA PART | | | | | | | REMOVAL | | | | | | | TONGUE,<1/2 | | | | | | | GA PART | | | | | | | REMOVAL | | | | | | | TONGUE, 1/2 | | | | | | | GA PART EXC | | | | | | | | | | | | | | TONGUE,UNILA | | | | | | | T RAD NECK | | | | | | | GA | | | | | | | BIOPSY/EXCIS | | | | | | | ION, LYMPH | | | | | | | NODE(S) GA | | | | | | | BX/REMV,LYMP | | | | | | | H NODE,DEEP | | | | | | | CERV GA | | | | | | | REMOVAL | | | | | | | NODES, | | | | | | | NECK,CERV | | | | | | | MOD RAD GA | | | | | | | LO MAP OF | | | | | | | SENT LYMPH | | | | | | | NODE | | | +--------+--------+ + + + + Encounter Details +--------+---------+ + + + | Date | Type | Department | Care Team | Description | +--------+---------+ + + + | 08/06/ | Office | Otolaryngology | King Sumner, | Tongue cancer (HCC) | | 2012 | Visit | Head and Neck | MD [address] | (Primary Dx) | | | | Surgery Services at | [facility] | | | | | [address] | [place], [place] | | | | | [address] | [address] | | | | | Physician's | [phone] | | | | | Pavilion, 2nd floor | | | | | | [place], [place] | | | | | | [address] | | | | | | [phone] | | | +--------+---------+ + + + [...] + + + | Blood Pressure | - | - | | + + + + + | Pulse | - | - | | + [...] + + + + | Weight | 54.9 kg (121 lb) | 08/07/2011 10:53 AM | | | | | PDT | | + + + + + | Height | - | - | | + + + + + | Body Mass Index | 22.13 | 06/28/2011 10:00 AM | | | | | PDT | | + + + + + documented in this encounter Progress Notes Usha Russell - 08/08/2011 10:35 AM PDTHead and Neck Surgery Follow-Up Note Annette Eric is seen back after her operation on 06/28/11. 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 Left partial glossectomy. 2. Left neck sentinel lymph node biopsy. Doing well, diet variety has increased. Only hindrance is her bottom dentures that are poor ly seated and rock back and forth diet- soft weight-stable PE: Oral: Tongue healed, adhered to the FOM. Impresssion: Hx of SCC of the L side of the lateral tongue, s/p L hemiglossectomy and L nec k sentinel node bx No evidence of recurrence. RTC 6 wks. King Sumner MD Professor of Otolaryngology, Head & Neck Surgery documented in this en counter Plan of Treatment Not on filedocumented as of this encounter Visit Diagnoses + + | Diagnosis | + + | Tongue cancer (HCC) - Primary Malignant neoplasm of tongue, unspecified site | + + documented in this encounter"
--- OUTSIDE RECORDS SUMMARY | ~2019-07-27 | XMS | Encounter Summary ---
Demographics + + + | Address | [address] | | | [place] [address] | + + + | Home Phone | | + + + | Preferred Language | Unknown | + + + | Marital Status | Single | + + + | Restoration Affiliation | CHR | + + + | Race | White | + + + | Ethnic Group | Not or | + + + Author + + + | Author | [facility] | + + + | Organization | [facility] | + + + | Address | [...] Team Providers + +------+ + | Care Chief Dispatcher Name | Role | Phone | + [...] | | | | tongue, | | [facility] | | | | | unspecified | | [address] [place], | | | | | site | | [place] | | | | | | | [address] | | | | | | | Phone: | | | | | | | [phone] | | | | | | | Fax: | | | | | | | [phone] | +--------+--------+ + + + + Encounter [...] | | | Surgery Services at | [facility] | | | | | [address] | [facility] [place] | | | | | [address] | [address] | | | | | Physician's | [phone] | | | | | Pavilion, 2nd floor | | | | | | [facility] [place] | | | | | | [address] | | | | | | [phone] | | | +--------+---------+ + + + [...] | + +--------+ + + + | ME BIOPSY | Routin | 06/14/2011 | Tongue [...]
--- OUTSIDE RECORDS SUMMARY | ~2019-07-27 | XMS | Encounter Summary ---
Demographics + + + | Address | [address] | | | [place] [address] | + + + | Home Phone | | + + + | Preferred Language | Unknown | + + + | Marital Status | Single | + + + | Baptist Affiliation | CHR | + + + | Race | White | + + + | Ethnic Group | Not or | + + + Author + + + | Author | [facility] | + + + | Organization | [facility] | + + + | Address | [...] Team Providers + +------+ + | Care Email Campaign Manager Name | Role | Phone | + +------+ + PCP | Unavailable | + +------+ + Encounter Details +--------+ + + + + | Date | Type | Department | Care Team | Description | +--------+ + + + + | 04/24/ | Office | [facility] | Note, [...] documented as of this encounter Progress Notes Interface, Tectonophysicist In - 11/16/2005 3:10 AM PDTCLINIC DATE: 04/24/2001 OTOLARYNGOLOGY CLINIC Ms Eric returns for a preoperative visit. 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 I had a complete discussion of the procedure, its alternatives and risk, including, but not limiting to bleeding; infection; injury to her gums; and temporary problems with speech and swallowing. She seems to understand the same and wished to proceed. A consent form was signed. A complete history and physical examination was performed. We will proceed with the surgery tomorrow. King Sumner M.D. Lab Animal Technician, Otolaryngology, Head and Neck Surgery [facility] / [id number] / [id number] / [id number] / [id number] signed by Interface, Tectonophysicist In at 11/16/2005 3:10 AM PDTdoc umented in this encounter Plan of Treatment Not on filedocumented as of this encounter Visit Diagnoses Not on filedocumented in this encounter"
--- OUTSIDE RECORDS SUMMARY | ~2019-07-27 | XMS | Encounter Summary ---
Demographics + + + | Address | [address] | | | [place] [address] | + + + | Home Phone | | + + + | Preferred Language | Unknown | + + + | Marital Status | | + + + | Shinto Affiliation | 1077 | + + + | Race | Unknown | + + + | Ethnic Group | Unknown | + + + Author + + + | Author | [facility] | | | and [place] | + + + | Organization | [facility] | | | and [place] [...] Team Providers + +------+ + | Care Diamond Mounter Name | Role | Phone | + +------+ + | Ganesh Hudson DO | PCP | | + +------+ + Encounter Details +--------+ + + + + | Date | Type | Department | Care Team | Description | +--------+ + + + + | 10/09/ | Imaging | [facility] | Provider, | | | 2019 | Exam | [facility] | [address] | | | | | IM[address] | [address] | | | | | [address] | [place] [address] | | | | | [place] [address] | | | | | | [phone] | | | +--------+ + + + [...] | + +--------+ + + + | CT MAXILLOFACIAL WO | Routin | 09/18/2018 | | Results for this | | CONTRAST | e | 12:05 AM | | procedure are in the | | | | PDT | | results section. | + +--------+ + + + documented in this encounter Results CT Maxillofacial wo Contrast (09/18/2018 12:05 AM PDT) + + | Specimen | + + | | + + + + + | Narrative | Performed At | + + + | External films for comparison only | [facility] | | | | | No results will be in the chart. | | + + + + +---------+ + + | Performing | Address | City/State/Zipcode | Phone Number | | Organization | | | | + +---------+ + + | [facility] | | | | + +---------+ + + documented in this encounter Visit Diagnoses Not on filedocumented in this encounter"
--- OUTSIDE RECORDS SUMMARY | ~2019-07-27 | XMS | Encounter Summary ---
Demographics + + + | Address | [address] | | | [place] [address] | + + + | Home Phone | | + + + | Preferred Language | Unknown | + + + | Marital Status | Single | + + + | Yazidi Affiliation | CHR | + + + | Race | White | + + + | Ethnic Group | Not or | + + + Author + + + | Author | [facility] | + + + | Organization | [facility] | + + + | Address [...] Team Providers + +------+ + | Care Aircraft Metalsmith Name | Role | Phone | + +------+ + | Joycelyn Aguilar PA-C | PCP | | + +------+ + Encounter Details +--------+ + + + + | Date | Type | Department | Care Team | Description | +--------+ + + + + | 10/23/ | Procedure | [facility] LOC | | | | 2017 | Pass | [address] | | | | | | [facility] | | | | | | [place] [address] | | | +--------+ + + + [...]
--- OUTSIDE RECORDS SUMMARY | ~2019-07-27 | XMS | Encounter Summary ---
Demographics + + + | Address | [address] | | | [place] [address] | + + + | Home Phone | | + + + | Preferred Language | Unknown | + + + | Marital Status | Single | + + + | Druze Affiliation | CHR | + + + | Race | White | + + + | Ethnic Group | Not or | + + + Author + + + | Author | [facility] | + + + | Organization | [facility] | + + + | Address [...] Team Providers + +------+ + | Care Intake Coordinator Name | Role | Phone | + +------+ + | Ganesh Hudson DO | PCP | | + +------+ + Reason for Visit +--------+ + | Reason | Comments | +--------+ + | Preop | | +--------+ + AUTH/CERT (Routine) +--------+--------+ + + + [...] + + | 06/26/ | Office | Preoperative | Sosa Julio | Other specified | | 2011 | Visit | [facility] | [facility] | pre-operative | | | | [facility] 4th Floor Day | | examination (Primary | | | | Stay [address] | | Dx) | | | | [address] | | | | | | Mailcode: U[facility]65 | | | | | | [place] | | | | | | [address] [place], [place] | | | | | | [address] | | | | | | [phone] | | | +--------+---------+ + + + Anesthesia Record + + + + + | Procedure Name | Responsible | Anesthesia Start | Anesthesia Stop Time | | | Anesthesiologist | Time | | + + + + + | LEFT HEMIGLOSSECTOMY | Tremaine Yuan MD | 06/28/11 1217 | 06/28/11 1406 | | Pathology x2 sent | | | | | to lab (Left Mouth) | | | | + + + + + +----+---+ + + | Da | T | Event | Comment | | te | i | | | | | m | | | | | e | | | +----+---+ + + | 04 | 1 | Eq Check | Anesthesia machine checked Equipment verified | | /2 | 2 | | | | 6/ | 1 | | | | 20 | 0 | | | | 12 | | | | +----+---+ + + | | 1 | Pt. Check | Prior to anesthesia start, pt. Identified, examined, chart | | | 2 | | reviewed, PARQ held, anesthetic plan made or approved by | | | 1 | | attending anesthesiologist. NPO status confirmed as appropriate | | | 7 | | for procedure Preoperative evaluation: unchanged | +----+---+ + + | | 1 | An Start | | | | 2 | | | | | 1 | | | | | 7 | | | +----+---+ + + | | 1 | An Start | | | | 2 | Data | | | | 1 | | | | | 7 | | | +----+---+ + + | | 1 | Std. Airway | | | | 2 | Mgt. | | | | 2 | | | | | 5 | | | +----+---+ + + | | 1 | Ready | | | | 2 | | | | | 2 | | | | | 6 | | | +----+---+ + + | | 1 | Abx | | | | 2 | Administere | | | | 3 | d | | | | 6 | | | +----+---+ + + | | 1 | Incision | | | | 2 | | | | | 3 | | | | | 7 | | | +----+---+ + + | | 1 | | | | | 3 | | | | | 1 | | | | | 9 | | | +----+---+ + + | | 1 | Surgery end | | | | 3 | | | | | 5 | | | | | 0 | | | +----+---+ + + | | 1 | An Extubate | Neuromuscular function Intact. Pharynx suctioned. Patient obeys | | | 3 | | commands. Adequate pulmonary mechanics. | | | 5 | | | | | 7 | | | +----+---+ + + | | 1 | an ernie now | | | | 4 | | | | | 0 | | | | | 1 | | | +----+---+ + + | | 1 | Anesthesia | | | | 4 | End | | | | 0 | | | | | 6 | | | +----+---+ + + +------+ | Meds | +------+ + + + No medications | on file. | + + + + + | No agents on file. | + + + + | No blood administrations on file. | + + +--------+ + + + | Type | Details | Placement | Removal | +--------+ + + + | RETIRE | 06/28/11; Left Tongue; No; Left:; | 06/28/11 0000 by | 12/20/16 1622 by | | D - | tongue; 12/20/16 (Automatic | Otf Morelos RN | Discontinued After | | Incisi | cleanup per RA 3006--contact | | Discharge | | on | admin for questions.); 1622 | | | | | (Automatic cleanup per RA | | | | | 3006--contact admin for | | | | | questions.) | | | +--------+ + + + | RETIRE | 06/28/11; 1030; 06/30/11; 1130; | 06/28/11 1030 by | 06/30/11 1130 by | | D - | No; 20g R Hand; 20; Right; Hand; | Renetta Fabian RN | Gricelda Nobles RN | | Periph | None; Positive | | | | eral | | | | | Line | | | | +--------+ + + + | RETIRE | 06/28/11; 1237; Left:; neck; | 06/28/11 1237 by | 12/20/16 1622 by | | D - | 10/19/17 (Automatic cleanup per | Pedro Monaco RN | Discontinued After | | Incisi | RA 3006--contact admin for | | Discharge | | on | questions.); 1622 (Automatic | | | | | cleanup per RA 3006--contact | | | | | admin for questions.) | | | +--------+ + + + | RETIRE | 06/28/11; 1314; 06/30/11; 1421; | 06/28/11 1314 by | 06/30/11 1421 by | | D - | 7mm; PURVI; Left; Neck | Pedro Monaco RN | Gricelda Nobles RN | | Drains | | | | | | | | | | (wound | | | | | s/surg | | | | | ical) | | | | +--------+ + + + documented in this encounter Social History + +-------+ +--------+------+ | Tobacco [...] + + + | Blood Pressure | 181/97 | 06/27/2011 2:13 PM | | | | | PDT | | + + + + + | Pulse | 63 | 06/27/2011 2:13 PM | | | | | PDT | | + + + + + | Temperature | 35.4 C (95.8 F) | 06/27/2011 2:13 PM | | | | | PDT | | + + + + + | Respiratory Rate | 14 | 06/27/2011 2:13 PM | | | | | PDT | | + + + + + | Oxygen Saturation | 96% | 06/27/2011 2:13 PM | | | | | PDT | | + + + + + | Inhaled Oxygen | - | - | | | Concentration | | | | + + + + + | Weight | 56.7 kg (125 lb) | 06/27/2011 2:13 PM | | | | | PDT | | + + + + + | Height | 157.5 cm (5' 2") | 06/27/2011 2:13 PM | | | | | PDT | | + + + + + | Body Mass Index | 22.86 | 06/27/2011 2:13 PM | | | | | PDT | | + + + + + documented in this encounter Patient Instructions Patient Instructions Sosa Julio CRNA - 06/27/2011 2:36 PM PDTPREOPERATIVE INSTRUC TIONS Do not eat or drink anything after midnight the night before surgery. TAKE the following medications with a sip of water on the morning of surgery: none Do not take any Aspirin, vitamin E or non-steroidal anti-inflammatory (NSAIDs i.e. Advil , Aleve, Ibuprofen) or herbal supplements seven days prior to your surgery. These drugs may interfere with normal blood clotting and may cause excessive bleeding and bruising during or after the surgery. If you are taking Coumadin (warfarin), Plavix or any other blood thinners please let you r surgical team know as medication changes will be necessary. If you need a pain medication for general purposes, use Tylenol as directed. If you are in doubt about any medications that you are taking, please contact our office . Important Guidelines Do not shave the surgical area Do not smoke, drink alcohol or use recreational drugs for 24 hours before your surgery Do not eat any hard candy or chew gum after midnight the night before your surgery. Watch for any change in your health condition. Let your surgeon know right away if you do not feel well. Do not wear makeup, perfume, lotions or powder. Remove any nail mongolian from at least one fingernail. Do not wear any jewelry to the hospital. Wear loose, comfortable clothing. Bring the case and solution for your contact lenses or wear your glasses. Leave all your valuables at home. Allow enough travel time so you re not late for your check in for surgery. Take a bath or shower and remember to shampoo your hair using your usual hair product be fore your arrival at the hospital. Please remember to brush your teeth the night before and the morning of your procedure. Preventing post op complications Use an incentive spirometer or peep breathe to keep your lungs working properly an d to help prevent respiratory complications. It helps you take long, deep breaths. Use it at least once every hour while you are awake. Leg and feet exercises will maintain good circulation and help prevent blood clots in yo ur legs. Sometimes your doctor will order air compression stockings. Compressed air helps the circulation in your legs. Walking and moving will help stimulate normal circulation and deep breathing. After you r surgery, your nurse may ask you to sit, stand or walk. Surgery Check in Locations Admitting [facility], [facility] Surgery Check in Time: Someone from your surgeon's office or [facility] will provide you with information regarding your check in time. If you have any questions about this, pl ease contact your surgeon's office. Going Home Your surgical team will decide when you are medically ready to go home. You will require transportation home on the day of discharge. Pain medications and physi elvia activity restrictions may limit your ability to drive safely. It is also recommended th at you have someone assist you and look after you on the first night after you are released to go home. If you are released to go home on the same day as your procedure/surgery please note the following: You will not be able to drive. You will be required to have a competent adult d rive you or accompany you by taxi or public transportation on the day of discharge. It is al so required that you have a competent adult assist you and look after you on the first night after you have undergone regional blocks, deep sedation, and/or general anesthesia. If you stayed in the hospital after surgery, please arrange for your ride to come for yo u around 9AM on the day your doctor says you can go home. Check out time is 11AM. If you have questions or concerns after you go home, call your doctor s office. If it is after office hours, call the [facility] tile power shear operator at [phone] and ask them to page your doc tor. documented in this encounter Progress Notes Tayla Ernandez MA - 06/27/2011 3:00 PM PDT Venipuncture performed in clinic, blood sample obtained from Right antecubital site Hemoglo bin A1C POCT performed during clinic visit. Blood sample obtained from venipuncture performe d to obtain other lab tests. Sosa Lopez CRNA - 06/27/2011 2:38 PM PDT . PREOPERATIVE CONSULT NOTE Consulting Provider: SOSA JULIO CRNA Referring Physician: Dr. Johann Sumner Primary Care Provider: Ganesh Hudson DO Reason for Consult: Preoperative evaluation and risk assessment Proposed Procedure/Date: Microlaryngoscopy, left hemiglossectomy and left neck dissection 06/28/11 HISTORY OF PRESENT ILLNESS: Annette Eric is a 80 y.o. female here for preoperative evaluati on for above procedure. Pt has dx of tongue cancer characterized by a painful oral lesion o n the left lateral side of her tongue. This patient's health has otherwise been stable and she has no other notable chronic medica l conditions that would impact his perioperative time. She has q waves present on her EKG but denies ever having an NM. She has had chest pressure in the recent past that has resolved with a PPI. She has no other hx nor symptoms of CAD, C HF, CVA, CKD, or DM (treated with insulin). Function capacity is Intermediate. ROS: Preoperative Patient Questionnaire was reviewed with the patient. Document will be sc anned in [employer]. Current Medication List 06/27/11 2:13 PM Name Sig ASPIRIN 81 MG TAB Take 81 mg by mouth once daily. Indications: Myocardial Reinfarction P revention OCUVITE OR Take by mouth. VITAMIN D ORAL Take by mouth. OMEPRAZOLE 20 MG CAP, DELAYED RELEASE Take 20 mg by mouth once daily. OXYBUTYNIN CHLORIDE ER 15 MG 24 HR TAB Take 15 mg by mouth once daily. SIMVASTATIN 40 MG TAB Take 40 mg by mouth once daily in the evening. DETROL LA 4 MG 24 HR CAP 1d TRIAMTERENE-HYDROCHLOROTHIAZIDE 37.5 MG-25 MG CAP 1D Allergies Allergen Reactions Tato Inhibitors Cough Reclast (Zoledronic Acid-Mannitol&Water) Diarrhea, Nausea and Vomiting Sulfa (Sulfonamide Antibiotics) Nausea Past Medical History Diagnosis Date Cancer of tongue Hypertension 05/13/2009 Hypercholesteremia 05/13/2009 Osteoporosis GERD (gastroesophageal reflux disease) Esophageal hiatal hernia Diverticulitis, colon Insomnia, persistent Past Surgical History Procedure Date Partial glossectomy 04/05 Replacement shoulder total 04/11/2010 Hysterectomy 1978 Appendectomy 1960 Colonoscopy 2009 History Substance Use Topics Smoking status: Never Smoker Smokeless tobacco: Never Used Alcohol Use: No PHYSICAL EXAM: Last Vitals: BP 181/97 | Pulse 63 | Temp (Src) 35.4 C (95.8 F) (Oral) | RR 14 | Ht 157. 5 cm (5' 2") | Wt 56.7 kg (125 lb) | SpO2 96% | BMI 22.86 kg/(m^2) Body mass index is 22.86 kg/(m^2). Note Parking Cashier ROS/PE ROS Pulmonary: Within Defined Limits except as noted below no sleep apnea Cardiovascular: States she would get chest tightness until she started taking omeprazole; v scot physically active, ie. She went elk hunting last year! Functional Capacity: Moderate + c hest pressure no CAD hypertension well controlled no pacemaker GI/Hepatic: GERD Control: Well controlled : Urinary leakage Within Defined Limits except as noted below Other : Endo: Within Defined Limits except as noted below Neurological: no psychiatric problem MS: Within Defined Limits except as noted below Heme/Onc: Within Defined Limits except as noted below Pt. has: no active bleeding Skin: Within Defined Limits except as noted below Physical Exam General: Patients general appearance: Healthy, Alert, No distress, Cooperative and Age appr opriate Head & Neck/Airway: NC/AT; PERRL; EOMI; nl appearing ears and nose. Neck ROM: full Dentition: Dentures-upper and Dentures-lower Dental Risk no Cazares Mallampati: I Mouth Ope jeny: > = 3 cm C-Spine: normal Neck Anatomy: Normal Jaw Protrusion: Normal, lower incisor s can protrude past upper incisors Lung Exam: No respiratory distress. Normal breathing pattern. breath sounds normal Cardiac: No murmurs, gallops or rubs. Rhythm: regular Rate: normal Abdominal: General Findings: no abdominal tenderness and Nondistended Bowel Sounds: bowel sounds are normal Musculoskeletal: Findings: tone normal Neuro/Psych: No focal neuro deficits; Alert and appropriate; nl affect. alert Findings: So ft & sharp sensation normal, No tremor, Alert, oriented to person, place, time and Normal af fect Integument: No open rashes or lesions noted. - lesion and rash Color: pink Turgor: turgor normal Implants: flat lesion on left lateral tongue; no airway compromise LAB DATA REVIEWED/ORDERED Lab Results Component Value Date WBC 5.5 06/27/2011 HB 13.7 06/27/2011 HCT 41.4 06/27/2011 PLT 262 06/27/2011 MCV 84.4 06/27/2011 RDW 14.3 06/27/2011 Lab Results Component Value Date NA 141 06/27/2011 K 3.2 06/27/2011 CL 104 06/27/2011 BICARB 27 06/27/2011 BUN 21 06/27/2011 CR 0.92 06/27/2011 GLU 91 06/27/2011 CA 9.2 06/27/2011 No results found for this basename: abo, rh Lab Results Component Value Date A1C 5.9 06/27/2011 EKG: Personally reviewed, NSR, rate 66; inferior infarct, q waves present in III and aVF; u nchanged from Mar 2011 MEDICAL DECISION MAKING: Surgery Risk: Intermediate Patient-related risk: 2 RCRI -- 0.4% 2007 ACC/ AHA Perioperative Guidelines This patient does not have any risk factors to need the ACC/AHA guidelines. Risk Factor Recommendations: 0 risk factors- proceed with planned surgery MET ASSESSMENT: 6. METS--9 holes of golf holding own clubs, mow lawn with push mower. ASSESSMENT and RECOMMENDATIONS: Surgical/anesthesia risk assessment: Annette Eric is a 80 y.o. female with diagnosis of tongue cancer, scheduled for microlaryngoscopy, hemiglossectomy and possible left neck disse ction. According to ACC/AHA, this patient has zero clinical risk factors and the recommenda tion is to proceed. Medication management recommendations: The patient was advised to continue all usual med ications except as noted in Patient Instructions (After Visit Summary given to pt) Perioperative antibiotic prophylaxis: Standard (Consider IV Vanco one hr before procedu re in pts with Cephalosporin/PCN allergy and/or with hx of MRSA) This patient is medically stable for surgery. Further testing/optimization is not needed. Thank you for the opportunity to contribute to this patient's care. YOLIS Sharif CRNA [facility] [address] [place] [address] [phone] documented in th is encounter Plan of Treatment Not on filedocumented as of this encounter Procedures + +--------+ + + + | Procedure Name | Priori | Date/Time | Associated Diagnosis | Comments | | | ty | | | | + +--------+ + + + | PROCEDURE NOTE | Routin | 04/08/2015 | | Results for this | | | e | 2:45 AM | | procedure are in the | | | | PST | | results section. | + +--------+ + + + | DE COLLECTION VENOUS | Routin | 06/27/2011 | Other specified | | | BLOOD,VENIPUNCTURE | e | 3:00 PM | pre-operative | | | | | PDT | examination | | + +--------+ + + + | HEMOGLOBIN A1C, POC | Routin | 06/27/2011 | Other specified | Results for this | | | e | 2:49 PM | pre-operative | procedure are in the | | | | PDT | examination | results section. | + +--------+ + + + | BASIC METABOLIC SET | Routin | 06/27/2011 | Other specified | Results for this | | (NA, K, CL, TCO2, | e | 2:36 PM | pre-operative | procedure are in the | | BUN, CR, GLU, CA) | | PDT | examination | results section. | + +--------+ + + + | CBC ONLY | Routin | 06/27/2011 | Other specified | Results for this | | | e | 2:36 PM | pre-operative | procedure are in the | | | | PDT | examination | results section. | + +--------+ + + + | 12 LEAD ECG | Routin | 06/27/2011 | Other specified | Results for this | | | e | 2:19 PM | pre-operative | procedure are in the | | | | PDT | examination | results section. | + +--------+ + + + documented in this encounter Results PROCEDURE NOTE (04/08/2015 2:45 AM PST) + + | Transcriptions | + + | Other, Faculty - 06/27/2011 6:51 PM PDT | + + HEMOGLOBIN A1C, POC (06/27/2011 2:49 PM PDT) + +---------+ + + + | Component | Value | Ref Range | Performed | Pathologist | | | | | At | Signature | + +---------+ + + + | HEMOGLOBIN | 5.9 (H) | 4.0 - 5.7 % | [facility] - | | | A1C,POC | | | [place] | | | | | | [facility] | | | | | | OF CARE | | | | | | TESTS | | + +---------+ + + + + + | Specimen | + + | Blood | + + + + + + + | Performing | Address | City/State/Zipcode | Phone Number | | Organization | | | | + + + + + | [facility] | [address] | [place], [place] | | | [facility] | [facility] | [address] | | | TESTS | | | | + + + + + CBC ONLY (06/27/2011 2:36 PM PDT) + + + + + + | Component | Value | Ref Range | Performed | Pathologist | | | | | At | Signature | + + + + + + | WHITE CELL | 5.5 | 4.4 - 11.0 K/cu | [facility] | | | COUNT | | mm | DEPARTMENT | | | | | | OF | | | | | | PATHOLOGY | | + + + + + + | RED CELL | 4.91 | 4.00 - 5.20 | [facility] | | | COUNT | | M/cu mm | DEPARTMENT | | | | | | OF | | | | | | PATHOLOGY | | + + + + + + | HEMOGLOBIN | 13.7 | 12.0 - 16.0 | [facility] | | | | | g/dL | DEPARTMENT | | | | | | OF | | | | | | PATHOLOGY | | + + + + + + | HEMATOCRIT | 41.4 | 36.0 - 46.0 % | [facility] | | | | | | DEPARTMENT | | | | | | OF | | | | | | PATHOLOGY | | + + + + + + | MCV | 84.4 | 80.0 - 96.0 fL | [facility] | | | | | | DEPARTMENT | | | | | | OF | | | | | | PATHOLOGY | | + + + + + + | MCHC | 33.1 (L) | 33.4 - 35.5 | [facility] | | | | | g/dL | DEPARTMENT | | | | | | OF | | | | | | PATHOLOGY | | + + + + + + | RDW | 14.3 | 11.5 - 15.0 % | [facility] | | | | | | DEPARTMENT | | | | | | OF | | | | | | PATHOLOGY | | + + + + + + | PLATELET | 262 | 150 - 400 K/cu | [facility] | | | COUNT | | mm | DEPARTMENT | | | | | [...] | + + + + + | [facility] DEPARTMENT OF | [address] | [place] [address] | | | PATHOLOGY | [address] | | | + + + + + BASIC METABOLIC SET (NA, K, CL, TCO2, BUN, CR, GLU, CA) (06/27/2011 2:36 PM PDT) + + + + + + | Component | Value | Ref Range | Performed | Pathologist | | | | | At | Signature | + + + + + + | GLUCOSE, | 91 | 60 - 99 mg/dL | [facility] | | | PLASMA | | | DEPARTMENT | | | (LAB) | | | OF | | | | | | PATHOLOGY | | + + + + + + | BUN, PLASMA | 21 (H) | 6 - 20 mg/dL | [facility] | | | (LAB) | | | DEPARTMENT | | | | | | OF | | | | | | PATHOLOGY | | + + + + + + | CREATININE | 0.92 | 0.60 - 1.10 | [facility] | | | PLASMA | | mg/dL | DEPARTMENT | | | (LAB) | | | OF | | | | | | PATHOLOGY | | + + + + + + | SODIUM, | 141 | 134 - 143 | [facility] | | | PLASMA | | mmol/L | DEPARTMENT | | | (LAB) | | | OF | | | | | | PATHOLOGY | | + + + + + + | POTASSIUM, | 3.2 (L) | 3.4 - 5.0 | [facility] | | | PLASMA | | mmol/L | DEPARTMENT | | | (LAB) | | | OF | | | | | | PATHOLOGY | | + + + + + + | CHLORIDE, | 104 | 97 - 108 mmol/L | [facility] | | | PLASMA | | | DEPARTMENT | | | (LAB) | | | OF | | | | | | PATHOLOGY | | + + + + + + | TOTAL CO2, | 27 | 22 - 29 mmol/L | [facility] | | | PLASMA | | | DEPARTMENT | | | (LAB) | | | OF | | | | | | PATHOLOGY | | + + + + + + | CALCIUM, | 9.2 | 8.6 - 10.2 | [facility] | | | PLASMA | | mg/dL | DEPARTMENT | | | (LAB) | | | OF | | | | | | PATHOLOGY | | + + + + + + | EGFR | > 60 | >60 mL/min | [facility] | | | - | | | DEPARTMENT | | | [facility] | | | OF | | | | | | PATHOLOGY | | + + + + + + | EGFR NON | 59 (L)Comment: GFR is | >60 mL/min | [facility] | | | -[place] | estimated using the MDRD | | DEPARTMENT | | | RICAN | equation recommended by | | OF | | | | theNational Kidney | | PATHOLOGY | | | | Disease Education | | | | | | Program. Estimated GFR | | | | | | Interpretive | | | | | | Information: <60 | | | | | | mL/min/1.73 sq m | | | | | | Chronic Kidney Disease | | | | | | <15 mL/min/1.73 sq m | | | | | | Kidney Failure | | | | | | Estimated GFR greater | | | | | | than 60mL/min/1.73 is of | | | | | | limited clinical Value. | | | | | | The MDRD equation is | | | | | | not valid in the | | | | | | following situations: - | | | | | | Patients under 18 years | | | | | | of age - Severe | | | | | | malnutrition or obesity | | | | | | - Vegetarian diet - | | | | | | Rapidly changing kidney | | | | | | function | | | | + + + + + + | ANION GAP | 10 | 4 - 11 mmol/L | [facility] | | | | | [...] | + + + + + | [facility] | [address] | [place] [address] | | | PATHOLOGY | [address] | | | + + + + + 12 LEAD ECG (06/27/2011 2:19 PM PDT) + + + + + + | Component | Value | Ref Range | Performed | Pathologist | | | | | At | Signature | + + + + + + | VENTRICULAR | 66 | BPM | [facility] | | | RATE | | | OF | | | | | | CARDIOLOGY | | + + + + + + | ATRIAL RATE | 66 | BPM | [facility] | | | | | | OF | | | | | | CARDIOLOGY | | + + + + + + | P-R | 180 | ms | [facility] | | | INTERVAL | | | OF | | | | | | CARDIOLOGY | | + + + + + + | QRS | 84 | ms | [facility] | | | DURATION | | | OF | | | | | | CARDIOLOGY | | + + + + + + | QT | 462 | ms | [facility] | | | | | | OF | | | | | | CARDIOLOGY | | + + + + + + | QTC | 484 | ms | [facility] | | | | | | OF | | | | | | CARDIOLOGY | | + + + + + + | P AXIS | 37 | degrees | [facility] | | | | | | OF | | | | | | CARDIOLOGY | | + + + + + + | R AXIS | 16 | degrees | [facility] | | | | | | OF | | | | | | CARDIOLOGY | | + + + + + + | T AXIS | 15 | degrees | [facility] | | | | | | OF | | | | | | CARDIOLOGY | | + + + + + + | EKG | Normal sinus | | [facility] | | | DIAGNOSIS | rhythmInferior infarct , | | OF | | | | age | | CARDIOLOGY | | | | undeterminedAbnormal | | | | | | ECG"I have personally | | | | | | interpreted this report, | | | | | | either alone or with a | | | | | | trainee."Confirmed by | | | | | | TREMAINE ROBLES ([id number]) | | | | | | on 06/27/2011 4:06:46 PM | | | | + + + + + + + + | Specimen | + + | | + + + + + | Narrative | Performed At | + + + | Please click | [facility] | | on view image for the detailed interpretation from [facility] results. | CARDIOLOGY | + + + + + + + + | Performing | Address | City/State/Zipcode | Phone Number | | Organization | | | | + + + + + | [facility] | [address] | [place], [place] | | | CARDIOLOGY | [address] | [address] | | + + + + + documented in this encounter Visit Diagnoses + + | Diagnosis | + + | Other specified pre-operative examination - Primary | + + documented in this encounter
--- OUTSIDE RECORDS SUMMARY | ~2019-07-27 | XMS | Encounter Summary ---
Demographics + + + | Address | [address] | | | [place] [address] | + + + | Home Phone | | + + + | Preferred Language | Unknown | + + + | Marital Status | Single | + + + | Latter-Day Affiliation | CHR | + + + [...] Team Providers + +------+ + | Care Injection Operator Name | Role | Phone | + +------+ + | Petey Carter MD | PCP | | + +------+ + [...] + | Closed | | Otolaryngolog | | Burak, | Burak, | | | | y | | MD King | MD King | | | | | | [address] | [address] | | | | | | [facility] | [facility] | | | | | | Rd | Rd [place], | | | | | | [place], [place] | [place] | | | | | | [address] | [address] | | | | | | Phone: | Phone: | | | | | | [phone] | [phone] | | | | | | Fax: | Fax: | | | | | | [phone] | [phone] | +--------+--------+ + + + + Encounter Details +--------+---------+ + + + | Date | Type | Department | Care Team | Description | +--------+---------+ + + + | 05/11/ | Office | Otolaryngology | King Sumner, | Tongue cancer (HCC) | | 2009 | Visit | Head and Neck | MD [address] | (Primary Dx) | | | | Surgery Services at | [facility] [address] | | | | | [address] | [place], [place] | | | | | [address] | [address] | | | | | Physician's | [phone] | | | | | Pavilion, 2nd floor | | | | | | [place], [place] | | | | | | [address] | | | | | | [phone] | | | +--------+---------+ + + + [...] + + + + | Weight | 63.5 kg (140 lb) | 05/11/2009 12:30 PM | | | | | PST | | + + + + + | Height | - | - | | + + + + + | Body Mass Index | - | - | | + + + + + documented in this encounter King Mendez MD - 05/13/2009 7:51 AM PSTFormatting of this note might be different fro m the original. Ms. Eric returns for a f/u visit. She is doing well. Patient Active Problem List Diagnoses Date Noted Hypertension [401.9AH] 05/13/2009 Hypercholesteremia [272.0F] 05/13/2009 Tongue Cancer [141.9E] 05/01/2006 Past Medical History Diagnosis Date Cancer of tongue Hypertension 05/13/2009 Hypercholesteremia 05/13/2009 Past Surgical History Procedure Date Partial glossectomy 04/05 No Known Allergies Current outpatient prescriptions: BETA-CAROTENE,A, W-C & E/MIN (OCUVITE OR), Take by mouth ., Disp: , Rfl: simvastatin 40 mg Oral Tablet, Take 40 mg by mouth once daily in the evening., Disp: , Rfl: tolterodine ER (DETROL LA) 4 mg Oral Capsule, Sust. Release 24 hr, 1d, Disp: , Rfl: triamterene-hydrochlorothiazide 37.5-25 mg Oral Capsule, 1D, Disp: , Rfl: Physical Examination: healthy, no distress appearing female Voice: Normal Weight 63.504 kg (140 lb). Face: Normal facial contour and facial nerve function. No suspicious skin lesions noted on scalp, face or neck. Eyes: Normal extraocular motions bilaterally. Pupils equal bilaterally. Vision grossly inta ct. Ears: Normal pinnae, external canals and typanic membranes bilaterally, Hearing grossly int act Nose: External nose - Normal Nasal cavity - No masses, purulence, polyps Oral cavity: Tongue mobility - normal Palate mobility - normal Mucosa - No mucosal lesions noted on hard palate, upper or lower alveolous, buccal mucosa, floor of mouth, lips or tongue. Oropharynx: Tonsils - Normal Mucosa - No mucosal lesions seen Parotid glands: No masses palpable on either side. Neck: No adenopathy on either side. No thyromegaly palpable Impression: Doing well. RTC PRN. King Sumner MD Professor of Otolaryngology, Head & Neck Surgery documented in this en counter Plan of Treatment Not on filedocumented as of this encounter Visit Diagnoses + + | Diagnosis | + + | Tongue cancer (HCC) - Primary Malignant neoplasm of tongue, unspecified site | + + documented in this encounter"
--- OUTSIDE RECORDS SUMMARY | ~2019-07-27 | XMS | Encounter Summary ---
Demographics + + + | Address | [address] | | | [place] [address] | + + + | Home Phone | | + + + | Preferred Language | Unknown | + + + | Marital Status | Single | + + + | Anabaptism Affiliation | CHR | + + + | Race | White | + + + | Ethnic Group | Not or | + + + Author + + + | Author | [facility] | + + + | Organization | [facility] | + + + | [...] Team Providers + +------+ + | Care Loan Funder Name | Role | Phone | + +------+ + PCP | Unavailable | + +------+ + Encounter Details +--------+ + + + + | Date | Type | Department | Care Team | Description | +--------+ + + + + | 04/24/ | Results | Otolaryngology | King Sumner, | | | 2001 | Only | Head and Neck | MD [address] [facility] | | | | | Surgery Services at | [facility] | | | | | [address] | [place], [place] | | | | | [address] | [address] | | | | | Physician's | [phone] | | | | | Jacque, [address] [place] [address] | | | | | | [place], [place] | | | | | | [address] | | | | | | [phone] | | | +--------+ + + + [...] + | SURGICAL PATHOLOGY | Routin | 04/25/2001 | | Results for this | | | e | | | procedure are in the | | | | | | results section. | + +--------+ + + + | X-RAY CHEST 2 VIEW | Routin | 04/24/2001 | | Results for this | | | e | 5:05 PM | | procedure are in the | | | | PST | | results section. | + +--------+ + + + | COAG MASTER PANEL | Routin | 04/24/2001 | | Results for this | | | e | 4:15 PM | | procedure are in the | | | | PST | | results section. | + +--------+ + + + | INR | Routin | 04/24/2001 | | Results for this | | | e | 4:15 PM | | procedure are in the | | | | PST | | results section. | + +--------+ + + + | APTT (ACT. PART. | Routin | 04/24/2001 | | Results for this | | THROMBO TIME) | e | 4:15 PM | | procedure are in the | | | | PST | | results section. | + +--------+ + + + documented in this encounter Results SURGICAL PATHOLOGY (04/25/2001) + + + + + + | Component | Value | Ref Range | Performed | Pathologist | | | | | At | Signature | + + + + + + | SURGICAL | SOURCE OF SPECIMEN:A | | [facility] | | | PATHOLOGY | Partial glossectomy | | DEPARTMENT | | | | Final Pathologic | | OF | | | | Diagnosis:Tongue lesion, | | PATHOLOGY | | | | partial glossectomy:- | | | | | | Squamous cell carcinoma, | | | | | | well differentiated, | | | | | | superficially | | | | | | invasive,associated with | | | | | | polypoid granulation | | | | | | tissue (see comment) | | | | | | Comment: The majority | | | | | | of the specimen consists | | | | | | of granulation tissue | | | | | | andreactive squamous | | | | | | mucosa. However, there | | | | | | are foci where the | | | | | | epithelium isthickened, | | | | | | exhibits significant | | | | | | nuclear atypia and | | | | | | erodes into | | | | | | theunderlying stroma, | | | | | | consistent with squamous | | | | | | cell carcinoma. The | | | | | | deep edgeof the specimen | | | | | | is negative for tumor. | | | | | | The cauterized lateral | | | | | | edges of thespecimen are | | | | | | difficult to interpret, | | | | | | but appear to be free | | | | | | of the lesionalcells. | | | | | | Case reviewed | | | | | | by:Yeny Eric / | | | | | | Student | | | | | | FellowChristopher LBasihr | | | | | | Gregg Diamond, Ph.D. | | | | | | /PathologistT:04/29//f | | | | | | I have reviewed all | | | | | | diagnostic slides and | | | | | | have edited the gross | | | | | | and/ormicroscopic | | | | | | [...] with | | | | | | carcinoma of the | | | | | | tongue. Gross | | | | | | Description:One specimen | | | | | | is received fresh | | | | | | labeled, "partial | | | | | | glossectomy". Received | | | | | | isan ellipse of | | | | | | glistening, wrinkled, | | | | | | rodgers-pink tissue | | | | | | consistent with | | | | | | mucosameasuring 2.2 x 1 | | | | | | cm and excised to a | | | | | | depth of 0.3 cm. There | | | | | | is a raised,smooth, | | | | | | lesion measuring 0.7 cm | | | | | | in diameter and | | | | | | extending to the | | | | | | surgicalmargin located | | | | | | off center on the | | | | | | mucosal aspect. The | | | | | | surgical margin isinked | | | | | | black. The specimen is | | | | | | serially sectioned to | | | | | | reveal a fibroustan-pink | | | | | | cut surface. The cut | | | | | | surface of the lesion is | | | | | | smooth, glistening,red | | | | | | to purple. Cassette | | | | | | Index:A1, serial | | | | | | sections, | | | | | | ASCS:CC:rRendering | | | | | | Diagnostician: | | | | | | Hector Diamond | | | | | | | | | | | | Gregg,Ph.D.PathologistEle | | | | | | ctronically Signed | | | | | | 04/29/2001Comment: | | | | | | SOURCE OF SPECIMEN: | | | | | | Partial glossectomy | | | | + + + + + + + + | Specimen | + + | | + + + + + + + | Performing | Address | City/State/Zipcode | Phone Number | | Organization | | | | + + + + + | [facility] | [address] [facility] | [place] [address] | | | PATHOLOGY | [address] | | | + + + + + | [facility] | [address] [facility] | [place] [address] | | | PATHOLOGY | [address] | | | + + + + + CHEST 2 VIEW (04/24/2001 5:05 PM PST) + + + + + + | Component | Value | Ref Range | Performed | Pathologist | | | | | At | Signature | + + + + + + | CHEST, 2 | Radiologist 1: GEO, | | | | | VIEWS [place] | Gregg RIVERACHEST: | | | | | STEREO | 04/24/2001 Dictated | | | | | | 04/25/2001 COMPARISON: | | | | | | None. FINDINGS: PA and | | | | | | lateral chest | | | | | | radiograph submitted. | | | | | | Heart size iswithin | | | | | | normal limits. There | | | | | | is minimal linear | | | | | | subsegmentalatelectasis | | | | | | or scar at the left lung | | | | | | base. The lungs are | | | | | | otherwiseclear. There | | | | | | is no pulmonary edema. | | | | | | There is no pleural | | | | | | effusion.There are mild | | | | | | degenerative changes in | | | | | | the lower thoracic | | | | | | spine. IMPRESSION: 1. | | | | | | Minimal linear | | | | | | subsegmental atelectasis | | | | | | or scar at the left | | | | | | lungbase. The lungs | | | | | | are otherwise clear. 2. | | | | | | Mild degenerative | | | | | | changes in the thoracic | | | | | | spine. END OF | | | | | | IMPRESSION: | | | | + + + + + + + + | Specimen | + + | | + + + +---------+ + + | Performing | Address | City/State/Zipcode | Phone Number | | Organization | | | | + +---------+ + + | [facility] DEPARTMENT OF | | | | | RADIOLOGY | | | | + +---------+ + + PROTHROMBIN TIME (04/24/2001 4:15 PM PST) + + + + + + | Component | Value | Ref Range | Performed | Pathologist | | | | | At | Signature | + + + + + + | INR | 1.06Comment: | 0.98 - 1.08 INR | [facility] | | | | PT INR Therapeutic | | DEPARTMENT | | | | ranges for full | | OF | | | | anticoagulation: | | PATHOLOGY | | | | INR for | | | | | | Venous Thromboembolism | | | | | | | | | | | | (2.0-3.0)INR | | | | | | INR for most | | | | | | patients with mech. | | | | | | valves (2.5-3.5)INR | | | | + + + + + + + + | Specimen | + + | | + + + + + + + | Performing | Address | City/State/Zipcode | Phone Number | | Organization | | | | + + + + + | [facility] | [address] [facility] | [place] [address] | | | PATHOLOGY | [address] | | | + + + + + | [facility] DEPARTMENT [facility] | [address] [facility] | [place] [address] | | | PATHOLOGY | [address] | | | + + + + + APTT (ACT. PART. THROMBO TIME) (04/24/2001 4:15 PM PST) + + + + + + | Component | Value | Ref Range | Performed | Pathologist | | | | | At | Signature | + + + + + + | APTT | 28.7Comment: | 27.0 - 35.0 | [facility] | | | | APTT Therapeutic Range | seconds | DEPARTMENT | | | | | | OF | | | | | | PATHOLOGY | | | | (70-110)sec | | | | | | Heparin levels | | | | | | of 0.35-0.7 U/mL | | | | + + + + + + + + | Specimen | + + | | + + + + + + + | Performing | Address | City/State/Zipcode | Phone Number | | Organization | | | | + + + + + | [facility] | [address] | [place] [address] | | | PATHOLOGY | [address] | | | + + + + + | [facility] | [address] [place] [address] [address] | [place] [address] | | | PATHOLOGY | [address] | | | + + + + + CHELSEA ACUNA PANEL (04/24/2001 4:15 PM PST) + + + + + + | Component | Value | Ref Range | Performed | Pathologist | | | | | At | Signature | + + + + + + | INR | 1.06Comment: | 0.98 - 1.08 INR | [facility] | | | | PT INR Therapeutic | | DEPARTMENT | | | | ranges for full | | OF | | | | anticoagulation: | | PATHOLOGY | | | | INR for | | | | | | Venous Thromboembolism | | | | | | | | | | | | (2.0-3.0)INR | | | | | | INR for most | | | | | | patients with mech. | | | | | | valves (2.5-3.5)INR | | | | + + + + + + | APTT | 28.7Comment: | 27.0 - 35.0 | [facility] | | | | APTT Therapeutic Range | seconds | DEPARTMENT | | | | | | OF | | | | | | PATHOLOGY | | | | (70-110)sec | | | | | | Heparin levels | | | | | | of 0.35-0.7 U/mL | | | | + + + + + + + + | Specimen | + + | | + + + + + + + | Performing | Address | City/State/Zipcode | Phone Number | | Organization | | | | + + + + + | [facility] | [facility] | [place] [address] | | | PATHOLOGY | [address] | | | + + + + + | [facility] | [address] | [place] [address] | | | PATHOLOGY | [address] | | | + + + + + documented in this encounter Visit Diagnoses Not on filedocumented in this encounter
--- OUTSIDE RECORDS SUMMARY | ~2019-07-27 | XMS | Encounter Summary ---
Demographics + + + | Address | [address] | | | [place] [address] | + + + | Home Phone | | + + + | Preferred Language | Unknown | + + + | Marital Status | | + + + | Gnosticist Affiliation | 1077 | + + + | Race | Unknown | + + + | Ethnic Group | Unknown | + + + Author + + + | Author | [facility] | | | and [place] | + + + | Organization | [facility] | | | and [...] Team Providers + +------+ + | Care Photoresist Contact Printer Name | Role | Phone | + +------+ + PCP | Unavailable | + +------+ + Encounter Details +--------+ + + + + | Date | Type | Department | Care Team | Description | +--------+ + + + + | 09/14/ | [facility] | [facility] | Salvatore Yao, | | | 2003 | Encounter | MED CTR XRAY [address] | [address] [place] [address] | | | | | [place] | [place] | | | | | [place] [address] | [address] | | | | | [phone] | | | +--------+ + + + [...]
--- OUTSIDE RECORDS SUMMARY | ~2019-07-27 | XMS | Encounter Summary ---
Demographics + + + | Address | [address] | | | [place] [address] | + + + | Home Phone | | + + + | Preferred Language | Unknown | + + + | Marital Status | Single | + + + | Anglican Affiliation | CHR | + + + [...] Team Providers + +------+ + | Care Scrap Breaker Name | Role | Phone | + [...] | surface of | [address], | [address] [place], | | | | | tongue (HCC) | [place] [address] | [place] | | | | | Procedures | Phone: | [address] | | | | | [place] | [phone] | Phone: | | | | | LARYNGOSCOPY | Fax: | [phone] | | | | | ,DIRECT,DIAG | [phone] | Fax: | | | | | NOSTIC [place] | | [phone] | | | | | LARYNGOSCOPY | | | | | | | ,DIRCT,OP,BI | | | | | | | OPSY IA | | | | | | | ESOPHAGOSCOP | | | | | | | Y,DIAGNOSTIC | | | | | | | IA PART | | | | | | | REMOVAL | | | | | | | TONGUE,<1/2 | | | | | | | IA PART | | | | | | | REMOVAL | | | | | | | TONGUE, 1/2 | | | | | | | IA PART EXC | | | | | | | | | | | | | | TONGUE,UNILA | | | | | | | T RAD NECK | | | | | | | IA | | | | | | | BIOPSY/EXCIS | | | | | | | ION, LYMPH | | | | | | | NODE(S) IA | | | | | | | BX/REMV,LYMP | | | | | | | H NODE,DEEP | | | | | | | CERV IA | | | | | | | REMOVAL | | | | | | | NODES, | | | | | | | NECK,CERV | | | | | | | MOD RAD IA | | | | | | | [...] | | | Surgery Services at | [facility] | | | | | [address] | [place], [place] | | | | | [address] | [address] | | | | | Physician's | [phone] | | | | | Pavilion, [facility] floor | | | | | | [place], [place] | | | | | | [address] | | | | | | [phone] | | | +--------+---------+ + + + [...] lymph nodes: 11 Color of lymph nodes: Xqkmvq-tr-auc Size of lymph nodes: Ranging in size [...]
--- OUTSIDE RECORDS SUMMARY | ~2019-07-27 | XMS | Encounter Summary ---
Demographics + + + | Address | [address] | | | [place] [address] | + + + | Home Phone | | + + + | Preferred Language | Unknown | + + + | Marital Status | | + + + | Anabaptism Affiliation | 1077 | + + + | Race | Unknown | + + + | Ethnic Group | Unknown | + + + Author + + + | Author | [facility] | | | and [place] | + + + | Organization | [facility] | | | and [...] Team Providers + +------+ + | Care Material Preparation Worker Name | Role | Phone | + +------+ + | Ganesh Hudson DO | PCP | | + +------+ + Encounter Details +--------+ + + + + | Date | Type | Department | Care Team | Description | +--------+ + + + + | 01/08/ | Orders Only | [facility] | Gabino Baker MD | Neck pain (Primary | | 2011 | | NEUROSURGERY [address] | [address] | Dx) | | | | [address] | [place] [address] | | | | | [place] | [phone] | | | | | [address] | | | | | | [phone] | | | +--------+ + + + [...] Not on filedocumented as of this encounter Results XR Cervical Spine 4 + Vw (01/22/2012 1:52 PM PST) + + | Specimen | + + | | + + + + + | Narrative | Performed At | + + + | [facility] | [place] | | Department [address] [facility], [place] | [facility] | | [ rep [address] [ rep [facility] | | [facility]] Signed | - IMAGING | | | | | Patient Name: VICKI ERIC Physician: | | | Garrett. : 1930 Age: 81 Sex: F Unit #: [id number] | | | Exam Date: 01/22/12 Location: [facility] | | | Report #: [id number] Page: | | | %(RAD)RES..mtdd.print.filter("pg") of %(RAD) | | | RES..mtdd.print.filter("tpg") | | | | | | Accession Number: [id number] | | | CERVICAL SPINE X-RAY CLINICAL HISTORY: NECK PAIN. | | | COMPARISON: Cervical spine MRI 12/26/2011, cervical spine x-ray | | | 12/18/2011 FINDINGS: Four views of the cervical spine were | | | obtained including flexion and extension views. | | | Prevertebral soft tissues are normal. Vertebral body heights are | | | preserved with no evidence for compression fractures. Large | | | osteophytes are seen at C5 and C6 anteriorly. Moderate sized | | | osteophytes are noted at C4. Small osteophytes are present at the | | | other levels. There is minimal retrolisthesis of C4 over C5 and of | | | C5 over C6 on the extension and lateral views. These normalize on the | | | flexion view, consistent with minimal instability. Moderate disc | | | height loss is visualized throughout the cervical spine. | | | IMPRESSION: MULTILEVEL DEGENERATIVE CHANGES WITH SOME MINIMAL | | | INSTABILITY AT LEVELS C4 OVER C5 AND C5 OVER C6. Dictated | | | Date/Time: 01/22/2012 13:52 Transcribed Date/Time: 01/22/2012 | | | 14:08 Transportation Engineering Technician: <<Signature on | | | File>> | | | Jaycob | | | MD Bishnu01/23/12 [id number] <Electronically signed by Jaycob Goetz MD> | | | Jaycob Goetz MD 01/22/12 1352 Transportation Engineering Technician: Oscar | | | Dyifgtgohuulx85/20/12 4363 Gabino Baker MD | | + + + + + + + + | Performing | Address | City/State/Zipcode | Phone Number | | Organization | | | | + + + + + | [facility] | [address] | [place], [place] | [phone] | | [facility] | | [address] | | | - IMAGING | | | | + + + + + documented in this encounter Visit Diagnoses + + | Diagnosis | + + | Neck pain - Primary Cervicalgia | + + documented in this encounter
--- OUTSIDE RECORDS SUMMARY | ~2019-07-27 | XMS | Encounter Summary ---
Demographics + + + | Address | [address] | | | [place] [address] | + + + | Home Phone [...] + + + | Author | [facility] | + + + | Organization | [facility] | + + + | Address | [...] Team Providers + +------+ + | Care Textile Science Technician Name | Role | Phone | + +------+ + | Ganesh Hudson DO | PCP | | + +------+ + Reason for Visit + + + | Reason | Comments | + + + | Lab Results | Pt wants to know results of tongue biopsy | + + + Encounter Details +--------+ + + + + | Date | Type | Department | Care Team | Description | +--------+ + + + + | 06/11/ | Telephone | Otolaryngology | King Sumner, | Lab Results (Pt | | 2011 | | Head and Neck | [address] | wants to know | | | | Surgery Services at | [facility] [address] | results of tongue | | | | [address] | [place], [place] | biopsy) | | | | [address] | [address] | | | | | Physician's | [phone] | | | | | [place], 2nd floor | | | | | | [place], [place] | | | | | | [address] | | | | | | [phone] | | | +--------+ + + + [...]
--- OUTSIDE RECORDS SUMMARY | ~2019-07-27 | XMS | Encounter Summary ---
Demographics + + + | Address | [address] | | | [place] [address] | + + + | Home Phone | | + + + | Preferred Language | Unknown | + + + | Marital Status | Single | + + + | Jainism Affiliation | CHR | + + + | Race | White | + + + | Ethnic Group | Not or | + + + Author + + + | Author | [facility] | + + + | Organization | [facility] | + + + | Address [...] Team Providers + +------+ + | Care Cutter And Presser Name | Role | Phone | + +------+ + | Petey Carter MD | PCP | | + +------+ + Reason for Visit + + + | Reason | Comments | + + + | Follow-up visit | | + + + Benefits Check (Routine) +--------+--------+ + + + + | Status | Reason | Specialty | Diagnoses / | Referred By | Referred To | | | | | Procedures | Contact | Contact | +--------+--------+ + + + + | Closed | | Otolaryngolog | | Raul, | Burak, | | | | y | | MD Petey | MD King | | | | | | [address] | [address] | | | | | | [address] | Fransico Taylor | | | | | | [place], | Rd [place], | | | | | | [place] [address] | [place] | | | | | | Phone: | [phone] | | | | | | [phone] | Phone: | | | | | | Fax: | [phone] | | | | | | [phone] | Fax: | | | | | | | [phone] | +--------+--------+ + + + + Encounter Details +--------+---------+ + + + | Date | Type | Department | Care Team | Description | +--------+---------+ + + + | 01/25/ | Office | Otolaryngology | King Sumner, | Tongue cancer (HCC) | | 2009 | Visit | Head and Neck | MD [address] | (Primary Dx) | | | | Surgery Services at | [facility] [address] | | | | | [address] | [place], [place] | | | | | [address] | [address] | | | | | Physician's | [phone] | | | | | Pavilion, 2nd floor | | | | | | [place], [place] | | | | | | [address] | | | | | | [phone] | | | +--------+---------+ + + + [...] documented as of this encounter Progress Notes King Sumner MD - 01/25/2009 12:24 PM PSTFormatting of this note might be different fro m the original. Ms. Eric returns for a 1 yr followup visit. 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 Pt reports that in the last 3 months she has noticed a lesion at the site of the previous resection. She reports that it is very tender to touch and has appeared mo derate white on the surface. She has also found that it seems slightly hard. Denies any SO B or dysphagia. Denies any night sweats. Wt is stable. PMH: hyperlipidemia, urinary incont. Past Surgical History Procedure Date Partial glossectomy 04/05 No Known Allergies Current outpatient prescriptions: BETA-CAROTENE,A, W-C & E/MIN (OCUVITE OR), Take by mouth ., Disp: , Rfl: hydrocodone-acetaminophen (VICODIN ES) 7.5-750 mg Oral Tablet, Take 1 Tab by mouth every si x hours as needed. Not to exceed 5 tablets per any 24 hour period. (Not to exceed 4000 mg of acetaminophen from all products per 24 hour period.), Disp: 30, Rfl: 0 simvastatin 20 mg Oral Tablet, 1D, Disp: , Rfl: simvastatin 40 mg Oral [...] Not on file. Social History Main Topics Tobacco Use: Not on file Alcohol Use: Not on file Drug Use: Not on file Sexually Active: Not on file Other Topics Concern Not on file Social History Narrative No narrative on file Her ECOG performance status is: 0 Review of systems: See patient's filled out questionnaire. Except as noted she denies and complaints referable to the cardiac, hepatic, pulmonary, neurologic, musculoskeletal, renal or digestive systems except as noted above. Physical examination: no distress appearing female Voice: Normal There were no vitals taken for this visit. Face: Normal facial contour and facial nerve function. No suspicious skin lesions noted on scalp, face or neck. Eyes: Normal extraocular motions bilaterally. Pupils equal bilaterally. Vision grossly inta ct. Ears: Normal pinnae, external canals and typanic membranes bilaterally, Hearing grossly int act Nose: External nose - Normal Nasal cavity - No masses, purulence, polyps Oral cavity: Dentition - Edentulous Tongue mobility - normal, except for white 2mm lesion on Left lateral surface and firm to t ouch Palate mobility - normal Mucosa - No mucosal lesions noted on hard palate, upper or lower alveolous, buccal mucosa, floor of mouth, lips or tongue. Oropharynx: Tonsils - Normal Base of tongue - Mirror exam and Normal Mucosa - No mucosal lesions seen Larynx: Supraglottis - Mirror exam and Normal Glottis - Mirror exam, Normal and Vocal cord mobility normal Pharynx: Mirror exam and Normal Parotid glands: No masses palpable on either side. Neck: No adenopathy on either side. No thyromegaly palpable Procedure: Consent obtained and pause held with patient. Area anesthestized with 1% lidocaine with 1;100,000 epi with 3 cc Lesion removed with ~ 5 mm margins Sutured with Vicoryl 3.0 3 sutures Impression: Hx of SCC of the tongue, s/p partial Left glossectomy 2001, bx in 2006 CIS. Left lateral Tongue lesion Plan: Tissue sent to pathology, will call pt once results available Reviewed care of incision and pain management RTO 3 months documente d in this encounter Plan of Treatment + + +--------+ + + | Name | Type | Priori | Associated Diagnoses | Order Schedule | | | | ty | | | + + +--------+ + + | NV EXCIS TONGUE | Procedures | Routin | Tongue cancer | Ordered: 01/25/2009 | | RUDY FOY 2/3+CLOS | | e | ([facility]) | | + + +--------+ + + documented as of this encounter Procedures + +--------+ + + + | Procedure Name | Priori | Date/Time | Associated Diagnosis | Comments | | | ty | | | | + +--------+ + + + | SURGICAL PATHOLOGY | Routin | 01/25/2009 | Tongue cancer | Results for this | | | e | | (HCC) | procedure are in the | | | | | | results section. | + +--------+ + + + documented in this encounter Results SURGICAL PATHOLOGY (01/25/2009) + + + + + + | Component | Value | Ref Range | Performed | Pathologist | | | | | At | Signature | + + + + + + | SURGICAL | SOURCE OF SPECIMEN:A | | [facility] | | | PATHOLOGY | Left tongue lesion | | DEPARTMENT | | | | Final Pathologic | | OF | | | | Diagnosis:Left tongue | | PATHOLOGY | | | | lesion, excision: | | | | | | - Focal | | | | | | tdic-po-jukpciux | | | | | | squamous epithelial | | | | | | dysplasia (0.1-0.2 | | | | | | cm),widely excised | | | | | | - PAS/fungal stain | | | | | | negative - | | | | | | Immunohistochemical | | | | | | stain for CK reviewed | | | | | | Case seen by:Malcolm | | | | | | David Santillan, | | | | | | M.D./Surgical Pathology | | | | | | FellowDakeith Golden, | | | | | | M.D./PathologistT:01/31/ | | | | | | (Analyte | | | | | | specific reagents are | | | | | | used in many laboratory | | | | | | tests necessary | | | | | | [facility] | | | | | | and generally do not | | | | | | require FDA approval. | | | | | | This testwas developed | | | | | | and its performance | | | | | | characteristics | | | | | | determined by | | | | | | [facility]. It has | | | | | | not been cleared or | | | | | | approved by the U.[place]. | | | | | | Food and | | | | | | DrugAdministration.) | | | | | | Clinical History:The | | | | | | patient is a 78-year-old | | | | | | female with left tongue | | | | | | lesion. History | | | | | | ofsquamous cell | | | | | | carcinoma of the tongue, | | | | | | status post partial | | | | | | glossectomy | | | | | | withfollow-up carcinoma | | | | | | in-situ. h/o | | | | | | superficially invasive | | | | | | SCC tongue | | | | | | ([id number]) and | | | | | | subsequent SCCin-situ | | | | | | ([id number]) [DS]. | | | | | | Gross | | | | | | Description:Received is | | | | | | 1 specimen in formalin | | | | | | in a container labeled | | | | | | with thepatient's name | | | | | | (initials LS) and | | | | | | medical record number | | | | | | [id number]. Receivedis | | | | | | an unoriented 0.9 x 0.9 | | | | | | cm strip of smooth | | | | | | white-pink mucosa | | | | | | withoverlying papillae. | | | | | | The tissue is excised | | | | | | to a depth of up to 0.4 | | | | | | cm. Theresection | | | | | | margin is inked black | | | | | | and the specimen is | | | | | | serially | | | | | | sectionedrevealing a | | | | | | smooth white-rodgers | | | | | | subsurface with no | | | | | | lesions grossly | | | | | | identified.The entire | | | | | | specimen is submitted. | | | | | | Cassette | | | | | | Index:[id number]/rdl | | | | | | My electronic signature | | | | | | indicates that I have | | | | | | personally reviewed | | | | | | alldiagnostic slides, | | | | | | the gross and/or | | | | | | microscopic portion of | | | | | | thisreport and | | | | | | formulated the final | | | | | | diagnosis. | | | | | | Rendering Diagnostician: | | | | | | Gabino Golden | | | | | | Lilliam | | | | | | mathew Signed 02/01/2009 | | | | + + + + + + + + | Specimen | + + | Other - Tongue | + + + + + + + | Performing | Address | City/State/Zipcode | Phone Number | | Organization | | | | + + + + + | [facility] | [address] | [place] [address] | | | PATHOLOGY | [address] | | | + + + + + documented in this encounter Visit Diagnoses + + | Diagnosis | + + | Tongue cancer (HCC) - Primary Malignant neoplasm of tongue, unspecified site | + + documented in this encounter"
--- OUTSIDE RECORDS SUMMARY | ~2019-07-27 | XMS | Encounter Summary ---
Demographics + + + | Address | [address] | | | [place] [address] | + + + | Home Phone | | + + + | Preferred Language | Unknown | + + + | Marital Status | Single | + + + | Samaritan Affiliation | CHR | + + + [...] Team Providers + +------+ + | Care Car Worker Helper Name | Role | Phone | + +------+ + | Joycelyn Aguilar PA-C | PCP | | + +------+ + Encounter Details +--------+ + + + + | Date | Type | Department | Care Team | Description | +--------+ + + + + | 10/24/ | Telephone | [facility] | Mao Ayon MD | | | 2018 | | [place] | [address] | | | | | Oculoplastics at | [facility], [place] | | | | | [facility] | [address] | | | | | [place] [address] | [phone] | | | | | [facility] [place] | | | | | | [facility], [address] [place] [address] | | | | | | [place] [address] | | | | | | [phone] | | | +--------+ + + + [...]
--- OUTSIDE RECORDS SUMMARY | ~2019-07-27 | XMS | Encounter Summary ---
Demographics + + + | Address | [address] | | | [place] [address] | + + + | Home Phone [...] Providers + +------+ + | Care Director Religious Education Name | Role | Phone | + +------+ + | Ganesh Hudson DO | PCP | | + +------+ + Encounter Details +--------+ + + + + | Date | Type | Department | Care Team | Description | +--------+ + + + + | 06/25/ | Documentati | Preoperative | Lolita Adame, | | | 2011 | on | Medicine Clinic at | MD | | | | | [address]th Floor Day | | | | | | Stay [address] | | | | | | [address] | | | | | | Mailcode: [id number] | | | | | | [facility] | | | | | | [address] [place], [place] | | | | | | [address] | | | | | | [phone] | | | +--------+ + + + [...]
--- OUTSIDE RECORDS SUMMARY | ~2019-07-27 | XMS | Encounter Summary ---
Demographics + + + | Address | [address] | | | [place] [address] | + + + | Home Phone [...] Author + + + | Author | [facility] | + + + | Organization | [facility] | + + + | Address [...] Team Providers + +------+ + | Care Cupola Melting Supervisor Name | Role | Phone | + +------+ + | Petey Carter MD | PCP | | + +------+ + Reason for Visit +--------+ + | Reason | Comments | +--------+ + | Other | Has a lesion on tongue. She is coming in on 07/21, wants to know | | | if he will be able to take the lesion off on this day? | +--------+ + Encounter Details +--------+ + + + + | Date | Type | Department | Care Team | Description | +--------+ + + + + | 07/06/ | Telephone | Otolaryngology | King Sumner, | Other (Has a lesion | | 2007 | | Head and Neck | [address] | on tongue. She is | | | | Surgery Services at | [facility] | coming in on 07/21, | | | | [address] | [place], [place] | wants to know if he | | | | [address] | [address] | will be able to take | | | | Physician's | [phone] | the lesion off on | | | | [address], [address] floor | | this day?) | | | | [place] | | | | | | [address] | | | | | | [phone] | | | +--------+ + + + [...]
--- OUTSIDE RECORDS SUMMARY | ~2019-07-27 | XMS | Encounter Summary ---
Demographics + + + | Address | [address] | | | [place] [address] | + + + | Home Phone [...] Author + + + | Author | [facility] | + + + | Organization | [facility] | + + + | Address [...] Team Providers + +------+ + | Care Employment Case Manager Name | Role | Phone | [...] | | | | tongue, | | [facility] | | | | | unspecified | | Rd [place], | | | | | site | | [place] | | | | | | | [address] | | | | | | | Phone: | | | | | | | [phone] | | | | | | | Fax: | | | | | | | [phone] | +--------+--------+ + + + + Encounter Details +--------+---------+ + + + | Date | Type | Department | Care Team | Description | +--------+---------+ + + + | 01/14/ | Office | Otolaryngology | King Sumner, | Tongue cancer (HCC) | | 2011 | Visit | Head and Neck | [address] | (Primary Dx) | | | | Surgery Services at | [facility] | | | | | [address] | [facility] [place] | | | | | [address] | [address] | | | | | Physician's | [phone] | | | | | Pavilion, 2nd floor | | | | | | [place], [place] | | | | | | [address] | | | | | | [phone] | | | +--------+---------+ + + + [...] + + + | Blood Pressure | 130/66 | 01/15/2012 10:41 AM | | | | | PST | | + + + + + | Pulse | 74 | 01/15/2012 10:41 AM | | | | | PST [...] Weight | 54.9 kg (121 lb) | 01/15/2012 10:41 AM | | | | | PST | | + + + + + | Height | - | - | | + + + + + | Body Mass Index | 22.13 | 06/28/2011 10:00 AM | | | | | PDT | | + + + + + documented in this encounter Progress Notes King Sumner MD - 01/29/2012 1:36 PM PSTFormatting of this note might be [...] Medication List Name Sig ASPIRIN 81 MG TABLET Take 81 mg by mouth once daily. Indications: Myocardial Reinfarctio n Prevention OCUVITE OR Take by mouth. VITAMIN D ORAL Take by mouth. OMEPRAZOLE 20 MG CAPSULE,DELAYED RELEASE Take 20 mg by mouth once daily. OXYBUTYNIN CHLORIDE ER 15 MG TABLET,24 HR EXTENDED RELEASE Take 15 mg by mouth once daily. SIMVASTATIN 40 MG TABLET Take 40 mg by mouth once daily in the evening. TRIAMTERENE-HYDROCHLOROTHIAZIDE 37.5 MG-25 MG CAPSULE 1D History Substance Use Topics Smoking status: Never Smoker Smokeless tobacco: Never Used Alcohol Use: Yes 1 glass of wine per day Family History: No history of head and neck cancer Physical Examination: healthy appearing female Voice: Normal BP 130/66 | Pulse 74 | Wt 54.885 kg (121 lb) Face: Normal facial contour and facial [...] palpable Impression: No evidence of recurrence. RTC in the spring. King Sumner MD Professor of Otolaryngology, Head & Neck Surgery documented in this en counter Plan of Treatment Not on filedocumented as of this encounter Visit Diagnoses + + | Diagnosis | + + | Tongue cancer (HCC) - Primary Malignant neoplasm of tongue, unspecified site | + + documented in this encounter"
--- OUTSIDE RECORDS SUMMARY | ~2019-07-27 | XMS | Encounter Summary ---
Demographics + + + | Address | [address] | | | [place] [address] | + + + | Home Phone | | + + + | Preferred Language | Unknown | + + + | Marital Status | Single | + + + | Worship Affiliation | CHR | + + + | Race | White | + + + | Ethnic Group | Not or | + + + Author + + + | Author | [facility] | + + + | Organization | [facility] | + + + [...] Team Providers + +------+ + | Care Calender Roll Operator Name | Role | Phone | [...] [address] | | | | | | [facility] | | | | | | [place] [address] | | | +--------+ + + + [...]
--- OUTSIDE RECORDS SUMMARY | ~2019-07-27 | XMS | Encounter Summary ---
Demographics + + + | Address | [address] | | | [place] [address] | + + + | Home Phone | | + + + | Preferred Language | Unknown | + + + | Marital Status | Single | + + + | Orthodox Affiliation | CHR | + + + | Race | White | + + + | Ethnic Group | Not or | + + + Author + + + | Author | [facility] | + + + | Organization | [facility] | + + + | Address [...] Team Providers + +------+ + | Care Compressor Station Chief Engineer Name | Role | Phone | + +------+ + PCP | Unavailable | + +------+ + Encounter Details +--------+ + + + + | Date | Type | Department | Care Team | Description | +--------+ + + + + | 04/01/ | Results | Otolaryngology | King Sumner, | | | 2001 | Only | Head and Neck | MD [address] [facility] | | | | | Surgery Services at | [facility] | | | | | [address] | [place], [place] | | | | | [address] | [address] | | | | | Physician's | [phone] | | | | | [address], [address] [place] [address] | | | | | | [place], [place] | | | | | | [address] | | | | | | [phone] | | | +--------+ + + + [...] | + + + + + | [facility] | [address] | [place] [address] | | | PATHOLOGY | [address] | | | + + + + + | [facility] | [address] | [place] [address] | | | PATHOLOGY | [address] | | | + + + + + documented in this encounter Visit Diagnoses Not on filedocumented in this encounter
--- OUTSIDE RECORDS SUMMARY | ~2019-07-27 | XMS | Encounter Summary ---
Demographics + + + | Address | [address] | | | [place] [address] | + + + | Home Phone | | + + + | Preferred Language | Unknown | + + + | Marital Status | Single | + + + | Voodoo Affiliation | CHR | + + + [...] Team Providers + +------+ + | Care Passenger Relations Representative Name | Role | Phone | + [...] as of this encounter Progress Notes Interface, Flower Maker In - 11/16/2005 3:10 AM PDTCLINIC DATE: [...] with the surgery tomorrow. King Sumner M.D. Diesel Truck Mechanic, Otolaryngology, Head and Neck Surgery [facility] / [id number] / [id number] / [id number] / [id number] signed by Interface, Flower Maker In at 11/16/2005 3:10 AM PDTdoc umented in this encounter Plan of Treatment Not on filedocumented as of this encounter Visit Diagnoses Not on filedocumented in this encounter"
--- OUTSIDE RECORDS SUMMARY | ~2019-07-27 | XMS | Encounter Summary ---
Demographics + + + | Address | [address] | | | [place] [address] | + + + | Home Phone | | + + + | Preferred Language | Unknown | + + + | Marital Status | Single | + + + | Congregational Affiliation | CHR | + + + [...] Team Providers + +------+ + | Care Timber Poisoner Name | Role | Phone | + [...] [address] | | | | | | [facility] | [facility] | | | | | | Rd | Rd [place], | | | | | | [place], [place] | [place] | | | | | | [address] | [address] | | | | | | Phone: | Phone: | | | | | | [phone] | [phone] | | | | | | Fax: | Fax: | | | | | | [phone] | [phone] | +--------+--------+ + + + + Encounter [...] | | | [address] | [place], [place] | | | | | [address] | [address] | | | | | Physician's | [phone] | | | | | Pavilion, 2nd floor | | | | | | [place], [place] | | | | | | [address] | | | | | | [phone] | | | +--------+---------+ + + + [...] at home. She drove herself here from [employer]. She did no amadeo a small painful [...] AAMIR GILLILAND MD OTOLARYNGOLOGY GENERAL SERVICES AT [address] Mailcode: [id number] [place] [address] documented in this en counter Plan of Treatment Not on filedocumented as of this encounter Visit Diagnoses + + | Diagnosis | + + | Tongue cancer (HCC) - Primary Malignant neoplasm of tongue, unspecified site | + + documented in this encounter
--- OUTSIDE RECORDS SUMMARY | ~2019-07-27 | XMS | Clinical Summary ---
Demographics + + + | Address | [address] | | | [place] [address] | + + + | Home Phone | | + + + | Preferred Language | Unknown | + + + | Marital Status | Single | + + + | Sabianist Affiliation | CHR | + + + | Race | White | + + + | Ethnic Group | Not or | + + + Author + + + | Author | [facility] | + + + | Organization | [facility] | + + + | Address | [...] Team Providers + +------+ + | Care Thread Tool Grinder Set Up Operator Name | Role | Phone | + +------+ + | Joycelyn Aguilar PA-C | PCP | | + +------+ + Source Comments [facility] is fully live on both EpicCare Ambulatory and EpicCare InPatient.[facility] Allergies + + + + + + | Active Allergy | Reactions | Severity | Noted | Comments | | | | | Date | | + + + + + + | Tato Inhibitors | Cough | | 06/28/19 | | | | | | 12 | | + + + + + + | Zoledronic | Diarrhea, Nausea, | | 06/28/19 | | | Falv-Ggnepnwr-Rvzql | Nausea and Vomiting | | 12 | | + + + + + + | Sulfa (Sulfonamide | Nausea | | 10/04/19 | | | Antibiotics) | | | 11 | | + + + + + + Medications + + + +---------+------+------+-------+ | Medication | Sig | Dispensed | Refills | Star | End | Statu | | | | | | t | Date | s | | | | | | Date | | | + + + +---------+------+------+-------+ | | 1D | | 0 | | | Activ | | triamterene-hydrochl | | | | | | e | | orothiazide 37.5-25 | | | | | | | | mg Oral Capsule | | | | | | | + + + +---------+------+------+-------+ | simvastatin 40 mg | Take 40 mg by mouth | | 0 | | | Activ | | Oral Tablet | once daily in the | | | | | e | | | evening. | | | | | | + + + +---------+------+------+-------+ | BETA-CAROTENE,A, | Take by mouth. | | 0 | | | Activ | | W-C & E/MIN (OCUVITE | | | | | | e | | OR) | | | | | | | + + + +---------+------+------+-------+ | Aspirin 81 mg Oral | Take 81 mg by mouth | | 0 | | | Activ | | TabletIndications: | once daily. | | | | | e | | myocardial | Indications: | | | | | | | reinfarction | Myocardial | | | | | | | prevention | Reinfarction | | | | | | | | Prevention | | | | | | + + + +---------+------+------+-------+ | ERGOCALCIFEROL, | Take by mouth. | | 0 | | | Activ | | VITAMIN D2, (VITAMIN | | | | | | e | | D ORAL) | | | | | | | + + + +---------+------+------+-------+ | omeprazole 20 mg | Take 20 mg by mouth | | 0 | | | Activ | | Oral Capsule, | once daily. | | | | | e | | Delayed | | | | | | | | Release(E.C.) | | | | | | | + + + +---------+------+------+-------+ | oxybutynin CR 15 | Take 15 mg by mouth | | 0 | | | Activ | | mg Oral Tablet | once daily. | | | | | e | | Extended Rel 24 hr | | | | | | | + + + +---------+------+------+-------+ | LATANOPROST 0.005 | | | 0 | 08/1 | | Activ | | % ophthalmic drops | | | | 9/20 | | e | | | | | | 14 | | | + + + +---------+------+------+-------+ | VALACYCLOVIR 500 | | | 0 | 07/0 | | Activ | | mg oral tablet | | | | 4/20 | | e | | | | | | 14 | | | + + + +---------+------+------+-------+ | famotidine 20 mg | | | 0 | 01/0 | | Activ | | oral tablet | | | | 5/20 | | e | | | | | | 16 | | | + + + +---------+------+------+-------+ | potassium chloride | | | 5 | 12/2 | | Activ | | SR 10 mEq oral | | | | 0/20 | | e | | tablet,ER | | | | 15 | | | | particles/crystals | | | | | | | + + + +---------+------+------+-------+ | | Take 1 tablet by | 10 | 0 | 08/2 | | Activ | | HYDROcodone-acetamin | mouth every four | tablet | | 2/20 | | e | | ophen 5-325 mg oral | hours as needed for | | | 18 | | | | tablet | severe pain. Do not | | | | | | | | exceed 3000mg | | | | | | | | acetaminophen in a | | | | | | | | 24 hour period | | | | | | + + + +---------+------+------+-------+ | | Apply a thin film to | 3.5 g | 1 | 08/2 | | Activ | | fotrhazc-pjfyexcnl-d | eyelid incisions | | | 2/20 | | e | | examethasone 3.5 | twice daily for two | | | 18 | | | | mg/g-10,000 | weeks. 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 | 08/20/2017 | + + + | Acquired nasolacrimal duct obstruction, bilateral | 08/20/2017 | + + + | Hypertension | 05/13/2009 | + + + | Hypercholesteremia | 05/13/2009 | + + + | Tongue cancer | 05/01/2006 | + + + Family History + + +------+ + | Medical History | Relation | Name | Comments | + + +------+ + | Cancer | Sister | | | + + +------+ + + +------+--------+ + | Relation | Name | Status | Comments | + +------+--------+ + | Sister | | | | + +------+--------+ + Social History + +-------+ +--------+------+ | [...] | + + + + + | Pneumococcal | | | | | vaccination (1 of 2 | 5 | | | | - PCV13) | | | | + + + + + | Influenza (Flu) | | 01/15/2013, 12/22/2008, | | | vaccination (#1) | 9 | 02/03/2008, Additional history | | | | | exists | | + + + + + Results Not on filefrom Last 3 Months Insurance + +--------+ +--------+ + +--------+ | Payer | Benefi | Subscriber | Effect | Phone | Address | Type | | | t Plan | ID | trey | | | | | | / | | Dates | | | | | | Group | | | | | | + +--------+ +--------+ + +--------+ | MEDICARE | MEDICA | xxxxxxxxxx | 11/02/18 | [phone] | [address] | Medica | | | RE A & | | 95-Pre | 1 | [address] | | | [address] | | sent | | [place] | | | | | | | | [address] | | + +--------+ +--------+ + +--------+ | TRANSAMERICA | TRANSA | xxxxxxxxx | 04/04/19 | [phone] | [address] | POS | | MEDICARE SUPPLEMENT | MERICA | | 15-Pre | 2 | [address] | | | | | | sent | | [place] | | | | MEDICA | | | | [id number] | | | | RE | | | | | | | | SUPPLE | | | | | | | | MENT | | | | | | + +--------+ +--------+ + +--------+ + +--------+ +--------+ + + | Guarantor Name | Accoun | Relation to | Date | Phone | Billing Address | | | t Type | Patient | of | | | | | | | | | | + +--------+ +--------+ + + | Annette Eric | Person | Self | [birth year] | [address] | | | parveen/Jason | | 1931 | [phone] | [place] [address] | | | glen | | | 4 (Home) | | | | | | | [phone] | | | | | | | 6 (Work) | | + +--------+ +--------+ + + Advance Directives + + + + + | Type | Date Recorded | Patient | Explanation | | | | Auto Glass Worker | | + + + + + | Advance | | | | | Directives and | | | | | Living Will | | | | + + + + + | Power of | | | | | Cable Tool Driller | | | | + + + + + + + + + + | Code Status | Date | Date | Comments | | | Activated | Inactivated | | + + + + + | Full Code | 06/28/2011 | 06/30/2011 | | | | 5:24 PM | 5:46 PM | | + + + + +
--- OUTSIDE RECORDS SUMMARY | ~2019-07-27 | XMS | Encounter Summary ---
Demographics + + + | Address | [address] | | | [place] [address] | + + + | Home Phone | | + + + | Preferred Language | Unknown | + + + | Marital Status | Single | + + + | Oriental Orthodox Affiliation | CHR | + + [...] Team Providers + +------+ + | Care Spring Former Hand Name | Role | Phone | + +------+ + | Ganesh Hudson DO | PCP | | + +------+ + Reason for Referral Diagnostic Testing (Routine) +--------+--------+ + + + + | Status | Reason | Specialty | Diagnoses / | Referred By | Referred To | | | | | Procedures | Contact | Contact | +--------+--------+ + + + + | Closed | | Radiology | Diagnoses | Burak, | Rad Nuc Med | | | | | Malignant | MD King | [facility] [address] | | | | | neoplasm of | [address] | [address] | | | | | tongue, | [address] | [address] | | | | | unspecified | Rd | Fransico Parisi, | | | | | site | [place], [place] | Basement | | | | | Procedures | [address] | [place], [place] | | | | | [place] LYMPH | Phone: | [phone] | | | | | INJECTION | [phone] | Phone: | | | | | SENTINEL | Fax: | [phone] | | | | | NODE ONLY | [phone] | Fax: | | | | | | | [phone] | +--------+--------+ + + + + Encounter Details +--------+ + + + + | Date | Type | Department | Care Team | Description | +--------+ + + + + | 06/12/ | Telephone | Otolaryngology | King Sumner, | | | 2011 | | Head and Neck | MD [address] | | | | | Surgery Services at | [facility] | | | | | [address]PV [address] | [place], [place] | | | | | [address] | [address] | | | | | Physician's | [phone] | | | | | Pavilion, 2nd floor | | | | | | [place], [place] | | | | | | [address] | | | | | | [phone] | | | +--------+ + + + [...] on filedocumented as of this encounter Results [place] LYMPH INJECTION SENTINEL NODE ONLY (06/28/2011 [...] | + + | Malignant neoplasm of tongue, unspecified site - Primary | + + documented in this encounter"
--- OUTSIDE RECORDS SUMMARY | ~2019-07-27 | XMS | Encounter Summary ---
Demographics + + + | Address | [address] | | | [place] [address] | + + + | Home Phone | | + + + | Preferred Language | Unknown | + + + | Marital Status | Single | + + + | Episcopalian Affiliation | CHR | + + + [...] Team Providers + +------+ + | Care Peer Financial Counselor Name | Role | Phone | + [...] | +--------+ + + + + | 06/26/ | Hospital | Cardiac | Sjh, Car Ecg Tech | | | 2011 | Encounter | Non-Invasive Testing | [address] [facility] | | | | | at [facility] | [facility] | | | | | [address] | [place] [address] | | | | | Loop [facility] | | | | | | [place], [address] [place] [address] | | | | | | [place], [place] | | | | | | [address] | | | | | | [phone] | | | +--------+ + + + [...] + + documented in this encounter Results 12 LEAD ECG (06/27/2011 2:19 PM PDT) [...] | | | | | TREMAINE ROBLES ([id number]) | | | | | | on 06/27/2011 4:06:46 PM | | | | + + + + + + + + | Specimen | + + | | + + + + + | Narrative | Performed At | + + + | Please click | [facility] | | on view image for the detailed interpretation from [employer] results. | CARDIOLOGY | + + + + + + + + | Performing | Address | City/State/Zipcode | Phone Number | | Organization | | | | + + + + + | [facility] | [address] | [place], [place] | | | CARDIOLOGY | [address] | [address] | | + + + + + documented in this encounter Visit Diagnoses Not on filedocumented in this encounter
--- OUTSIDE RECORDS SUMMARY | ~2019-07-27 | XMS | Encounter Summary ---
Demographics + + + | Address | [address] | | | [place] [address] | + + + | Home Phone [...] Author + + + | Author | [facility] | + + + | Organization | [facility] | + + + | [...] Team Providers + +------+ + | Care Engine Room Operator Name | Role | Phone | [...] | | Malignant | MD King | [facility] [address] | | | | | neoplasm of | [address] | Pav[address] | | | | | tongue, | [address] | [address] | | | | | unspecified | Rd | Fransico Fuller, | | | | | site | [place], [place] | Basement | | | | | Procedures | [address] | [place], [place] | | | | | NM LYMPH | Phone: | [phone] | | | | | INJECTION | [phone] | Phone: | | | | | SENTINEL | Fax: | [phone] | | | | | NODE ONLY | [phone] | Fax: | | | | | | | [phone] | +--------+--------+ + + + + Reason for Visit AUTH/CERT (Routine) +--------+--------+ [...] + + + + | 06/27/ | Hospital | [facility] [address] | King Sumner, | | | 2011 - | Encounter | [place] Mailcode: | [address] [facility] | | | | | [address] | [address] | | | 06/29/ | | [place], | [place], [place] | | | 2011 | | [place] [address] | [address] | | | | | [phone] | [phone] | | | | | | | [...] Otolaryngology (Head & Neck Surgery), please call: [phone]. For Extreme Emergencies: Call 911 Special Instructions: No drinking alcohol while on [...] and walk. You may also take an leou-vna-bhwlytv stool softener (Docusate or C olace). Follow the directions on the label. Miralax is also helpful to relieve constipation. Call the Resident on-call at [phone] if you have any of the following [...] 4:00 pm, call the Otolaryngology clinic at [phone]. Somebody will try to answer your call b efore the end of the business day. Destination: [...] documented as of this encounter Progress Notes Raquel Cedeno MD - 06/30/2011 7:23 AM PDTFormatting of this note might be differen t from the original. INPATIENT PROGRESS NOTE [...] Raquel Cedeno MD Resident Department of Surgery [facility] ITAKrAna rollins - 06/29/2011 3:07 PM PDTPatient Name: VICKI [...] is driving her to daughter's home in [facility] [place] [place]. She will stay there a few days before returning to her home in [place]. She is very active prior to admission. No case managment needs anticipated. Electronically signed by:Ana Beltran Position:Physician In Private Practice Pager ID:[phone] 12 3:07 PM Ana Louis - 06/29/2011 2:49 PM PDTPatient Name: VICKI ERIC Date of : 1930 CARE COORDINATION ROUNDING NOTE Care Coordination rounds held. Disciplines attending included: Physician In Private Practice,, Living Supervisor,, Bedside RN,, budder, Electronically signed by:Ana Beltran Position:Physician In Private Practice Pager ID:[phone] 12 2:49 PM Shilpi Gibson SLP - [...] HISTORY: The patient currently lives outside of [place], [place]. Her children live approximately 30 mi [...] visit with Dr. Sumner. Shilpi Burris M.S., PHLEBOTOMY SERVICES REPRESENTATIVE-CFY Speech-Language Pathology Clinical Fellow [facility] Otolaryngology, Head & Neck Surgery [facility] Pager [phone] ed Ceja MD - 06/29/2011 7:47 AM [...] Department of Otolaryngoly- Head and Neck Surgery [facility] . iller, Matt Blue MD - 06/28/2011 1:23 PM PDTINPATIENT BRIEF OPERATIVE NOTE Procedure Date: 06/28/2011 Author: MATT MARTINO MD Attending Physician: Dr. Sumner Assistants: Devika White NP Preoperative Diagnosis: T1 N0 M0 SCC [...] Cedeno MD - 06/28/2011 10:33 PM PDT [id number] | | [id number] JIMBO [place] | | [id number] Date: 06/28/2011 Attending Surgeon: King Sosa | | Gregg Sumner Support Director(s): Raquel Cedeno M.D. | | Preoperative Diagnosis(es):Recurrent [...] | was then irrigated. Hemostasis was ensured. A7-Indian flat PURVI drain was placed in the [...] Raquel Cedeno, | | Gregg Sumner M.D. [facility] / [id number] / [id number] / [id number] / T: | | 06/28/2011 | |An [...] then irrigated. Hemostasis was ensured. A | |7-Indian flat PURVI drain was placed in the [...] Sumner M.D. | | | | | |[facility] / | |[id number] / [id number] / [id number] / | | | | | | [...] | + + + + + | [facility] | [address] | [place] [address] | | | PATHOLOGY | [address] [...] with | | | | | | Sumner following | | | | | | [...] | | + +---------+ + + | [facility] DEPARTMENT OF | | | | | RADIOLOGY | | | | + +---------+ + + ORDERS OTHER (06/28/2011 12:00 AM PDT) + + + | Narrative | Performed At | + + + | | | + + + + + | Transcriptions | + + | Moon Dos Santos - 07/10/2011 4:41 PM PDT | + [...] | | | | | | Grade: K8Obpmuqs: | | | | | | Negative for invasive | | | | | | carcinomaAngiolymphatic | | | | | | Invasion: | | | | | | AbsentPerineural | | | | | | Invasion: | | | | | | AbsentLymph Nodes, | | | | | | Extranodal Extension: | | | | | | Not identifiedAJCC Stage | | | | | | (7th Edition) (pTNM)TNM | | | | | | Descriptors: r | | | | | | (recurrent)Primary Tumor | | | | | | (pT): aW9Pxhthtop Lymph | | | | | | Nodes (pN): | | | | | | mZ5Yoheib of regional | | | | | [...] Hunter | | | | | | Leyla/Teressa | | | | | | and [...] nodes: | | | | | | Sutxsb-hj-boxSfpd of | | | | | | [...] | + + + + + | [facility] | [address] | [place] [address] | | | PATHOLOGY | [address] | | | + + + + + documented in this encounter Visit Diagnoses + + | Diagnosis | + + | Malignant neoplasm of tongue, unspecified site - Primary | + + | Tongue cancer (HCC) Malignant neoplasm of tongue, unspecified site | + + documented in this encounter Administered Medications + +--------+ +--------+------+------+ | Medication Order | MAR | Action | Dose | Rate | Site | | | Action | Date | | | | + +--------+ +--------+------+------+ | acetaminophen (aka TYLENOL) | Given | 06/30/19 | 650 mg | | | | oral suspension 325-650 mg | | 12 6:17 | | | | | 325-650 mg, oral, EVERY 4 HOURS | | AM PDT | | | | | NEEDED, Starting Kim 06/28/11 | | | | | | | at 2338, Until 06/30/11 at | | | | | | | 1746, mild pain | | | | | | + +--------+ +--------+------+------+ +-------+ +--------+---+---+ | Given | 06/29/19 | 650 mg | | | | | 12 10:21 | | | | | | PM PDT | | | | +-------+ +--------+---+---+ | Given | 06/29/19 | 650 mg | | | | | 12 4:48 | | | | | | PM PDT | | | | +-------+ +--------+---+---+ +---+---+ | | | +---+---+ + +-------+ +-------+---+---+ | chlorhexidine (aka PERIDEX) | Given | 06/30/19 | 15 mL | | | | mouthwash 15 mL 15 mL, oral, | | 12 9:13 | | | | | EVERY 6 HOURS, First dose on Kim | | AM PDT | | | | | 06/28/11 at 1730, Until | | | | | | | Discontinued | | | | | | + +-------+ +-------+---+---+ +-------+ +-------+---+---+ | Given | 06/29/19 | 15 mL | | | | | 12 10:21 | | | | | | PM PDT | | | | +-------+ +-------+---+---+ | Given | 06/29/19 | 15 mL | | | | | 12 4:51 | | | | | | PM PDT | | | | +-------+ +-------+---+---+ +---+---+ | | | +---+---+ + +---------+ + + +---+ | dextrose 5%-NaCl 0.45%-KCl 20 | New Bag | 06/29/19 | 75 mL/hr | 75 mL/hr | | | mEq/L IV infusion 75 mL/hr, | | 12 4:31 | | | | | intravenous, CONTINUOUS, Starting | | AM PDT | | | | | Kim 06/28/11 at 1430, Until Fri | | | | | | | 06/29/11 at 1658 | | | | | | + +---------+ + + +---+ +---------+ + + +---+ | New Bag | 06/28/19 | 75 mL/hr | 75 mL/hr | | | | 12 4:27 | | | | | | PM PDT | | | | +---------+ + + +---+ +---+---+ | | | +---+---+ + +---------+ +--------+--------+---+ | fentaNYL citrate (PF) (aka | New Bag | 06/28/19 | 25 mcg | mL/hr | | | SUBLIMAZE) injection 25 mcg 25 | | 12 3:34 | | | | | mcg, intravenous, POSTPROCEDURE | | PM PDT | | | | | PRN, Starting Kim 06/28/11 at | | | | | | | 1248, Until Kim 06/28/11 at 1707, | | | | | | | moderate pain | | | | | | + +---------+ +--------+--------+---+ +---------+ +--------+--------+---+ | New Bag | 06/28/19 | 25 mcg | mL/hr | | | | 12 2:35 | | | | | | PM PDT | | | | +---------+ +--------+--------+---+ | New Bag | 06/28/19 | 25 mcg | mL/hr | | | | 12 2:31 | | | | | | PM PDT | | | | +---------+ +--------+--------+---+ + +---+ | | | + +---+ | fentaNYL citrate (PF) (aka | | | SUBLIMAZE) injection 1 dose, | | | Starting Kim 06/28/11 at 1430, | | | Until Kim 06/28/11 at 1431 | | + +---+ | | | + +---+ + +-------+ + +---+---+ | HYDROcodone-acetaminophen (aka | Given | 06/30/19 | 1 tablet | | | | NORCO) 5-325 mg tablet 1-2 Tab | | 12 11:33 | | | | | 1-2 tablet, oral, EVERY 4 HOURS | | AM PDT | | | | | NEEDED, Starting Kim 06/28/11 | | | | | | | at 1723, Until 06/30/11 at | | | | | | | 1746, mild pain, moderate pain | | | | | | + +-------+ + +---+---+ +-------+ + +---+---+ | Given | 06/30/19 | 1 tablet | | | | | 12 9:57 | | | | | | AM PDT | | | | +-------+ + +---+---+ +---+---+ | | | +---+---+ + +---------+ +--------+--------+---+ | HYDROmorphone (aka DILAUDID) | New Bag | 06/28/19 | 0.2 mg | mL/hr | | | injection 0.2-0.5 mg 0.2-0.5 mg, | | 12 3:33 | | | | | intravenous, POSTPROCEDURE PRN, | | PM PDT | | | | | Starting Kim 06/28/11 at 1248, | | | | | | | Until Kim 06/28/11 at 1707, | | | | | | | moderate pain | | | | | | + +---------+ +--------+--------+---+ +---------+ +--------+--------+---+ | New Bag | 06/28/19 | 0.3 mg | mL/hr | | | | 12 2:44 | | | | | | PM PDT | | | | +---------+ +--------+--------+---+ + +---+ | | | + +---+ | HYDROmorphone (aka DILAUDID) | | | injection 1 dose, Starting Kim | | | 06/28/11 at 1442, Until Kim | | | 06/28/11 at 1444 | | + +---+ | | | + +---+ + +-------+ +-------+---+---+ | omeprazole (aka PRILOSEC) | Given | 06/30/19 | 20 mg | | | | capsule 20 mg 20 mg, oral, | | 12 9:13 | | | | | DAILY, First dose on Sat06/29/11 | | AM PDT | | | | | at 0900, Until Discontinued | | | | | | + +-------+ +-------+---+---+ +---+---+ | | | +---+---+ + +-------+ +------+---+---+ | ondansetron ODT (aka ZOFRAN | Given | 06/29/19 | 8 mg | | | | ODT) tablet 8 mg 8 mg, oral, | | 12 7:01 | | | | | EVERY 8 HOURS NEEDED, Starting | | AM PDT | | | | | Kim 06/28/11 at 2049, Until Sat | | | | | | | 4/28/12 at 1746, nausea/vomiting | | | | | | + +-------+ +------+---+---+ +-------+ +------+---+---+ | Given | 06/28/19 | 8 mg | | | | | 12 10:36 | | | | | | PM PDT | | | | +-------+ +------+---+---+ +---+---+ | | | +---+---+ + +-------+ +-------+---+---+ | oxybutynin CR (aka DITROPAN-XL) | Given | 06/30/19 | 15 mg | | | | tablet 15 mg 15 mg, oral, | | 12 9:13 | | | | | DAILY, First dose on Sat06/29/11 | | AM PDT | | | | | at 0900, Until Discontinued | | | | | | + +-------+ +-------+---+---+ +---+---+ | | | +---+---+ + +-------+ + +---+---+ | senna-docusate (aka RYLEE S) | Given | 06/30/19 | 1 tablet | | | | 8.6-50 mg 1 Tab 1 tablet, oral, | | 12 9:13 | | | | | TWICE DAILY, First dose on Sat | | AM PDT | | | | | 06/28/11 at 2100, Until | | | | | | | Discontinued | | | | | | + +-------+ + +---+---+ +-------+ + +---+---+ | Given | 06/29/19 | 1 tablet | | | | | 12 10:30 | | | | | | PM PDT | | | | +-------+ + +---+---+ +---+---+ | | | +---+---+ + +-------+ +---------+---+---+ | triamterene-hydrochlorothiazide | Given | 06/30/19 | 1 | | | | (aka DYAZIDE, MAXZIDE) 37.5-25 | | 12 9:13 | capsule | | | | mg 1 Cap 1 capsule, oral, DAILY, | | AM PDT | | | | | First dose on Sat06/29/11 at | | | | | | | 0900, Until Discontinued | | | | | | + +-------+ +---------+---+---+ +---+---+ | | | +---+---+ documented in this encounter
--- OUTSIDE RECORDS SUMMARY | ~2019-07-27 | XMS | Encounter Summary ---
Demographics + + + | Address | [address] | | | [place] [address] | + + + | Home Phone | | + + + | Preferred Language | Unknown | + + + | Marital Status | Single | + + + | Synagogue Affiliation | CHR | + + + | Race | White | + + + | Ethnic Group | Not or | + + + Author + + + | Author | [facility] | + + + | Organization | [facility] | + + + | Address | [...] Team Providers + +------+ + | Care Rock Lather Name | Role | Phone | + [...] [address] | | | | | | [place] [address] | | | | | | [phone] | | | +--------+ + + + [...]
--- OUTSIDE RECORDS SUMMARY | ~2019-07-27 | XMS | Encounter Summary ---
Demographics + + + | Address | [address] | | | [place] [address] | + + + | Home Phone | | + + + | Preferred Language | Unknown | + + + | Marital Status | Single | + + + | Advent Affiliation | CHR | + + + | Race | White | + + + | Ethnic Group | Not or | + + + Author + + + | Author | [facility] | + + + | Organization | [facility] | + + + | Address [...] Team Providers + +------+ + | Care Goat Herder Name | Role | Phone | + [...] | | | | tongue, | | [facility] | | | | | unspecified | | [address] [place], | | | | | site | | [place] | | | | | | | [address] | | | | | | | Phone: | | | | | | | [phone] | | | | | | | Fax: | | | | | | | [phone] | +--------+--------+ + + + + Encounter [...] | | | [facility] [address] | [facility] [place] | | | | | [address] | [address] | | | | | Physician's | [phone] | | | | | Pavilion, 2nd floor | | | | | | [place], [place] | | | | | | [address] | | | | | | [phone] | | | +--------+---------+ + + + [...]
--- OUTSIDE RECORDS SUMMARY | ~2019-07-27 | XMS | Encounter Summary ---
Demographics + + + | Address | [address] | | | [place] [address] | + + + | Home Phone | | + + + | Preferred Language | Unknown | + + + | Marital Status | Single | + + + | Jehovah'S Witness Affiliation | CHR | + + + | Race | White | + + + | Ethnic Group | Not or | + + + Author + + + | Author | [facility] | + + + | Organization | [facility] | + + + | Address | [...] Team Providers + +------+ + | Care Complaint Supervisor Name | Role | Phone | [...] [address] | | | | | | [facility] | [facility] | | | | | | Rd | Rd [place], | | | | | | [place], [place] | [place] | | | | | | [address] | [address] | | | | | | Phone: | Phone: | | | | | | [phone] | [phone] | | | | | | Fax: | Fax: | | | | | | [phone] | [phone] | +--------+--------+ + + + + Encounter [...] | | | Surgery Services at | [facility] [address] | | | | | [address] | [place], [place] | | | | | [address] | [address] | | | | | Physician's | [phone] | | | | | Pavilion, 2nd floor | | | | | | [place], [place] | | | | | | [address] | | | | | | [phone] | | | +--------+---------+ + + + [...] at home. She drove herself here from [employer]. 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
--- OUTSIDE RECORDS SUMMARY | ~2019-07-27 | XMS | Encounter Summary ---
Demographics + + + | Address | [address] | | | [place] [address] | + + + | Home Phone | | + + + | Preferred Language | Unknown | + + + | Marital Status | Single | + + + | Mosque Affiliation | CHR | + + + | Race | White | + + + | Ethnic Group | Not or | + + + Author + + + | Author | [facility] | + + + | Organization | [facility] | + + + | Address [...] Team Providers + +------+ + | Care Tank Tester Name | Role | Phone | + [...] Services at | [facility] | coming in on 07/21, | | | | [address] | [place], [place] | wants to know if he | | | | [address] | [address] | will be able to take | | | | Physician's | [phone] | the lesion off on | | | | [address] floor | | this day?) | | | | [place] | | | | | | [address] | | | | | | [phone] | | | +--------+ + + + [...]
--- OUTSIDE RECORDS SUMMARY | ~2019-07-27 | XMS | Encounter Summary ---
Demographics + + + | Address | [address] | | | [place] [address] | + + + | Home Phone [...] Author + + + | Author | [facility] | + + + | Organization | [facility] | + + + | Address | Unknown | + + + | Phone | Unavailable | + + + Support + + +---------+ + | Name | Relationship | Address | Phone | + + +---------+ + | Vicki Vreonica | ECON | Unknown | | + + +---------+ + | Gabino Solis | ECON | Unknown | | + + +---------+ + Care Team Providers + +------+ + | Care Loan Secretary Name | Role | Phone | + +------+ + | Joycelyn Aguilar PA-C | PCP | | + +------+ + Encounter Details +--------+ + + + + | Date | Type | Department | Care Team | Description | +--------+ + + + + | 10/09/ | Outside | UNKNOWN DEPARTMENT | Other, Faculty | | | 2018 | Records | [address] [facility] | [phone] | | | | | [address] | | | | | | [place], [place] | | | | | | [address] | | | +--------+ + + + [...] | + +--------+ + + + | OUTSIDE LAB - | | 10/09/2017 | | Results for this | | CHEMISTRY | | 12:00 AM | | procedure are in the | | | | PDT | | results section. | + +--------+ + + + documented in this encounter Results OUTSIDE LAB - CHEMISTRY (10/09/2017 12:00 AM PDT) + + + | Narrative | Performed At | + + + | | | + + + documented in this encounter Visit Diagnoses Not on filedocumented in this encounter"
--- OUTSIDE RECORDS SUMMARY | ~2019-07-27 | XMS | Encounter Summary ---
Demographics + + + | Address | [address] | | | [place] [address] | + + + | Home Phone [...] Team Providers + +------+ + | Care Direct Support Professional Name | Role | Phone | + [...] | | | | tongue, | | [facility] | | | | | unspecified | | Rd [place], | | | | | site | | [place] | | | | | | | [address] | | | | | | | Phone: | | | | | | | [phone] | | | | | | | Fax: | | | | | | | [phone] | +--------+--------+ + + + + Encounter [...] | | | Surgery Services at | [facility] | | | | | [address] | [facility] [place] | | | | | [address] | [address] | | | | | Physician's | [phone] | | | | | Pavilion, 2nd floor | | | | | | [place], [place] | | | | | | [address] | | | | | | [phone] | | | +--------+---------+ + + + [...]
--- OUTSIDE RECORDS SUMMARY | ~2019-07-27 | XMS | Encounter Summary ---
Demographics + + + | Address | [address] | | | [place] [address] | + + + | Home Phone [...] Team Providers + +------+ + | Care Hr Analyst Name | Role | Phone | + [...] + | Closed | | Otolaryngolog | Procedures | Non-[facility] | Ent Head | | | | y | [place] | Epic Dept | Neck Ppv | | | | | OFFICE/OUTPT | | [address] | | | | | | | [address] | | | | | VISIT,EST,LE | | Physician's | | | | | [address] | | Pavilion, | | | | | | | 2nd floor | | | | | | | [place], [place] | | | | | | | [address] | | | | | | | Phone: | | | | | | | [phone] | | | | | | | Fax: | | | | | | | [phone] | +--------+--------+ + + + + Encounter Details +--------+---------+ + + + | Date | Type | Department | Care Team | Description | +--------+---------+ + + + | 04/19/ | Office | Otolaryngology | King Sumner, | Tongue cancer (HCC) | | 2016 | Visit | Head and Neck | MD [address] | (Primary Dx) | | | | Surgery Services at | [facility] [address] | | | | | [address] | [place], [place] | | | | | [address] | [address] | | | | | Physician's | [phone] | | | | | Pavilion, 2nd floor | | | | | | [place], [place] | | | | | | [address] | | | | | | [phone] | | | +--------+---------+ + + + [...] + + + | Blood Pressure | 142/80 | 04/19/2015 8:27 AM | | | | | PST | | + + + + + | Pulse | 95 | 04/19/2015 8:27 AM | | | | | PST [...] + + + + | Weight | 52.2 kg (115 lb) | 04/19/2015 8:27 AM | | | | | PST | | + + + + + | Height | 157.5 cm (5' 2") | 04/19/2015 8:27 AM | | | | | PST | | + + + + + | Body Mass Index | 21.03 | 04/19/2015 8:27 AM | | | | | PST | | + + + + + documented in this encounter Progress Notes King Sumner MD - 05/04/2015 9:42 AM PSTOtolaryngology Head & Neck Surgery Clinic Note Identification: Annette Eric is a 82 y.o. female with history of tongue cancer, first diagn osed in 2001, treated with multiple excisions, most recently 2011 Past Surgeries: 06/28/2011 1. Left partial glossectomy. 2. Left neck sentinel lymph node biopsy. Interval/subjective: Ms. Eric hasn't been seen since October 2013. In December, she developed a small painful are a on the left lateral aspect of her tongue. She also fell and bit her tongue recently, but t his has healed. Medications: Aspirin 81 mg Oral Tablet, Take 81 mg by mouth once daily. Indications: Myocardial Reinf arction Prevention BETA-CAROTENE,A, W-C & E/MIN (OCUVITE OR), Take by mouth. ERGOCALCIFEROL, VITAMIN D2, (VITAMIN D ORAL), Take by mouth. famotidine 20 mg oral tablet, LATANOPROST 0.005 % ophthalmic drops, omeprazole 20 mg Oral Capsule, Delayed Release(E.C.), Take 20 mg by mouth once daily. oxybutynin CR 15 mg Oral Tablet Extended Rel 24 hr, Take 15 mg by mouth once daily. potassium chloride SR 10 mEq oral tablet,ER particles/crystals, simvastatin 40 mg Oral Tablet, Take 40 mg by mouth once daily in the evening. triamterene-hydrochlorothiazide 37.5-25 mg Oral Capsule, 1D VALACYCLOVIR 500 mg oral tablet, OBJECTIVE: BP 142/80 | Pulse 95 | Ht 1.575 m (5' 2") | Wt 52.164 kg (115 lb) | BMI 21.03 kg/(m^2) Gen: awake, alert, interactive, appropriate, no acute distress. Appears comfortable. Eyes: Pupils equal, round and reactive. Extraocular motions intact. Face: no suspicious cutaneous lesions noted of the face or head. Normal facial nerve funct ion. Salivary Glands: The salivary glands are soft and show no lesions or masses within the par otid or submandibular glands bilaterally. Oral Cavity: Normal lips and oral competence are noted. The dentition is absent in the ma ndible. There are no focal masses or lesions on the tongue. The area she points to being sor e has a small focus of scar tissue. The rest of the mucosa of the lips, buccal mucosa, agdaagux te shows no lesions or masses. Oropharynx: The [...] midline. Shoulder shrug and neck rotation normal. ASSESSMENT: Annette Eric is a 82 y.o. female patient who presents for follow up of left tongue cancer. No new lesion or mass noted today. PLAN: 1. Follow up in July for re-evaluation given multiple resections. 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
--- OUTSIDE RECORDS SUMMARY | ~2019-07-27 | XMS | Encounter Summary ---
Demographics + + + | Address | [address] | | | [place] [address] | + + + | Home Phone | | + + + | Preferred Language | Unknown | + + + | Marital Status | Single | + + + | Adventism Affiliation | CHR | + + + [...] Team Providers + +------+ + | Care Vegetable Cook Name | Role | Phone | + [...] | | | | [address] | [address] | | | | | | [address] | [address] | | | | | | [place] | [place], | | | | | | [place] [address] | [place] | | | | | | Phone: | [address] | | | | | | [phone] | Phone: | | | | | | Fax: | [phone] | | | | | | [phone] | Fax: | | | | | | | [phone] | +--------+--------+ + + + + Encounter [...] | | | Surgery Services at | [facility] [address] | | | | | [address] | [place], [place] | | | | | [address] | [address] | | | | | Physician's | [phone] | | | | | [address], 2nd floor | | | | | | [place], [place] | | | | | | [address] | | | | | | [phone] | | | +--------+---------+ + + + [...] in Carmita michelinehuma's note. King Sumner MD Leather Sprayer of Otolaryngology, Head & Neck Surgery sha [...] Sore spot on L lateral region of dkjzux-mtqxqplor-zmgtdcoc irritation of the scar Plan: Reviewed neg findings with pt, if sore reappears, pt will call office to set up appt for re -eval documented in this en counter Plan of Treatment + + +--------+ + + | Name | Type | Priori | Associated Diagnoses | Order Schedule | | | | ty | | | + + +--------+ + + | [facility] LARYNGOSCOPY,FLEX | Procedures | Routin | Tongue Sore | Ordered: 07/25/2007 | | FIBER,DIAGNOSTIC | | e | | | + + +--------+ + + documented as of this encounter Visit Diagnoses + + | Diagnosis | + + | Tongue sore - Primary Glossodynia | + + documented in this encounter"
--- OUTSIDE RECORDS SUMMARY | ~2019-07-27 | XMS | Encounter Summary ---
Demographics + + + | Address | [address] | | | [place] [address] | + + + | Home Phone [...] | [facility] | | | and [place] | + + + | Organization | [facility] | | | [...] Team Providers + +------+ + | Care Nipping Machine Operator Name | Role | Phone | + +------+ + | Ganesh Hudson DO | PCP | | + +------+ + Encounter Details +--------+ + + + + | Date | Type | Department | Care Team | Description | +--------+ + + + + | 08/15/ | [facility] | [facility] | | | 2012 | Encounter | [facility]Y | MD [address] | | | | | CENTER [address] | [address] | | | | | [address] [place] | [place] [address] | | | | | [address] | [phone] | | | | | [phone] | | | +--------+ + + + [...]
--- OUTSIDE RECORDS SUMMARY | ~2019-07-27 | XMS | Encounter Summary ---
Demographics + + + | Address | [address] | | | [place] [address] | + + + | Home Phone | | + + + | Preferred Language | Unknown | + + + | Marital Status | | + + + | Temple Affiliation | 1077 | + + + | Race | Unknown | + + + | Ethnic Group | Unknown | + + + Author + + + | Author | [facility] | | | and [place] | + + + | Organization | [facility] | | | and [...] Team Providers + +------+ + | Care Mold Checker Name | Role | Phone | + [...] [address] | | | | | [address] | [facility] | | | | | [address] | [place] [address] | | | | | [address] | [phone] | | | | | [phone] | | | +--------+ + + + [...] MRI evaluation. | | | JOB #: [id number] Read By: ROSE MARIE COHEN MD Released [...] | | consider MRI evaluation. JOB #: [id number] Read By: ROSE MARIE COHEN MD | [...] | | | | | |JOB #: [id number] | | | |Read By: ROSE MARIE COHEN MD | | | |Released By: ROSE MARIE COHEN MD | |Date: 08/23/2014 08:08 | | | | | + + documented in this encounter Visit Diagnoses Not on filedocumented in this encounter"
--- OUTSIDE RECORDS SUMMARY | ~2019-07-27 | XMS | Clinical Summary ---
Demographics + + + | Address | [address] | | | [place] [address] | + + + | Home Phone | | + + + | Preferred Language | Unknown | + + + | Marital Status | Single | + + + | Scientology Affiliation | CHR | + + + [...] Team Providers + +------+ + | Care Special Education Supervisor Name | Role | Phone | + +------+ + | Joycelyn Aguilar PA-C | PCP | | + +------+ + Source Comments HANNA is fully live on both EpicCare Ambulatory and EpicCare InPatient.Replaced By [facility] Allergies + + + + + [...] Nausea, | | 06/28/19 | | | Puwk-Ujhyexuq-Frwwg | Nausea and Vomiting | | 12 [...] | 08/2 | | Activ | | zflphaej-yopdctpbh-c | eyelid incisions | | | 2/20 [...] | | | | | | | [address] | | + +--------+ +--------+ + +--------+ | [employer] | TRANSA | xxxxxxxxx | 04/04/19 | [phone] | [address] | POS | | MEDICARE SUPPLEMENT | [place] | | 15-Pre | 2 | [address] | | | | | | sent | | [place] | | | | MEDICA | | | | [id number] | | | | RE | | [...] Person | Self | [birth year] | [address] | | | parveen/Jason | | 1931 | [phone] | [place] [address] | | | glen | | | 4 (Home) | | | | | | | [phone] | | | | | | | 6 (Work) | | + +--------+ +--------+ + + Advance Directives + + + + + | Type | Date Recorded | Patient | Explanation | | | | Heel Coverer | | + + + + + | Advance | | | | | Directives and | | | | | Living Will | | | | + + + + + | Power of | | | | | Shuttle Operator | | | | + + + [...]
--- OUTSIDE RECORDS SUMMARY | ~2019-07-27 | XMS | Encounter Summary ---
Demographics + + + | Address | [address] | | | [place] [address] | + + + | Home Phone | | + + + | Preferred Language | Unknown | + + + | Marital Status | | + + + | Faith Affiliation | 1077 | + + + | Race | Unknown | + + + | Ethnic Group | Unknown | + + + Author + + + | Author | [facility] | | | and [place] | + + + | Organization | [facility] | | | [...] Team Providers + +------+ + | Care Transfer Machine Operator Name | Role | Phone [...] | | | | [address] | [place] [address] | | | | | [place] [address] | | | | | | [phone] | | | +--------+ + + + [...] + +--------+ + + + | CT HEAD WO CONTRAST | Routin | 09/18/2018 | | Results for this | | | e | 12:00 AM | | procedure are in the | | | | PDT | | results section. | + +--------+ + + + documented in this encounter Results CT Head wo Contrast (09/18/2018 12:00 AM PDT) + + | Specimen | [...]
--- OUTSIDE RECORDS SUMMARY | ~2019-07-27 | XMS | Encounter Summary ---
Demographics + + + | Address | [address] | | | [place] [address] | + + + | Home Phone [...] Team Providers + +------+ + | Care Turkish Line Attendant Name | Role | Phone | [...] floor | | | | | | [place], [place] | | | | | | [address] | | | | | | [phone] | | | +--------+---------+ + + + [...]
--- OUTSIDE RECORDS SUMMARY | ~2019-07-27 | XMS | Encounter Summary ---
Demographics + + + | Address | [address] | | | [place] [address] | + + + | Home Phone [...] Team Providers + +------+ + | Care Circular Ripsaw Operator Name | Role | Phone | [...] | | Malignant | MD King | [facility] [address] | | | | | neoplasm of | [address] | Pavilion | | | | | tongue, | [address] | [address] | | | | | unspecified | Rd | [address], | | | | | site | [place], [place] | Basement | | | | | Procedures | [address] | [place], [place] | | | | | [place] LYMPH | Phone: | [phone] | | | | | INJECTION | [phone] | Phone: | | | | | SENTINEL | Fax: | [phone] | | | | | NODE ONLY | [phone] | Fax: | | | | | | | [phone] | +--------+--------+ + + + + Encounter [...] | | | [address] | [place], [place] | | | | | [address] | [address] | | | | | Physician's | [phone] | | | | | Pavilion, 2nd floor | | | | | | [place], [place] | | | | | | [address] | | | | | | [phone] | | | +--------+ + + + [...]
--- OUTSIDE RECORDS SUMMARY | ~2019-07-27 | XMS | Encounter Summary ---
Demographics + + + | Address | [address] | | | [place] [address] | + + + | Home Phone | | + + + | Preferred Language | Unknown | + + + | Marital Status | Single | + + + | Yazdanism Affiliation | CHR | + + + [...] Team Providers + +------+ + | Care Offensive Coordinator Name | Role | Phone | + +------+ + | Ganesh Hudson DO | PCP | | + +------+ + Encounter Details +--------+ + + + + | Date | Type | Department | Care Team | Description | +--------+ + + + + | 07/25/ | Documentati | Health Information | Other, Moon | | | 2018 | on | Services [address] | [phone] | | | | | [address] | | | | | | Mailcode: [id number] | | | | | | [facility] | | | | | | [place], [place] | | | | | | [address] | | | | | | [phone] | | | +--------+ + + + [...]
--- OUTSIDE RECORDS SUMMARY | ~2019-07-27 | XMS | Encounter Summary ---
Demographics + + + | Address | [address] | | | [place] [address] | + + + | Home Phone [...] Team Providers + +------+ + | Care Conformal Pad Former Name | Role | Phone | + +------+ + PCP | Unavailable | + +------+ + Encounter Details +--------+ + + + + | Date | Type | Department | Care Team | Description | +--------+ + + + + | 04/15/ | Results | | Other, Faculty | | | 1992 | Only | | [phone] | | +--------+ + + + + [...] | | + +---------+ + + | [facility] DEPARTMENT OF | | | | | RADIOLOGY | | | | + +---------+ + + documented in this encounter Visit Diagnoses Not on filedocumented in this encounter"
--- OUTSIDE RECORDS SUMMARY | ~2019-07-27 | XMS | Encounter Summary ---
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 | | | | [address] | [place] | eyelids of both eyes | | | | [place], [place] | [address] | (Primary Dx); Lid | | | | [address] | [phone] | retraction of right | | | | [phone] | | eye; Lid retraction | | | | | | of left eye; | | | | | | Acquired | | | | | | nasolacrimal duct | | | | | | obstruction, | | | | | | bilateral; Acquired | | | | | | stenosis of lacrimal | | | | | | punctum of both | | | | | | sides | +--------+---------+ + + + Social History [...] documented as of this encounter Progress Notes Umu Quiroz - 08/20/2017 11:10 AM PDT10/23/17 CEI Bilateral lower lid ectropion repair MAC Bilateral lower lid retraction repair with midface lift (SOOF) Needs consent Gave LTP H&P w/ PCP Pt preferred surgery date of 10/23 to coordinate around multiple camping trips she has plann ed for this summer. She understands that we will set a post-operative appt for [place], but that she has the o ption to move appt out to [place] if doing well in the days following surgery. We want to ensure that she does have a time slot to see us in the event that she does need exam in the week following surgery which would require the trip to [place]. Mao Farrell MD - 08/02 11:10 AM PDT Annette Eric is a 86 y.o. female. Referred by: Randy Self Pain: No pain (0 of 0-10) Patient is referred for evaluation of bilateral ectropion with chronic irritation of both e yes. The has been a constant problem for the past several years, very bothersome. She had previous surgical repair attempted by two other surgeons, but didn't help. Review of systems: Medications, allergies, medical, surgical and family history were review ed by me at this visit utilizing a written patient history form. Pertinent positives noted in history. All else unless noted was negative (fever, wt. change, ENT, cardiovascular, respiratory, GI , urinary, skin, muscle, bones, joints, neurologic, behavioral,endocrine, psychiatric, bleed ing/blood disorders, AIDS/HIV, cancer or tumors, arthritis) Pertinent positives in the family history noted in history. All else unless noted was negative (endocrine, cancer or tumors, cardiovascular, cataracts, retina, strabismus, amblyopia, low vision or blindness, refractive error, glaucoma, color o r night blindness or unexplained vision loss). 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 Vasc Vacc VAph RE LE 20/80 HM Pupil Exam: +APD OS Motility: RE LE 0 0 0 0 0 0 0 0 Lid Measurements: RE (mm) LE (mm) Sup SS Crease HT VPF 10 10 LF MRDI 3 3 Inf SS 2 2 Lag 2 2 Facial Exam: Bilateral lower lids with laxity and poor snap back, +phan ectropion with poor globe appos ition +bilateral midface descent with lower lid retraction and lagophthalmos Adenopathy: None SLE: scarring behind left pupil, no view C/S quiet without masses OU K SPE inferiorly without infiltrate OU AC Deep and quiet OU Iris without neovascularization OU Lens PCIOL OD, no view OS Intraocular Pressure: RE 14 mm hg LE 15 mm hg Method Kee Posterior segment: M&N OU @ 11:05 Vitreous: clear, right eye. Fundus: Optic disc: 0.3 cup/disc ratio, pink, flat, right eye Macula: no edema or exudates, right eye. Vessels: no notching or hemorrhage, right eye Pe riphery: flat 360 without breaks or tears, right eye Left eye with no posterior view (scarring immediately behind the pupil) Basal Tear Secretion Test: RE 5, LE 5 Caruso testing performed bilaterally today, see attached details (punctal stenosis dilated, +complete NLDO bilaterally) External photos taken OU today. Photos demonstrate bilateral lower lid ectropion and midfa ce descent with retraction Impression: 1. 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 This will require either full-thickness skin grafting or midface lifting to correct 3. Poor vision OS since childhood, precluding full-thickness skin grafting/patching of righ t side 4. s/p previous bilateral lower lid surgery, failed due to inferior traction (#2) 5. Bilateral complete NLDO. No epiphora due to baseline dry eye Plan: Discussed surgical options, patient wishes to proceed as follows: Bilateral lower lid ectropion repair Bilateral lower lid retraction repair with midface lift (SOOF) MAC The procedure, alternatives and risks were discussed with the patient, including potential need for additional surgery, bleeding, infection, vision loss including blindness, pain, ner ve damage, and asymmetry. Questions were answered and patient wishes to proceed with surgery . No anticoagulants including aspirin, NSAIDS, vitamin E, HERBS, etc. perioperatively. Encour aged patient to check with PCP regarding prescription anticoagulant use prior to surgery. We discussed that if the patient needs to stay on anticoagulants perioperatively, the patient understands and accepts the increased risk of complications. Physician attestation: I have reviewed and edited history and rfid technician documentation, and performed all elements to above examination documentation. Mao Ayon M.D. Preparation Center Coordinator Ophthalmic Facial Plastic and Reconstructive Surgery documented in this encounter Plan of Treatment Not on filedocumented as of this encounter Procedures + +--------+ + + + | Procedure Name | Priori | Date/Time | Associated Diagnosis | Comments | | | ty | | | | + +--------+ + + + | PROBE NASOLACRIMAL | Routin | 08/20/2017 | Acquired | Results for this | | DUCT -OU - BOTH EYES | e | 1:35 PM | nasolacrimal duct | procedure are in the | | | | PDT | obstruction, | results section. | | | | | bilateral Acquired | | | | | | stenosis of lacrimal | | | | | | punctum of both | | | | | | sides | | + +--------+ + + + | ME EXTERNAL PHOTOS | Routin | 08/20/2017 | Cicatricial | | | | e | 1:34 PM | ectropion of lower | | | | | PDT | eyelids of both eyes | | | | | | Lid retraction of | | | | | | right eye Lid | | | | | | retraction of left | | | | | | eye | | + +--------+ + + + documented in this encounter Results PROBE NASOLACRIMAL DUCT -OU - BOTH EYES (08/20/2017 1:35 PM PDT) + + + | Narrative | Performed At | + + + | | | | Pre-ProcedureProcedures, alternatives and risks discussed with | | | patient. Questions answered., confirmed correct patient, procedure, | | | site and consent. AnesthesiaRight EyeAnesthesia: topical Anesthetic | | | Medication: Proparacaine 0.5% Left EyeAnesthesia: topical | | | Anesthetic Medication: Proparacaine 0.5% Procedure Bilateral | | | Caruso Testing Procedure Note: After instillation of topical | | | anesthesia, a Caruso dilator was used to dilate the bilateral upper and | | | lower puncta, and the bilateral nasolacrimal outflow systems were | | | probed with a 0-00 Mcpherson probe. Saline on a syringe with a lacrimal | | | cannula was used to irrigate the lacrimal systems without | | | complication. Results are as follows: Puncta: Right upper: no masses | | | or obstruction Right lower: stenotic, but able to dilate/probe Left | | | upper: no masses or obstruction Left lower: stenotic, but able to | | | dilate/probe Canaliculi: Right upper: no stenosis Right lower: no | | | stenosis Left upper: no stenosis Left lower: no stenosis Lacrimal Sac: | | | Right: No mass or pain to palpation Left: No mass or pain to | | | palpation Dye Retention test: Right: Positive Left: Positive Primary: | | | Right: Negative Left: Negative Secondary: Right: +regurg of dye thru | | | upper with irrigation of lower, nothing in nose Left: +regurg of dye | | | thru upper with irrigation of lower, nothing in nose Nasal exam: OK . | | | Estimated blood loss: none Post OpPatient tolerated the procedure | | | well. Complications: none Patient reported pain is 0 on a 0-10 scale. | | |follows: Puncta: Right upper: no masses or obstruction Right lower: | | |stenotic, but able to dilate/probe Left upper: no masses or obstruction | | |Left lower: stenotic, but able to dilate/probe Canaliculi: Right upper: no | | |stenosis Right lower: no stenosis Left upper: no stenosis Left lower: no | | |stenosis Lacrimal Sac: Right: No mass or pain to palpation Left: No mass | | |or pain to palpation Dye Retention test: Right: Positive Left: Positive | | |Primary: Right: Negative Left: Negative Secondary: Right: +regurg of dye | | |thru upper with irrigation of lower, nothing in nose Left: +regurg of dye | | |thru upper with irrigation of lower, nothing in nose Nasal exam: OK . | | |Estimated blood loss: none | | | | | | | | |Post Op | | |Patient tolerated the procedure well. | | |Complications: none | | | | | |Patient reported pain is 0 on a 0-10 scale. 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
--- OUTSIDE RECORDS SUMMARY | ~2019-07-27 | XMS | Encounter Summary ---
Demographics + + + | Address | [address] | | | [place] [address] | + + + | Home Phone | | + + + | Preferred Language | Unknown | + + + | Marital Status | | + + + | Presybeterian Affiliation | 1077 | + + + | Race | Unknown | + + + | Ethnic Group | Unknown | + + + Author + + + | Author | [facility] | | | and [place] | + + + | Organization | [facility] | | | and [...] Team Providers + +------+ + | Care Project Administrative Assistant Name | Role | Phone | + [...] [address] | | | | | [address] | [facility] | | | | | [address] [place] | [place] [address] | | | | | [address] | [phone] | | | | | [phone] | | | +--------+ + + + [...] MRI evaluation. | | | JOB #: [id number] Read By: ROSE MARIE COHEN MD Released [...] | | consider MRI evaluation. JOB #: [id number] Read By: ROSE MARIE COHEN MD | [...] | | | | | |JOB #: [id number] | | | |Read By: ROSE MARIE COHEN MD | | | |Released By: ROSE MARIE COHEN MD | |Date: 08/23/2014 08:08 | | | | | + + documented in this encounter Visit Diagnoses Not on filedocumented in this encounter"
--- OUTSIDE RECORDS SUMMARY | ~2019-07-27 | XMS | Encounter Summary ---
Demographics + + + | Address | [address] | | | [place] [address] | + + + | Home Phone | | + + + | Preferred Language | Unknown | + + + | Marital Status | | + + + | Holiness Affiliation | 1077 | + + + | Race | Unknown | + + + | Ethnic Group | Unknown | + + + Author + + + | Author | [facility] | | | and [place] | + + + | Organization | [facility] | | | and [...] Team Providers + +------+ + | Care Information Technology Advisor Name | Role | Phone | + [...] | | | | cervical | [address] | | | | | | region | [address] | | | | | | Degenerative | [place] | | | | | | disc | [address] | | | | | | disease, | Phone: | | | | | | cervical | [phone] | | | | | | Spondylolist | Fax: | | | | | | hesis of | [phone] | | | | | | cervical [...] | | pain | [address] | [place], [place] | | | | | Procedures | [place], [place] | [address] | | | | | [place] | [address] | Phone: | | | | | OFFICE/OUTPT | Phone: | [phone] | | | | | | [phone] | Fax: | | | | | VISIT,EST,LE | Fax: | [phone] | | | | | VL IV | [phone] | | +--------+--------+ + + + + [...] | | [place] | [place] [address] | Degenerative disc | | | | [address] | [phone] | disease, cervical; | | | | [phone] | | Spondylolisthesis of | | | | | | cervical region; | | | | | | Tongue cancer ([facility]) | +--------+---------+ + + + [...] different from the original. AUGUSTO Peralta [address] [facility], [address] [place], [place] [id number] FAX: NEUROSURGERY HISTORY AND PHYSICAL EXAMINATION CHIEF [...] tablet Take 15 mg by mouth Daily. Jesrxvhqg-Jggdbnyil-Ojrnuavd (TRIANT-HC PO) Take 40 mg by mouth. [...] has no apparent deficits with short or salvage determiner memory. CRANIAL NERVES: II: Acuity is intact. [...] Intrinsics 5 5 Ulnar Intrinsics 5 5 Presser All Around Strength 5 5 Hip Flexion 5 5 [...]
--- OUTSIDE RECORDS SUMMARY | ~2019-07-27 | XMS | Encounter Summary ---
Demographics + + + | Address | [address] | | | [place] [address] | + + + | Home Phone | | + + + | Preferred Language | Unknown | + + + | Marital Status | | + + + | Tenriism Affiliation | 1077 | + + + | Race | Unknown | + + + | Ethnic Group | Unknown | + + + Author + + + | Author | [facility] | | | and [place] | + + + | Organization | [facility] | | | and [place] [...] Providers + +------+ + | Care Aircraft Instrument Mechanic Name | Role | Phone | [...] | | [address] | [place] [address] | | | | | [place] | [phone] | | | | | [address] | | | | | | [phone] | | | +--------+ + + + [...] Performed At | + + + | [facility] | [place] | | Department [address], [place] | [facility] | | [ [address] [ rep [facility] | | [facility]] Signed | - IMAGING | | | | | Patient Name: VICKI ERIC Physician: | | | Garrett. : 1930 Age: 81 Sex: F Unit #: [id number] | | | Exam Date: 01/22/12 [place] [facility] [place] | | Report #: [id number] Page: | | | %(RAD)RES..mtdd.print.filter("pg") of %(RAD) | | | RES..mtdd.print.filter("tpg") | | | | | | Accession Number: [id number] | | | CERVICAL SPINE X-RAY CLINICAL [...] Transcribed Date/Time: 01/22/2012 | | | 14:08 [employer] Counter Clerk: <<Signature on | | | File>> | | | Jaycob | | | MD Bishnu01/23/12 0830 <Electronically signed by Jaycob Goetz MD> | | | Jaycob Goetz MD 01/22/12 1352 [employer] Counter Clerk: Oscar | | | [id number]/20/12 1903 Gabino Baker MD | | + + + + + + + + | Performing | Address | City/State/Zipcode | Phone Number | | Organization | | | | + + + + + | [facility] | [address] | [place], [place] | [phone] | | [facility] | | [address] | | | - IMAGING | | | | + + + + + documented in this encounter Visit Diagnoses + + | Diagnosis | + + | Neck pain - Primary Cervicalgia | + + documented in this encounter
--- OUTSIDE RECORDS SUMMARY | ~2019-07-27 | XMS | Encounter Summary ---
Demographics + + + | Address | [address] | | | [place] [address] | + + + | Home Phone [...] Author + + + | Author | [facility] | + + + | Organization | [facility] | + + + | Address [...] Team Providers + +------+ + | Care Ham Stripper Name | Role | Phone | + +------+ + PCP | Unavailable | + +------+ + Encounter Details +--------+ + + + + | Date | Type | Department | Care Team | Description | +--------+ + + + + | 04/01/ | Office | [facility] | Note, [...] as of this encounter Progress Notes Interface, Office Machine Inspector In - 11/16/2005 3:10 AM PDTCLINIC DATE: 04/01/2001 OTOLARYNGOLOGY CLINIC SUBJECTIVE: Ms. Eric is a 70-year-old female seen in consultation from Dr. Carter in [place] regarding management of a squamous cell carcinoma of the tongue. She tells me that for the last 4 months she has had sore spot on the left side of her tongue which was felt to be due to an ill-fitting denture, and she had multiple treatments for this. It did not improve, and therefore a biopsy was done in early March 2001. This was sent to the [facility] for evaluation and revealed carcinoma in situ. She saw Dr. Carter who has referred her here for definitive treatment. Her main complaint is centered around pain in the area makes it hard to wear her dentures. She has not lost any weight because of this, has no otalgia, no hoarseness, and no difficulty swallowing. PAST MEDICAL HISTORY: Remarkable for arthritis and hypercholesterolemia as well as gastroesophageal reflux disease. PAST SURGICAL HISTORY: Remarkable for a hysterectomy in 1977 and appendectomy in 1960s and then multiple surgeries on her knee, feet, and toes. ALLERGIES: She has no known drug allergies. CURRENT MEDICATIONS: Premarin 0.625 mg once a day, Prilosec 20 mg once a day, Lipitor 20 mg once a day, oxybutynin 5 mg once a day, and sulindac 200 mg once a day. HABITS: She is a lifelong nonsmoker. She drinks on weekends. SOCIAL HISTORY: She is , lives in the [facility]. Her apparently has a progressive dementia. FAMILY HISTORY: She has no family history of any other head and neck malignancies. Her ECOG performance status is 1. REVIEW OF SYSTEMS: She complains of her tongue cancer, arthritis, history of epistaxis, and cough. Otherwise, her review of systems is negative for cardiac, pulmonary, hepatic, renal, neurologic, musculoskeletal complaints except as given above. PHYSICAL EXAMINATION: GENERAL: She is a well-developed, well-nourished elderly female in no apparent distress. VITAL SIGNS: Weight is 144 pounds, blood pressure is 130/78, and pulse is 84. HEENT: Her facial contour and facial nerve function are intact bilaterally. Her extraocular motions are intact bilaterally. Ears: Normal pinnas, external canals, and tympanic membranes bilaterally. Intraorally, she is edentulous. The tongue and palate mobility are normal. On the left side of the tongue, there is a whitish patch which measures about 2 x 2 cm in size, in the center of this, there is a yellowish polypoid piece of what appears to be granulation tissue. She is unaware whether this is any change from the pre-biopsy state or not. No other lesions are noted in the oral cavity. The examination of the oropharynx, hypopharynx, and larynx is easily accomplished using an indirect mirror, and there is no evidence of any disease here. NECK: Palpation of the neck reveals no adenopathy. There is no thyromegaly noted. I have received a copy of the pathology report from the Department of Dental Pathology dated March 18, 2001, and the diagnosis here is that of a carcinoma in situ. IMPRESSION: Carcinoma in situ of the tongue. I had a long discussion with Ms. Eric regarding this lesion. It is indeed just carcinoma in situ that can be treated with simple local excision without concerns regarding cervical metastasis. However, I am a little bit concerned about this polypoid area in the center of the lesion. I think this is just granulation tissue from the biopsy site, but I think this needs to be verified. Therefore, I discussed with her a repeat biopsy to which she consented. I anesthetized the area using 1% lidocaine with 1:100,000 epinephrine and excised this area of polypoid tissue. The bleeding was controlled using silver nitrate. I will call her back on Saturday with the results of the biopsy and then we will make further definitive treatment plans from there. King Sumner M.D. Rides Supervisor, Otolaryngology [facility] / [id number] / [id number] / [id number] / [id number] cc: Tonio Morrison M.D. [address] [place] [address] [id number] signed by Interface, Office Machine Inspector In at 11/16/2005 3:10 AM PDTdoc umented in this encounter Plan of Treatment Not on filedocumented as of this encounter Visit Diagnoses Not on filedocumented in this encounter"
--- OUTSIDE RECORDS SUMMARY | ~2019-07-27 | XMS | Encounter Summary ---
Demographics + + + | Address | [address] | | | [place] [address] | + + + | Home Phone | | + + + | Preferred Language | Unknown | + + + | Marital Status | Single | + + + | Uatsdin Affiliation | CHR | + + + [...] Team Providers + +------+ + | Care Drain Tile Press Operator Name | Role | Phone | [...] | | | | | | [address] [place], [place] | | | | | | [address] | | | | | | [phone] | | | +--------+---------+ + + + Anesthesia Record + + + + + | Procedure Name | Responsible | Anesthesia Start | Anesthesia Stop Time | | | Anesthesiologist | Time | | + + + + + | LEFT HEMIGLOSSECTOMY | Tremaine uYan MD | 06/28/11 1217 | 06/28/11 1406 [...] perfume, lotions or powder. Remove any nail bulgarian from at least one fingernail. Do not [...] or walk. Surgery Check in Locations Admitting [facility] Surgery Check in Time: Someone from your surgeon's office or [facility] will provide you with information regarding your [...] it is after office hours, call the [facility] hydraulic rock drill operator at [phone] and ask them to page your doc [...] her EKG but denies ever having an IA. She has had chest pressure in the recent past that has resolved with a PPI. She has no other hx nor symptoms of CAD, C HF, CVA, CKD, or DM (treated with insulin). Function capacity is Intermediate. ROS: Preoperative Patient Questionnaire was reviewed with the patient. Document will be sc anned in [facility]. Current Medication List 06/27/11 2:13 PM Name [...] Body mass index is 22.86 kg/(m^2). Note Armature Winder ROS/PE ROS Pulmonary: Within Defined Limits except [...] to this patient's care. YOLIS Sharif CRNA [facility]IC [address] [place] [phone] documented in th is encounter Plan of [...] | + +--------+ + + + | MS COLLECTION VENOUS | Routin | 06/27/2011 | [...] [facility] | [address] | [place], [place] | | | MIGEL FABIAN OF CARE | [facility] | [address] | | | TESTS | | | [...] + + + + | [facility] DEPARTMENT OF | [address] | [place] [address] | | | PATHOLOGY | [address] [...] | | | DEPARTMENT | | | [place] | | | OF | | | [...] + + + + | [facility] | [address] | [place] [address] | | | PATHOLOGY | [address] [...] | | | | | TREMAINE ROBLES ([id number]) | | | | | | on 06/27/2011 4:06:46 PM | | | | + + + + + + + + | Specimen | + + | | + + + + + | Narrative | Performed At | + + + | Please click | [facility] | | on view image for the detailed interpretation from [employer] results. | CARDIOLOGY | + + + + + + + + | Performing | Address | City/State/Zipcode | Phone Number | | Organization | | | | + + + + + | [facility] | [address] | [place], [place] | | | CARDIOLOGY | [address] | [address] | | + + + + + documented in this encounter Visit Diagnoses + + | Diagnosis | + + | Other specified pre-operative examination - Primary | + + documented in this encounter
--- OUTSIDE RECORDS SUMMARY | ~2019-07-27 | XMS | Encounter Summary ---
Demographics + + + | Address | [address] | | | [place] [address] | + + + | Home Phone [...] | + + +---------+ + | Gabino oSlis | ECON | Unknown | | + + +---------+ + Care Team Providers + +------+ + | Care Cupola Repairer Name | Role | Phone | + +------+ + PCP | Unavailable | + +------+ + Encounter Details +--------+ + + + + | Date | Type | Department | Care Team | Description | +--------+ + + + + | 04/24/ | Results | Otolaryngology | King Sumner, | | | 2001 | Only | Head and Neck | MD [address] [facility] | | | | | Surgery Services at | [facility] | | | | | [address] | [place], [place] | | | | | [address] | [address] | | | | | Physician's | [phone] | | | | | [place], [address] [place] [address] | | | | | | [place], [place] | | | | | | [address] | | | | | | [phone] | | | +--------+ + + + [...] + + + | [facility] | [address] [facility] | [place] [address] | | | PATHOLOGY | [address] | | | + + + + + | [facility] | [address] [facility] | [place] [address] | | | PATHOLOGY | [address] [...] + + + | [facility] | [address] [facility] | [place] [address] | | | PATHOLOGY | [address] | | | + + + + + | [facility] DEPARTMENT OF | [address] [facility] | [place] [address] | | | PATHOLOGY | [address] [...] + + + | [facility] | [address] | [place] [address] | | | PATHOLOGY | [address] | | | + + + + + | [facility] | [address] [place] [address] [address] | [place] [address] | | | PATHOLOGY | [address] [...] + + + | [facility] | [facility] | [place] [address] | | | PATHOLOGY | [address] | | | + + + + + | [place] DEPARTMENT OF | [address] | [place] [address] | | | PATHOLOGY | [address] | | | + + + + + documented in this encounter Visit Diagnoses Not on filedocumented in this encounter
--- OUTSIDE RECORDS SUMMARY | ~2019-07-27 | XMS | Encounter Summary ---
Demographics + + + | Address | [address] | | | [place] [address] | + + + | Home Phone [...] Team Providers + +------+ + | Care Radio Rigger Name | Role | Phone | + [...] Pre-Admission | | 2018 | Orders | [facility] | [address] | | | | | Oculoplastics at | Blvd [place], [place] | | | | | [address] | [address] | | | | | [address] | [phone] | | | | | [facility] | | | | | | [facility] floor | | | | | | [place] [address] | | | | | | [phone] | | | +--------+ + + + [...]
--- OUTSIDE RECORDS SUMMARY | ~2019-07-27 | XMS | Encounter Summary ---
Demographics + + + | Address | [address] | | | [place] [address] | + + + | Home Phone [...] Team Providers + +------+ + | Care Freelance Web Designer Name | Role | Phone | + +------+ + | Joycelyn Aguilar PA-C | PCP | | + +------+ + Encounter Details +--------+ + + + + | Date | Type | Department | Care Team | Description | +--------+ + + + + | 12/25/ | Document-Sc | UNKNOWN DEPARTMENT | Unknown . | | | 2018 | anned | [address] | | | | | | [address] | | | | | | [place], [place] | | | | | | [address] | | | +--------+ + + + [...]
--- OUTSIDE RECORDS SUMMARY | ~2019-07-27 | XMS | Encounter Summary ---
Demographics + + + | Address | [address] | | | [place] [address] | + + + | Home Phone | | + + + | Preferred Language | Unknown | + + + | Marital Status | Single | + + + | Mandaen Affiliation | CHR | + + + [...] Providers + +------+ + | Care Director Compensation Name | Role | Phone | + +------+ + PCP | Unavailable | + +------+ + Encounter Details +--------+ + + + + | Date | Type | Department | Care Team | Description | +--------+ + + + + | 04/25/ | Procedure - | | Record, Operation | Operative Report | | 2001 | | | | | | | Transcribed | | | | +--------+ + + [...] + + | OPERATION RECORD | | 04/25/2001 | | Results for this | | | | | | procedure are in the | | | | | | results section. 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 Direct laryngoscopy.2. Esophagoscopy.3. Left partial | | glossectomy.SPECIMEN(S) REMOVED:Not dictated.ANESTHESIA:General | | anesthesia.COMPLICATIONS:None.DRAINS:None.FINDINGS:Direct laryngoscopy was performed | | and the hypopharynx, epiglottis andvallecula were directly visualized and without | | lesions. The cords wereslightly erythematous. Rigid esophagoscopy was performed to | | 35 cm. Therewere no obvious mucosal lesions. There did not appear to be | | directinvasion of the underlying muscle by the tongue lesion.INDICATIONS:This is a | | 69-year-old female who presented with a lesion on her tongue. Itwas excised and | | carcinoma in situ was the resulting pathology. Shepresents now for definitive | | excision.PROCEDURE:The patient was identified and brought to the operating room. | | She wasplaced in supine position. She was nasally intubated after | | generalanesthesia was administered. Subsequently, direct laryngoscopy | | wasperformed with the above findings. Esophagoscopy was also performed withthe above | | findings. Subsequently, she was draped. The tongue wasretracted outward with | | a penetrating towel clip. On the left lateralsurface of the inferior tongue | | was located an approximately 0.5-cmgranuloma with what appeared to be surrounding | | leukoplakia. Approximately3-mm margins were taken in an elliptical fashion. | | Electrocautery was usedto excise the lesion with the mucosa. It was inferiorly | | excised withapproximately 1 mm of muscle. Electrocautery was used for hemostasis. | | Thespecimen was passed off the table and sent to pathology.The excision site was | | closed primarily using interrupted 3-0 chromic.Subsequently, lingual and inferior | | alveolar block was performed using atotal of 6 cc of 1% lidocaine with epinephrine. | | The patient tolerated theprocedure without any apparent complications and was awakened | | and extubatedand transferred to the recovery room for further care. There were | | nodrains.Pursuant to Federal Medicare billing regulations, I certify that Dr. Carreon. | | Burak was present and involved in the entire surgical procedure.Mary Cooley M.D. | | King Sumner M.D.[facility]:X44D: 04/25/2001T: 04/27/[id number]: | |DRAINS: | |None. | | | |FINDINGS: | |Direct laryngoscopy was performed and the hypopharynx, epiglottis and | |vallecula were directly visualized and without lesions. The cords were | |slightly erythematous. Rigid esophagoscopy was performed to 35 cm. There | |were no obvious mucosal lesions. There did not appear to be direct | |invasion of the underlying muscle by the tongue lesion. | | | |INDICATIONS: | |This is a 69-year-old female who presented with a lesion on her tongue. It | |was excised and carcinoma in situ was the resulting pathology. She | |presents now for definitive excision. | | | |PROCEDURE: | |The patient was identified and brought to the operating room. She was | |placed in supine position. She was nasally intubated after general | |anesthesia was administered. Subsequently, direct laryngoscopy was | |performed with the above findings. Esophagoscopy was also performed with | |the above findings. Subsequently, she was draped. The tongue was | |retracted outward with a penetrating towel clip. On the left lateral | |surface of the inferior tongue was located an approximately 0.5-cm | |granuloma with what appeared to be surrounding leukoplakia. Approximately | |3-mm margins were taken in an elliptical fashion. Electrocautery was used | |to excise the lesion with the mucosa. It was inferiorly excised with | |approximately 1 mm of muscle. Electrocautery was used for hemostasis. The | |specimen was passed off the table and sent to pathology. | | | |The excision site was closed primarily using interrupted 3-0 chromic. | |Subsequently, lingual and inferior alveolar block was performed using a | |total of 6 cc of 1% lidocaine with epinephrine. The patient tolerated the | |procedure without any apparent complications and was awakened and extubated | |and transferred to the recovery room for further care. There were no | |drains. | | | |Pursuant to Federal Medicare billing regulations, I certify that Dr. Malik | |Ian Sumner was present and involved in the entire surgical procedure. | | | | | | | |Gregg Roche M.D. | | | |[facility]:X44 | | | | | |[phone] | | | |CC: | + + documented in this encounter Visit Diagnoses Not on filedocumented in this encounter"
--- OUTSIDE RECORDS SUMMARY | ~2019-07-27 | XMS | Encounter Summary ---
Demographics + + + | Address | [address] | | | [place] [address] | + + + | Home Phone [...] Team Providers + +------+ + | Care Paint Sprayer Sandblaster Name | Role | Phone | + [...] x2 sent | | | | Rd [facility] | [facility] | to lab | | | | Hospital Admitting | [place], [place] | | | | | Desk Located on the | [address] | | | | | 9th floor | [phone] | | | | | [place], [place] | | | | | | [address] | | | +--------+---------+ + + + [...] Otolaryngology (Head & Neck Surgery), please call: [phone]. For Extreme Emergencies: Call 765 Special Instructions: No drinking alcohol while on [...] and walk. You may also take an ondz-zkt-efvudat stool softener (Docusate or C olace). Follow the directions on the label. Miralax is also helpful to relieve constipation. Call the Resident on-call at [phone] if you have any of the following [...] 4:00 pm, call the Otolaryngology clinic at [phone]. Somebody will try to answer your call [...] Raquel Cedeno MD Resident Department of Surgery [facility] Ana Louis - 06/29/2011 3:07 PM [...] is driving her to [place] She will stay there a few days before returning to her home in [place]. She is very active prior to admission. No case managment needs anticipated. Electronically signed by:Ana Beltran Position:Dirt Bike Racer Pager ID:[phone] 12 3:07 PM Ana Louis - 06/29/2011 2:49 PM PDTPatient Name: VICKI ERIC Date of : 1930 CARE COORDINATION ROUNDING NOTE Care Coordination rounds held. Disciplines attending included: Dirt Bike Racer,, Delivery Helper,, Bedside RN,, tail ripper, Electronically signed by:Ana Beltran Position:Dirt Bike Racer Pager ID:[phone] 12 2:49 PM Shilpi Gibson SLP - [...] HISTORY: The patient currently lives outside of [place], [place]. Her children live approximately 30 mi [...] visit with Dr. Sumner. Shilpi Burris M.S., MANAGER LPN-CFY Speech-Language Pathology Clinical Fellow [facility] Otolaryngology, Head & Neck Surgery [facility] [place] Pager [phone] ed Ceja MD - 06/29/2011 7:47 AM [...] of Otolaryngoly- Head and Neck Surgery [facility] . illMatt shelley MD - 06/28/2011 [...] Cedeno MD - 06/28/2011 10:33 PM PDT [id number] | | [id number] [place]IM[place] | | [id number] Date: 06/28/2011 Attending Surgeon: King Sosa | | Gregg Sumner Political Worker(s): Raquel Cedeno M.D. | | Preoperative Diagnosis(es):Recurrent [...] | was then irrigated. Hemostasis was ensured. A7-Kyrgyz flat PURVI drain was placed in the [...] Gregg Sumner M.D. [facility] / [id number] / [id number] / [id number] / T: | | 06/28/2011 | |An [...] then irrigated. Hemostasis was ensured. A | |7-Kyrgyz flat PURVI drain was placed in the [...] | | | |[facility] / | |[id number] / [id number] / [id number] / | | | | | | [...] | + + + + + | [facility] | [address] | [place] [address] | | | PATHOLOGY | [address] [...] / | | | | | | Prenell Macdonald | | | | | | [...] | | | | | | Grade: [id number]: | | | | | | Negative for invasive | | | | | | carcinomaAngiolymphatic | | | | | | Invasion: | | | | | | AbsentPerineural | | | | | | Invasion: | | | | | | AbsentLymph Nodes, | | | | | | Extranodal Extension: | | | | | | Not identifiedAS[facility] Stage | | | | | | (7th Edition) (pTNM)TNM | | | | | | Descriptors: r | | | | | | (recurrent)Primary Tumor | | | | | | (pT): yR2Jfdkhktx Lymph | | | | | | Nodes (pN): | | | | | | iL5Xraxqy of regional | | | | | [...] nodes: | | | | | | Onjwus-ix-sorDofz of | | | | | | [...] | + + + + + | [facility] | [address] | [place] [address] | | | PATHOLOGY | [address] [...]
--- OUTSIDE RECORDS SUMMARY | ~2019-07-27 | XMS | Encounter Summary ---
Demographics + + + | Address | [address] | | | [place] [address] | + + + | Home Phone [...] Team Providers + +------+ + | Care Contact Clerk Name | Role | Phone | [...] | surface of | [place], | [address] [place], | | | | | tongue (HCC) | [place] [address] | [place] | | | | | Procedures | Phone: | [phone] | | | | | [place] | [phone] | Phone: | | | | | LARYNGOSCOPY | Fax: | [phone] | | | | | ,DIRECT,DIAG | [phone] | Fax: | | | | | NOSTIC [place] | | [phone] | | | | | LARYNGOSCOPY | | | | | | | ,DIRCT,OP,BI | | | | | | | OPSY CA | | | | | | | ESOPHAGOSCOP | | | | | | | Y,DIAGNOSTIC | | | | | | | CA PART | | | | | | | REMOVAL | | | | | | | TONGUE,<1/2 | | | | | | | CA PART | | | | | | | REMOVAL | | | | | | | TONGUE, 1/2 | | | | | | | CA PART EXC | | | | | | | | | | | | | | TONGUE,UNILA | | | | | | | T RAD NECK | | | | | | | CA | | | | | | | BIOPSY/EXCIS | | | | | | | ION, LYMPH | | | | | | | NODE(S) CA | | | | | | | BX/REMV,LYMP | | | | | | | H NODE,DEEP | | | | | | | CERV CA | | | | | | | REMOVAL | | | | | | | NODES, | | | | | | | NECK,CERV | | | | | | | MOD RAD CA | | | | | | | [...] | | | Surgery Services at | [facility] | | | | | [address] | [place], [place] | | | | | [address] | [address] | | | | | Physician's | [phone] | | | | | Pavilion, [facility] floor | | | | | | [place], [place] | | | | | | [address] | | | | | | [phone] | | | +--------+---------+ + + + [...] lymph nodes: 11 Color of lymph nodes: Euipqf-na-jlq Size of lymph nodes: Ranging in size [...]
--- OUTSIDE RECORDS SUMMARY | ~2019-07-27 | XMS | Encounter Summary ---
Demographics + + + | Address | [address] | | | [place] [address] | + + + | Home Phone | | + + + | Preferred Language | Unknown | + + + | Marital Status | Single | + + + | Hoahaoism Affiliation | CHR | + + + [...] Providers + +------+ + | Care Software Business Analyst Name | Role | Phone | [...] | | | Surgery Services at | [address] | results of tongue | | | | [address] | [place], [place] | biopsy) | | | | [address] | [address] | | | | | Physician's | [phone] | | | | | [address], 2nd floor | | | | | | [place], [place] | | | | | | [address] | | | | | | [phone] | | | +--------+ + + + [...]
--- OUTSIDE RECORDS SUMMARY | ~2019-07-27 | XMS | Encounter Summary ---
Demographics + + + | Address | [address] | | | [place] [address] | + + + | Home Phone | | + + + | Preferred Language | Unknown | + + + | Marital Status | Single | + + + | Islam Affiliation | CHR | + + + [...] Providers + +------+ + | Care Manager Storage Name | Role | Phone | + [...] [address] | | | | | [facility] | [address] [place], | | | | | Hospital Admitting | [place] [address] | | | | | Desk Located on the | [phone] | | | | | 9th floor | | | | | | [place], [place] | Emmett Radford MD | | | | | [address] | [address] | | | | | | [address] | | | | | | [place], [place] | | | | | | [address] | | +--------+ + + + + [...]
--- OUTSIDE RECORDS SUMMARY | ~2019-07-27 | XMS | Encounter Summary ---
Demographics + + + | Address | [address] | | | [place] [address] | + + + | Home Phone [...] Team Providers + +------+ + | Care Hand Mica Plate Layer Name | Role | Phone | + [...] as of this encounter Progress Notes Nessa, Primary Care Nurse Practitioner In - 11/05/2005 1:13 AM PDTCLINIC DATE: [...] in about 3 months. King Sumner M.D. [facility] / [place] [id number] / [id number] / [id number] / cc: Tonio Morrison M.D. [address] [facility] [place] [id number] signed by Nessa, Primary Care Nurse Practitioner In at 11/05/2005 1:1 3 AM PDTdocumented in this encounter Plan of Treatment Not on filedocumented as of this encounter Visit Diagnoses Not on filedocumented in this encounter"
--- OUTSIDE RECORDS SUMMARY | ~2019-07-27 | XMS | Encounter Summary ---
Demographics + + + | Address | [address] | | | [place] [address] | + + + | Home Phone | | + + + | Preferred Language | Unknown | + + + | Marital Status | | + + + | Muslim Affiliation | 1077 | + + + | Race | Unknown | + + + | Ethnic Group | Unknown | + + + Author + + + | Author | [facility] | | | and Jeromeana | + + + | Organization | [facility] | | | [...] Team Providers + +------+ + | Care Insurance Loss Control Surveyor Name | Role | Phone | + [...] | | | | [address] | [place] [address] | | | | | [place] [address] | | | | | | [phone] | | | +--------+ + + + [...]
--- OUTSIDE RECORDS SUMMARY | ~2019-07-27 | XMS | Encounter Summary ---
Demographics + + + | Address | [address] | | | [place] [address] | + + + | Home Phone [...] Author + + + | Author | [facility] | + + + | Organization | [facility] | + + + | Address | Unknown | + + + | Phone | Unavailable | + + + Support + + +---------+ + | Name | Relationship | Address | Phone | + + +---------+ + | Vicik Veronica | ECON | Unknown | | + + +---------+ + | Gabino Solis | ECON | Unknown | | + + +---------+ + Care Team Providers + +------+ + | Care Window Assembler Name | Role | Phone | + +------+ + PCP | Unavailable | + +------+ + Encounter Details +--------+ + + + + | Date | Type | Department | Care Team | Description | +--------+ + + + + | 05/06/ | Office | [facility] | Note, [...] as of this encounter Progress Notes Nessa, Epic Beacon Analyst In - 11/12/2005 3:11 AM PDTCLINIC DATE: 05/06/2001 OTOLARYNGOLOGY CLINIC SUBJECTIVE: Ms. Eric returns for a followup visit after partial glossectomy. She is complaining of expected pain in her tongue but otherwise is doing well. PHYSICAL EXAMINATION: GENERAL: She looks well. HEENT: Her partial glossectomy closure has near totally dehisced, and the wound is healing by secondary intention. ASSESSMENT AND PLAN: I discussed her pathology with her, and this did show a area of carcinoma in situ with a focus of microinvasive carcinoma. The margins of excision were negative. I reassured her that her wound should granulate without difficulty, and she will return to see me 2 months. King Sumner M.D. Basic Acoustic Analyst, Otolaryngology [facility] / [id number] / [id number] / [id number] / 1905 x cc: Pepito Caruso M.D. [address] [place] [address] [id number] signed by Nessa, Epic Beacon Analyst In at 11/12/2005 3:11 AM Pallavi gavin, Epic Beacon Analyst In - 11/12/2005 3:11 AM PDTCLINIC DATE: 05/06/2001 OTOLARYNGOLOGY CLINIC SUBJECTIVE: Hern[place] returns for followup after a partial glossectomy and panendoscopy. She had a small superficial lesion removed from her left lateral tongue. She has been having significant amount of pain with difficulty swallowing and is currently still on liquids. The pain medication is working for her. She denies any fevers, chills, or sore throat. She is not having any bleeding. OBJECTIVE: GENERAL: On physical examination, she is well appearing. MOUTH: Examination of her oropharynx shows that the closure after the partial glossectomy dehisced. It is, however, starting to mucosalize and appears to be healing well. She has fairly good tongue mobility, and her speech is clear. Her pathology was reviewed, and this did show squamous cell carcinoma well differentiated, superficially invasive associated with the polypoid granulation tissue. ASSESSMENT AND PLAN: Status post partial left glossectomy for a squamous cell carcinoma that was microinvasive. She is completely excised. I have given her a refill of her Lortab elixir. We will see her in followup in 2 weeks. The patient was seen and examined with Dr. King Sumner. Mary Cooley M.D. General Surgery Resident King Sumner M.D. / [id number] / [id number] / [id number] / [id number] signed by Interface, Epic Beacon Analyst In at 11/12/2005 3:11 AM PDTdoc umented in this encounter Plan of Treatment Not on filedocumented as of this encounter Visit Diagnoses Not on filedocumented in this encounter"
--- OUTSIDE RECORDS SUMMARY | ~2019-07-27 | XMS | Encounter Summary ---
Demographics + + + | Address | [address] | | | [place] [address] | + + + | Home Phone [...] + + | Author | [facility] | + + + | Organization | [facility] | + + + | [...] Providers + +------+ + | Care Senior Buyer Planner Name | Role | Phone | + [...] [id number] | | | | | | [facility] | | | | | | [address] [place], [place] | | | | | | [address] | | | | | | [phone] | | | +--------+ + + + [...]
--- OUTSIDE RECORDS SUMMARY | ~2019-07-27 | XMS | Encounter Summary ---
Demographics + + + | Address | [address] | | | [place] [address] | + + + | Home Phone [...] Author | [facility] | + + + | Organization | [facility] | + + + | Address | [...] Team Providers + +------+ + | Care Jitney Driver Name | Role | Phone | + [...] | | | | [address], | [place], | | | | | | [place] [address] | [place] | | | | | | Phone: | [phone] | | | | | | [phone] | Phone: | | | | | | Fax: | [phone] | | | | | | [phone] | Fax: | | | | | | | [phone] | +--------+--------+ + + + + Encounter [...] | | | Surgery Services at | [facility] | | | | | [address] | [place], [place] | | | | | [address] | [address] | | | | | Physician's | [phone] | | | | | Pavilion, 2nd floor | | | | | | [place], [place] | | | | | | [address] | | | | | | [phone] | | | +--------+---------+ + + + [...] tongue there is a well-healed incision about longterm back. Just posterior to this is a 4-m m ulcerated lesion which is quite tender. 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 There is free flow of saliva bilaterally from both Santhosh's and Flanders's duct. Oropharynx - The soft palate mobility [...] this p oint forward. King Sumner MD Steel Pan Form Placing Supervisor of Otolaryngology, Head & Neck Surgery NOTE: [...] | + + +--------+ + + | CO EXCIS TONGUE | Procedures | Routin | [...] OF | [address] | [place] [address] | | | PATHOLOGY | [address] | | | + + + + + | [facility] DEPARTMENT OF | [address] | [place] [address] | | | PATHOLOGY | [address] | | | + + + + + documented in this encounter Visit Diagnoses + + | Diagnosis | + + | Tongue cancer (HCC) - Primary Malignant neoplasm of tongue, unspecified site | + + documented in this encounter
--- OUTSIDE RECORDS SUMMARY | ~2019-07-27 | XMS | Encounter Summary ---
Demographics + + + | Address | [address] | | | [place] [address] | + + + | Home Phone | | + + + | Preferred Language | Unknown | + + + | Marital Status | | + + + | Anabaptist Affiliation | 1077 | + + + | Race | Unknown | + + + | Ethnic Group | Unknown | + + + Author + + + | Author | [facility] | | | and Jeromeana | + + + | Organization | [facility] | | | and [place] [...] Providers + +------+ + | Care Special Delivery Mail Carrier Name | Role | Phone | + [...] + + | 03/25/ | Office | [facility] | Otf Loja | Cervical stenosis of | | 2012 | Visit | NEUROSURGERY [address] | [address] | spine (Primary Dx); | | | | [address] | [address] | Degenerative disc | | | | [place], [place] | [place] [address] | disease, cervical; | | | | [address] | [phone] | Spondylolisthesis of | | | | [phone] | | cervical region | +--------+---------+ + [...] in this encounter Patient Instructions Patient Instructions tOf Loja PA-C - 03/25/2012 11:50 AM PSTAt [...] ent from the original. AUGUSTO Peralta [address] [facility], [address] [place], [place] [id number] FAX: NEUROSURGERY HISTORY AND PHYSICAL EXAMINATION CHIEF [...] discomfort is actually improved. Now she sta anotnio she has a "numb pain". Again it [...] tablet Take 15 mg by mouth Daily. Idbugiism-Lcsjohvky-Nasyddgy (TRIANT-HC PO) Take 40 mg by mouth. [...] has no apparent deficits with short or termination clerk memory. CRANIAL NERVES: II: Acuity is intact. [...] Intrinsics 5 5 Ulnar Intrinsics 5 5 Belly Dancer Strength 5 5 Hip Flexion 5 5 [...]
--- OUTSIDE RECORDS SUMMARY | ~2019-07-27 | XMS | Encounter Summary ---
Demographics + + + | Address | [address] | | | [place] [address] | + + + | Home Phone [...] + + + | Author | [facility] | + + + | Organization | [facility] | + + + | [...] Team Providers + +------+ + | Care Landscape Laborer Name | Role | Phone | + [...] as of this encounter Progress Notes Interface, Practice Representative In - 11/16/2005 3:10 AM PDTCLINIC DATE: 04/01/2001 OTOLARYNGOLOGY CLINIC SUBJECTIVE: Ms. Eirc is a 70-year-old female seen in consultation from Dr. Carter in [place] regarding management of a squamous cell carcinoma [...] March 2001. This was sent to the [facility] for evaluation and revealed [...] HISTORY: She is , lives in the [facility]. Her apparently has a progressive dementia. FAMILY [...] treatment plans from there. King Sumner M.D. [place], Otolaryngology [facility] / [id number] / [id number] / [id number] / [id number] cc: Tonio Morrison M.D. [address] [place] [address] [id number] signed by Interface, Practice Representative In at 11/16/2005 3:10 AM PDTdoc umented in this encounter Plan of Treatment Not on filedocumented as of this encounter Visit Diagnoses Not on filedocumented in this encounter"
--- OUTSIDE RECORDS SUMMARY | ~2019-07-27 | XMS | Encounter Summary ---
Demographics + + + | Address | [address] | | | [place] [address] | + + + | Home Phone | | + + + | Preferred Language | Unknown | + + + | Marital Status | Single | + + + | Orthodoxy Affiliation | CHR | + + + [...] Team Providers + +------+ + | Care Sports Nutritionist Name | Role | Phone | + [...] as of this encounter Progress Notes Nessa, Chemical Cell Changer In - 11/12/2005 3:11 AM PDTCLINIC DATE: [...] see me 2 months. King Sumner M.D. Manager Product Design, Otolaryngology [facility] / [id number] / [id number] / [id number] / 1905 x cc: Pepito Caruso M.D. [address] [place] [address] [id number] signed by Nessa, Chemical Cell Changer In at 11/12/2005 3:11 AM Pallavi gavin, Chemical Cell Changer In - 11/12/2005 3:11 AM PDTCLINIC DATE: [...] General Surgery Resident King Sumner M.D. / [id number] / [id number] / [id number] / [id number] signed by Interface, Chemical Cell Changer In at 11/12/2005 3:11 AM PDTdoc umented in this encounter Plan of Treatment Not on filedocumented as of this encounter Visit Diagnoses Not on filedocumented in this encounter"
--- OUTSIDE RECORDS SUMMARY | ~2019-07-27 | XMS | Encounter Summary ---
Demographics + + + | Address | [address] | | | [place] [address] | + + + | Home Phone [...] + + + | Author | [facility] | + + + | Organization | [facility] | + + [...] Team Providers + +------+ + | Care Sequins Stringer Name | Role | Phone | + [...] Head | | | | y | [place] | Epic Dept | Neck Ppv | | | | | OFFICE/OUTPT | | [address] | | | | | | | [address] | | | | | VISIT,EST,LE | | Physician's | | | | | [address] | | Pavilion, | | | | | | | 2nd floor | | | | | | | [place], [place] | | | | | | | [address] | | | | | | | Phone: | | | | | | | [phone] | | | | | | | Fax: | | | | | | | [phone] | +--------+--------+ + + + + Encounter [...] Surgery Services at | [facility] [address] | | | | | [address] | [place], [place] | | | | | [address] | [address] | | | | | Physician's | [phone] | | | | | Pavilion, 2nd floor | | | | | | [place], [place] | | | | | | [address] | | | | | | [phone] | | | +--------+---------+ + + + [...] the mucosa of the lips, buccal mucosa, pokagon te shows no lesions or masses. Oropharynx: [...]
--- OUTSIDE RECORDS SUMMARY | ~2019-07-27 | XMS | Encounter Summary ---
Demographics + + + | Address | [address] | | | [place] [address] | + + + | Home Phone [...] Team Providers + +------+ + | Care Sewer Repairer Name | Role | Phone | [...] + + | 10/23/ | Hospital | [facility] NIYAH SHORT | Mao Ayon MD | | | 2018 | Encounter | STAY [address] [facility] | [address] | | | | | Dr [address] | [place], [place] | | | | | [place] [address] | [address] | | | | | [place], [place] | [phone] | | | | | [address] | [...] and holidays, call and as k the continuous still operator to page the Eye Doctor automation qa tester. Return appointment date: Time: documented in this [...] | 1 | 10/24/19 | | | ypyefqxj-frpwdqlcn-j | eyelid incisions | | | 18 [...] | | procedure well. Mao Ayon M.D. Grape Pruner | | | Ophthalmic Facial Plastic and [...]
--- OUTSIDE RECORDS SUMMARY | ~2019-07-27 | XMS | Encounter Summary ---
Demographics + + + | Address | [address] | | | [place] [address] | + + + | Home Phone [...] Author | [facility] | + + + | Organization | [facility] | + + + | Address | [...] Team Providers + +------+ + | Care Screw Eye Assembler Name | Role | Phone | + +------+ + | Ganesh Hudson DO | PCP | | + +------+ + Encounter Details +--------+ + + + + | Date | Type | Department | Care Team | Description | +--------+ + + + + | 07/25/ | Documentati | Health Information | Other, Moon | | | 2018 | on | Services [address] | [phone] | | | | | [address] | | | | | | Mailcode: [id number] | | | | | | [facility] | | | | | | [place], [place] | | | | | | [address] | | | | | | [phone] | | | +--------+ + + + [...]
--- OUTSIDE RECORDS SUMMARY | ~2019-07-27 | XMS | Encounter Summary ---
Demographics + + + | Address | [address] | | | [place] [address] | + + + | Home Phone [...] Team Providers + +------+ + | Care Call Or Contact Centre Manager Name | Role | Phone | [...] as of this encounter Progress Notes Nessa, Biodiesel Production Technician In - 11/05/2005 1:13 AM PDTCLINIC DATE: [...] in about 3 months. King Sumner M.D. [facility] / CORNELIO [id number] / [id number] / [id number] / cc: Tonio Morrison M.D. [address] [facility] [place] [id number] signed by Nessa, Biodiesel Production Technician In at 11/05/2005 1:1 3 AM PDTdocumented in this encounter Plan of Treatment Not on filedocumented as of this encounter Visit Diagnoses Not on filedocumented in this encounter"
--- OUTSIDE RECORDS SUMMARY | ~2019-07-27 | XMS | Encounter Summary ---
Demographics + + + | Address | [address] | | | [place] [address] | + + + | Home Phone [...] Team Providers + +------+ + | Care Electrical Drafter Name | Role | Phone | + [...] | | | | tongue, | | [facility] | | | | | unspecified | | Rd [place], | | | | | site | | [place] | | | | | | | [address] | | | | | | | Phone: | | | | | | | [phone] | | | | | | | Fax: | | | | | | | [phone] | +--------+--------+ + + + + Encounter [...] | | | [address] | [facility] [place] | | | | | [address] | [address] | | | | | Physician's | [phone] | | | | | Pavilion, 2nd floor | | | | | | [facility] [place] | | | | | | [address] | | | | | | [phone] | | | +--------+---------+ + + + [...]
--- OUTSIDE RECORDS SUMMARY | ~2019-07-27 | XMS | Encounter Summary ---
Demographics + + + | Address | [address] | | | [place] [address] | + + + | Home Phone | | + + + | Preferred Language | Unknown | + + + | Marital Status | | + + + | Hindu Affiliation | 1077 | + + + | Race | Unknown | + + + | Ethnic Group | Unknown | + + + Author + + + | Author | [facility] | | | and [place] | + + + | Organization | [facility] | | | and [...] Team Providers + +------+ + | Care Trimmer Sorter Name | Role | Phone | + +------+ + | Ganesh Hudson DO | PCP | | + +------+ + Encounter Details +--------+ + + + + | Date | Type | Department | Care Team | Description | +--------+ + + + + | 01/21/ | Hospital | [facility] | tOf Loja | Neck pain | | 2011 - | Encounter | MED CTR XRAY [address] | [address] | | | | | Ben[address] | [facility] [address] | | | 01/23/ | | [place] [address] | [place] [address] | | | 2011 | | [phone] | [phone] | | | | | | | [...] Performed At | + + + | [facility] | [place] | | Department [address] [place] [address] | [facility] | | [ rep [address]] [ rep ct [facility] | | [facility]] Signed | - IMAGING | | | | | Patient Name: VICKI ERIC Physician: | | | : 1930 Age: 81 Sex: F Unit #: [id number] | | | Exam Date: 01/22/12 Location: [facility] [place] | | | Report #: [id number] Page: | | | %(RAD)RES..mtdd.print.filter("pg") of %(RAD) | | | RES..mtdd.print.filter("tpg") | | | | | | Accession Number: [id number] | | | CERVICAL SPINE X-RAY CLINICAL [...] Transcribed Date/Time: 01/22/2012 | | | 14:08 Perinatal Educator: <<Signature on | | | File>> | | | Jaycob | | | MD Bishnu01/23/12 7470 <Electronically signed by Jaycob Goetz MD> | | | Jaycob Goetz MD 01/22/12 4606 Perinatal Educator: In [employer] | | | Mctlyeihtemnf18/20/12 1408 Gabino Baker MD | | + + + + + + + + | Performing | Address | City/State/Zipcode | Phone Number | | Organization | | | | + + + + + | [facility] | [address] | [place] | [phone] | | [facility] | | [address] | | | - IMAGING | | | | + + + + + documented in this encounter Visit Diagnoses + + | Diagnosis | + + | Neck pain Cervicalgia | + + documented in this encounter
--- OUTSIDE RECORDS SUMMARY | ~2019-07-27 | XMS | Encounter Summary ---
Demographics + + + | Address | [address] | | | [place] [address] | + + + | Home Phone | | + + + | Preferred Language | Unknown | + + + | Marital Status | Single | + + + | Pentecostal Affiliation | CHR | + + + [...] Team Providers + +------+ + | Care Catapult And Arresting Gear Officer Name | Role | Phone | [...] | Transcriptions | + + | Interface, Color Consultant In - 11/16/2005 3:10 AM PDT | | [place] [address] | | [place], [place] [address] | | [facility] RECORDMed Rec No.: | | [id number] Date: [...] procedure.Mary Cooley M.D. | | King Sumner M.D.[facility]:X44D: 04/25/2001T: 04/27/[id number]: | |DRAINS: | |None. | | | [...] | |Gregg Roche M.D. | | | |[facility]:X44 | | | | | |[id number] | | | |CC: | + + documented in this encounter Visit Diagnoses Not on filedocumented in this encounter"
--- OUTSIDE RECORDS SUMMARY | ~2019-07-27 | XMS | Encounter Summary ---
Demographics + + + | Address | [address] | | | [place] [address] | + + + | Home Phone | | + + + | Preferred Language | Unknown | + + + | Marital Status | Single | + + + | Jain Affiliation | CHR | + + + [...] Team Providers + +------+ + | Care Weaver Hand Loom Name | Role | Phone | + [...] | ECTROPION REPAIR | | | | [facility] | [address] [place], [place] | BILATERAL LOWER LID | | | | [place] [address] | [address] | RETRACTION REPAIR | | | | | [phone] | WITH MIDFACE LIFT | | | [...] Discharge Instructions Instructions Eugene Davis RN - 10/23/2017[place] [facility] after Eyelid Surgery Do not drive, [...] and holidays, call and as k the insulation board coater operator to page the Eye Doctor cotton tipper. Return appointment date: Time: documented in this [...] | 1 | 10/24/19 | | | erxaxceq-pxaxmmsca-n | eyelid incisions | | | 18 [...] | | procedure well. Mao Ayon M.D. Barrel Handler | | | Ophthalmic Facial Plastic and [...] 1 strip | | Bilatera | | ffkgavbx-moaqsojia-zndwdvaryxrau | | 18 2:07 | | | [...] 2:08 | | | Site | | 1%-1:899760 - bupivacaine 0.5% | | PM PDT [...]
--- OUTSIDE RECORDS SUMMARY | ~2019-07-27 | XMS | Encounter Summary ---
Demographics + + + | Address | [address] | | | [place] [address] | + + + | Home Phone [...] Team Providers + +------+ + | Care Precision Honing Machine Operator Name | Role | Phone [...] | | Malignant | MD King | [facility] [address] | | | | | neoplasm of | [address] | Pavilion | | | | | tongue, | [address] | [address] | | | | | unspecified | Rd | [address], | | | | | site | [place], [place] | Basement | | | | | Procedures | [address] | [place], [place] | | | | | [place] LYMPH | Phone: | [phone] | | | | | INJECTION | [phone] | Phone: | | | | | SENTINEL | Fax: | [phone] | | | | | NODE ONLY | [phone] | Fax: | | | | | | | [phone] | +--------+--------+ + + + + Reason [...] + + | 06/27/ | Hospital | [facility] [address] | King Sumner, | | | 2011 - | Encounter | [place] Mailcode: | [address] [facility] | | | | | [address] | [address] | | | 06/29/ | | [place], | [place], [place] | | | 2011 | | [place] [address] | [address] | | | | | [phone] | [phone] | | | | | | | [...] Otolaryngology (Head & Neck Surgery), please call: [phone]. For Extreme Emergencies: Call 911 Special Instructions: [...] and walk. You may also take an aocc-yvr-lzvqyaq stool softener (Docusate or C olace). Follow the directions on the label. Miralax is also helpful to relieve constipation. Call the Resident on-call at [phone] if you have any of the following [...] 4:00 pm, call the Otolaryngology clinic at [phone]. Somebody will try to answer your call [...] Raquel Cedeno MD Resident Department of Surgery [facility] ITAKrAna rollins - 06/29/2011 3:07 PM [...] is driving her to daughter's home in [facility]. She will stay there a few days before returning to her home in [place]. She is very active prior to admission. No case managment needs anticipated. Electronically signed by:Ana Beltran Position:Horse Racing Analyst Pager ID:[phone] 12 3:07 PM Ana Louis - 06/29/2011 2:49 PM PDTPatient Name: VICKI ERIC Date of : 1930 CARE COORDINATION ROUNDING NOTE Care Coordination rounds held. Disciplines attending included: Horse Racing Analyst,, Car Shifter,, Bedside RN,, hydraulic dredge operator, Electronically signed by:Ana Beltran Position:Horse Racing Analyst Pager ID:[phone] 12 2:49 PM Shilpi Gibson SLP - [...] HISTORY: The patient currently lives outside of [place], [place]. Her children live approximately 30 mi [...] visit with Dr. Sumner. Shilpi Burris M.S., EMPLOYEE COMMUNICATIONS MANAGER-CFY Speech-Language Pathology Clinical Fellow [facility] Otolaryngology, Head & Neck Surgery [facility] Pager [phone] Ceja MD - 06/29/2011 7:47 AM [...] Department of Otolaryngoly- Head and Neck Surgery [facility] . iller, Matt Blue MD - [...] Cedeno MD - 06/28/2011 10:33 PM PDT [id number] | | [id number] [address] [place] | | [id number] [id number] Date: 06/28/2011 Attending Surgeon: King Sosa | | Gregg Sumner Stapling Machine Operator(s): Raquel Cedeno M.D. | | Preoperative Diagnosis(es):Recurrent [...] | was then irrigated. Hemostasis was ensured. A7-Danish flat PURVI drain was placed in the [...] Raquel Cedeno, | | Gregg Sumner M.D. [facility] / [id number] / [id number] / [id number] / T: | | 06/28/2011 | |An [...] then irrigated. Hemostasis was ensured. A | |7-Danish flat PURVI drain was placed in the [...] Sumner M.D. | | | | | |[facility] / | |[id number] / [id number] / 62929 / | | | | | | [...] | + + + + + | [facility] | [address] | [place] [address] | | | PATHOLOGY | [address] [...] | | + +---------+ + + | [facility] DEPARTMENT OF | | | | [...] | | | | | | Grade: Q6Jqgyrst: | | | | | | Negative [...] | | | | | | (pT): yX0Zmrzsxrj Lymph | | | | | | Nodes (pN): | | | | | | mW6Ejfzsc of regional | | | | | [...] nodes: | | | | | | Utpfqa-vm-wfbEspc of | | | | | | [...] | + + + + + | [facility] | [address] | [place] [address] | | | PATHOLOGY | [address] [...]
--- OUTSIDE RECORDS SUMMARY | ~2019-07-27 | XMS | Encounter Summary ---
Demographics + + + | Address | [address] | | | [place] [address] | + + + | Home Phone [...] Team Providers + +------+ + | Care Preassembler Printed Circuit Board Name | Role | Phone | + [...] Rd | | | | | | [place], [place] | | | | | | [address] | | | +--------+ + + + [...]
--- OUTSIDE RECORDS SUMMARY | ~2019-07-27 | XMS | Encounter Summary ---
Demographics + + + | Address | [address] | | | [place] [address] | + + + | Home Phone [...] Team Providers + +------+ + | Care Machine Etcher Name | Role | Phone | + [...] | | | | [place], | [address] [place], | | | | | | [place] [address] | [place] | | | | | | Phone: | [phone] | | | | | | [phone] | Phone: | | | | | | Fax: | [phone] | | | | | | [phone] | Fax: | | | | | | | [phone] | +--------+--------+ + + + + Encounter [...] | | | Surgery Services at | [facility] [address] | | | | | [address] | [place], [place] | | | | | [address] | [address] | | | | | Physician's | [phone] | | | | | Pavilion, 2nd floor | | | | | | [place], [place] | | | | | | [address] | | | | | | [phone] | | | +--------+---------+ + + + [...] + + +--------+ + + | SC EXCIS TONGUE | Procedures | Routin | Tongue cancer | Ordered: 01/25/2009 | | RUDY FOY 2/3+CLOS | | e | ([facility]) | | + + +--------+ + + [...] Focal | | | | | | mwva-yt-podhssnz | | | | | | squamous [...] necessary | | | | | | [facility] | | | | | | [...] SCCin-situ | | | | | | ([id number]) [DS]. | | | | | | [...] number | | | | | | [id number]. Receivedis | | | | | | [...] | + + + + + | [facility] | [address] | [place] [address] | | | PATHOLOGY | [address] | | | + + + + + documented in this encounter Visit Diagnoses + + | Diagnosis | + + | Tongue cancer (HCC) - Primary Malignant neoplasm of tongue, unspecified site | + + documented in this encounter"
--- OUTSIDE RECORDS SUMMARY | ~2019-07-27 | XMS | Encounter Summary ---
Demographics + + + | Address | [address] | | | [place] [address] | + + + | Home Phone | | + + + | Preferred Language | Unknown | + + + | Marital Status | Single | + + + | Nondenominational Affiliation | CHR | + + + | Race | White | + + + | Ethnic Group | Not or | + + + Author + + + | Author | [facility] | + + + | Organization | [facility] | + + + | Address [...] Team Providers + +------+ + | Care Cardroom Worker Name | Role | Phone | [...] Pre-Admission | | 2018 | Orders | [place] | [address] | | | | | Oculoplastics at | Blvd [place], [place] | | | | | [place] [address] | [address] | | | | | [address] | [phone] | | | | | [facility] [place] | | | | | | [facility], [facility] floor | | | | | | [place] [address] | | | | | | [phone] | | | +--------+ + + + [...]
--- OUTSIDE RECORDS SUMMARY | ~2019-07-27 | XMS | Clinical Summary ---
Demographics + + + | Address | [address] | | | [place] [address] | + + + | Home Phone | | + + + | Preferred Language | Unknown | + + + | Marital Status | | + + + | Restorationist Affiliation | 1077 | + + + | Race | Unknown | + + + | Ethnic Group | Unknown | + + + Author + + + | Author | [facility] | | | and Jeromeana | + + + | Organization | [facility] | | | and [...] Team Providers + +------+ + | Care Die Reamer Name | Role | Phone | + [...] +---------+--------+ | [employer] | PREMIE | [id number] | 01/15/ | [phone] | | Medica | | | R [...] Person | Self | [birth year] | | [address] | | | al/Fam | | 1931 | [phone] | [place] | | | [place] | | | 4 (Home) | [address] | + +--------+ +--------+ + + Advance Directives + + + + + | Type | Date Recorded | Patient | Explanation | | | | Bellows Assembler | | + + + + + | Power of | | | | | Chin Strap Maker | | | | + + + + + | Advance | | | | | Directive | | | | + + + + +
--- OUTSIDE RECORDS SUMMARY | ~2019-07-27 | XMS | Encounter Summary ---
Demographics + + + | Address | [address] | | | [place] [address] | + + + | Home Phone [...] Team Providers + +------+ + | Care Production Mechanic Tin Cans Name | Role | Phone | + [...] | | | | tongue, | | [facility] | | | | | unspecified | | Rd [place], | | | | | site | | [place] | | | | | | | [address] | | | | | | | Phone: | | | | | | | [phone] | | | | | | | Fax: | | | | | | | [phone] | +--------+--------+ + + + + Encounter [...] | | | Surgery Services at | [facility] | | | | | [address] | [facility] [place] | | | | | [address] | [address] | | | | | Physician's | [phone] | | | | | Pavilion, 2nd floor | | | | | | [place], [place] | | | | | | [address] | | | | | | [phone] | | | +--------+---------+ + + + [...]
--- OUTSIDE RECORDS SUMMARY | ~2019-07-27 | XMS | Encounter Summary ---
Demographics + + + | Address | [address] | | | [place] [address] | + + + | Home Phone | | + + + | Preferred Language | Unknown | + + + | Marital Status | Single | + + + | Judaism Affiliation | CHR | + + + [...] Team Providers + +------+ + | Care Paragliding Instructor Name | Role | Phone | + [...] [address] | | | | | | [place] [address] | | | | | | [phone] | | | +--------+ + + + [...]
--- OUTSIDE RECORDS SUMMARY | ~2019-07-27 | XMS | Encounter Summary ---
Demographics + + + | Address | [address] | | | [place] [address] | + + + | Home Phone [...] + + + | Author | [facility] | + + + | Organization | [facility] | + + + | [...] Team Providers + +------+ + | Care Hardwood Flooring Specialist Name | Role | Phone | + +------+ + | Ganesh Hudson DO | PCP | | + +------+ + Encounter Details +--------+ + + + + | Date | Type | Department | Care Team | Description | +--------+ + + + + | 06/05/ | Customs And Border Protection Officer | Otolaryngology | [place], | Tongue cancer (HCC) | | 2011 | | Thyroid Services at | MD [address] | (Primary Dx) | | | | [address] | | | | | [address] | [place], [place] | | | | | Physician's | [address] | | | | | [place]que, [facility] floor | [phone] | | | | | [place], [place] | | | | | | [address] | | | | | | [phone] | | | +--------+ + + + [...] | | | | | | in 2008([id number]). | | | | | | Gross [...] number | | | | | | [id number]. Received is | | | | | [...] | + + + + + | [facility] | [address] | [place] [address] | | | PATHOLOGY | [address] | | | + + + + + documented in this encounter Visit Diagnoses + + | Diagnosis | + + | Tongue cancer (HCC) - Primary Malignant neoplasm of tongue, unspecified site | + + documented in this encounter"
--- OUTSIDE RECORDS SUMMARY | ~2019-07-27 | XMS | Encounter Summary ---
Demographics + + + | Address | [address] | | | [place] [address] | + + + | Home Phone | | + + + | Preferred Language | Unknown | + + + | Marital Status | | + + + | Latter-Day Affiliation | 1077 | + + + | Race | Unknown | + + + | Ethnic Group | Unknown | + + + Author + + + | Author | [facility] | | | and Jeromeana | + + + | Organization | [facility] [...] Team Providers + +------+ + | Care Rn International Name | Role | Phone | + [...] + + | 03/25/ | Office | [facility] | Otf Loja | Cervical stenosis of | | 2012 | Visit | NEUROSURGERY [address] | [address] | spine (Primary Dx); | | | | [address] | [address] | Degenerative disc | | | | [place], [place] | [place] [address] | disease, cervical; | | | | [address] | [phone] | Spondylolisthesis of | | | | [phone] | | cervical region | +--------+---------+ + [...] ent from the original. AUGUSTO Peralta [address] [facility], [address] [place], [place] [address] FAX: NEUROSURGERY HISTORY AND PHYSICAL EXAMINATION CHIEF [...] tablet Take 15 mg by mouth Daily. Kskjddths-Hrphavqca-Itdijuno (TRIANT-HC PO) Take 40 mg by mouth. [...] has no apparent deficits with short or truck terminal manager memory. CRANIAL NERVES: II: Acuity is intact. [...] Intrinsics 5 5 Ulnar Intrinsics 5 5 Senior Accountant Cpa Strength 5 5 Hip Flexion 5 5 [...]
--- OUTSIDE RECORDS SUMMARY | ~2019-07-27 | XMS | Encounter Summary ---
Demographics + + + | Address | [address] | | | [place] [address] | + + + | Home Phone | | + + + | Preferred Language | Unknown | + + + | Marital Status | Single | + + + | Mu-Ism Affiliation | CHR | + + + [...] Team Providers + +------+ + | Care Crabber Name | Role | Phone | + [...] floor | | | | | | [place], [place] | | | | | | [address] | | | | | | [phone] | | | +--------+---------+ + + + [...]
--- OUTSIDE RECORDS SUMMARY | ~2019-07-27 | XMS | Encounter Summary ---
Demographics + + + | Address | [address] | | | [place] [address] | + + + | Home Phone [...] Team Providers + +------+ + | Care Medical Office Clerk Name | Role | Phone | [...] [place] | | | | | [facility] | Claudia Martínez Com[place], | | | | | Hospital Admitting | [place] [address] | | | | | Desk Located on the | [phone] | | | | | 9th floor | | | | | | [place], [place] | Emmett Radford MD | | | | | [address] | [address] | | | | | | [address] | | | | | | [place], [place] | | | | | | [address] | | +--------+ + + + + [...]
--- OUTSIDE RECORDS SUMMARY | ~2019-07-27 | XMS | Encounter Summary ---
Demographics + + + | Address | [address] | | | [place] [address] | + + + | Home Phone | | + + + | Preferred Language | Unknown | + + + | Marital Status | | + + + | Christianity Affiliation | 1077 | + + + | Race | Unknown | + + + | Ethnic Group | Unknown | + + + Author + + + | Author | [facility] | | | and Jeromeana | + + + | Organization | [facility] | | | [...] Team Providers + +------+ + | Care Commercial Real Estate Broker Name | Role | Phone | + +------+ + PCP | Unavailable | + +------+ + Encounter Details +--------+ + + + + | Date | Type | Department | Care Team | Description | +--------+ + + + + | 09/14/ | [facility] | [facility] | Salvatore Yao, | | | 2003 | Encounter | MED CTR XRAY [address] | [address] [place] [address] | | | | | [place] | [place] | | | | | [place] [address] | [address] | | | | | [phone] | | | +--------+ + + + [...]
--- OUTSIDE RECORDS SUMMARY | ~2019-07-27 | XMS | Encounter Summary ---
Demographics + + + | Address | [address] | | | [place] [address] | + + + | Home Phone | | + + + | Preferred Language | Unknown | + + + | Marital Status | Single | + + + | Yarsani Affiliation | CHR | + + + [...] Team Providers + +------+ + | Care Division Order Analyst Name | Role | Phone | [...] | | [facility] | [facility] | | | | | | Rd | Rd [place], | | | | | | [place], [place] | [place] | | | | | | [address] | [address] | | | | | | Phone: | Phone: | | | | | | [phone] | [phone] | | | | | | Fax: | Fax: | | | | | | [phone] | [phone] | +--------+--------+ + + + + Encounter [...] at | [facility] [address] | | | | | [address] | [place], [place] | | | | | [address] | [address] | | | | | Physician's | [phone] | | | | | Pavilion, 2nd floor | | | | | | [place], [place] | | | | | | [address] | | | | | | [phone] | | | +--------+---------+ + + + [...]
--- OUTSIDE RECORDS SUMMARY | ~2019-07-27 | XMS | Encounter Summary ---
Demographics + + + | Address | [address] | | | [place] [address] | + + + | Home Phone [...] + + + | Author | [facility] | + + + | Organization | [facility] | + + + | [...] Team Providers + +------+ + | Care Retail Banking Manager Name | Role | Phone | [...] | ECTROPION REPAIR | | | | [facility] | [address] [place], [place] | BILATERAL LOWER LID | | | | [place] [address] | [address] | RETRACTION REPAIR | | | | | [phone] | WITH MIDFACE LIFT | | | [...] Discharge Instructions Instructions Eugene Davis RN - 10/23/2017[facility] after Eyelid Surgery Do not drive, [...] and holidays, call and as k the shot grinder operator to page the Eye Doctor consulting intern. Return appointment date: Time: documented in this [...] | 1 | 10/24/19 | | | wkxuwsao-ooojffcfr-r | eyelid incisions | | | 18 [...] At | + + + | Mao Aoyn MD 10/23/2017 2:28 PM Procedure Note: Date [...] | | procedure well. Mao Ayon M.D. Bag Worker | | | Ophthalmic Facial Plastic and [...] 1 strip | | Bilatera | | kicrtznk-fzuyzyhvt-beseweqlluutv | | 18 2:07 | | | [...] 2:08 | | | Site | | [id number] - bupivacaine 0.5% | | PM PDT [...]
--- OUTSIDE RECORDS SUMMARY | ~2019-07-27 | XMS | Encounter Summary ---
Demographics + + + | Address | [address] | | | [place] [address] | + + + | Home Phone [...] Author + + + | Author | [facility] | + + + | Organization | [facility] | + + + | [...] Team Providers + +------+ + | Care Client Experience Administrator Name | Role | Phone | + +------+ + | Joycelyn Aguilar PA-C | PCP | | + +------+ + Encounter Details +--------+ + + + + | Date | Type | Department | Care Team | Description | +--------+ + + + + | 10/09/ | Outside | UNKNOWN DEPARTMENT | Other, Faculty | | | 2018 | Records | [address] [facility] | [phone] | | | | | [address] | | | | | | [place], [place] | | | | | | [address] | | | +--------+ + + + [...]
--- OUTSIDE RECORDS SUMMARY | ~2019-07-27 | XMS | Encounter Summary ---
Demographics + + + | Address | [address] | | | [place] [address] | + + + | Home Phone | | + + + | Preferred Language | Unknown | + + + | Marital Status | | + + + | Orthodox Affiliation | 1077 | + + + | Race | Unknown | + + + | Ethnic Group | Unknown | + + + Author + + + | Author | [facility] | | | and Jeromeana | + + + | Organization | [facility] | | | [...] Team Providers + +------+ + | Care Glazier Stained Glass Name | Role | Phone | + [...] | | | | [address] | [place] [address] | | | | | [place] [address] | | | | | | [phone] | | | +--------+ + + + [...]
--- OUTSIDE RECORDS SUMMARY | ~2019-07-27 | XMS | Encounter Summary ---
Demographics + + + | Address | [address] | | | [place] [address] | + + + | Home Phone | | + + + | Preferred Language | Unknown | + + + | Marital Status | Single | + + + | Methodist Affiliation | CHR | + + + [...] Team Providers + +------+ + | Care Education And Training Coordinator Name | Role | Phone | + +------+ + | Ganesh Hudson DO | PCP | | + +------+ + Encounter Details +--------+ + + + + | Date | Type | Department | Care Team | Description | +--------+ + + + + | 08/01/ | Abstract | [facility] | Mao Ayon MD | | | 2018 | | [place] | [address] | | | | | [facility]culoplastics at | [facility] [place] | | | | | [address] | [address] | | | | | [address] | [phone] | | | | | [facility] [place] | | | | | | [facility], [address] [place] [address] | | | | | | [place] [address] | | | | | | [phone] | | | +--------+ + + + [...]
--- OUTSIDE RECORDS SUMMARY | ~2019-07-27 | XMS | Encounter Summary ---
Demographics + + + | Address | [address] | | | [place] [address] | + + + | Home Phone [...] | [facility] | | | and Jeromeana | + + + | Organization | [facility] | | | and [...] Team Providers + +------+ + | Care Lna Name | Role | Phone | + [...] | | | | cervical | [address] | | | | | | region | [address] | | | | | | Degenerative | [place] | | | | | | disc | [address] | | | | | | disease, | Phone: | | | | | | cervical | [phone] | | | | | | Spondylolist | Fax: | | | | | | hesis of | [phone] | | | | | | cervical [...] | | pain | [address] | [place], [place] | | | | | Procedures | [place], [place] | [address] | | | | | [place] | [address] | Phone: | | | | | OFFICE/OUTPT | Phone: | [phone] | | | | | | [phone] | Fax: | | | | | VISIT,EST,LE | Fax: | [phone] | | | | | VL IV | [phone] | | +--------+--------+ + + + + [...] | | [place] [address] | [place] [address] | Degenerative disc | | | | [address] | [phone] | disease, cervical; | | | | [phone] | | Spondylolisthesis of | | | | | | cervical region; | | | | | | Tongue cancer ([facility]) | +--------+---------+ + + + Social History [...] different from the original. AUGUSTO Peralta [address] [facility], [address] [place], [place] [address] FAX: NEUROSURGERY HISTORY AND PHYSICAL EXAMINATION CHIEF [...] tablet Take 15 mg by mouth Daily. Ztnaxdrhn-Bxznttyzq-Vqdhsgvf (TRIANT-HC PO) Take 40 mg by mouth. [...] Intrinsics 5 5 Ulnar Intrinsics 5 5 Appeals Manager Strength 5 5 Hip Flexion 5 [...]
--- OUTSIDE RECORDS SUMMARY | ~2019-07-27 | XMS | Encounter Summary ---
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 We want to ensure that she does have a time slot to see us in the event that she does need exam in the week following surgery which would require the trip to [place]. Mao Farrell MD - 08/02 11:10 AM [...] I have reviewed and edited history and aircraft systems technician documentation, and performed all elements to above examination documentation. Mao Ayon M.D. Cut Out Marker Ophthalmic Facial Plastic and Reconstructive Surgery documented [...]
--- OUTSIDE RECORDS SUMMARY | ~2019-07-27 | XMS | Encounter Summary ---
Demographics + + + | Address | [address] | | | [place] [address] | + + + | Home Phone [...] + + + | Author | [facility] | + + + | Organization | [facility] | + + + | [...] Team Providers + +------+ + | Care Dental Ceramist Helper Name | Role | Phone | [...] | | | | [place], | [place], | | | | | | [place] [address] | [place] | | | | | | Phone: | [address] | | | | | | [phone] | Phone: | | | | | | Fax: | [phone] | | | | | | [phone] | Fax: | | | | | | | [phone] | +--------+--------+ + + + + Encounter [...] | | | Surgery Services at | [facility] | | | | | [address] | [place], [place] | | | | | [address] | [address] | | | | | Physician's | [phone] | | | | | Pavilion, 2nd floor | | | | | | [place], [place] | | | | | | [address] | | | | | | [phone] | | | +--------+---------+ + + + [...] tongue there is a well-healed incision about chcf back. Just posterior to this is a 4-m m ulcerated lesion which is quite tender. 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 There is free flow of saliva bilaterally from both Santhosh's and Schuyler's duct. Oropharynx - The soft palate mobility is normal. The tonsils are normal bilaterally. The pharyngeal ah are normal. Cranial nerves - CN I [...] therapy from this p oint forward. King Smuner MD Oil Field Pumper of Otolaryngology, Head & Neck Surgery NOTE: [...] | + + + + + | [facility] DEPARTMENT OF | [address] | [place] [address] | | | PATHOLOGY | [address] | | | + + + + + | [facility] DEPARTMENT OF | [address] | [place] [address] | | | PATHOLOGY | [address] | | | + + + + + documented in this encounter Visit Diagnoses + + | Diagnosis | + + | Tongue cancer (HCC) - Primary Malignant neoplasm of tongue, unspecified site | + + documented in this encounter
--- OUTSIDE RECORDS SUMMARY | ~2019-07-27 | XMS | Encounter Summary ---
Demographics + + + | Address | [address] | | | [place] [address] | + + + | Home Phone [...] Team Providers + +------+ + | Care Infection Control Practitioner Name | Role | Phone | + [...] Encounter | Non-Invasive Testing | [address] [facility] | | | | | at [facility] | [facility] | | | | | [address] | [place] [address] | | | | | [address] [facility] | | | | | | [place], [address] [place] [address] | | | | | | [place], [place] | | | | | | [address] | | | | | | [phone] | | | +--------+ + + + [...] | | | | | TREMAINE ROBLES ([id number]) | | | | | | on 06/27/2011 4:06:46 PM | | | | + + + + + + + + | Specimen | + + | | + + + + + | Narrative | Performed At | + + + | Please click | [facility] | | on view image for the detailed interpretation from [employer] results. | CARDIOLOGY | + + + + + + + + | Performing | Address | City/State/Zipcode | Phone Number | | Organization | | | | + + + + + | [facility] | [address] | [place], [place] | | | CARDIOLOGY | [address] | [address] | | + + + + + documented in this encounter Visit Diagnoses Not on filedocumented in this encounter
--- OUTSIDE RECORDS SUMMARY | ~2019-07-27 | XMS | Clinical Summary ---
Demographics + + + | Address | [address] | | | [place] [address] | + + + | Home Phone | | + + + | Preferred Language | Unknown | + + + | Marital Status | | + + + | Yarsanism Affiliation | 1077 | + + + | Race | Unknown | + + + | Ethnic Group | Unknown | + + + Author + + + | Author | [facility] | | | and Jeromeana | + + + | Organization | [facility] | | | [...] Team Providers + +------+ + | Care Roadway Engineer Name | Role | Phone | [...] +---------+--------+ | [employer] | [place] | [id number] | 01/15/ | [phone] | | Medica | | | R [...] Person | Self | [birth year] | [address] | | | al/Fam | | 1931 | [phone] | [place] | | | [place] | | | 4 (Home) | [address] | + +--------+ +--------+ + + Advance Directives + + + + + | Type | Date Recorded | Patient | Explanation | | | | Centrifugal Screen Tender | | + + + + + | Power of | | | | | Rn Eligibility | | | | + + + + + | Advance | | | | | Directive | | | | + + + + +
--- OUTSIDE RECORDS SUMMARY | ~2019-07-27 | XMS | Encounter Summary ---
Demographics + + + | Address | [address] | | | [place] [address] | + + + | Home Phone [...] Team Providers + +------+ + | Care Instrument Mechanic Name | Role | Phone [...] | 2018 | Event | [address] | [address] [facility] | | | | | [facility] | [facility] | | | | | [place] [address] | [place], [place] | | | | | | [address] | | | | | | [phone] | | | | | | | | | | | | Andre Kaiser, | | | | | | CONTROLS OPERATOR MOLDED GOODS [address] [facility] | | | | | | [facility] | | | | | | [place], [place] | | | | | | [address] | | | | | | [phone] | | | | | | | [...]
--- OUTSIDE RECORDS SUMMARY | ~2019-07-27 | XMS | Encounter Summary ---
Demographics + + + | Address | [address] | | | [place] [address] | + + + | Home Phone | | + + + | Preferred Language | Unknown | + + + | Marital Status | Single | + + + | Scientologist Affiliation | CHR | + + + [...] Team Providers + +------+ + | Care Toll Gate Tender Name | Role | Phone | + [...] | surface of | [place], | [address] [place], | | | | | tongue (HCC) | [place] [address] | [place] | | | | | Procedures | Phone: | [address] | | | | | [place] | [phone] | Phone: | | | | | LARYNGOSCOPY | Fax: | [phone] | | | | | ,DIRECT,DIAG | [phone] | Fax: | | | | | NOSTIC CT | | [phone] | | | | | LARYNGOSCOPY | | | | | | | ,DIRCT,OP,BI | | | | | | | OPSY CT | | | | | | | ESOPHAGOSCOP | | | | | | | Y,DIAGNOSTIC | | | | | | | CT PART | | | | | | | REMOVAL | | | | | | | TONGUE,<1/2 | | | | | | | CT PART | | | | | | | REMOVAL | | | | | | | TONGUE, 1/2 | | | | | | | CT PART EXC | | | | | | | | | | | | | | TONGUE,UNILA | | | | | | | T RAD NECK | | | | | | | CT | | | | | | | BIOPSY/EXCIS | | | | | | | ION, LYMPH | | | | | | | NODE(S) CT | | | | | | | BX/REMV,LYMP | | | | | | | H NODE,DEEP | | | | | | | CERV CT | | | | | | | REMOVAL | | | | | | | NODES, | | | | | | | NECK,CERV | | | | | | | MOD RAD CT | | | | | | | [...] | | | Surgery Services at | [facility] | | | | | [address] | [place], [place] | | | | | [address] | [address] | | | | | Physician's | [phone] | | | | | Pavilion, 2nd floor | | | | | | [place], [place] | | | | | | [address] | | | | | | [phone] | | | +--------+---------+ + + + [...]
--- OUTSIDE RECORDS SUMMARY | ~2019-07-27 | XMS | Encounter Summary ---
Demographics + + + | Address | [address] | | | [place] [address] | + + + | Home Phone [...] + + + | Author | [facility] | + + + | Organization | [facility] | + + + | [...] Team Providers + +------+ + | Care Artificial Insemination Technician Name | Role | Phone | [...] [place] | | | | | | [place] [address] | | | | | | [phone] | | | +--------+ + + + [...]
--- OUTSIDE RECORDS SUMMARY | ~2019-07-27 | XMS | Encounter Summary ---
Demographics + + + | Address | [address] | | | [place] [address] | + + + | Home Phone | | + + + | Preferred Language | Unknown | + + + | Marital Status | Single | + + + | Roman Catholic Affiliation | CHR | + + + | Race | White | + + + | Ethnic Group | Not or | + + + Author + + + | Author | [facility] | + + + | Organization | [facility] | + + + | [...] Team Providers + +------+ + | Care Coding Advisor Name | Role | Phone | + +------+ + | Ganesh Hudson DO | PCP | | + +------+ + Encounter Details +--------+ + + + + | Date | Type | Department | Care Team | Description | +--------+ + + + + | 08/01/ | Abstract | [facility] | Mao Ayon MD | | | 2018 | | [place] | [address] | | | | | Oculoplastics at | [facility] [place] | | | | | [address] | [address] | | | | | [address] | [phone] | | | | | [facility] [place] | | | | | | [facility], [address] [place] [address] | | | | | | [place] [address] | | | | | | [phone] | | | +--------+ + + + [...]
--- OUTSIDE RECORDS SUMMARY | ~2019-07-27 | XMS | Encounter Summary ---
Demographics + + + | Address | [address] | | | [place] [address] | + + + | Home Phone [...] Team Providers + +------+ + | Care Associate Professor Of Medicine Name | Role | Phone | + [...] | 2018 | Event | [address] | [address] [facility] | | | | | [facility] | [facility] | | | | | [place] [address] | [place], [place] | | | | | | [address] | | | | | | [phone] | | | | | | | | | | | | Andre Kaiser, | | | | | | OPTOMECHANICAL ENGINEER [address] [facility] | | | | | | [facility] | | | | | | [place], [place] | | | | | | [address] | | | | | | [phone] | | | | | | | | +--------+ + + + + Anesthesia Record + + + + + | Procedure Name | Responsible | Anesthesia Start | Anesthesia Stop Time | | | Anesthesiologist | Time | | + + + + + | BILATERAL LOWER LID | Lilliam E MD Brabara | 10/23/17 1353 | 10/23/17 1428 | [...]
--- OUTSIDE RECORDS SUMMARY | ~2019-07-27 | XMS | Encounter Summary ---
Demographics + + + | Address | [address] | | | [place] [address] | + + + | Home Phone | | + + + | Preferred Language | Unknown | + + + | Marital Status | | + + + | Moravian Affiliation | 1077 | + + + | Race | Unknown | + + + | Ethnic Group | Unknown | + + + Author + + + | Author | [facility] | | | and Jeromeana | + + + | Organization | [facility] | | | and [...] Team Providers + +------+ + | Care Vessel Captain Name | Role | Phone | + [...] | [address] [place] | [place] [address] | | | | | [address] | [phone] | | | | | [phone] | | | +--------+ + + + [...]
--- OUTSIDE RECORDS SUMMARY | ~2019-07-27 | XMS | Encounter Summary ---
Demographics + + + | Address | [address] | | | [place] [address] | + + + | Home Phone [...] Team Providers + +------+ + | Care Clerical Coordinator Name | Role | Phone | [...] [place] | | | | | | [place] [address] | | | | | | [phone] | | | +--------+ + + + [...]
--- OUTSIDE RECORDS SUMMARY | ~2019-07-27 | XMS | Encounter Summary ---
Demographics + + + | Address | [address] | | | [place] [address] | + + + | Home Phone | | + + + | Preferred Language | Unknown | + + + | Marital Status | Single | + + + | Lutheran Affiliation | CHR | + + + [...] Providers + +------+ + | Care Digital Marketing Apprentice Name | Role | Phone | [...] x2 sent | | | | [facility] | [facility] | to lab | | | | Hospital Admitting | [place], [place] | | | | | Desk Located on the | [address] | | | | | 9th floor | [phone] | | | | | [place], [place] | | | | | | [address] | | | +--------+---------+ + + + [...] Otolaryngology (Head & Neck Surgery), please call: [phone]. For Extreme Emergencies: Call 296 Special Instructions: No drinking alcohol while on [...] and walk. You may also take an chwa-cit-hpkidjc stool softener (Docusate or C olace). Follow the directions on the label. Miralax is also helpful to relieve constipation. Call the Resident on-call at [phone] if you have any of the following [...] 4:00 pm, call the Otolaryngology clinic at [phone]. Somebody will try to answer your call [...] Raquel Cedeno MD Resident Department of Surgery [facility] Ana Louis - 06/29/2011 3:07 PM [...] is driving her to daughter's home [facility]. She will stay there a few days before returning to her home in [place]. She is very active prior to admission. No case managment needs anticipated. Electronically signed by:Ana Beltran Position:Head Custodian Pager ID:[phone] 12 3:07 PM Ana Louis - 06/29/2011 2:49 PM PDTPatient Name: VICKI ERIC Date of : 1930 CARE COORDINATION ROUNDING NOTE Care Coordination rounds held. Disciplines attending included: Head Custodian,, Knife Glazer,, Bedside RN,, salon coordinator, Electronically signed by:Ana Beltran Position:Head Custodian Pager ID:[phone] 12 2:49 PM Shilpi Gibson SLP - [...] HISTORY: The patient currently lives outside of [place], [place]. Her children live approximately 30 mi [...] visit with Dr. Sumner. Shilpi Burris M.S., HEALTH EDUCATION DIRECTOR-CFY Speech-Language Pathology Clinical Fellow [facility] Otolaryngology, Head & Neck Surgery [facility] [place] Pager [phone] ed Ceja MD - 06/29/2011 7:47 AM [...] Department of Otolaryngoly- Head and Neck Surgery [facility] . illMatt shelley MD - 06/28/2011 1:23 [...] Cedeno MD - 06/28/2011 10:33 PM PDT [id number] | | [id number] JIMBO [place] | | [id number] Date: 06/28/2011 Attending Surgeon: King Sosa | | Gregg Sumner Gridcap Machine Operator(s): Raquel Cedeno M.D. | | [...] | was then irrigated. Hemostasis was ensured. A7-Japanese flat PURVI drain was placed in the [...] Raquel Cedeno, | | Gregg Sumner M.D. [facility] / [id number] / [id number] / [id number] / T: | | 06/28/2011 | |An [...] then irrigated. Hemostasis was ensured. A | |7-Japanese flat PURVI drain was placed in the [...] Sumner M.D. | | | | | |[facility] / | |[id number] / [id number] / [id number] / | | | | | | [...] | + + + + + | [facility] | [address] | [place] [address] | | | PATHOLOGY | [address] [...] | | | | | | Grade: D3Wohjvwx: | | | | | | Negative for invasive | | | | | | carcinomaAngiolymphatic | | | | | | Invasion: | | | | | | AbsentPerineural | | | | | | Invasion: | | | | | | AbsentLymph Nodes, | | | | | | Extranodal Extension: | | | | | | Not identifiedAPIONEER [facility] Stage | | | | | | (7th Edition) (pTNM)TNM | | | | | | Descriptors: r | | | | | | (recurrent)Primary Tumor | | | | | | (pT): vY2Penzmkkz Lymph | | | | | | Nodes (pN): | | | | | | kO1Omexio of regional | | | | | [...] nodes: | | | | | | Ycvpio-tq-sysTfbc of | | | | | | [...] | + + + + + | [facility] | [address] | [place] [address] | | | PATHOLOGY | [address] [...]
--- OUTSIDE RECORDS SUMMARY | ~2019-07-27 | XMS | Encounter Summary ---
Demographics + + + | Address | [address] | | | [place] [address] | + + + | Home Phone [...] Team Providers + +------+ + | Care Crucible Packer Name | Role | Phone | + +------+ + | Ganesh Hudson DO | PCP | | + +------+ + Encounter Details +--------+ + + + + | Date | Type | Department | Care Team | Description | +--------+ + + + + | 06/05/ | Tractor Technician | Otolaryngology | King Sumner, | Tongue cancer (HCC) | | 2011 | | Thyroid Services at | MD [address] | (Primary Dx) | | | | [address] | [address] | | | | | [address] | [place], [place] | | | | | Physician's | [address] | | | | | [place], [facility] floor | [phone] | | | | | [place], [place] | | | | | | [address] | | | | | | [phone] | | | +--------+ + + + [...] necessary | | | | | | [facility] | | | | | | [...] | | | | | | in 2008([id number]). | | | | | | Gross [...] number | | | | | | [id number]. Received is | | | | | [...] | + + + + + | [facility] [place] [place] | [address] | [place] [address] | | | PATHOLOGY | [address] | | | + + + + + documented in this encounter Visit Diagnoses + + | Diagnosis | + + | Tongue cancer (HCC) - Primary Malignant neoplasm of tongue, unspecified site | + + documented in this encounter"
--- OUTSIDE RECORDS SUMMARY | ~2019-07-27 | XMS | Encounter Summary ---
Demographics + + + | Address | [address] | | | [place] [address] | + + + | Home Phone [...] Team Providers + +------+ + | Care Database Report Writer Name | Role | Phone | + [...] | | | | Patient NO | [facility] | | | | | | REFERRING | Mauricio Majano | | | | | | PROVIDER PER | [place] | | | | | | [place] | [address] | | | | | | | Phone: | | | | | | | [phone] | | | | | | | Fax: | | | | | | | [phone] | +--------+--------+ + + + + Encounter [...] Services at | [facility] [address] | | | | | [address] | [place], [place] | | | | | [address] | [address] | | | | | Physician's | [phone] | | | | | [facility] floor | | | | | | [facility] [place] | | | | | | [address] | | | | | | [phone] | | | +--------+---------+ + + + [...] MD Otolaryngology/Head and Neck Surgery PGY2 Pager: [phone] lissa Castillo MA - 04/2010 12:45 PM [...] | + +--------+ + + + | PA | Routin | 10/09/2010 | Tongue cancer [...]
--- OUTSIDE RECORDS SUMMARY | ~2019-07-27 | XMS | Encounter Summary ---
Demographics + + + | Address | [address] | | | [place] [address] | + + + | Home Phone [...] Providers + +------+ + | Care Client Success Specialist Name | Role | Phone | [...] | | | | [address] | [address] | | | | | | [address] | [address] | | | | | | [place] | [place], | | | | | | [place] [address] | [place] | | | | | | Phone: | [address] | | | | | | [phone] | Phone: | | | | | | Fax: | [phone] | | | | | | [phone] | Fax: | | | | | | | [phone] | +--------+--------+ + + + + Encounter [...] | | | [address] | [place], [place] | | | | | [address] | [address] | | | | | Physician's | [phone] | | | | | [address], 2nd floor | | | | | | [place], [place] | | | | | | [address] | | | | | | [phone] | | | +--------+---------+ + + + [...] in Carmita michelinehuma's note. King Sumner MD [employer] Dry Press Operator of Otolaryngology, Head & Neck Surgery sha [...] Sore spot on L lateral region of zbqrcz-rffgfufre-bwqwdliq irritation of the scar Plan: Reviewed neg findings with pt, if sore reappears, pt will call office to set up appt for re -eval documented in this en counter Plan of Treatment + + +--------+ + + | Name | Type | Priori | Associated Diagnoses | Order Schedule | | | | ty | | | + + +--------+ + + | AL LARYNGOSCOPY,FLEX | Procedures | Routin | Tongue Sore | Ordered: 07/25/2007 | | FIBER,DIAGNOSTIC | | e | | | + + +--------+ + + documented as of this encounter Visit Diagnoses + + | Diagnosis | + + | Tongue sore - Primary Glossodynia | + + documented in this encounter"
--- OUTSIDE RECORDS SUMMARY | ~2019-07-27 | XMS | Encounter Summary ---
Demographics + + + | Address | [address] | | | [place] [address] | + + + | Home Phone | | + + + | Preferred Language | Unknown | + + + | Marital Status | | + + + | Mosque Affiliation | 1077 | + + + | Race | Unknown | + + + | Ethnic Group | Unknown | + + + Author + + + | Author | [facility] | | | and [place] | + + + | Organization | [facility] | | | and [...] Team Providers + +------+ + | Care Dishwasher Preparer Name | Role | Phone | + +------+ + | Ganesh Hudson DO | PCP | | + +------+ + Encounter Details +--------+ + + + + | Date | Type | Department | Care Team | Description | +--------+ + + + + | 01/21/ | Hospital | [facility] | Otf Loja | Neck pain | | 2011 - | Encounter | MED CTR XRAY [address] | [address] | | | | | [address] | [facility] [address] | | | 01/23/ | | [place] [address] | [place] [address] | | | 2011 | | [phone] | [phone] | | | | | | | [...] Performed At | + + + | [facility] | [facility] | | Department [address] [place] [address] | [facility] | | [ rep ct [address]] [ rep ct [facility] | | [facility]] Signed | - IMAGING | | | | | Patient Name: VICKI ERIC Physician: | | | : 1930 Age: 81 Sex: F Unit #: [id number] | | | Exam Date: 01/22/12 [place]: [facility] | | | Report #: [id number] Page: | | | %(RAD)RES..mtdd.print.filter("pg") of %(RAD) | | | RES..mtdd.print.filter("tpg") | | | | | | Accession Number: [id number] | | | CERVICAL SPINE X-RAY CLINICAL [...] Transcribed Date/Time: 01/22/2012 | | | 14:08 Attic Blower: <<Signature on | | | File>> | | | Jaycob | | | MD Bishnu01/23/12 2899 <Electronically signed by Jaycob Goetz MD> | | | Jaycob Goetz MD 01/22/12 9946 Attic Blower: [employer] | | | Ygmwlsngcjuhq67/20/12 1408 Gabino Baker MD | | + + + + + + + + | Performing | Address | City/State/Zipcode | Phone Number | | Organization | | | | + + + + + | [facility] | [address] | [place] | [phone] | | [facility] | | [address] | | | - IMAGING | | | | + + + + + documented in this encounter Visit Diagnoses + + | Diagnosis | + + | Neck pain Cervicalgia | + + documented in this encounter
--- OUTSIDE RECORDS SUMMARY | ~2019-07-27 | XMS | Encounter Summary ---
Demographics + + + | Address | [address] | | | [place] [address] | + + + | Home Phone | | + + + | Preferred Language | Unknown | + + + | Marital Status | Single | + + + | Hinduism Affiliation | CHR | + + + | Race | White | + + + | Ethnic Group | Not or | + + + Author + + + | Author | [facility] | + + + | Organization | [facility] | + + + | Address [...] Team Providers + +------+ + | Care Family And Consumer Science Professor Name | Role | Phone | + +------+ + | Joycelyn Aguilar PA-C | PCP | | + +------+ + Encounter Details +--------+ + + + + | Date | Type | Department | Care Team | Description | +--------+ + + + + | 10/24/ | Telephone | [facility] | Mao Ayon MD | | | 2018 | | [place] | [address] | | | | | Oculoplastics at | [facility], [place] | | | | | [facility] | [address] | | | | | [place] [address] | [phone] | | | | | [facility] | | | | | | [facility], [address] [place] [address] | | | | | | [place] [address] | | | | | | [phone] | | | +--------+ + + + [...]
--- OUTSIDE RECORDS SUMMARY | ~2019-07-27 | XMS | Encounter Summary ---
Demographics + + + | Address | [address] | | | [place] [address] | + + + | Home Phone [...] Team Providers + +------+ + | Care Quality Project Manager Name | Role | Phone | + +------+ + PCP | Unavailable | + +------+ + Encounter Details +--------+ + + + + | Date | Type | Department | Care Team | Description | +--------+ + + + + | 04/15/ | Results | | Other, Faculty | | | 1992 | Only | | [phone] | | +--------+ + + + + [...] | | + +---------+ + + | [facility] DEPARTMENT OF | | | | | RADIOLOGY | | | | + +---------+ + + documented in this encounter Visit Diagnoses Not on filedocumented in this encounter"
--- OUTSIDE RECORDS SUMMARY | ~2019-07-27 | XMS | Encounter Summary ---
Demographics + + + | Address | [address] | | | [place] [address] | + + + | Home Phone | | + + + | Preferred Language | Unknown | + + + | Marital Status | Single | + + + | Mormonism Affiliation | CHR | + + + [...] Team Providers + +------+ + | Care Piping Manager Name | Role | Phone | [...] | | | | Patient NO | [facility] | | | | | | REFERRING | Mauricio Majano | | | | | | PROVIDER PER | [place] | | | | | | [place] | [address] | | | | | | | Phone: | | | | | | | [phone] | | | | | | | Fax: | | | | | | | [phone] | +--------+--------+ + + + + Encounter [...] | | | Surgery Services at | [facility] [address] | | | | | [address] | [place], [place] | | | | | [address] | [address] | | | | | Physician's | [phone] | | | | | [facility] floor | | | | | | [facility] [place] | | | | | | [address] | | | | | | [phone] | | | +--------+---------+ + + + [...] MD Otolaryngology/Head and Neck Surgery PGY2 Pager: [phone] lissa Castillo MA - 04/2010 12:45 PM [...] | + +--------+ + + + | [place] | Routin | 10/09/2010 | Tongue cancer [...]
[~2019-07-27 18:58] MED LIST changes: +MACRODANTIN100 MG PO
--- OUTSIDE RECORDS SUMMARY | 2019-07-27 19:00 | XMS ---
PreManage Notification: VICKI CHOI Security Multiskill Operator Events No recent Security Events currently on file CRITERIA MET - 6 ED Visits in 6 Months - [facility] - 2 Visits in 30 Days CARE PROVIDERS VENITA SALVADOR Physician 07/24/2019-Current PHONE: [phone] Cabrera has no Care Guidelines for this patient. Edis. VISIT COUNT (12 MO.) [address] [place] [address] TOTAL 8 NOTE: Visits indicate total known visits. ED/UCC VISIT TRACKING (12 MO.) 07/27/2019 18:58 [facility] [place] TYPE: Emergency COMPLAINT: - WEAKNESS 07/23/2019 18:55 [facility] [place] TYPE: Emergency COMPLAINT: - WEAKNESS/DIZZINESS DIAGNOSES: - Allergy status to sulfonamides status - Other intermediate project manager (current) drug therapy - Gastro-esophageal reflux disease without esophagitis - equipment operator intermodal yard (current) use of aspirin - Allergy status to other drugs, medicaments and biological sub - Dizziness and giddiness - Weakness - Hyperlipidemia, unspecified - Essential (primary) hypertension 07/16/2019 15:47 [facility] [place] TYPE: Emergency DIAGNOSES: - Urinary tract infection, site not specified - DIZZINESS AND WEAKNESS - Hematuria, unspecified - Dizziness and giddiness 07/12/2019 08:22 [facility] [place]elin [place] TYPE: Emergency COMPLAINT: - WEAKNESS, NAUSEA 06/10/2019 07:34 [facility] FabianaBashir [place] TYPE: Emergency COMPLAINT: - RASH DIAGNOSES: - Allergy status to other drugs, medicaments and biological sub - Essential (primary) hypertension - Personal history of malignant neoplasm of tongue - Other intermediate (current) drug therapy - Acquired absence of both cervix and uterus - Dermatitis, unspecified - Rash and other nonspecific skin eruption - Allergy status to sulfonamides status - Hyperlipidemia, unspecified - Gastro-esophageal reflux disease without esophagitis - Acquired absence of other organs - senior living (current) use of aspirin 05/02/2019 16:19 [facility] [place] TYPE: Emergency COMPLAINT: - FOOT PAIN/ SORE, NON INJ DIAGNOSES: - Hyperlipidemia, unspecified - Essential (primary) hypertension - Pain in right toe(s) - Other intermediate project manager (current) drug therapy - Gastro-esophageal reflux disease without esophagitis - Allergy status to sulfonamides status 09/18/2018 12:35 [facility] [place] TYPE: Emergency COMPLAINT: - FALL DIAGNOSES: - Fall on same level, unspecified, initial encounter - Other intermediate project manager (current) drug therapy - Allergy status to other drugs, medicaments and biological sub - Acquired absence of other specified parts of digestive tract - Laceration without foreign body of left forearm, initial enco - Fracture of nasal bones, initial encounter for closed fractur - senior living (current) use of aspirin - Hyperlipidemia, unspecified - Essential (primary) hypertension - Abrasion of other part of head, initial encounter - Headache - Gastro-esophageal reflux disease without esophagitis - Allergy status to sulfonamides status 08/06/2018 17:53 [facility] [place] TYPE: Emergency COMPLAINT: - DIZZINESS,VOMITING DIAGNOSES: - Allergy status to other drugs, medicaments and biological sub - Acquired absence of other specified parts of digestive tract - Essential (primary) hypertension - Hyperlipidemia, unspecified - Gastro-esophageal reflux disease without esophagitis - Dizziness and giddiness - equipment operator intermodal yard (current) use of aspirin - Allergy status to sulfonamides status - Acquired absence of both cervix and uterus - Other intermediate (current) drug therapy INPATIENT VISIT TRACKING (12 MO.) 07/12/2019 08:23 [facility] [place] TYPE: Observation COMPLAINT: - UTI DIAGNOSES: - Dehydration - Other intermediate (current) drug therapy - equipment operator intermodal yard (current) use of aspirin - Urgency of urination - Allergy status to sulfonamides status - Weakness - Essential (primary) hypertension - Unspecified glaucoma - Allergy status to other drugs, medicaments and biological sub - Urinary tract infection, site not specified - Gastro-esophageal reflux disease without esophagitis - Hyperlipidemia, unspecified [email or web address]
[2019-07-27] MEDS ORDERED: NITROFURANTOIN100 M1 PO (19:22)
--- NOTE | 2019-07-30 13:08 | EKG ---
[facility] [address] [facility] [place] [address] Signed Normal sinus rhythm Possible Inferior infarct , age undetermined Abnormal ECG When compared with ECG of 23-JUL-2019 19:06, No significant change was found Confirmed by SANDRA PACHECO MD ([id number]) on 07/30/2019 1:07:58 PM Electronically Signed By: SANDRA PACHECO MD 07/30/19 1308 PATIENT NAME: VICKI CHOI Electrocardiogram DATE OF : [birth year] PHYSICIAN: SANDRA PACHECO MD REPORT #: [id number] REPORT IS CONFIDENTIAL AND NOT TO BE RELEASED WITHOUT AUTHORIZATION
== END 2019-07-27 21:32 | disposition home or self-care (01) ==
LOC: ED 18:58
DX: R42 Dizziness and giddiness (principal); R53.1 Weakness; K21.9 Gastro-esophageal reflux disease without esophagitis; E78.5 Hyperlipidemia, unspecified; I10 Essential (primary) hypertension; Z88.2 Allergy status to sulfonamides; Z79.899 Other long term (current) drug therapy
CPT/HCPCS: 80053; 81001; 83735; 84484; 85025; 93005; 93010; 99284-25; J7030